=== PATIENT | female | born 1965 | race Caucasian/White ===

== ENCOUNTER → 2016-08-11 | Outpatient (CLI) | payer MEDICARE, MEDICAID ==
[~2016-08-11] MED LIST: /ESOM40CA OR; /ONDA4TA PO; /WARF5TA; ALAV10TA PO; ALLE25CA OR; AMITIZA OR; ATEN50TA2; BABY81CH; BISAC5TA PO; CALCTAB28 PO; CALCTAB75 PO; CARA1TAB2 PO; CLAR10CA3 PO; CLON1TAB OR; CLON1TAB PO; COLA100C2 OR; CREON 10 PO; CYCL10TA PO; DIFL150T PO; DOCQ100C PO; DRIS50002 PO; DULC5TAB PO; EMBEDA; ESTR1TAB PO; ESTRADIOL; FLONASE; FOLI1TAB; KETO-28; LEVSIN SL; LIDOPOW TOP; LIPI10TA PO; LIPI80TA; LISI5TAB PO; MELOPOW PO; METO10TA2 OR; MILKSUS; MIRALAX; MIRALAX POWDER PO; MOBI15TA PO; MOTR200T4 OR; MULTCAP PO; NEUR100C; NEXI20CA PO; NEXI20GR PO; OMEP40CA2 PO; PRIL20CA; RITA20TA OR; RITA20TA PO; ROBISYP5 PO; SAVELLA OR; SENEKOT OR; SENN8.6T76 PO; SENOKOT PO; SIME80CH PO; SKEL800T5 OR; SOMA350T; SYNT137T; THERGRAN OR; TIZA4TAB OR; TOPI50TA; TRAM50TA2 PO; TRAZO50TA PO; TYL PO; VAGI10TA VA; VALT500T OR; VALT500T PO; VICO5TAB; VICOBULK PO; VITA-130 PO; VITA200016 PO; VITAMIN D50000 UNT; VITAMIN D50000 UNT OR; ZANA4CAP OR; ZANT150T PO; ZOFR20TA PO; [UNRECOGNIZED DRUG - OTHER]; [UNRECOGNIZED DRUG - OTHER] PO; norco PO
[2016-08-11 17:05] LABS: BASO % 0.2 % (0.0-1.0); EOS # 0.1 K/mm3 (0.0-0.50); EOS % 1.1 % (0.0-3.0); LARGE UNSTAINED CELL # 0.1 K/mm3 (0.0-0.4); LARGE UNSTAINED CELL % 2.3 % (0.0-4.0); LYMPH # 1.3 K/mm3 (1.5-4.5); LYMPH % 24.8 % (24.0-44.0); MEAN CORPUSCULAR HEMOGLOBIN 29.2 pg (27.0-33.0); MEAN CORPUSCULAR HGB CONC 32.1 g/dl (32.0-36.5); MONO # 0.4 K/mm3 (0.0-0.8); MONO % 6.5 % (0.0-5.0); NEUTROPHILS # 3.5 K/mm3 (1.8-7.7); NEUTROPHILS % 65.1 % (36.0-66.0); PLATELET COUNT, AUTOMATED 189 k/mm3 (150-450); RED CELL DISTRIBUTION WIDTH 12.5 % (11.5-14.5); WHITE BLOOD COUNT 5.4 K/mm3 (4.0-10.0)
--- NOTE | 2016-08-11 17:21 | REP ---
Clinical: Acute upper respiratory tract infection. Technique: PA and lateral. Comparison: 04/11/2016. Findings: Aneurysmal dilatation to the ascending thoracic aorta is suspected based on lateral radiograph and should be correlated clinically. Lung mcelroy demonstrate chronic COPD type changes without consolidation, effusion, or pneumothorax. Skeletal structures intact. Impression: COPD without acute consolidation or effusion. Aneurysmal dilatation to the ascending thoracic aorta suspected and chest CT may be warranted. Signed by Trever Ma MD 08/11/2016 05:13 P
[2016-08-11 17:49] LABS: ANION GAP 10 MEQ/L (8-16); BLOOD UREA NITROGEN 21 MG/DL (7-18); CALCIUM LEVEL 8.6 MG/DL (8.5-10.1); CARBON DIOXIDE LEVEL 26 MEQ/L (21-32); CHLORIDE LEVEL 108 MEQ/L (98-107); CREATININE FOR GFR 0.95 MG/DL (0.55-1.02); GLOMERULAR FILTRATION RATE > 60.0 (>51); GLUCOSE, FASTING 119 MG/DL (70-105); POTASSIUM SERUM 3.9 MEQ/L (3.5-5.1); SODIUM LEVEL 144 MEQ/L (136-145)
== END ==
LOC: M LAB 16:38
PROVIDERS: ATTEND Student in an Organized Health Care Education/Training Program
DX: J06.9 Acute upper respiratory infection, unspecified (principal)

== ENCOUNTER 2016-08-16 16:07 | Emergency (ER) | payer MEDICARE, MEDICAID ==
[~2016-08-16] VITALS: Ht 172.7 cm; Wt 51.3 kg
[2016-08-16] MEDS ORDERED: TIOT18INH INH (16:45)
[2016-08-16] MEDS ORDERED: LINZ290C PO (16:45)
[2016-08-16] MEDS ORDERED: TRAZ10TA GT (16:45)
[2016-08-16] MEDS ORDERED: FIBE625T PO (16:45)
[2016-08-16] MEDS ORDERED: MIRA3350 PO (16:45)
[2016-08-16] MEDS ORDERED: NEXI1CAP4 PO (16:45)
[2016-08-16] MEDS ORDERED: MELO7.5T6 PO (16:45)
[2016-08-16] MEDS ORDERED: CLON1TAB PO (16:45)
[2016-08-16] MEDS ORDERED: ALBU17IN2 INH (16:45)
[2016-08-16] MEDS ORDERED: SENN1TAB2 PO (16:45)
[2016-08-16] MEDS ORDERED: ALBU83IN INH (16:45)
[2016-08-16] MEDS ORDERED: ADVA115A INH (16:45)
[2016-08-16] MEDS ORDERED: CALC600T57 PO (16:45)
[2016-08-16] MEDS ORDERED: NICO7DIS23 TD (16:45)
[2016-08-16] MEDS ORDERED: ASPI1TAB PO (16:53)
[2016-08-16 17:45] LABS: BASO % 0.4 % (0.0-1.0); EOS # 0.1 K/mm3 (0.0-0.50); LARGE UNSTAINED CELL # 0.2 K/mm3 (0.0-0.4); LARGE UNSTAINED CELL % 2.7 % (0.0-4.0); LYMPH # 2.4 K/mm3 (1.5-4.5); LYMPH % 34.6 % (24.0-44.0); MEAN CORPUSCULAR HEMOGLOBIN 30.9 pg (27.0-33.0); MEAN CORPUSCULAR HGB CONC 33.9 g/dl (32.0-36.5); MEAN CORPUSCULAR VOLUME 91.2 fl (80.0-96.0); MONO # 0.4 K/mm3 (0.0-0.8); MONO % 6.4 % (0.0-5.0); NEUTROPHILS # 3.5 K/mm3 (1.8-7.7); NEUTROPHILS % 54.9 % (36.0-66.0); PLATELET COUNT, AUTOMATED 169 k/mm3 (150-450); RED CELL DISTRIBUTION WIDTH 12.7 % (11.5-14.5); WHITE BLOOD COUNT 6.4 K/mm3 (4.0-10.0)
[2016-08-16 18:02] LABS: ANION GAP 8 MEQ/L (8-16); BLOOD UREA NITROGEN 21 MG/DL (7-18); CARBON DIOXIDE LEVEL 27 MEQ/L (21-32); CHLORIDE LEVEL 107 MEQ/L (98-107); CREATININE FOR GFR 0.96 MG/DL (0.55-1.02); GLOMERULAR FILTRATION RATE > 60.0 (>51); GLUCOSE, FASTING 89 MG/DL (70-105); POTASSIUM SERUM 3.4 MEQ/L (3.5-5.1); SODIUM LEVEL 142 MEQ/L (136-145)
--- NOTE | 2016-08-16 18:33 | REP ---
PORTABLE CHEST, ONE VIEW: HISTORY: Chest pain. COMPARISON: 08/11/2016 The lungs are hyperinflated. A minimal increase in interstitial markings is present in the lungs. The heart is normal in size. The pulmonary vasculature is normal in appearance. IMPRESSION: COPD. Signed by Saqib Barksdale MD 08/16/2016 06:35 P
[2016-08-16] MEDS ORDERED: PERCOCET 5MG/325MG TAB PO ONE (19:45)
[2016-08-16] MEDS ORDERED: ONDANSETRON 4MG/2ML VIAL (J2405) IV ONE (21:00)
--- NOTE | 2016-08-16 21:20 | REPUSA ---
CT of the chest without contrast Clinical statement: Shortness of breath. Technique: Multiple axial CT images were obtained with 5 mm cuts through the chest without administra tion of contrast. Comparison: . Findings: There is no thoracic lymphadenopathy. The visualized portions of the thyroid gland is unrem arkable. There are no pericardial or pleural effusions. There is severe diffuse emphysema which is gr ossly stable. No acute infiltrates or pulmonary nodules are appreciated. Limited imaging of the upper abdomen does not demonstrate any acute abnormalities. There are no suspicious osseous lesions. Impression: No acute intrapulmonary process. Severe diffuse emphysema.
[2016-08-16] MEDS ORDERED: MORPHINE 4 MG/ML 1ML SYRINGE IV ONE (22:15)
[2016-08-16 22:34] VITALS: BP 141/95
[2016-08-17] MEDS ORDERED: ONDANSETRON 4 MG ORAL DISINTEGRATING TAB (S0181) PO ONE (00:15)
--- NOTE | 2016-08-17 10:40 | ECGEPIP ---
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
== END 2016-08-17 00:26 | disposition home or self-care (01) ==
LOC: M ED 17:38
DX: R07.9 Chest pain, unspecified (principal); Z87.891 Personal history of nicotine dependence; Z79.899 Other long term (current) drug therapy; Z88.2 Allergy status to sulfonamides; Z88.8 Allergy status to other drugs, medicaments and biological substances; Z79.82 Long term (current) use of aspirin
CPT/HCPCS: 36415; 71010; 71250; 80048; 82550; 82553; 83880; 84484; 85025; 93005; 93041; 94760; 96374; 96375; 99285; J2405

== ENCOUNTER 2016-09-05 17:18 | Emergency (ER) | payer MEDICARE, MEDICAID ==
[~2016-09-05] VITALS: Ht 172.7 cm; Wt 52.2 kg
[~2016-09-05 17:18] MED LIST changes: +ADVA115A INH; +ALBU17IN2 INH; +ALBU83IN INH; +ASPI1TAB PO; +CALC600T57 PO; +FIBE625T PO; +LINZ290C PO; +MELO7.5T6 PO; +MIRA3350 PO; +NEXI1CAP4 PO; +NICO7DIS23 TD; +SENN1TAB2 PO; +TIOT18INH INH; +TRAZ10TA GT
[2016-09-05] MEDS ORDERED: HYDR-4274 PO (17:32)
[2016-09-05 18:47] LABS: MEAN CORPUSCULAR HEMOGLOBIN 31.4 pg (27.0-33.0); MEAN CORPUSCULAR HGB CONC 34.4 g/dl (32.0-36.5); MEAN CORPUSCULAR VOLUME 91.3 fl (80.0-96.0); RED CELL DISTRIBUTION WIDTH 12.2 % (11.5-14.5); WHITE BLOOD COUNT 3.6 K/mm3 (4.0-10.0)
[2016-09-05 19:06] LABS: ANION GAP 6 MEQ/L (8-16); BLOOD UREA NITROGEN 20 MG/DL (7-18); CALCIUM LEVEL 8.4 MG/DL (8.5-10.1); CARBON DIOXIDE LEVEL 28 MEQ/L (21-32); CHLORIDE LEVEL 110 MEQ/L (98-107); CREATININE FOR GFR 0.83 MG/DL (0.55-1.02); GLOMERULAR FILTRATION RATE > 60.0 (>51); GLUCOSE, FASTING 89 MG/DL (70-105); POTASSIUM SERUM 3.9 MEQ/L (3.5-5.1); SODIUM LEVEL 144 MEQ/L (136-145)
[2016-09-05] MEDS ORDERED: LORazepam 2 MG/ML VIAL (J2060) As Ordered ONE (19:31)
[2016-09-05] MEDS: LORazepam 2 MG/ML VIAL (J2060) IV STA (19:36)
--- NOTE | 2016-09-05 21:00 | REPUSA ---
CLINICAL HISTORY: -LEG NUMBNESS, NEUROPATHY TECHNIQUE: MRI of the brain was performed without administration of intravenous contrast material. T1 spine echo, T2 fast spin echo and FLAIR sequences were obtained in sagittal, axial and coronal plane s. FINDINGS: The sella and parasellar regions are unremarkable in appearance. The corpus callosum and cerebellar t onsils are of normal configuration and position. There are no intra or extra-axial collections. There is no mass effect or midline shift. There is no evidence of hematoma formation. There is no hydrocep halus. The brain stem shows no mass effects, infarcts or hemorrhage. There are no cerebellopontine tumors. T he acoustic nerves are symmetrical. No cerebellar intra-axial pathology delineated. The fourth ventri cruz and aqueduct are normal. No abnormalities of the optic nerves are identified. There is no evidenc e of atrophic or degenerative changes. No dural or subdural masses or collections are detected. The visualized arterial structures demonstrate normal appearing flow voids. The VII and VIII nerve bu ndles are visualized and are unremarkable in appearance. There are no suspicious signal abnormalities within the infra or supratentorial space. Mucosal thickening is seen involving bilateral ethmoid and maxillary sinuses compatible with chronic sinusitis. IMPRESSION: Chronic ethmoid and maxillary sinusitis, otherwise normal MRI of the brain. Thank you for your kind referral of this patient.
[2016-09-05] MEDS: KETOROLAC 30 MG/ML VIAL (J1885) IV ONE (21:57)
--- NOTE | 2016-09-05 23:20 | REPUSA ---
CLINICAL HISTORY: Leg numbness and neuropathy. TECHNIQUE: MRI of the lumbar spine was performed utilizing multiple sequences in axial and sagittal planes without IV contrast material. COMPARISON: Comparison is made with a prior study dated 08/22/2014. Overall, no significant interva l change. COMMENTS: The visualized osseous elements are intact with no evidence of fracture. Grade 1 anterolisthesis of L5 over S1 measures 5 mm. The marrow signals are within normal limits. The normal lordotic curvatur e of the lumbar spine is well maintained. The conus medullaris and cauda equina are within normal li mits. There is apparent fusion of L5-S1 and L4-L5. Moderate loss of disc space height is seen associated w ith Schmorl's nodes and chronic Modic changes. Evaluation of individual levels presents the following: At L5-S1, minimal residual bulging is seen. Canal and foramina are patent. Hypertrophic facet disea se is seen. At L4-L5, diffuse bulge is seen with spurring. Both foramina are mildly narrowed. Canal is patent. Hypertrophic facet disease contributes. At L3-L4, there is no disc herniation or bulge present. Canal and foramina are patent. Bilateral hy pertrophic facet disease is seen. L1-L2 and L2-L3 levels are unremarkable. IMPRESSION: 1. No significant interval change. 2. Grade 1 anterolisthesis of L5 over S1. 3. Postsurgical changes at L5-S1. 4. At L5-S1, minimal residual bulging is seen. Canal and foramina are patent. Hypertrophic facet di sease is seen. 5. At L4-L5, diffuse bulge is seen with spurring. Both foramina are mildly narrowed. Canal is paten t. Hypertrophic facet disease contributes. 6. At L3-L4, there is no disc herniation or bulge present. Canal and foramina are patent. Bilateral hypertrophic facet disease is seen. Thank you for your kind referral of this patient. We appreciate the opportunity to participate in thi s patient's care.
[2016-09-05 23:46] VITALS: BP 137/95
== END 2016-09-05 23:59 | disposition home or self-care (01) ==
LOC: M ED 17:57
DX: G60.9 Hereditary and idiopathic neuropathy, unspecified (principal); Z88.2 Allergy status to sulfonamides; Z88.1 Allergy status to other antibiotic agents; Z88.8 Allergy status to other drugs, medicaments and biological substances; Z79.899 Other long term (current) drug therapy; Z79.82 Long term (current) use of aspirin; I10 Essential (primary) hypertension; J44.9 Chronic obstructive pulmonary disease, unspecified; E78.00 Pure hypercholesterolemia, unspecified; Z87.442 Personal history of urinary calculi; F41.9 Anxiety disorder, unspecified; F32.9 Major depressive disorder, single episode, unspecified
CPT/HCPCS: 36415; 70551; 72148; 80048; 85027; 96374; 96375; 99284; J1885; J2060

== ENCOUNTER 2016-12-30 19:00 | Emergency (ER) | payer MEDICARE, MEDICAID ==
[~2016-12-30] VITALS: Ht 172.7 cm; Wt 58.9 kg
[~2016-12-30 19:00] MED LIST changes: +HYDR50TA70 PO; -MELO7.5T6 PO; +MELO7.5T7 PO; +NICO7DIS2 TD; -NICO7DIS23 TD; +VAGI10TA PV; -VAGI10TA VA; +VITA500T PO
[2016-12-30 19:16] VITALS: BP 196/95
[2016-12-30] MEDS ORDERED: LINZ290C PO (19:33)
[2016-12-30] MEDS ORDERED: CYMB1CAP4 PO (19:47)
[2016-12-30] MEDS: KETOROLAC 30 MG/ML VIAL (J1885) IV ONE (20:08)
[2016-12-30] MEDS: dexameTHASONE 20 MG/5 ML VIAL (J1100) IV ONE (20:16)
[2016-12-30 20:30] LABS: ABG BASE EXCESS 2.4 (-2.0-2.0); ABG HCO3 25.7 MEQ/L (22.0-26.0); ABG PARTIAL PRESSURE CO2 35.8 mmHg (35.0-45.0); ABG PARTIAL PRESSURE O2 110.6 mmHg (75.0-100.0); ABG STANDARD HCO3 26.6 MEQ/L (22.0-26.0); ABG TOTAL CO2 26.8 MEQ/L (22.0-29.0); ABG pH (ARTERIAL) 7.474 UNITS (7.350-7.450)
[2016-12-30 20:34] LABS: BASO % 0.2 % (0.0-1.0); EOS # 0.2 K/mm3 (0.0-0.50); EOS % 2.9 % (0.0-3.0); INR 1.02; LARGE UNSTAINED CELL # 0.2 K/mm3 (0.0-0.4); LARGE UNSTAINED CELL % 3.2 % (0.0-4.0); LYMPH # 1.8 K/mm3 (1.5-4.5); LYMPH % 32.7 % (24.0-44.0); MEAN CORPUSCULAR HEMOGLOBIN 30.6 pg (27.0-33.0); MEAN CORPUSCULAR HGB CONC 33.1 g/dl (32.0-36.5); MEAN CORPUSCULAR VOLUME 92.4 fl (80.0-96.0); MONO # 0.4 K/mm3 (0.0-0.8); MONO % 6.6 % (0.0-5.0); NEUTROPHILS % 54.4 % (36.0-66.0); PLATELET COUNT, AUTOMATED 157 k/mm3 (150-450); RED CELL DISTRIBUTION WIDTH 12.4 % (11.5-14.5); WHITE BLOOD COUNT 5.5 K/mm3 (4.0-10.0)
[2016-12-30 20:44] LABS: ANION GAP 5 MEQ/L (8-16); CALCIUM LEVEL 9.1 MG/DL (8.5-10.1); CARBON DIOXIDE LEVEL 27 MEQ/L (21-32); CHLORIDE LEVEL 109 MEQ/L (98-107); CREATININE FOR GFR 0.81 MG/DL (0.55-1.02); GLOMERULAR FILTRATION RATE > 60.0 (>51); GLUCOSE, FASTING 103 MG/DL (70-105); POTASSIUM SERUM 3.2 MEQ/L (3.5-5.1); SODIUM LEVEL 141 MEQ/L (136-145)
[2016-12-30 20:47] LABS: BLOOD UREA NITROGEN 16 MG/DL (7-18)
--- NOTE | 2016-12-30 21:50 | REPUSA ---
CLINICAL HISTORY: Headaches. TECHNIQUE: Multiple axial brain CT scan sections were obtained from base to vertex without contrast a dministration. COMMENTS: The study shows normal configuration of sella turcica. There are no intra or extra-axial collections. There is no mass effect or midline shift. There is no evidence of hematoma formation. No hydrocephal us is present. No abnormal calcifications are noted. No significant abnormalities are seen either in the posterior fossa or supratentorial compartment. The sinuses and mastoid air cells are patent. IMPRESSION: No evidence of acute intracranial pathology. Thank you for your kind referral of this patient.
[2016-12-30] MEDS: ACETAMINOPH W/CODEINE #3 TAB UD PO ONE (23:15)
[2016-12-31] MEDS ORDERED: PRED20TA PO (00:15)
--- NOTE | 2016-12-31 06:30 | REP ---
CHEST, TWO VIEWS: HISTORY: Chest pain. COMPARISON: 08/16/2016 The lungs are hyperinflated. A minimal increase in interstitial markings is present in the lungs. The heart is normal in size. The pulmonary vasculature is normal in appearance. The bony structure is intact. IMPRESSION: COPD. Signed by Saqib Barksdale MD 12/31/2016 07:58 A
--- NOTE | 2017-01-02 19:14 | ECGEPIP ---
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
== END 2016-12-31 00:43 | disposition home or self-care (01) ==
LOC: EDBD 19:00 → M ED 19:00
DX: J44.9 Chronic obstructive pulmonary disease, unspecified (principal); K21.9 Gastro-esophageal reflux disease without esophagitis; G89.29 Other chronic pain; Z79.51 Long term (current) use of inhaled steroids; Z79.82 Long term (current) use of aspirin; Z79.899 Other long term (current) drug therapy; Z88.2 Allergy status to sulfonamides; Z88.1 Allergy status to other antibiotic agents; Z88.5 Allergy status to narcotic agent; Z88.8 Allergy status to other drugs, medicaments and biological substances; Z91.09 Other allergy status, other than to drugs and biological substances
CPT/HCPCS: 36415; 36600; 70450; 71020; 80048; 82550; 82553; 82803; 84484; 85025; 85610; 85730; 93005; 96374; 96375; 99283; J1100; J1885

== ENCOUNTER 2017-01-04 14:08 | Emergency (ER) | payer MEDICARE, MEDICAID ==
[~2017-01-04] VITALS: Ht 172.7 cm; Wt 56.0 kg
[~2017-01-04 14:08] MED LIST changes: +CYMB1CAP4 PO; +PRED20TA PO
[2017-01-04] MEDS ORDERED: LABETALOL 100 MG TAB PO ONE (15:45)
--- NOTE | 2017-01-04 16:29 | REP ---
CT Head without contrast HISTORY: Headache COMPARISON: 12/30/2016 There is no intraparenchymal hemorrhage, acute infarct, mass or midline shift. The ventricular system is normal in appearance. The cortical sulci are dilated consistent with minimal volume loss. There is no extra cerebral collection. There is no fracture. The visualized sinuses are clear. IMPRESSION: Minimal volume loss. Signed by Saqib Barksdlae MD 01/04/2017 04:21 P
[2017-01-04 16:50] LABS: BASO % 0.2 % (0.0-1.0); EOS # 0.1 K/mm3 (0.0-0.50); EOS % 0.9 % (0.0-3.0); LARGE UNSTAINED CELL # 0.1 K/mm3 (0.0-0.4); LARGE UNSTAINED CELL % 1.6 % (0.0-4.0); LYMPH # 2.2 K/mm3 (1.5-4.5); LYMPH % 31.1 % (24.0-44.0); MEAN CORPUSCULAR HEMOGLOBIN 31.2 pg (27.0-33.0); MEAN CORPUSCULAR HGB CONC 34.2 g/dl (32.0-36.5); MEAN CORPUSCULAR VOLUME 91.2 fl (80.0-96.0); MONO # 0.5 K/mm3 (0.0-0.8); NEUTROPHILS # 4.1 K/mm3 (1.8-7.7); NEUTROPHILS % 59.2 % (36.0-66.0); PLATELET COUNT, AUTOMATED 176 k/mm3 (150-450); RED CELL DISTRIBUTION WIDTH 12.7 % (11.5-14.5); WHITE BLOOD COUNT 6.8 K/mm3 (4.0-10.0)
--- NOTE | 2017-01-04 17:03 | REP ---
Chest two views HISTORY: Hypertension Comparison: 12/30/2016 The lungs are clear. The heart is normal in size. The pulmonary vasculature is normal in appearance. The bony structure is intact. IMPRESSION: No acute disease. Signed by Saqib Barksdale MD 01/04/2017 04:54 P
[2017-01-04 17:21] LABS: ANION GAP 6 MEQ/L (8-16); BLOOD UREA NITROGEN 22 MG/DL (7-18); CALCIUM LEVEL 8.8 MG/DL (8.5-10.1); CARBON DIOXIDE LEVEL 30 MEQ/L (21-32); CHLORIDE LEVEL 106 MEQ/L (98-107); CREATININE FOR GFR 0.83 MG/DL (0.55-1.02); GLOMERULAR FILTRATION RATE > 60.0 (>51); GLUCOSE, FASTING 103 MG/DL (70-105); POTASSIUM SERUM 3.4 MEQ/L (3.5-5.1); SODIUM LEVEL 142 MEQ/L (136-145)
[2017-01-04] MEDS ORDERED: METOCLOPRAMIDE INJ 10MG/2ML VIAL (J2765) IV ONE (17:30)
[2017-01-04] MEDS ORDERED: LISINOPRIL 10 MG TAB PO ONE (18:15)
[2017-01-04 18:26] VITALS: BP 151/95
[2017-01-04] MEDS ORDERED: LISI10TA4 PO (18:31)
[2017-01-04 18:40] VITALS: BP 135/89
--- NOTE | 2017-01-04 19:52 | ECGEPIP ---
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
== END 2017-01-04 18:50 | disposition home or self-care (01) ==
LOC: M ED 14:08
DX: R51 Headache (principal); I10 Essential (primary) hypertension; J44.9 Chronic obstructive pulmonary disease, unspecified; K58.9 Irritable bowel syndrome, unspecified; M79.7 Fibromyalgia; Z88.1 Allergy status to other antibiotic agents; Z88.2 Allergy status to sulfonamides; Z88.8 Allergy status to other drugs, medicaments and biological substances; Z91.041 Radiographic dye allergy status; Z79.51 Long term (current) use of inhaled steroids; Z79.899 Other long term (current) drug therapy
CPT/HCPCS: 70450; 71020; 80048; 82550; 82553; 84484; 85025; 93005; 93041; 94760; 96374; 99284; J2765

== ENCOUNTER 2017-01-23 13:02 | Emergency (ER) | payer MEDICARE, MEDICAID ==
[~2017-01-23] VITALS: Ht 172.7 cm; Wt 59.1 kg
[~2017-01-23 13:02] MED LIST changes: +LISI10TA4 PO
[2017-01-23] MEDS ORDERED: MECLIZINE 25 MG TABLET PO ONE (15:00)
[2017-01-23 15:50] LABS: BASO % 0.2 % (0.0-1.0); EOS # 0.1 K/mm3 (0.0-0.50); EOS % 2.5 % (0.0-3.0); LARGE UNSTAINED CELL # 0.1 K/mm3 (0.0-0.4); LARGE UNSTAINED CELL % 2.4 % (0.0-4.0); LYMPH # 1.5 K/mm3 (1.5-4.5); MEAN CORPUSCULAR HEMOGLOBIN 30.3 pg (27.0-33.0); MEAN CORPUSCULAR HGB CONC 33.3 g/dl (32.0-36.5); MONO # 0.3 K/mm3 (0.0-0.8); MONO % 5.8 % (0.0-5.0); NEUTROPHILS # 2.7 K/mm3 (1.8-7.7); PLATELET COUNT, AUTOMATED 167 k/mm3 (150-450); RED CELL DISTRIBUTION WIDTH 12.7 % (11.5-14.5); WHITE BLOOD COUNT 4.6 K/mm3 (4.0-10.0)
[2017-01-23 16:09] LABS: ALBUMIN 3.4 GM/DL (3.2-5.2); ALBUMIN/GLOBULIN RATIO 1.36 (1.00-1.93); ALKALINE PHOSPHATASE 65 U/L (45-117); ALT/SGPT 30 U/L (12-78); ANION GAP 8 MEQ/L (8-16); AST/SGOT 25 U/L (15-37); BILIRUBIN,DIRECT < 0.1 MG/DL (0.0-0.2); BILIRUBIN,TOTAL 0.2 MG/DL (0.2-1.0); BLOOD UREA NITROGEN 20 MG/DL (7-18); CALCIUM LEVEL 7.8 MG/DL (8.5-10.1); CARBON DIOXIDE LEVEL 28 MEQ/L (21-32); CHLORIDE LEVEL 111 MEQ/L (98-107); GLOMERULAR FILTRATION RATE > 60.0 (>51); GLUCOSE, FASTING 92 MG/DL (70-105); SODIUM LEVEL 147 MEQ/L (136-145); TOTAL PROTEIN 5.9 GM/DL (6.4-8.2)
[2017-01-23 16:30] VITALS: BP 147/95
== END 2017-01-23 16:46 | disposition left against medical advice (07) ==
LOC: M ED 13:02 → EDBD 13:02 → M ED 16:46
DX: I10 Essential (primary) hypertension (principal); R42 Dizziness and giddiness; F32.9 Major depressive disorder, single episode, unspecified; R51 Headache; K59.9 Functional intestinal disorder, unspecified; M79.7 Fibromyalgia; M51.36 Other intervertebral disc degeneration, lumbar region; J44.9 Chronic obstructive pulmonary disease, unspecified; K58.9 Irritable bowel syndrome, unspecified; F17.200 Nicotine dependence, unspecified, uncomplicated; F12.90 Cannabis use, unspecified, uncomplicated; F41.9 Anxiety disorder, unspecified; Z87.442 Personal history of urinary calculi; Z90.49 Acquired absence of other specified parts of digestive tract; Z90.79 Acquired absence of other genital organ(s)

== ENCOUNTER → 2017-01-24 | Outpatient (REF) | payer MEDICARE, MEDICAID ==
[~2017-01-24] MED LIST changes: +CALCTAB68 PO; +ESOM0.1C PO; +FIBE625T4 PO; +LORA10TA2 PO; +MECL-68 PO; +RISP0.5T21 PO; +SERT50TA PO
== END ==
LOC: M SFHCWAGY 15:37
PROVIDERS: ATTEND Nurse Practitioner Women's Health
DX: N89.8 Other specified noninflammatory disorders of vagina (principal); L29.8 Other pruritus

== ENCOUNTER 2017-01-30 16:39 | Emergency (ER) | payer MEDICARE, MEDICAID ==
[~2017-01-30] VITALS: Ht 172.7 cm; Wt 58.2 kg
[~2017-01-30 16:39] MED LIST changes: -CALCTAB68 PO; -ESOM0.1C PO; -FIBE625T4 PO; -LORA10TA2 PO; -MECL-68 PO; -RISP0.5T21 PO; -SERT50TA PO
[2017-01-30 17:37] LABS: MEAN CORPUSCULAR HEMOGLOBIN 30.7 pg (27.0-33.0); MEAN CORPUSCULAR HGB CONC 32.7 g/dl (32.0-36.5); MEAN CORPUSCULAR VOLUME 93.9 fl (80.0-96.0); RED CELL DISTRIBUTION WIDTH 12.7 % (11.5-14.5); WHITE BLOOD COUNT 4.9 K/mm3 (4.0-10.0)
[2017-01-30 17:53] LABS: METHADONE URINE NEGATIVE (NEGATIVE)
[2017-01-30 18:02] LABS: ALBUMIN 3.8 GM/DL (3.2-5.2); ALBUMIN/GLOBULIN RATIO 1.23 (1.00-1.93); ALKALINE PHOSPHATASE 68 U/L (45-117); ALT/SGPT 28 U/L (12-78); ANION GAP 6 MEQ/L (8-16); AST/SGOT 17 U/L (15-37); BILIRUBIN,DIRECT < 0.1 MG/DL (0.0-0.2); BILIRUBIN,TOTAL 0.3 MG/DL (0.2-1.0); BLOOD UREA NITROGEN 19 MG/DL (7-18); CALCIUM LEVEL 8.7 MG/DL (8.5-10.1); CARBON DIOXIDE LEVEL 30 MEQ/L (21-32); CHLORIDE LEVEL 110 MEQ/L (98-107); CREATININE FOR GFR 0.91 MG/DL (0.55-1.02); GLOMERULAR FILTRATION RATE > 60.0 (>51); GLUCOSE, FASTING 82 MG/DL (70-105); POTASSIUM SERUM 4.1 MEQ/L (3.5-5.1); SODIUM LEVEL 146 MEQ/L (136-145); TOTAL PROTEIN 6.9 GM/DL (6.4-8.2)
[2017-01-30 19:17] VITALS: BP 142/98
[2017-01-31] MEDS ORDERED: CLON1TAB PO (12:30)
[2017-01-31] MEDS ORDERED: LISI10TA4 PO (12:33)
[2017-01-31] MEDS ORDERED: ESOM0.1C PO (17:33)
[2017-01-31] MEDS ORDERED: FIBE625T4 PO (18:26)
[2017-01-31] MEDS ORDERED: NICO7DIS2 TD (18:26)
[2017-01-31] MEDS ORDERED: MECL-68 PO (18:26)
[2017-01-31] MEDS ORDERED: LORA10TA2 PO (18:26)
[2017-01-31] MEDS ORDERED: CALCTAB68 PO (18:26)
== END 2017-01-30 19:19 | disposition home or self-care (01) ==
LOC: M ED 16:39
DX: F32.9 Major depressive disorder, single episode, unspecified (principal); F41.9 Anxiety disorder, unspecified; R51 Headache; M79.7 Fibromyalgia; F17.210 Nicotine dependence, cigarettes, uncomplicated; Z88.1 Allergy status to other antibiotic agents; Z88.2 Allergy status to sulfonamides; Z88.8 Allergy status to other drugs, medicaments and biological substances; Z91.041 Radiographic dye allergy status; Z91.048 Other nonmedicinal substance allergy status; Z79.899 Other long term (current) drug therapy

== ENCOUNTER 2017-01-31 12:18 | Inpatient (IN) | payer MEDICARE, MEDICAID ==
[~2017-01-31] VITALS: Ht 172.7 cm; Wt 58.4 kg
[2017-01-31] MEDS: NICOTINE 7 MG/24 HR TRANSDERMAL TD SCH (09:00)
[2017-01-31] MEDS ORDERED: CLON1TAB PO (12:30)
[2017-01-31] MEDS ORDERED: LISI10TA4 PO (12:33)
[2017-01-31] MEDS ORDERED: clonazePAM 1 MG TAB PO ONE (13:15)
[2017-01-31] MEDS ORDERED: LISINOPRIL 10 MG TAB PO ONE ×2 (13:15→23:00)
[2017-01-31 13:20] LABS: MEAN CORPUSCULAR HEMOGLOBIN 30.8 pg (27.0-33.0); MEAN CORPUSCULAR HGB CONC 33.4 g/dl (32.0-36.5); MEAN CORPUSCULAR VOLUME 91.2 fl (80.0-96.0); RED CELL DISTRIBUTION WIDTH 12.5 % (11.5-14.5); WHITE BLOOD COUNT 5.4 K/mm3 (4.0-10.0)
[2017-01-31] MEDS ORDERED: clonazePAM 0.5 MG TAB PO ONE (13:30)
[2017-01-31 13:41] LABS: METHADONE URINE NEGATIVE (NEGATIVE)
[2017-01-31 13:51] LABS: BLOOD UREA NITROGEN 18 MG/DL (7-18); CHLORIDE LEVEL 110 MEQ/L (98-107); CREATININE FOR GFR 0.97 MG/DL (0.55-1.02); GLOMERULAR FILTRATION RATE > 60.0 (>51); GLUCOSE, FASTING 128 MG/DL (70-105); POTASSIUM SERUM 3.9 MEQ/L (3.5-5.1); SODIUM LEVEL 145 MEQ/L (136-145)
[2017-01-31 13:52] LABS: ALBUMIN 3.9 GM/DL (3.2-5.2); ALBUMIN/GLOBULIN RATIO 1.22 (1.00-1.93); ALKALINE PHOSPHATASE 68 U/L (45-117); ALT/SGPT 31 U/L (12-78); ANION GAP 6 MEQ/L (8-16); AST/SGOT 23 U/L (15-37); BILIRUBIN,DIRECT 0.1 MG/DL (0.0-0.2); BILIRUBIN,TOTAL 0.4 MG/DL (0.2-1.0); CALCIUM LEVEL 9.3 MG/DL (8.5-10.1); CARBON DIOXIDE LEVEL 29 MEQ/L (21-32); TOTAL PROTEIN 7.1 GM/DL (6.4-8.2)
[2017-01-31] MEDS ORDERED: ESOM0.1C PO (17:33)
[2017-01-31] MEDS ORDERED: OMEPRAZOLE 20 MG CAP PO ONE (17:45)
[2017-01-31] MEDS ORDERED: NICO7DIS2 TD (18:26)
[2017-01-31] MEDS ORDERED: FIBE625T4 PO (18:26)
[2017-01-31] MEDS ORDERED: CALCTAB68 PO (18:26)
[2017-01-31] MEDS ORDERED: MECL-68 PO (18:26)
[2017-01-31] MEDS ORDERED: LORA10TA2 PO (18:26)
[2017-01-31] MEDS ORDERED: MAALOX 30 ML SUSP *UDC PO PRN (21:45)
[2017-01-31] MEDS ORDERED: MOM 30ML SUSPENSION UDC PO PRN (21:45)
[2017-01-31] MEDS ORDERED: LORazepam 1 MG TAB PO PRN (22:00)
[2017-01-31] MEDS ORDERED: LORazepam 2 MG TAB PO ONE (22:00)
[2017-01-31] MEDS ORDERED: ALBUTEROL 90 MCG/ACT 8GM HFA INHALER INH PRN (22:00)
[2017-01-31 22:29] VITALS: BP 162/98
[2017-01-31] MEDS: ADVAIR HFA 115/21MCG INHALER INH SCH (23:20)
[2017-02-01 06:53] VITALS: BP 81/56
[2017-02-01] MEDS ORDERED: LISINOPRIL 10 MG TAB PO SCH ×2 (09:00→21:00)
[2017-02-01] MEDS: NICOTINE 7 MG/24 HR TRANSDERMAL TD SCH (09:00)
[2017-02-01] MEDS ORDERED: SERTRALINE HCL 50 MG TAB PO SCH (09:00)
[2017-02-01] MEDS: ADVAIR HFA 115/21MCG INHALER INH SCH ×2 (09:09→22:19)
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
[2017-02-01] MEDS ORDERED: MIRALAX *UNIT DOSE* 17GM PACKET PO PRN (10:30)
[2017-02-01] MEDS ORDERED: FIBER-CON 625 MG TAB PO PRN (10:30)
[2017-02-01] MEDS: VITAMIN D 1,000 INTERNATIONAL UNITS TABLET PO SCH (11:14)
[2017-02-01] MEDS: LORATADINE 10 MG TAB PO SCH (11:14)
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
--- NOTE | 2017-02-01 12:04 | REP ---
CT ABDOMEN AND PELVIS WITHOUT CONTRAST: 02/01/2017. Clinical history: Abdominal pain. Comparison: 04/18/2016. Findings:CT abdomen: Noncontrast protocol with coronal and sagittal reconstructions provided. Lung bases show minor interstitial changes without pleural effusion, acute infiltrate, nodule or mass. No calcified pleural plaque. The heart is not enlarged. There is no pericardial thickening or effusion. I see no hepatosplenomegaly, focal hepatic or splenic lesion nor intrahepatic biliary dilatation. Clips from prior cholecystectomy noted, the visualized pancreas remains unremarkable. No peripancreatic edema, fluid collection or adenopathy. There are atherosclerotic calcifications of the abdominal aorta without aneurysm. Small periaortic nodes are noted without pathologic sized periaortic or other retroperitoneal/intra-abdominal lymphadenopathy. Stomach is unremarkable. There is no definite hiatal hernia. Colon and small bowel loops in the abdomen proper were intact. There is no ventral hernia. Lung window review of all CT slices in the abdomen and pelvis shows no free air, perforation or abscess. The kidneys show no evidence of hydronephrosis, stone, cyst or solid mass. No perinephric fluid. The ureters show normal course to the bladder and are without dilatation or stone anywhere along that course. Bladder without wall thickening, stone or mass. Bone windows show degenerative disc changes with fusion at L5-S1, marked disc space narrowing at L4-5 while the other disc space heights and all vertebral body heights are maintained. Bony fusion at the L5-S1 level is solid. The visualized ribs were intact. CT pelvis. The bony hips, pelvis, sacrum and SI joints grossly intact. Fusion at L5-S1 is evident and appears solid. No pelvic free fluid or adenopathy. The uterus is absent. Vaginal cuff intact. Small bowel loops unremarkable. Distal left colon, sigmoid and rectum were preserved. No ventral or inguinal hernia nor inguinal adenopathy. Small bowel loops deep pelvis intact. Impression: 1. No renal, ureteral or bladder stone. No hydronephrosis, solid or cystic mass in the kidneys. 2. Colon and small bowel loops without acute finding. 3. No gross hiatal hernia and the liver and spleen are without acute finding. 4. Prior cholecystectomy. Pancreas, adrenal glands, kidneys, bowel loops and abdominal wall were without any acute finding. Negative exam. Signed by Juan Dominguez MD 02/02/2017 08:43 A
[2017-02-01] MEDS ORDERED: LORazepam 1 MG TAB PO SCH (13:00)
[2017-02-01] MEDS: LORazepam 1 MG TAB PO SCH ×3 (14:04→22:16)
[2017-02-01] MEDS: risperiDONE 0.5 MG TAB PO SCH ×2 (14:04→22:16)
[2017-02-01] MEDS: SERTRALINE HCL 25 MG TABLET PO SCH (14:04)
[2017-02-01] MEDS: TIOTROPIUM INHALER/CAPSULE (SPIRIVA) INH SCH (14:04)
[2017-02-01] MEDS: ACETAMINOPHEN TAB 650MG DOSE (2X325MG) PO PRN (15:58)
[2017-02-01] MEDS: MECLIZINE 25 MG TABLET PO PRN (16:57)
[2017-02-01] MEDS: LINZESS 290 MG PO SCH (17:59)
[2017-02-01 18:00] VITALS: BP 131/78
[2017-02-01] MEDS: traZODone 50 MG TAB PO PRN (22:18)
[2017-02-02 06:50] VITALS: BP 89/59
[2017-02-02 08:02] LABS: BASO % 0.5 % (0.0-1.0); EOS # 0.1 K/mm3 (0.0-0.50); EOS % 2.5 % (0.0-3.0); LARGE UNSTAINED CELL # 0.2 K/mm3 (0.0-0.4); LARGE UNSTAINED CELL % 3.2 % (0.0-4.0); LYMPH # 1.8 K/mm3 (1.5-4.5); LYMPH % 37.7 % (24.0-44.0); MEAN CORPUSCULAR HEMOGLOBIN 30.6 pg (27.0-33.0); MEAN CORPUSCULAR HGB CONC 32.8 g/dl (32.0-36.5); MEAN CORPUSCULAR VOLUME 93.1 fl (80.0-96.0); MONO # 0.3 K/mm3 (0.0-0.8); MONO % 5.7 % (0.0-5.0); NEUTROPHILS # 2.4 K/mm3 (1.8-7.7); NEUTROPHILS % 50.4 % (36.0-66.0); PLATELET COUNT, AUTOMATED 180 k/mm3 (150-450); RED CELL DISTRIBUTION WIDTH 12.3 % (11.5-14.5); WHITE BLOOD COUNT 4.7 K/mm3 (4.0-10.0)
[2017-02-02] MEDS: LINZESS 290 MG PO SCH (08:08)
[2017-02-02 08:27] LABS: ALBUMIN 3.4 GM/DL (3.2-5.2); ALBUMIN/GLOBULIN RATIO 1.21 (1.00-1.93); ALKALINE PHOSPHATASE 59 U/L (45-117); ALT/SGPT 21 U/L (12-78); ANION GAP 5 MEQ/L (8-16); AST/SGOT 15 U/L (15-37); BILIRUBIN,TOTAL 0.4 MG/DL (0.2-1.0); BLOOD UREA NITROGEN 29 MG/DL (7-18); CALCIUM LEVEL 8.8 MG/DL (8.5-10.1); CARBON DIOXIDE LEVEL 33 MEQ/L (21-32); CHLORIDE LEVEL 107 MEQ/L (98-107); CREATININE FOR GFR 0.92 MG/DL (0.55-1.02); GLOMERULAR FILTRATION RATE > 60.0 (>51); GLUCOSE, FASTING 94 MG/DL (70-105); POTASSIUM SERUM 4.4 MEQ/L (3.5-5.1); SODIUM LEVEL 145 MEQ/L (136-145); TOTAL PROTEIN 6.2 GM/DL (6.4-8.2)
[2017-02-02] MEDS: LORazepam 1 MG TAB PO SCH ×2 (09:00→13:43)
[2017-02-02] MEDS: NICOTINE 7 MG/24 HR TRANSDERMAL TD SCH (09:00)
[2017-02-02] MEDS: LISINOPRIL 10 MG TAB PO SCH (09:00)
[2017-02-02] MEDS: ESOMEPRAZOLE 20 MG PO SCH (10:27)
[2017-02-02] MEDS: TIOTROPIUM INHALER/CAPSULE (SPIRIVA) INH SCH (10:31)
[2017-02-02] MEDS: ADVAIR HFA 115/21MCG INHALER INH SCH ×2 (10:32→20:33)
[2017-02-02] MEDS: VITAMIN D 1,000 INTERNATIONAL UNITS TABLET PO SCH (11:18)
[2017-02-02] MEDS: risperiDONE 0.5 MG TAB PO SCH ×2 (11:19→20:33)
[2017-02-02] MEDS: LORATADINE 10 MG TAB PO SCH (11:19)
[2017-02-02] MEDS: SERTRALINE HCL 25 MG TABLET PO SCH (11:19)
[2017-02-02] MEDS ORDERED: IBUPROFEN 400 MG TAB PO PRN (11:30)
[2017-02-02] MEDS: MECLIZINE 25 MG TABLET PO PRN ×2 (12:38→20:33)
[2017-02-02 15:20] VITALS: BP 114/78
[2017-02-02] MEDS: ACETAMINOPHEN TAB 650MG DOSE (2X325MG) PO PRN ×2 (15:48→23:47)
[2017-02-02 18:00] VITALS: BP 152/96
[2017-02-02] MEDS: LORazepam 0.5 MG TAB PO SCH (20:32)
[2017-02-02] MEDS: traZODone 50 MG TAB PO PRN (20:33)
[2017-02-03 06:27] VITALS: BP 91/54
[2017-02-03] MEDS: risperiDONE 0.5 MG TAB PO SCH (08:04)
[2017-02-03] MEDS: ESOMEPRAZOLE 20 MG PO SCH (08:04)
[2017-02-03] MEDS: LORATADINE 10 MG TAB PO SCH (08:04)
[2017-02-03] MEDS: LORazepam 0.5 MG TAB PO SCH (08:04)
[2017-02-03] MEDS: VITAMIN D 1,000 INTERNATIONAL UNITS TABLET PO SCH (08:04)
[2017-02-03] MEDS: LINZESS 290 MG PO SCH (08:05)
[2017-02-03] MEDS: ADVAIR HFA 115/21MCG INHALER INH SCH (08:05)
[2017-02-03] MEDS: TIOTROPIUM INHALER/CAPSULE (SPIRIVA) INH SCH (08:05)
[2017-02-03 08:07] VITALS: BP 91/54
[2017-02-03] MEDS: NICOTINE 7 MG/24 HR TRANSDERMAL TD SCH (08:07)
[2017-02-03] MEDS: LISINOPRIL 10 MG TAB PO SCH (08:07)
[2017-02-03] MEDS ORDERED: SERTRALINE HCL 50 MG TAB PO SCH (09:00)
[2017-02-03] MEDS ORDERED: TRAZO50TA PO (09:51)
[2017-02-03] MEDS ORDERED: SERT50TA PO (09:51)
[2017-02-03] MEDS ORDERED: RISP0.5T21 PO (09:51)
[2017-02-03] MEDS: ACETAMINOPHEN TAB 650MG DOSE (2X325MG) PO PRN (10:28)
[2017-02-03] MEDS: MECLIZINE 25 MG TABLET PO PRN (10:28)
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
--- NOTE | 2017-02-04 19:11 | MHIPN ---
DATE: 02/02/2017 A 51-year-old female with history of posttraumatic stress disorder (PTSD), major depressive disorder, severe, recurrent, without psychotic symptoms, and marijuana use disorder. SUBJECTIVE: The patient reports feeling well today. Says she slept very well. She has not slept in years and she is happy because of that. She states she continues to have problems related to her irritable bowel syndrome problem, knows that her mother is okay but cannot continue worrying about mom. The patient has made a decision to live her life and detach a little bit from mom because this enmeshed relationship is hurting her. OBJECTIVE: The patient is alert and oriented times three, cooperative with interview, with spontaneous speech, intact thought process and coherent thought content. The patient's mood fluctuates. Occasionally she becomes tearful but she is less sad and less depressed than yesterday. She jokes, smiles, and those are positive changes since yesterday. She denies any suicidal or homicidal ideations, denies thought delusions, denies auditory or visual hallucinations. Her memory is intact, attention and concentration are good, judgment and insight are slowly improving. ASSESSMENT: The patient is less depressed than yesterday, has a more reactive and appropriate affect, complains less of physical problems although she continues to talk about abdominal problems related to IBS. I spoke with the patient about the possibility of being discharge tomorrow and she has accepted since the patient has had a good response to medication and she is not suicidal and not homicidal. We will monitor closely and will followup.
== END 2017-02-03 11:50 | disposition home or self-care (01) | DRG 882 ==
LOC: M ED 12:18 → M ED INP 18:40 → M PSY 20:34
PROVIDERS: ADMIT Psychiatry & Neurology Psychiatry; ATTEND Psychiatry & Neurology Psychiatry
DX: F43.10 Post-traumatic stress disorder, unspecified (principal); F31.81 Bipolar II disorder; F60.3 Borderline personality disorder; F12.10 Cannabis abuse, uncomplicated; M51.36 Other intervertebral disc degeneration, lumbar region; G62.9 Polyneuropathy, unspecified; F41.9 Anxiety disorder, unspecified; J44.9 Chronic obstructive pulmonary disease, unspecified; K58.2 Mixed irritable bowel syndrome; M79.7 Fibromyalgia; J30.9 Allergic rhinitis, unspecified; K21.9 Gastro-esophageal reflux disease without esophagitis; R42 Dizziness and giddiness; Z87.440 Personal history of urinary (tract) infections; Z62.810 Personal history of physical and sexual abuse in childhood; Z91.410 Personal history of adult physical and sexual abuse; Z81.8 Family history of other mental and behavioral disorders; Z79.899 Other long term (current) drug therapy; Z88.2 Allergy status to sulfonamides; Z87.442 Personal history of urinary calculi; Z88.5 Allergy status to narcotic agent; Z88.8 Allergy status to other drugs, medicaments and biological substances; Z91.048 Other nonmedicinal substance allergy status; Z87.891 Personal history of nicotine dependence; Z91.5 Personal history of self-harm

== ENCOUNTER → 2017-03-20 | Outpatient (REF) | payer MEDICARE, MEDICAID ==
[~2017-03-20] MED LIST changes: +CALCTAB68 PO; +ESOM0.1C PO; +FIBE625T4 PO; +LORA10TA2 PO; +MECL-68 PO; +RISP0.5T21 PO; +SERT50TA PO
== END ==
LOC: M SFHCPLAZ 13:54
PROVIDERS: ATTEND Family Medicine
DX: E55.9 Vitamin D deficiency, unspecified (principal)

== ENCOUNTER → 2017-07-19 | Outpatient (CLI) | payer MEDICARE, MEDICAID | LOC: M SLEEP HO 14:34 | DX: R40.0 Somnolence (principal); R06.83 Snoring | CPT/HCPCS: G0399 ==

== ENCOUNTER → 2017-08-01 | Outpatient (CLI) | payer MEDICARE, MEDICAID | LOC: M WHC 15:01 | DX: Z12.31 Encounter for screening mammogram for malignant neoplasm of breast (principal); Z78.0 Asymptomatic menopausal state; Z92.29 Personal history of other drug therapy | CPT/HCPCS: 77067 ==

== ENCOUNTER → 2017-09-04 | Outpatient (REF) | payer MEDICARE, MEDICAID ==
[2017-09-04 18:32] LABS: AMORPHOUS SEDIMENT LARGE (NEGATIVE); APPEARANCE, URINE TURBID (CLEAR); BACTERIA, URINE AUTO NEGATIVE (NEGATIVE); BILIRUBIN, URINE AUTO NEGATIVE (NEGATIVE); BLOOD, URINE BLOOD NEGATIVE (NEGATIVE); CALCIUM OXALATE CRYSTALS SMALL; COLOR, URINE YELLOW (YELLOW); GLUCOSE, URINE (UA) AUTO NEGATIVE (NEGATIVE); KETONE, URINE AUTO NEGATIVE (NEGATIVE); LEUKOCYTE ESTERASE, URINE AUTO TRACE (NEGATIVE); NITRITE, URINE AUTO NEGATIVE (NEGATIVE); PROTEIN, URINE AUTO NEGATIVE (NEGATIVE); RBC, URINE AUTO 2 /HPF (0-3); SPECIFIC GRAVITY URINE AUTO 1.021 (1.002-1.035); SQUAMOUS EPITHELIAL CELL UR AU 0 /HPF (0-6); UROBILINOGEN, URINE AUTO 0.2 mg/dL (0.0-2.0); WBC, URINE AUTO 5 /HPF (0-3)
== END ==
LOC: M SMT 17:13
DX: N39.3 Stress incontinence (female) (male) (principal)
CPT/HCPCS: 81001

== ENCOUNTER → 2017-09-05 | Outpatient (CLI) | payer MEDICARE, MEDICAID | LOC: M RAD 16:14 | DX: R49.0 Dysphonia (principal) | CPT/HCPCS: 70490 ==

== ENCOUNTER 2017-11-01 13:55 | Emergency (ER) | payer MEDICARE, MEDICAID ==
[2017-11-01 15:06] LABS: BILIRUBIN, URINE MANUAL NEGATIVE (NEGATIVE); BLOOD URINE MANUAL RFX POSITIVE (NEGATIVE); GLUCOSE, URINE (UA) MANUAL NEGATIVE (NEGATIVE); KETONE, URINE MANUAL NEGATIVE (NEGATIVE); NITRITE, URINE MANUAL RFX NEGATIVE (NEGATIVE); PROTEIN, URINE MANUAL REFLEX 2+ mg/dL (NEGATIVE); UROBILINOGEN, URINE MANUAL NORMAL (NORMAL)
[2017-11-01 15:09] LABS: SP GRAVITY,URINE MANUAL REFLEX 1.022 (1.002-1.035)
[2017-11-01 15:16] LABS: AMORPHOUS SEDIMENT, URINE MOD AMOUNT (NEGATIVE); BACTERIA, URINE MOD AMOUNT; MUCUS, URINE SMALL AMOUNT (NEGATIVE); RBC, URINE TNTC /hpf (0-3); SQUAMOUS EPITHELIAL CELL URINE LARGE AMOUNT /hpf (SMALL AMT); WBC, URINE MAN RFX TNTC /hpf (0-3)
[2017-11-01 15:17] LABS: HYALINE CAST, URINE 0-1 /lpf (0-1); MICROSCOPIC EXAM PERFORMED
[2017-11-01] MEDS: ONDANSETRON 4MG/2ML VIAL (J2405) IV (15:30)
[2017-11-01] MEDS: MORPHINE 4 MG/ML 1ML VIAL/SYRINGE (J2270) IV (15:31)
[2017-11-01] MEDS: NS 1,000 ML IV (15:32)
[2017-11-01 15:35] LABS: BASO % 0.3 % (0.0-1.0); EOS # 0.1 10^3/uL (0.0-0.50); EOS % 1.2 % (0.0-3.0); HEMATOCRIT 44.1 % (36.0-47.0); HEMOGLOBIN 14.2 g/dl (12.0-15.5); IMMATURE GRANULOCYTE % 0.3 % (0-3.0); LYMPH # 0.9 10^3/uL (1.5-4.5); LYMPH % 15.4 % (24.0-44.0); MEAN CORPUSCULAR HEMOGLOBIN 28.9 pg (27.0-33.0); MEAN CORPUSCULAR HGB CONC 32.2 g/dl (32.0-36.5); MEAN CORPUSCULAR VOLUME 89.6 fl (80.0-96.0); MONO # 0.7 10^3/uL (0.0-0.8); MONO % 11.4 % (0.0-5.0); NEUTROPHILS # 4.3 10^3/uL (1.8-7.7); NEUTROPHILS % 71.4 % (36.0-66.0); PLATELET COUNT, AUTOMATED 149 10^3/uL (150-450); RED BLOOD COUNT 4.92 10^6/uL (4.00-5.40); RED CELL DISTRIBUTION WIDTH 13.3 % (11.5-14.5)
[2017-11-01 16:09] LABS: ANION GAP 5 MEQ/L (8-16); BLOOD UREA NITROGEN 19 MG/DL (7-18); CALCIUM LEVEL 8.8 MG/DL (8.5-10.1); CARBON DIOXIDE LEVEL 27 MEQ/L (21-32); CHLORIDE LEVEL 110 MEQ/L (98-107); CREATININE FOR GFR 1.12 MG/DL (0.55-1.30); GLUCOSE, FASTING 105 MG/DL (70-100); POTASSIUM SERUM 3.9 MEQ/L (3.5-5.1); SODIUM LEVEL 142 MEQ/L (136-145)
[2017-11-01] MEDS: KETOROLAC 30 MG/ML VIAL (J1885) IV (16:21)
== END 2017-11-01 17:25 | disposition home or self-care (01) ==
LOC: M ED 13:55
DX: N30.01 Acute cystitis with hematuria (principal); N10 Acute pyelonephritis; Z87.442 Personal history of urinary calculi; Z87.440 Personal history of urinary (tract) infections; Z88.8 Allergy status to other drugs, medicaments and biological substances; Z88.1 Allergy status to other antibiotic agents; Z88.5 Allergy status to narcotic agent; Z88.2 Allergy status to sulfonamides; Z91.048 Other nonmedicinal substance allergy status; Z79.899 Other long term (current) drug therapy; Z79.51 Long term (current) use of inhaled steroids
CPT/HCPCS: J2270

== ENCOUNTER 2017-11-22 14:08 | Emergency (ER) | payer MEDICARE, MEDICAID ==
[2017-11-22] MEDS: diphenhydrAMINE INJ 50MG/ML VIAL (J1200) IV (14:33)
[2017-11-22] MEDS: METOCLOPRAMIDE INJ 10MG/2ML VIAL (J2765) IV (14:45)
[2017-11-22] MEDS: KETOROLAC 30 MG/ML VIAL (J1885) IV (14:45)
[2017-11-22] MEDS: NS 1,000 ML IV (14:45)
[2017-11-22 15:02] LABS: BASO % 0.4 % (0.0-1.0); EOS % 0.6 % (0.0-3.0); HEMATOCRIT 43.6 % (36.0-47.0); HEMOGLOBIN 14.1 g/dl (12.0-15.5); IMMATURE GRANULOCYTE % 0.6 % (0-3.0); LYMPH # 1.2 10^3/uL (1.5-4.5); LYMPH % 18.1 % (24.0-44.0); MEAN CORPUSCULAR HGB CONC 32.3 g/dl (32.0-36.5); MEAN CORPUSCULAR VOLUME 89.5 fl (80.0-96.0); MONO # 0.4 10^3/uL (0.0-0.8); MONO % 6.4 % (0.0-5.0); NEUTROPHILS % 73.9 % (36.0-66.0); PLATELET COUNT, AUTOMATED 163 10^3/uL (150-450); RED BLOOD COUNT 4.87 10^6/uL (4.00-5.40); RED CELL DISTRIBUTION WIDTH 13.2 % (11.5-14.5); WHITE BLOOD COUNT 6.7 10^3/uL (4.0-10.0)
[2017-11-22 15:33] LABS: ANION GAP 8 MEQ/L (8-16); BLOOD UREA NITROGEN 13 MG/DL (7-18); CARBON DIOXIDE LEVEL 24 MEQ/L (21-32); CHLORIDE LEVEL 111 MEQ/L (98-107); CREATININE FOR GFR 1.04 MG/DL (0.55-1.30); GLOMERULAR FILTRATION RATE 58.8 (>51); GLUCOSE, FASTING 118 MG/DL (70-100); MAGNESIUM LEVEL 1.8 MG/DL (1.8-2.4); POTASSIUM SERUM 3.6 MEQ/L (3.5-5.1); SODIUM LEVEL 143 MEQ/L (136-145)
[2017-11-22] MEDS: ACETAMINOPHEN 325 MG TAB PO (15:36)
== END 2017-11-22 16:30 | disposition home or self-care (01) ==
LOC: M ED 14:08
DX: G44.209 Tension-type headache, unspecified, not intractable (principal); F41.9 Anxiety disorder, unspecified; F33.9 Major depressive disorder, recurrent, unspecified; Z86.69 Personal history of other diseases of the nervous system and sense organs; Z98.890 Other specified postprocedural states; Z86.718 Personal history of other venous thrombosis and embolism
CPT/HCPCS: J1200

== ENCOUNTER → 2017-11-28 | Outpatient (CLI) | payer MEDICARE, MEDICAID | LOC: M CARPUL 14:22 | DX: J43.1 Panlobular emphysema (principal) | CPT/HCPCS: 94060 ==

== ENCOUNTER → 2018-01-10 | Outpatient (CLI) | payer MEDICARE, MEDICAID | LOC: M SLEEP 19:44 | DX: R40.0 Somnolence (principal); R09.02 Hypoxemia | CPT/HCPCS: 95810 ==

== ENCOUNTER → 2018-05-07 | Outpatient (REF) | payer MEDICARE, MEDICAID ==
[2018-05-07 19:06] LABS: ESTIMATED AVERAGE GLUCOSE 114 MG/DL (60-110); HEMOGLOBIN A1c 5.6 %
== END ==
LOC: M SFHCPLAZ 16:01
DX: Z13.1 Encounter for screening for diabetes mellitus (principal); Z11.59 Encounter for screening for other viral diseases
CPT/HCPCS: 83036

== ENCOUNTER 2018-06-27 14:26 | Emergency (ER) | payer MEDICARE, MEDICAID ==
[~2018-06-27] VITALS: Ht 175.3 cm; Wt 59.1 kg
[~2018-06-27 14:26] MED LIST changes: +CIPR-249 PO; -CLON1TAB PO; +CLON1TAB8 PO; +CYCL5TAB PO; -DRIS50002 PO; +DRIS50003 PO; +IBUP80TA PO; -LORA10TA2 PO; +LORA10TA3 PO; +METH20TA29 PO; +PERC5TAB12 PO; +PYRI1TAB5 PO; +SERT-138 PO; -ZOFR20TA PO; +ZOFR4TAB16 PO
[2018-06-27] MEDS ORDERED: SERT-138 (14:42)
[2018-06-27] MEDS ORDERED: HYDR-643 (14:42)
[2018-06-27] MEDS ORDERED: NS 500 ML IV ONE (15:00)
[2018-06-27] MEDS ORDERED: ONDANSETRON 4MG/2ML VIAL (J2405) IV ONE (15:00)
[2018-06-27 15:19] LABS: BASO % 0.4 % (0.0-1.0); EOS # 0.1 10^3/uL (0.0-0.50); HEMOGLOBIN 14.1 g/dl (12.0-15.5); LYMPH # 0.9 10^3/uL (1.5-4.5); LYMPH % 18.8 % (24.0-44.0); MEAN CORPUSCULAR HEMOGLOBIN 28.8 pg (27.0-33.0); MEAN CORPUSCULAR HGB CONC 32.8 g/dl (32.0-36.5); MEAN CORPUSCULAR VOLUME 87.9 fl (80.0-96.0); MONO # 0.3 10^3/uL (0.0-0.8); MONO % 6.2 % (0.0-5.0); NEUTROPHILS # 3.7 10^3/uL (1.8-7.7); NEUTROPHILS % 73.4 % (36.0-66.0); PLATELET COUNT, AUTOMATED 154 10^3/uL (150-450); RED BLOOD COUNT 4.89 10^6/uL (4.00-5.40)
[2018-06-27 15:26] LABS: ALBUMIN 3.8 GM/DL (3.2-5.2); ALT/SGPT 12 U/L (12-78); BILIRUBIN,DIRECT < 0.1 MG/DL (0.0-0.2); BILIRUBIN,TOTAL 0.3 MG/DL (0.2-1.0); BLOOD UREA NITROGEN 9 MG/DL (7-18); CALCIUM LEVEL 8.6 MG/DL (8.5-10.1); CARBON DIOXIDE LEVEL 24 MEQ/L (21-32); CHLORIDE LEVEL 110 MEQ/L (98-107); CREATININE FOR GFR 0.96 MG/DL (0.55-1.30); GLOMERULAR FILTRATION RATE > 60.0 (>51); GLUCOSE, FASTING 120 MG/DL (70-100); LIPASE 122 U/L (73-393); POTASSIUM SERUM 3.2 MEQ/L (3.5-5.1); SODIUM LEVEL 141 MEQ/L (136-145); TOTAL PROTEIN 7.1 GM/DL (6.4-8.2)
[2018-06-27 15:28] LABS: INFLUENZA A AMPLIFICATION NEGATIVE (NEGATIVE); INFLUENZA B AMPLIFICATION NEGATIVE (NEGATIVE)
[2018-06-27] MEDS ORDERED: ACETAMINOPHEN TAB 650MG DOSE (2X325MG) As Ordered ONE (15:41)
[2018-06-27] MEDS ORDERED: ACETAMINOPHEN TAB 650MG DOSE (2X325MG) PO ONE (15:45)
--- NOTE | 2018-06-27 15:59 | REP ---
ABDOMEN, FLAT AND UPRIGHT PA CHEST, THREE VIEWS: HISTORY: Cough. COMPARISON: 04/11/2016 Air is present in small and large intestine. Several air fluid levels are present. There are no dilated loops of intestine. There is no pneumoperitoneum. The lungs are clear. IMPRESSION: Nonspecific bowel gas pattern. Electronically Signed by Saqib Barksdale MD 06/27/2018 04:10 P
[2018-06-27] MEDS ORDERED: POTASSIUM CHLORIDE 10 MEQ SR TABLET PO ONE (16:00)
[2018-06-27 17:05] VITALS: BP 147/87
== END 2018-06-27 17:07 | disposition home or self-care (01) ==
LOC: M ED 14:26
DX: A08.4 Viral intestinal infection, unspecified (principal); E87.6 Hypokalemia; I10 Essential (primary) hypertension; J44.9 Chronic obstructive pulmonary disease, unspecified; Z88.2 Allergy status to sulfonamides; Z79.899 Other long term (current) drug therapy; Z88.5 Allergy status to narcotic agent; Z88.8 Allergy status to other drugs, medicaments and biological substances; Z91.048 Other nonmedicinal substance allergy status; Z87.891 Personal history of nicotine dependence
CPT/HCPCS: 74021; 80048; 80076; 81001; 83690; 85025; 87502; 96374; 99284; J2405

== ENCOUNTER 2018-07-02 10:49 | Emergency (ER) | payer MEDICARE, MEDICAID ==
[~2018-07-02] VITALS: Ht 175.3 cm; Wt 57.9 kg
[~2018-07-02 10:49] MED LIST changes: +HYDR-643; +SERT-138
[2018-07-02] MEDS ORDERED: LORazepam 0.5 MG TAB PO STA (11:24)
[2018-07-02] MEDS ORDERED: NS 1,000 ML IV ONE (11:30)
[2018-07-02] MEDS ORDERED: ASPIRIN 81 MG CHEW TABLET PO ONE (11:30)
--- NOTE | 2018-07-02 12:13 | REP ---
CT Head without contrast HISTORY: Hallucinations COMPARISON: 11/22/2017 There is no intraparenchymal hemorrhage, acute infarct, mass or midline shift. The ventricular system is normal in appearance. There is no extra cerebral collection. There is no fracture. The visualized sinuses are clear. IMPRESSION: There is no intracranial lesion. Electronically Signed by Saqib Barksdale MD 07/02/2018 12:05 P
[2018-07-02 12:18] LABS: AMPHETAMINES LEVEL URINE NEGATIVE (NEGATIVE); BARBITURATES URINE NEGATIVE (NEGATIVE); BENZODIAZEPINES URINE NEGATIVE (NEGATIVE); CANNABINOIDS URINE POSITIVE (NEGATIVE); COCAINE METABOLITE URINE NEGATIVE (NEGATIVE); METHADONE URINE NEGATIVE (NEGATIVE); OPIATES URINE NEGATIVE (NEGATIVE); PHENCYCLIDINE URINE NEGATIVE (NEGATIVE)
--- NOTE | 2018-07-02 12:36 | REP ---
Chest one-view HISTORY: Cough Comparison: 01/04/2017 A minimal increase in interstitial markings is present in the lungs consistent with chronic interstitial change. The heart is normal in size. The pulmonary vasculature is normal in appearance. Impression: Chronic interstitial change. Electronically Signed by Saqib Barksdale MD 07/02/2018 12:28 P
[2018-07-02 13:00] LABS: BASO % 0.4 % (0.0-1.0); EOS # 0.1 10^3/uL (0.0-0.50); HEMATOCRIT 41.2 % (36.0-47.0); HEMOGLOBIN 13.5 g/dl (12.0-15.5); LYMPH % 19.2 % (24.0-44.0); MEAN CORPUSCULAR HEMOGLOBIN 28.7 pg (27.0-33.0); MEAN CORPUSCULAR HGB CONC 32.8 g/dl (32.0-36.5); MEAN CORPUSCULAR VOLUME 87.7 fl (80.0-96.0); MONO # 0.4 10^3/uL (0.0-0.8); MONO % 7.8 % (0.0-5.0); NEUTROPHILS # 3.7 10^3/uL (1.8-7.7); PLATELET COUNT, AUTOMATED 163 10^3/uL (150-450); WHITE BLOOD COUNT 5.2 10^3/uL (4.0-10.0)
[2018-07-02 13:03] LABS: VENOUS BASE EXCESS -0.9 (-2.0-2.0); VENOUS O2 SATURATION 78.4 % (60.0-80.0); VENOUS PARTIAL PRESSURE CO2 35.7 mmHg (38.0-50.0); VENOUS PARTIAL PRESSURE O2 42.5 mmHg (30.0-50.0); VENOUS PH 7.426 UNITS (7.330-7.430); VENOUS STANDARD HCO3 23.3 MEQ/L
[2018-07-02] MEDS ORDERED: amLODIPine 5 MG TAB PO ONE (13:15)
[2018-07-02 13:32] LABS: ALBUMIN 4.1 GM/DL (3.2-5.2); ALT/SGPT 14 U/L (12-78); BILIRUBIN,DIRECT 0.1 MG/DL (0.0-0.2); BILIRUBIN,TOTAL 0.5 MG/DL (0.2-1.0); CPK CREATINE PHOSPHOKINASE 118 U/L (26-192); MB/CK RELATIVE INDEX 1.95 (< OR =4); TROPONIN I < 0.02 NG/ML (< 0.10)
[2018-07-02 13:34] LABS: ALBUMIN 3.8 GM/DL (3.2-5.2); ALT/SGPT 14 U/L (12-78); BILIRUBIN,DIRECT 0.1 MG/DL (0.0-0.2); BILIRUBIN,TOTAL 0.4 MG/DL (0.2-1.0); BLOOD UREA NITROGEN 17 MG/DL (7-18); CALCIUM LEVEL 8.7 MG/DL (8.5-10.1); CARBON DIOXIDE LEVEL 24 MEQ/L (21-32); CHLORIDE LEVEL 109 MEQ/L (98-107); CPK CREATINE PHOSPHOKINASE 115 U/L (26-192); CREATININE FOR GFR 0.91 MG/DL (0.55-1.30); GLOMERULAR FILTRATION RATE > 60.0 (>51); GLUCOSE, FASTING 93 MG/DL (70-100); MB/CK RELATIVE INDEX 2.09 (< OR =4); NT-PRO BNP 413 PG/ML (<125); POTASSIUM SERUM 3.6 MEQ/L (3.5-5.1); SODIUM LEVEL 144 MEQ/L (136-145); TOTAL PROTEIN 7.3 GM/DL (6.4-8.2); TROPONIN I < 0.02 NG/ML (< 0.10)
[2018-07-02 13:35] LABS: INR 1.02; PROTHROMBIN TIME 13.5 SECONDS (12.1-14.4)
[2018-07-02 13:41] VITALS: BP 168/93
[2018-07-02] MEDS ORDERED: LUNE2TAB23 PO (14:20)
[2018-07-02] MEDS ORDERED: AMLO25TA PO (14:23)
--- NOTE | 2018-07-02 14:50 | ECGEPIP ---
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
[2018-07-02 14:51] VITALS: BP 155/98
== END 2018-07-02 15:00 | disposition home or self-care (01) ==
LOC: M ED 10:49
DX: R44.3 Hallucinations, unspecified (principal); R07.89 Other chest pain; F41.9 Anxiety disorder, unspecified; I10 Essential (primary) hypertension; G47.00 Insomnia, unspecified; R94.6 Abnormal results of thyroid function studies; J44.9 Chronic obstructive pulmonary disease, unspecified; E78.5 Hyperlipidemia, unspecified

== ENCOUNTER 2018-07-03 16:32 | Emergency (ER) | payer MEDICARE, MEDICAID ==
[~2018-07-03] VITALS: Ht 172.7 cm; Wt 59.1 kg
[~2018-07-03 16:32] MED LIST changes: +AMLO25TA PO; +LUNE2TAB23 PO
[2018-07-03 18:14] LABS: APPEARANCE, URINE CLEAR (CLEAR); BACTERIA, URINE AUTO NEGATIVE (NEGATIVE); BILIRUBIN, URINE AUTO NEGATIVE (NEGATIVE); BLOOD, URINE BLOOD 2+ (NEGATIVE); COLOR, URINE STRAW (YELLOW); GLUCOSE, URINE (UA) AUTO NEGATIVE (NEGATIVE); KETONE, URINE AUTO NEGATIVE (NEGATIVE); LEUKOCYTE ESTERASE, URINE AUTO NEGATIVE (NEGATIVE); MUCUS, URINE SMALL (NEGATIVE); NITRITE, URINE AUTO NEGATIVE (NEGATIVE); PROTEIN, URINE AUTO NEGATIVE (NEGATIVE); RBC, URINE AUTO 1 /HPF (0-3); SPECIFIC GRAVITY URINE AUTO 1.006 (1.002-1.035); SQUAMOUS EPITHELIAL CELL UR AU 0 /HPF (0-6); UROBILINOGEN, URINE AUTO 0.2 mg/dL (0.0-2.0); WBC, URINE AUTO 1 /HPF (0-3)
--- NOTE | 2018-07-03 18:15 | REPVR ---
EXAM: CT Head Without Contrast EXAM DATE/TIME: 07/03/2018 6:02 PM CLINICAL HISTORY: 53 years old, female; Pain; Headache; Headache not specified TECHNIQUE: Axial computed tomography images of the head/brain without contrast. All CT scans at this facility use at least one of these dose optimization techniques: automated exposure control; mA and/or kV adjustment per patient size (includes targeted exams where dose is matched to clinical indication); or iterative reconstruction. COMPARISON: CT Head without contrast 07/02/2018 11:46 AM FINDINGS: Brain: There is no evidence of infarct, blackburn-white matter differentiation is preserved. There is no hemorrhage or extra-axial collection. There is no mass. Ventricles: There is no hydrocephalus. Bones/joints: Normal. No acute fracture. Sinuses: Normal as visualized. No acute sinusitis. Mastoid air cells: Normal as visualized. No mastoid effusion. Soft tissues: Normal. IMPRESSION: No intracranial lesion or injury and no change from prior scan. Electronically signed by: Dirk Guan On 07/03/2018 18:15:17 PM
[2018-07-03 18:28] LABS: BASO % 0.3 % (0.0-1.0); EOS # 0.1 10^3/uL (0.0-0.50); EOS % 1.2 % (0.0-3.0); HEMATOCRIT 42.6 % (36.0-47.0); HEMOGLOBIN 13.8 g/dl (12.0-15.5); LYMPH # 1.3 10^3/uL (1.5-4.5); LYMPH % 22.2 % (24.0-44.0); MEAN CORPUSCULAR HEMOGLOBIN 28.7 pg (27.0-33.0); MEAN CORPUSCULAR HGB CONC 32.4 g/dl (32.0-36.5); MEAN CORPUSCULAR VOLUME 88.6 fl (80.0-96.0); MONO # 0.5 10^3/uL (0.0-0.8); NEUTROPHILS # 3.9 10^3/uL (1.8-7.7); PLATELET COUNT, AUTOMATED 172 10^3/uL (150-450); RED BLOOD COUNT 4.81 10^6/uL (4.00-5.40); WHITE BLOOD COUNT 5.7 10^3/uL (4.0-10.0)
[2018-07-03] MEDS ORDERED: LISINOPRIL 10 MG TAB PO ONE (18:30)
[2018-07-03] MEDS ORDERED: amLODIPine 10 MG TAB PO ONE (18:30)
[2018-07-03] MEDS ORDERED: LORazepam 2 MG/ML VIAL (J2060) IV STA (18:30)
[2018-07-03] MEDS ORDERED: KETOROLAC 30 MG/ML VIAL (J1885) IV ONE (18:30)
[2018-07-03] MEDS ORDERED: METOCLOPRAMIDE INJ 10MG/2ML VIAL (J2765) IV ONE (18:30)
[2018-07-03 18:55] LABS: BLOOD UREA NITROGEN 11 MG/DL (7-18); CARBON DIOXIDE LEVEL 22 MEQ/L (21-32); CHLORIDE LEVEL 114 MEQ/L (98-107); CREATININE FOR GFR 0.65 MG/DL (0.55-1.30); GLOMERULAR FILTRATION RATE > 60.0 (>51); GLUCOSE, FASTING 88 MG/DL (70-100); POTASSIUM SERUM 3.2 MEQ/L (3.5-5.1); SODIUM LEVEL 146 MEQ/L (136-145)
[2018-07-03 19:05] VITALS: BP 147/96
[2018-07-03 20:15] VITALS: BP 131/91
--- NOTE | 2018-07-03 20:25 | ECGEPIP ---
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
== END 2018-07-03 20:45 | disposition home or self-care (01) ==
LOC: M ED 16:32 → EDBD 16:32 → M ED 20:45
DX: I10 Essential (primary) hypertension (principal); F41.9 Anxiety disorder, unspecified; E83.51 Hypocalcemia; E87.6 Hypokalemia; M79.7 Fibromyalgia; J45.909 Unspecified asthma, uncomplicated; F17.200 Nicotine dependence, unspecified, uncomplicated; Z88.8 Allergy status to other drugs, medicaments and biological substances; Z88.1 Allergy status to other antibiotic agents; Z88.5 Allergy status to narcotic agent; Z88.2 Allergy status to sulfonamides; Z91.048 Other nonmedicinal substance allergy status; Z79.899 Other long term (current) drug therapy; Z79.51 Long term (current) use of inhaled steroids
CPT/HCPCS: 70450; 80048; 81001; 85025; 93005; 96374; 96375; 99285; J1885; J2060; J2765

== ENCOUNTER 2018-09-27 10:55 | Emergency (ER) | payer MEDICARE, MEDICAID ==
[~2018-09-27] VITALS: Ht 172.7 cm; Wt 57.3 kg
[~2018-09-27 10:55] MED LIST changes: -/ESOM40CA OR; -/ONDA4TA PO; -/WARF5TA; -ASPI1TAB PO; +ASPI81TA26 PO; +CALC625T13 PO; +COUM1TAB17; -FIBE625T4 PO; +NEXI1CAP3 OR; +ONDA-1 PO; -SENN1TAB2 PO; +SENN1TAB40 PO; -SERT-138; +SERT-141 PO; -SERT50TA PO; +TRAZ1TAB6 PO
[2018-09-27] MEDS ORDERED: ASPI81CH33 PO (11:17)
[2018-09-27] MEDS ORDERED: CALC-205 PO (11:17)
[2018-09-27] MEDS ORDERED: VALS1TAB67 PO (11:17)
[2018-09-27 11:39] LABS: BASO % 0.4 % (0.0-1.0); EOS # 0.1 10^3/uL (0.0-0.50); EOS % 2.2 % (0.0-3.0); HEMATOCRIT 39.6 % (36.0-47.0); HEMOGLOBIN 12.8 g/dl (12.0-15.5); LYMPH # 0.8 10^3/uL (1.5-4.5); LYMPH % 17.2 % (24.0-44.0); MEAN CORPUSCULAR HEMOGLOBIN 28.5 pg (27.0-33.0); MEAN CORPUSCULAR HGB CONC 32.3 g/dl (32.0-36.5); MEAN CORPUSCULAR VOLUME 88.2 fl (80.0-96.0); MONO # 0.3 10^3/uL (0.0-0.8); MONO % 6.9 % (0.0-5.0); NEUTROPHILS # 3.3 10^3/uL (1.8-7.7); NEUTROPHILS % 72.9 % (36.0-66.0); PLATELET COUNT, AUTOMATED 143 10^3/uL (150-450); RED BLOOD COUNT 4.49 10^6/uL (4.00-5.40); WHITE BLOOD COUNT 4.5 10^3/uL (4.0-10.0)
[2018-09-27 12:08] LABS: BLOOD UREA NITROGEN 12 MG/DL (7-18); CALCIUM LEVEL 8.3 MG/DL (8.5-10.1); CARBON DIOXIDE LEVEL 28 MEQ/L (21-32); CHLORIDE LEVEL 109 MEQ/L (98-107); CPK CREATINE PHOSPHOKINASE 94 U/L (26-192); GLOMERULAR FILTRATION RATE > 60.0 (>51); GLUCOSE, FASTING 77 MG/DL (70-100); MB/CK RELATIVE INDEX 1.28 (< OR =4); POTASSIUM SERUM 3.6 MEQ/L (3.5-5.1); SODIUM LEVEL 144 MEQ/L (136-145); TROPONIN I < 0.02 NG/ML (< 0.10)
[2018-09-27] MEDS ORDERED: amLODIPine 5 MG TAB PO ONE (12:15)
[2018-09-27] MEDS ORDERED: ACETAMINOPHEN 500 MG TAB PO ONE (12:15)
[2018-09-27 12:38] VITALS: BP 160/90
--- NOTE | 2018-09-27 13:02 | REP ---
PA and lateral chest: Comparison is 01/04/2017. There is chronic hyperinflation, unchanged. The lung mcelroy are clear. The cardiac size is normal. The heaven, mediastinum, and skeletal structures are unremarkable. Impression: Chronic hyperinflation, otherwise negative PA and lateral chest. No interval change. Electronically Signed by Shan Carranza MD 09/27/2018 12:53 P
[2018-09-27 13:22] LABS: INFLUENZA A AMPLIFICATION NEGATIVE (NEGATIVE); INFLUENZA B AMPLIFICATION NEGATIVE (NEGATIVE)
[2018-09-27] MEDS ORDERED: KETOROLAC 30 MG/ML VIAL (J1885) IV ONE (13:45)
[2018-09-27] MEDS ORDERED: NS 1,000 ML IV ONE (13:45)
[2018-09-27 15:00] VITALS: BP 144/90
--- NOTE | 2018-09-27 15:54 | ECGEPIP ---
Stationary ECG Study [facility] - ED Test Date: 2018-09-27 Pat Name: ANA PAULA MARRERO Department: Room: - Gender: F County Administrator: : 1965 Requested By: Kai Eduardo Order Number: [id number] Reading MD: Liu Alcantara Measurements Intervals [place] Rate: 54 P: 68 ID: [id number] QRS: -59 QRSD: 92 T: 25 QT: 429 QTc: 410 Interpretive Statements SINUS BRADYCARDIA Left axis deviation Nonspecific ST-T wave abnormalities Rate decreased from tracing done 07-03-18 Electronically Signed On 09-27-2018 15:54:34 EDT by iLu Alcantara
== END 2018-09-27 15:18 | disposition home or self-care (01) ==
LOC: EDBD 10:55 → M ED 10:55
DX: I10 Essential (primary) hypertension (principal); R51 Headache; J44.9 Chronic obstructive pulmonary disease, unspecified; M79.7 Fibromyalgia; N80.9 Endometriosis, unspecified; Z87.891 Personal history of nicotine dependence; Z88.2 Allergy status to sulfonamides; Z88.8 Allergy status to other drugs, medicaments and biological substances; Z88.1 Allergy status to other antibiotic agents; Z91.048 Other nonmedicinal substance allergy status; Z79.899 Other long term (current) drug therapy; Z79.890 Hormone replacement therapy; Z79.51 Long term (current) use of inhaled steroids; Z79.82 Long term (current) use of aspirin
CPT/HCPCS: 36415; 71046; 80048; 82550; 82553; 84484; 85025; 87502; 93005; 96374; 99284; J1885

== ENCOUNTER 2018-10-08 14:18 | Emergency (ER) | payer MEDICARE, MEDICAID ==
[~2018-10-08] VITALS: Ht 172.7 cm; Wt 58.2 kg
[~2018-10-08 14:18] MED LIST changes: +ASPI81CH33 PO; +CALC-205 PO; +VALS1TAB67 PO
[2018-10-08 15:01] LABS: BASO % 0.5 % (0.0-1.0); EOS # 0.1 10^3/uL (0.0-0.50); EOS % 0.9 % (0.0-3.0); HEMATOCRIT 43.9 % (36.0-47.0); HEMOGLOBIN 14.3 g/dl (12.0-15.5); LYMPH # 1.3 10^3/uL (1.5-4.5); LYMPH % 19.8 % (24.0-44.0); MEAN CORPUSCULAR HEMOGLOBIN 28.6 pg (27.0-33.0); MEAN CORPUSCULAR HGB CONC 32.6 g/dl (32.0-36.5); MEAN CORPUSCULAR VOLUME 87.8 fl (80.0-96.0); MONO # 0.5 10^3/uL (0.0-0.8); MONO % 7.6 % (0.0-5.0); NEUTROPHILS # 4.6 10^3/uL (1.8-7.7); NEUTROPHILS % 70.9 % (36.0-66.0); PLATELET COUNT, AUTOMATED 211 10^3/uL (150-450); WHITE BLOOD COUNT 6.5 10^3/uL (4.0-10.0)
--- NOTE | 2018-10-08 15:16 | REP ---
PORTABLE CHEST: Two AP portable views of the chest are performed. Comparison is made with a prior study of 09/27/2018. There is no acute infiltrate. There is hyperinflation with bibasilar fibrotic change, stable. The heart is normal in size. The mediastinal silhouette is unchanged. IMPRESSION: Findings of COPD without evidence of acute infiltrate. Electronically Signed by Shan Alcala MD 10/08/2018 06:31 P
[2018-10-08 15:32] LABS: BLOOD UREA NITROGEN 24 MG/DL (7-18); CALCIUM LEVEL 9.1 MG/DL (8.5-10.1); CARBON DIOXIDE LEVEL 26 MEQ/L (21-32); CHLORIDE LEVEL 107 MEQ/L (98-107); CPK CREATINE PHOSPHOKINASE 100 U/L (26-192); CREATININE FOR GFR 0.96 MG/DL (0.55-1.30); GLOMERULAR FILTRATION RATE > 60.0 (>51); GLUCOSE, FASTING 106 MG/DL (70-100); POTASSIUM SERUM 3.6 MEQ/L (3.5-5.1); SODIUM LEVEL 141 MEQ/L (136-145); TROPONIN I < 0.02 NG/ML (< 0.10)
[2018-10-08 18:46] LABS: CPK CREATINE PHOSPHOKINASE 88 U/L (26-192); MB/CK RELATIVE INDEX 1.48 (< OR =4); TROPONIN I < 0.02 NG/ML (< 0.10)
[2018-10-08 19:30] VITALS: BP 120/77
--- NOTE | 2018-10-09 01:38 | ECGEPIP ---
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
--- NOTE | 2018-10-09 01:42 | ECGEPIP ---
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
== END 2018-10-08 19:48 | disposition home or self-care (01) ==
LOC: EDBD 14:18 → M ED 14:18
DX: R07.89 Other chest pain (principal); R42 Dizziness and giddiness; R06.02 Shortness of breath; I10 Essential (primary) hypertension; F17.200 Nicotine dependence, unspecified, uncomplicated; Z91.041 Radiographic dye allergy status; Z88.2 Allergy status to sulfonamides; Z88.8 Allergy status to other drugs, medicaments and biological substances; Z88.1 Allergy status to other antibiotic agents; Z91.048 Other nonmedicinal substance allergy status; Z79.899 Other long term (current) drug therapy; Z79.51 Long term (current) use of inhaled steroids; Z79.82 Long term (current) use of aspirin

== ENCOUNTER 2018-10-10 10:22 | Inpatient (IN) | payer MEDICARE, MEDICAID ==
[~2018-10-10] VITALS: Ht 174 cm; Wt 58.2 kg
[2018-10-10] MEDS ORDERED: MECLIZINE 25 MG TABLET PO ONE (11:00)
[2018-10-10 11:02] LABS: BASO % 0.4 % (0.0-1.0); EOS # 0.1 10^3/uL (0.0-0.50); HEMATOCRIT 43.9 % (36.0-47.0); HEMOGLOBIN 14.3 g/dl (12.0-15.5); LYMPH # 1.6 10^3/uL (1.5-4.5); MEAN CORPUSCULAR HEMOGLOBIN 28.7 pg (27.0-33.0); MEAN CORPUSCULAR HGB CONC 32.6 g/dl (32.0-36.5); MEAN CORPUSCULAR VOLUME 88.2 fl (80.0-96.0); MONO # 0.8 10^3/uL (0.0-0.8); MONO % 8.4 % (0.0-5.0); NEUTROPHILS # 6.4 10^3/uL (1.8-7.7); NEUTROPHILS % 71.9 % (36.0-66.0); PLATELET COUNT, AUTOMATED 194 10^3/uL (150-450); RED BLOOD COUNT 4.98 10^6/uL (4.00-5.40); WHITE BLOOD COUNT 8.9 10^3/uL (4.0-10.0)
[2018-10-10 11:12] LABS: INR 1.03; PROTHROMBIN TIME 13.6 SECONDS (12.1-14.4)
[2018-10-10 11:13] LABS: PARTIAL THROMBOPLASTIN TIME 26.9 SECONDS (25.4-37.6)
[2018-10-10 11:30] LABS: ALBUMIN 4.2 GM/DL (3.2-5.2); ALT/SGPT 19 U/L (12-78); BILIRUBIN,DIRECT 0.1 MG/DL (0.0-0.2); BILIRUBIN,TOTAL 0.5 MG/DL (0.2-1.0); BLOOD UREA NITROGEN 40 MG/DL (7-18); CALCIUM LEVEL 9.1 MG/DL (8.5-10.1); CARBON DIOXIDE LEVEL 29 MEQ/L (21-32); CHLORIDE LEVEL 103 MEQ/L (98-107); CPK CREATINE PHOSPHOKINASE 140 U/L (26-192); CREATININE FOR GFR 1.37 MG/DL (0.55-1.30); FREE T4 1.09 NG/DL (0.76-1.46); GLOMERULAR FILTRATION RATE 42.6 (>51); GLUCOSE, FASTING 106 MG/DL (70-100); LIPASE 161 U/L (73-393); MB/CK RELATIVE INDEX 1.29 (< OR =4); POTASSIUM SERUM 3.4 MEQ/L (3.5-5.1); SODIUM LEVEL 140 MEQ/L (136-145); TOTAL PROTEIN 7.4 GM/DL (6.4-8.2); TROPONIN I < 0.02 NG/ML (< 0.10)
--- NOTE | 2018-10-10 11:31 | REP ---
CT Head without contrast HISTORY: Dizziness COMPARISON: 07/03/2018 There is no intraparenchymal hemorrhage, acute infarct, mass or midline shift. The ventricular system is normal in appearance. There is no extra cerebral collection. There is no fracture. The visualized sinuses are clear. IMPRESSION: There is no intracranial lesion. Electronically Signed by Saqib Barksdale MD 10/10/2018 11:22 A
[2018-10-10 11:42] LABS: D-DIMER QUANT < 270 ng/ml (<500)
--- NOTE | 2018-10-10 11:44 | REP ---
Chest two views HISTORY: Chest pain Comparison: 09/27/2018 The lungs are hyperinflated. The lungs are clear. The heart is normal in size. The pulmonary vasculature is normal in appearance. The bony structure is intact. IMPRESSION: No acute disease. Electronically Signed by Saqib Barksdale MD 10/10/2018 11:36 A
[2018-10-10] MEDS ORDERED: NS 1,000 ML IV SCH (12:44)
[2018-10-10] MEDS ORDERED: methylPREDNISolone INJ 125 MG/2 ML VIAL (J2930) IV ONE (14:15)
[2018-10-10] MEDS ORDERED: ONDANSETRON 4 MG ORAL DISINTEGRATING TAB (Q0162 PER 1MG) PO PRN (15:30)
[2018-10-10] MEDS ORDERED: IPRATROPIUM 0.5MG/ALBUTEROL 2.5MG INH SOL UD 3ML (DUONEB)(J7620) NEB PRN (15:30)
[2018-10-10] MEDS ORDERED: POTASSIUM CHLORIDE 10 MEQ SR TABLET PO ONE (15:45)
[2018-10-10] MEDS: NS 1,000 ML IV SCH (15:48)
[2018-10-10 15:50] LABS: H PYLORI QUALITATIVE IgG NEGATIVE (NEGATIVE)
[2018-10-10 15:51] LABS: CPK CREATINE PHOSPHOKINASE 119 U/L (26-192); MB/CK RELATIVE INDEX 1.18 (< OR =4); TROPONIN I < 0.02 NG/ML (< 0.10)
--- NOTE | 2018-10-10 16:19 | ECHO ---
DATE OF PROCEDURE: 10/10/2018 DATE OF : 1965 AGE: 53 HEIGHT: 65 inches WEIGHT: 127 pounds BODY SURFACE AREA: 1.63 m2 INPATIENT: Emergency room REFERRING PHYSICIAN: Ward Martinez INDICATION: Chest pain (unspecified). MEASUREMENTS: 2-D Measurements: RV: 3.3 cm LV: 3.7 cm Septum: 1.1 cm Posterior wall: 1.0 cm Aortic root: 2.8 cm LA: 2.7 cm LVEF: 70% Doppler Measurements: AV: 1.2 m/s LVOT: 0.8 m/s LVOT diameter: 1.8 cm MV: E: 48, A: 42, EA ratio: 1.1 Early mitral deceleration time: 327 ms E prime: 7.2, A prime: 8, E/E prime ratio: 6.7 PV: 0.8 m/s Pulmonary artery acceleration time: 123 ms RVSP: 29 mmHg IVC: 1.7 cm COMMENTS: Normal sinus rhythm/sinus bradycardia without intraventricular conduction disturbance. M-mode and two-dimensional echocardiography was performed with pulsed, continuous wave, color flow and tissue Doppler studies. Normal left ventricular size, wall thickness and wall motion. No localized wall motion abnormality. Normal left atrial size and Doppler assessment of LV diastolic function and estimated current mean left atrial pressure. Normal right heart chamber sizes and motion with currently normal estimated pulmonary arterial pressure. Normal IVC size and collapse against an elevated central venous pressure. Normal appearing and functioning valvular structures. Normal aortic root size. No apparent intracardiac mass or pericardial effusion. A preliminary report of this study was relayed directly to Dr. Martinez at 3:50 p.m. 10/10/2018. No apparent functional or structural cardiac abnormality to explain the patient's chest pain.
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
--- NOTE | 2018-10-10 17:37 | REP ---
MR Brain without contrast HISTORY: Infarction COMPARISON : MR 09/05/[address] 10/10/1989 There are no areas of abnormal signal intensity in the brain. There is no intraparenchymal hemorrhage, infarct, mass or midline shift. The ventricular system is normal in appearance. There is no extra cerebral collection. The sinuses are clear. IMPRESSION: There is no intracranial lesion. Electronically Signed by Saqib Barksdale MD 10/10/2018 05:29 P
[2018-10-10] MEDS ORDERED: NEXI20CA PO (17:59)
[2018-10-10] MEDS ORDERED: AMLO2.5T3 PO (17:59)
[2018-10-10] MEDS ORDERED: VALS1TAB68 PO (17:59)
[2018-10-10] MEDS ORDERED: ASPI81TA26 PO (17:59)
[2018-10-10] MEDS ORDERED: PROAAER10 INH (17:59)
[2018-10-10] MEDS ORDERED: CHLO125TA PO (17:59)
[2018-10-10] MEDS ORDERED: SPIR-10 PO (17:59)
[2018-10-10] MEDS ORDERED: CALC500T25 PO (17:59)
--- NOTE | 2018-10-10 18:56 | REP ---
MRA BRAIN WITHOUT CONTRAST: HISTORY: Infarction. 3D-time of slight MRI angiography was performed at the level of the [place] of Muse. There is no aneurysm or arteriovenous malformation or atherosclerotic lesion. The A1 segment of the right anterior cerebral artery is hypoplastic. The major intracranial vessels are patent. The left vertebral artery is dominant. IMPRESSION:Normal MRA brain. Electronically Signed by Saqib Barksdale MD 10/10/2018 07:00 P
[2018-10-10] MEDS ORDERED: IPRATROPIUM 0.5MG/ALBUTEROL 2.5MG INH SOL UD 3ML (DUONEB)(J7620) NEB SCH (20:00)
[2018-10-10] MEDS: MECLIZINE 25 MG TABLET PO PRN (20:28)
[2018-10-10] MEDS: ALBUTEROL SULFATE 2.5 MG/0.5 ML INH NEB SOLN INH SCH (20:57)
[2018-10-10] MEDS: HEPARIN SOD (PORCINE) 5000 UNITS/ML VIAL SQ SCH (21:52)
--- NOTE | 2018-10-10 22:15 | ECGEPIP ---
Stationary ECG Study 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
[2018-10-10 23:10] LABS: CPK CREATINE PHOSPHOKINASE 109 U/L (26-192); MB/CK RELATIVE INDEX 1.01 (< OR =4); TROPONIN I < 0.02 NG/ML (< 0.10)
[2018-10-10] MEDS: ACETAMINOPHEN TAB 650MG DOSE (2X325MG) PO PRN (23:31)
[2018-10-11] MEDS: ALBUTEROL SULFATE 2.5 MG/0.5 ML INH NEB SOLN INH PRN ×2 (01:05→05:31)
[2018-10-11] MEDS: NS 1,000 ML IV SCH ×2 (01:19→18:00)
[2018-10-11] MEDS: HEPARIN SOD (PORCINE) 5000 UNITS/ML VIAL SQ SCH ×3 (05:59→21:04)
[2018-10-11 07:52] LABS: EOS % 0.2 % (0.0-3.0); LYMPH # 0.9 10^3/uL (1.5-4.5); LYMPH % 16.4 % (24.0-44.0); MEAN CORPUSCULAR HEMOGLOBIN 29.4 pg (27.0-33.0); MEAN CORPUSCULAR HGB CONC 32.8 g/dl (32.0-36.5); MEAN CORPUSCULAR VOLUME 89.6 fl (80.0-96.0); MONO # 0.4 10^3/uL (0.0-0.8); MONO % 6.7 % (0.0-5.0); NEUTROPHILS # 4.3 10^3/uL (1.8-7.7); NEUTROPHILS % 76.3 % (36.0-66.0); PLATELET COUNT, AUTOMATED 144 10^3/uL (150-450); RED BLOOD COUNT 4.02 10^6/uL (4.00-5.40); WHITE BLOOD COUNT 5.7 10^3/uL (4.0-10.0)
[2018-10-11] MEDS: OMEPRAZOLE 20 MG CAP PO SCH (07:54)
[2018-10-11] MEDS: MECLIZINE 25 MG TABLET PO PRN ×2 (07:55→16:00)
[2018-10-11] MEDS: predniSONE 20 MG TAB PO SCH (07:55)
[2018-10-11 08:10] LABS: BLOOD UREA NITROGEN 23 MG/DL (7-18); CALCIUM LEVEL 8.1 MG/DL (8.5-10.1); CARBON DIOXIDE LEVEL 27 MEQ/L (21-32); CHLORIDE LEVEL 109 MEQ/L (98-107); CREATININE FOR GFR 0.98 MG/DL (0.55-1.30); GLOMERULAR FILTRATION RATE > 60.0 (>51); GLUCOSE, FASTING 117 MG/DL (70-100); MAGNESIUM LEVEL 1.7 MG/DL (1.8-2.4); POTASSIUM SERUM 3.5 MEQ/L (3.5-5.1); SODIUM LEVEL 144 MEQ/L (136-145)
[2018-10-11 08:31] LABS: HEMOGLOBIN 11.8 g/dl (12.0-15.5)
[2018-10-11] MEDS: ALBUTEROL SULFATE 2.5 MG/0.5 ML INH NEB SOLN INH SCH ×4 (08:40→20:00)
[2018-10-11] MEDS: ADVAIR HFA 115/21MCG INHALER INH SCH ×2 (09:00→21:54)
[2018-10-11] MEDS: MAGNESIUM OXIDE 400 MG TAB (MAG-OX) PO SCH ×2 (10:31→21:03)
--- NOTE | 2018-10-11 11:29 | IPNPDOC ---
Text Note Date of Service The patient was seen on 10/11/18. NOTE Subjective: Patient is a 53-year-old female with a PMHx of COPD, Fibromyalgia / PTSD / Depression / Anxiety and GERD who presented to the ER with complaints of burning chest pain. Patient has reported that since May 2018. She is been tapered off Ritalin and clonazepam has been experiencing increasing blood pressure since that point. She has followed up with her primary care provider and they have been slowly up titrating her lisinopril dose. Ultimately she required a referral to cardiology and she had an additional agent added to her regimen. Since that point patient has noted burning chest pain that has been on and off nature. Patient reports that her chest pain last for about 2 seconds to about 5 minutes and radiates to her left shoulder. Describes the pain as a 310 burning in intensity. She notes that there is no alleviating factors, but it is aggravated by anxiety. Patient reports associated chills, nausea and is expensive episode of vomiting yesterday without any evidence of blood. . She also reports associated palpitations and shortness of breath when this occurs. Patient does follow with cardiology as an outpatient, Dr. Muse. He is scheduled her for a stress test on 10/27/2018. Patient is not experiencing any cardiac events or strokes in the past. Patient was seen and examined at the bedside. Patient has reported significant improvement in her dizziness. Reports that her chest pain is subsiding and denies any shortness of breath currently. Patient denies any constipation, diarrhea, abdominal pain or any discomfort with urination. Objective: Vitals (See below) General: Lying in bed, no acute distress, comfortable, AAOx3 HEENT: NC, AT CVS: RRR, +S1S2 Lungs: Fair air entry b/l, auscultation is without any wheezing, rales or rhonchi Abdomen: Soft, nondistended, without tenderness Extremities: - Edema, - Calf tenderness Assessment and plan: Dizziness - Patient reports improvement in her dizziness - Lab work is unremarkable - CT head 10/10: There is no intracranial lesion. - MRI brain 10/10: There is no intracranial lesion. - MRA brain 10/10: Normal MRA brain. - c/w symptom control with meclizine and Zofran - Will get PT and OT evaluation s/p Atypical chest pain - possibly 2/2 musculoskeletal etiology, less likely 2/2 cardiac etiology - Patient notes that her chest pain has subsided significantly - Physical does reveal tenderness upon palpation of central chest wall - Troponin 3 sets have been negative; - EKG has been reviewed and is consistent with priors on file - ECHO noted; does not appear to show any significant abnormalities - will DC telemetry monitoring - Will start Tramadol for pain control s/p Short of breath - possibly 2/2 COPD - Reports a history of COPD, but does not use any oxygen at home - Upon arrival to emergency room, emergency room provider has indicated that she has been wheezing - Physical does not reveal any adventitious lung sounds - c/w inhaled therapy as ordered - c/w prednisone 40; will reduce dose by 50% s/p TRACIE - likely 2/2 pre-renal etiology - 2/2 nausea and vomiting - s/p IV fluid hydration s/p Hypokalemia Fibromyalgia / PTSD / Depression / Anxiety - c/w home medications Vitamin D deficiency - c/w supplementation GERD - c/w Omeprazole DVT prophylaxis - c/w Heparin A-FIB/CHADSVASC A-FIB History Current/History of A-Fib/PAF?: No VS,Fishbone, I+O VS, Fishbone, I+O Laboratory Tests 10/11/18 06:41 Red Blood Count 4.02, Mean Corpuscular Volume 89.6, Mean Corpuscular Hemoglobin 29.4, Mean Corpuscular Hemoglobin Concent 32.8, Red Cell Distribution Width 13.5, Neutrophils (%) (Auto) 76.3 H, Lymphocytes (%) (Auto) 16.4 L, Monocytes (%) (Auto) 6.7 H, Eosinophils (%) (Auto) 0.2, Basophils (%) (Auto) 0.0, Neutrophils # (Auto) 4.3, Lymphocytes # (Auto) 0.9 L, Monocytes # (Auto) 0.4, Eosinophils # (Auto) 0.0, Basophils # (Auto) 0.0, Calcium Level 8.1 L Vital Signs Date Time Temp Pulse Resp B/P (MAP) Pulse Ox O2 Delivery O2 Flow Rate FiO2 10/11/18 06:22 79 22 103/60 (74) 95 Room Air 10/10/18 21:27 98.4 I&O- Last 24 Hours up to 6 AM 10/11/18 06:00 Intake Total 2300 ml Balance 2300 ml RENATA RUEDA MD Oct 11, 2018 11:29
[2018-10-11] MEDS: SERTRALINE 100 MG TAB PO SCH (12:33)
[2018-10-11] MEDS: CALCIUM/VITAMIN D 500 MG TAB PO SCH (12:33)
[2018-10-11] MEDS: ASPIRIN 81 MG ENTERIC TAB PO SCH (12:34)
[2018-10-11] MEDS: traMADol 50 MG TAB PO PRN ×2 (12:37→21:05)
--- NOTE | 2018-10-11 13:08 | ECGEPIP ---
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
[2018-10-11 14:35] VITALS: BP 113/65
[2018-10-11] MEDS: ACETAMINOPHEN TAB 650MG DOSE (2X325MG) PO PRN (16:01)
[2018-10-11 22:00] VITALS: BP 114/64
[2018-10-12] MEDS: NS 1,000 ML IV SCH ×2 (04:03→13:55)
[2018-10-12] MEDS: traMADol 50 MG TAB PO PRN ×3 (05:47→22:20)
[2018-10-12] MEDS: HEPARIN SOD (PORCINE) 5000 UNITS/ML VIAL SQ SCH ×3 (05:47→21:21)
[2018-10-12] MEDS: MECLIZINE 25 MG TABLET PO PRN ×2 (05:48→22:20)
[2018-10-12 06:00] VITALS: BP 120/75
[2018-10-12 06:03] LABS: EOS % 0.3 % (0.0-3.0); HEMATOCRIT 36.6 % (36.0-47.0); HEMOGLOBIN 11.5 g/dl (12.0-15.5); LYMPH # 1.2 10^3/uL (1.5-4.5); LYMPH % 19.7 % (24.0-44.0); MEAN CORPUSCULAR HEMOGLOBIN 28.4 pg (27.0-33.0); MEAN CORPUSCULAR HGB CONC 31.4 g/dl (32.0-36.5); MEAN CORPUSCULAR VOLUME 90.4 fl (80.0-96.0); MONO # 0.4 10^3/uL (0.0-0.8); MONO % 6.4 % (0.0-5.0); NEUTROPHILS # 4.6 10^3/uL (1.8-7.7); NEUTROPHILS % 73.1 % (36.0-66.0); PLATELET COUNT, AUTOMATED 141 10^3/uL (150-450); RED BLOOD COUNT 4.05 10^6/uL (4.00-5.40); WHITE BLOOD COUNT 6.3 10^3/uL (4.0-10.0)
[2018-10-12 06:28] LABS: BLOOD UREA NITROGEN 21 MG/DL (7-18); CALCIUM LEVEL 8.5 MG/DL (8.5-10.1); CARBON DIOXIDE LEVEL 31 MEQ/L (21-32); CHLORIDE LEVEL 109 MEQ/L (98-107); GLOMERULAR FILTRATION RATE > 60.0 (>51); GLUCOSE, FASTING 86 MG/DL (70-100); MAGNESIUM LEVEL 1.8 MG/DL (1.8-2.4); POTASSIUM SERUM 3.9 MEQ/L (3.5-5.1); SODIUM LEVEL 145 MEQ/L (136-145)
[2018-10-12] MEDS: ALBUTEROL SULFATE 2.5 MG/0.5 ML INH NEB SOLN INH SCH ×4 (07:54→20:00)
[2018-10-12] MEDS: ADVAIR HFA 115/21MCG INHALER INH SCH ×2 (07:55→21:41)
[2018-10-12] MEDS: OMEPRAZOLE 20 MG CAP PO SCH (09:57)
[2018-10-12] MEDS: predniSONE 20 MG TAB PO SCH (09:57)
[2018-10-12] MEDS: CALCIUM/VITAMIN D 500 MG TAB PO SCH (09:57)
[2018-10-12] MEDS: SERTRALINE 100 MG TAB PO SCH (09:58)
[2018-10-12] MEDS: ASPIRIN 81 MG ENTERIC TAB PO SCH (09:58)
[2018-10-12] MEDS: MAGNESIUM OXIDE 400 MG TAB (MAG-OX) PO SCH ×2 (09:58→21:21)
--- NOTE | 2018-10-12 10:55 | IPNPDOC ---
Text Note Date of Service The patient was seen on 10/12/18. NOTE Subjective: Patient is a 53-year-old female with a PMHx of COPD, Fibromyalgia / PTSD / Depression / Anxiety and GERD who presented to the ER with complaints of burning chest pain. Patient has reported that since May 2018. She is been tapered off Ritalin and clonazepam has been experiencing increasing blood pressure since that point. She has followed up with her primary care provider and they have been slowly up titrating her lisinopril dose. Ultimately she required a referral to cardiology and she had an additional agent added to her regimen. Since that point patient has noted burning chest pain that has been on and off nature. Patient reports that her chest pain last for about 2 seconds to about 5 minutes and radiates to her left shoulder. Describes the pain as a 310 burning in intensity. She notes that there is no alleviating factors, but it is aggravated by anxiety. Patient reports associated chills, nausea and is expensive episode of vomiting yesterday without any evidence of blood. . She also reports associated palpitations and shortness of breath when this occurs. Patient does follow with cardiology as an outpatient, Dr. Muse. He is scheduled her for a stress test on 10/27/2018. Patient is not experiencing any cardiac events or strokes in the past. Patient was seen and examined at the bedside. Patient reports that she experienced dizziness, shortness of breath and chest pain when physical therapy work with her. Patient blood pressure was noted to be systolics of 160. Patient denied nausea, vomiting, abdominal pain, constipation, diarrhea or discomfort with urination. . She does not report any cough. Objective: Vitals (See below) General: Lying in bed, no acute distress, comfortable, AAOx3 HEENT: NC, AT CVS: RRR, +S1S2 Lungs: Fair air entry b/l, no auscultated evidence of rhonchi, rales or wheezing Abdomen: Remains soft without distention or tenderness Extremities: No lower extremity edema is appreciated, - Calf tenderness Assessment and plan: Dizziness - Patient reports improvement in her dizziness - Lab work is unremarkable - CT head 10/10: There is no intracranial lesion. - MRI brain 10/10: There is no intracranial lesion. - MRA brain 10/10: Normal MRA brain. - c/w symptom control with meclizine and Zofran - c/w PT and OT evaluation - c/w Gentle IV fluid hydration Anxiety - Patient has reported that since May 2018 she has been taken off her benzodiazepines - Will start the patient on hydroxyzine when necessary for anxiety Atypical chest pain - possibly 2/2 musculoskeletal etiology, less likely 2/2 cardiac etiology - Patient notes that her chest pain has subsided significantly - Physical does reveal tenderness upon palpation of central chest wall - Troponin 3 sets have been negative; - EKG has been reviewed and is consistent with priors on file - ECHO noted; does not appear to show any significant abnormalities - s/p telemetry monitoring - c/w Tramadol for pain control Short of breath - possibly 2/2 COPD - Reports a history of COPD, but does not use any oxygen at home - Upon arrival to emergency room, emergency room provider has indicated that she has been wheezing - Physical does not reveal any adventitious lung sounds - c/w inhaled therapy as ordered - c/w prednisone 40; will again reduce dose by 50% s/p TRACIE - likely 2/2 pre-renal etiology - 2/2 nausea and vomiting - c/w Gentle IV fluid hydration s/p Hypokalemia s/p Hypomagnesemia Fibromyalgia / PTSD / Depression / Anxiety - c/w home medications Vitamin D deficiency - c/w supplementation GERD - c/w Omeprazole DVT prophylaxis - c/w Heparin VS,Fishbone, I+O VS, Fishbone, I+O Laboratory Tests 10/12/18 05:31 Red Blood Count 4.05, Mean Corpuscular Volume 90.4, Mean Corpuscular Hemoglobin 28.4, Mean Corpuscular Hemoglobin Concent 31.4 L, Red Cell Distribution Width 13.7, Neutrophils (%) (Auto) 73.1 H, Lymphocytes (%) (Auto) 19.7 L, Monocytes (%) (Auto) 6.4 H, Eosinophils (%) (Auto) 0.3, Basophils (%) (Auto) 0.0, Neutrophils # (Auto) 4.6, Lymphocytes # (Auto) 1.2 L, Monocytes # (Auto) 0.4, Eo sinophils # (Auto) 0.0, Basophils # (Auto) 0.0, Calcium Level 8.5 Vital Signs Date Time Temp Pulse Resp B/P (MAP) Pulse Ox O2 Delivery O2 Flow Rate FiO2 10/12/18 06:17 16 10/12/18 06:00 97.9 67 120/75 (90) 96 10/11/18 06:22 Room Air I&O- Last 24 Hours up to 6 AM 10/12/18 05:59 Intake Total 1320 ml Output Total 650 ml Balance 670 ml RENATA RUEDA MD Oct 12, 2018 10:55
[2018-10-12] MEDS: hydrOXYzine 50 MG TAB PO PRN ×2 (11:58→22:33)
[2018-10-12 14:00] VITALS: BP 132/86
[2018-10-12 22:00] VITALS: BP 132/82
[2018-10-13] MEDS: traMADol 50 MG TAB PO PRN ×3 (05:29→23:31)
[2018-10-13] MEDS: HEPARIN SOD (PORCINE) 5000 UNITS/ML VIAL SQ SCH ×3 (05:30→20:24)
[2018-10-13 06:00] VITALS: BP 121/68
[2018-10-13 07:08] LABS: BASO % 0.2 % (0.0-1.0); EOS % 0.3 % (0.0-3.0); HEMATOCRIT 37.6 % (36.0-47.0); HEMOGLOBIN 11.8 g/dl (12.0-15.5); LYMPH # 1.4 10^3/uL (1.5-4.5); LYMPH % 24.1 % (24.0-44.0); MEAN CORPUSCULAR HEMOGLOBIN 28.4 pg (27.0-33.0); MEAN CORPUSCULAR HGB CONC 31.4 g/dl (32.0-36.5); MEAN CORPUSCULAR VOLUME 90.6 fl (80.0-96.0); MONO # 0.4 10^3/uL (0.0-0.8); MONO % 6.5 % (0.0-5.0); PLATELET COUNT, AUTOMATED 142 10^3/uL (150-450); RED BLOOD COUNT 4.15 10^6/uL (4.00-5.40); WHITE BLOOD COUNT 5.8 10^3/uL (4.0-10.0)
[2018-10-13 07:27] LABS: BLOOD UREA NITROGEN 19 MG/DL (7-18); CALCIUM LEVEL 8.7 MG/DL (8.5-10.1); CARBON DIOXIDE LEVEL 33 MEQ/L (21-32); CHLORIDE LEVEL 109 MEQ/L (98-107); CREATININE FOR GFR 0.94 MG/DL (0.55-1.30); GLOMERULAR FILTRATION RATE > 60.0 (>51); GLUCOSE, FASTING 85 MG/DL (70-100); POTASSIUM SERUM 4.1 MEQ/L (3.5-5.1); SODIUM LEVEL 145 MEQ/L (136-145)
[2018-10-13] MEDS: ALBUTEROL SULFATE 2.5 MG/0.5 ML INH NEB SOLN INH SCH ×4 (08:00→20:00)
[2018-10-13] MEDS: ASPIRIN 81 MG ENTERIC TAB PO SCH (08:21)
[2018-10-13] MEDS: hydrOXYzine 50 MG TAB PO PRN ×2 (08:21→23:30)
[2018-10-13] MEDS: ACETAMINOPHEN TAB 650MG DOSE (2X325MG) PO PRN ×2 (08:21→20:25)
[2018-10-13] MEDS: MECLIZINE 25 MG TABLET PO PRN ×2 (08:21→23:30)
[2018-10-13] MEDS: SERTRALINE 100 MG TAB PO SCH (08:22)
[2018-10-13] MEDS: CALCIUM/VITAMIN D 500 MG TAB PO SCH (08:22)
[2018-10-13] MEDS: MAGNESIUM OXIDE 400 MG TAB (MAG-OX) PO SCH ×2 (08:22→20:24)
[2018-10-13] MEDS: OMEPRAZOLE 20 MG CAP PO SCH (08:22)
[2018-10-13] MEDS: ADVAIR HFA 115/21MCG INHALER INH SCH ×2 (08:33→20:39)
[2018-10-13] MEDS ORDERED: predniSONE 20 MG TAB PO SCH (09:00)
[2018-10-13] MEDS ORDERED: MOM 30ML SUSPENSION UDC PO PRN (09:30)
[2018-10-13 10:00] VITALS: BP 112/78
[2018-10-13] MEDS: SENOKOT S TAB PO SCH ×2 (10:43→20:24)
--- NOTE | 2018-10-13 12:25 | IPNPDOC ---
Text Note Date of Service The patient was seen on 10/13/18. NOTE Subjective: Patient is a 53-year-old female with a PMHx of COPD, Fibromyalgia / PTSD / Depression / Anxiety and GERD who presented to the ER with complaints of burning chest pain. Patient has reported that since May 2018. She is been tapered off Ritalin and clonazepam has been experiencing increasing blood pressure since that point. She has followed up with her primary care provider and they have been slowly up titrating her lisinopril dose. Ultimately she required a referral to cardiology and she had an additional agent added to her regimen. Since that point patient has noted burning chest pain that has been on and off nature. Patient reports that her chest pain last for about 2 seconds to about 5 minutes and radiates to her left shoulder. Describes the pain as a 310 burning in intensity. She notes that there is no alleviating factors, but it is aggravated by anxiety. Patient reports associated chills, nausea and is expensive episode of vomiting yesterday without any evidence of blood. . She also reports associated palpitations and shortness of breath when this occurs. Patient does follow with cardiology as an outpatient, Dr. Muse. He is scheduled her for a stress test on 10/27/2018. Patient is not experiencing any cardiac events or strokes in the past. Patient was seen and examined at the bedside. . Currently, patient reports that she still experiences some lightheadedness/dizziness. Reports that her chest pain has been improving. Denies significant shortness of breath. Has been able to increase to the bathroom without any issues. Patient will continue to work with physical therapy blood pressure appears to be well-controlled. . She denies any abdominal pain, nausea, vomiting, diarrhea or discomfort with urination. Patient has asked for some stool softeners. Objective: Vitals (See below) General: Lying in bed, no acute distress, comfortable, AAOx3 HEENT: NC, AT CVS: RRR, +S1S2, tenderness on palpation of sternum Lungs: Air entry appears fair bilaterally without evidence of wheezing, rales or rhonchi Abdomen: Remains soft, without any distention or tenderness Extremities: Lower extremity swelling is not appreciated, - Calf tenderness Assessment and plan: Dizziness - Patient reports improvement in her dizziness - Lab work is unremarkable - CT head 10/10: There is no intracranial lesion. - MRI brain 10/10: There is no intracranial lesion. - MRA brain 10/10: Normal MRA brain. - c/w symptom control with meclizine and Zofran - c/w PT and OT evaluation - awaiting clearance - c/w Gentle IV fluid hydration; will get new IV access if possible Anxiety - Patient has reported that since May 2018 she has been taken off her benzodiazepines - Patient has noted that her hydroxyzine has been helpful with her symptoms - c/w hydroxyzine PRN Atypical chest pain - possibly 2/2 musculoskeletal etiology, less likely 2/2 cardiac etiology - Patient notes that her chest pain has subsided significantly - Physical does reveal tenderness upon palpation of central chest wall - Troponin 3 sets have been negative; - EKG has been reviewed and is consistent with priors on file - ECHO noted; does not appear to show any significant abnormalities - s/p telemetry monitoring - c/w Tramadol for pain control Short of breath - possibly 2/2 COPD; less likely 2/2 acute exacerbation - Reports a history of COPD, but does not use any oxygen at home - Upon arrival to emergency room, emergency room provider has indicated that she has been wheezing - Physical does not reveal any adventitious lung sounds - c/w inhaled therapy as ordered - c/w prednisone 20; will reduce to 10 mg daily s/p TRACIE - likely 2/2 pre-renal etiology - 2/2 nausea and vomiting - c/w Gentle IV fluid hydration s/p Hypokalemia s/p Hypomagnesemia Fibromyalgia / PTSD / Depression / Anxiety - c/w home medications Vitamin D deficiency - c/w supplementation GERD - c/w Omeprazole DVT prophylaxis - c/w Heparin Disposition: - Awaiting PT / OT clearance VSTimothy I+O VSTimothy I+O Laboratory Tests 10/13/18 06:34 Red Blood Count 4.15, Mean Corpuscular Volume 90.6, Mean Corpuscular Hemoglobin 28.4, Mean Corpuscular Hemoglobin Concent 31.4 L, Red Cell Distribution Width 13.5, Neutrophils (%) (Auto) 68.0 H, Lymphocytes (%) (Auto) 24.1, Monocytes (%) (Auto) 6.5 H, Eosinophils (%) (Auto) 0.3, Basophils (%) (Auto) 0.2, Neutrophils # (Auto) 4.0, Lymphocytes # (Auto) 1.4 L, Monocytes # (Auto) 0.4, Eosinophils # (Auto) 0.0, Basophils # (Auto) 0.0, Calcium Level 8.7 Vital Signs Date Time Temp Pulse Resp B/P (MAP) Pulse Ox O2 Delivery O2 Flow Rate FiO2 10/13/18 10:00 97.5 62 15 112/78 97 10/11/18 06:22 Room Air I&O- Last 24 Hours up to 6 AM0 10/13/18 06:00 Intake Total 1503 ml Output Total 3350 ml Balance -1847 ml RENATA RUEDA MD Oct 13, 2018 12:25
[2018-10-13] MEDS: NS 1,000 ML IV SCH (13:09)
[2018-10-13 13:11] LABS: APPEARANCE, URINE CLEAR (CLEAR); BACTERIA, URINE AUTO NEGATIVE (NEGATIVE); BILIRUBIN, URINE AUTO NEGATIVE (NEGATIVE); BLOOD, URINE BLOOD NEGATIVE (NEGATIVE); COLOR, URINE STRAW (YELLOW); GLUCOSE, URINE (UA) AUTO NEGATIVE (NEGATIVE); KETONE, URINE AUTO NEGATIVE (NEGATIVE); LEUKOCYTE ESTERASE, URINE AUTO NEGATIVE (NEGATIVE); MUCUS, URINE SMALL (NEGATIVE); NITRITE, URINE AUTO NEGATIVE (NEGATIVE); PROTEIN, URINE AUTO NEGATIVE (NEGATIVE); RBC, URINE AUTO 0 /HPF (0-3); SPECIFIC GRAVITY URINE AUTO 1.006 (1.002-1.035); SQUAMOUS EPITHELIAL CELL UR AU 1 /HPF (0-6); UROBILINOGEN, URINE AUTO 0.2 mg/dL (0.0-2.0); WBC, URINE AUTO 1 /HPF (0-3)
[2018-10-13 14:00] VITALS: BP 140/82
[2018-10-13 22:00] VITALS: BP 141/85
[2018-10-14] MEDS: NS 1,000 ML IV SCH ×2 (01:21→13:40)
[2018-10-14 06:00] VITALS: BP 118/72
[2018-10-14] MEDS: HEPARIN SOD (PORCINE) 5000 UNITS/ML VIAL SQ SCH ×3 (06:05→22:03)
[2018-10-14 07:00] LABS: BASO % 0.4 % (0.0-1.0); EOS % 0.8 % (0.0-3.0); HEMOGLOBIN 11.4 g/dl (12.0-15.5); LYMPH # 1.4 10^3/uL (1.5-4.5); LYMPH % 26.8 % (24.0-44.0); MEAN CORPUSCULAR HEMOGLOBIN 28.9 pg (27.0-33.0); MEAN CORPUSCULAR HGB CONC 31.7 g/dl (32.0-36.5); MEAN CORPUSCULAR VOLUME 91.1 fl (80.0-96.0); MONO # 0.3 10^3/uL (0.0-0.8); MONO % 6.6 % (0.0-5.0); NEUTROPHILS # 3.3 10^3/uL (1.8-7.7); NEUTROPHILS % 64.2 % (36.0-66.0); PLATELET COUNT, AUTOMATED 128 10^3/uL (150-450); RED BLOOD COUNT 3.95 10^6/uL (4.00-5.40); WHITE BLOOD COUNT 5.1 10^3/uL (4.0-10.0)
[2018-10-14 07:17] LABS: CALCIUM LEVEL 8.4 MG/DL (8.5-10.1); CREATININE FOR GFR 1.02 MG/DL (0.55-1.30); GLOMERULAR FILTRATION RATE 59.9 (>51); MAGNESIUM LEVEL 1.8 MG/DL (1.8-2.4); POTASSIUM SERUM 3.7 MEQ/L (3.5-5.1)
[2018-10-14] MEDS: ALBUTEROL SULFATE 2.5 MG/0.5 ML INH NEB SOLN INH SCH ×4 (08:00→20:00)
[2018-10-14] MEDS: ADVAIR HFA 115/21MCG INHALER INH SCH ×2 (08:18→18:51)
[2018-10-14] MEDS: OMEPRAZOLE 20 MG CAP PO SCH (08:37)
[2018-10-14] MEDS: SENOKOT S TAB PO SCH ×2 (08:37→22:03)
[2018-10-14] MEDS: MAGNESIUM OXIDE 400 MG TAB (MAG-OX) PO SCH ×2 (08:37→22:03)
[2018-10-14] MEDS: SERTRALINE 100 MG TAB PO SCH (08:37)
[2018-10-14] MEDS: ASPIRIN 81 MG ENTERIC TAB PO SCH (08:37)
[2018-10-14] MEDS: CALCIUM/VITAMIN D 500 MG TAB PO SCH (08:37)
[2018-10-14] MEDS: MECLIZINE 25 MG TABLET PO PRN ×2 (08:41→22:03)
[2018-10-14] MEDS: ACETAMINOPHEN TAB 650MG DOSE (2X325MG) PO PRN (08:41)
[2018-10-14] MEDS: hydrOXYzine 50 MG TAB PO PRN ×2 (08:41→22:04)
[2018-10-14] MEDS ORDERED: predniSONE 10 MG TAB PO SCH (09:00)
--- NOTE | 2018-10-14 11:46 | IPNPDOC ---
Text Note Date of Service The patient was seen on 10/14/18. NOTE Subjective: Patient is a 53-year-old female with a PMHx of COPD, Fibromyalgia / PTSD / Depression / Anxiety and GERD who presented to the ER with complaints of burning chest pain. Patient has reported that since May 2018. She is been tapered off Ritalin and clonazepam has been experiencing increasing blood pressure since that point. She has followed up with her primary care provider and they have been slowly up titrating her lisinopril dose. Ultimately she required a referral to cardiology and she had an additional agent added to her regimen. Since that point patient has noted burning chest pain that has been on and off nature. Patient reports that her chest pain last for about 2 seconds to about 5 minutes and radiates to her left shoulder. Describes the pain as a 310 burning in intensity. She notes that there is no alleviating factors, but it is aggravated by anxiety. Patient reports associated chills, nausea and is expensive episode of vomiting yesterday without any evidence of blood. . She also reports associated palpitations and shortness of breath when this occurs. Patient does follow with cardiology as an outpatient, Dr. Muse. He is scheduled her for a stress test on 10/27/2018. Patient is not experiencing any cardiac events or strokes in the past. Patient was seen and examined at the bedside. Patient still reports some dizziness. She will be working with physical therapy. Patient reports that she has improvement in her chest pain and shortness of breath. Denies any nausea, vomiting, abdominal pain,diarrhea or any urinary discomfort. She does report constipation and has not yet had a bowel movement. Objective: Vitals (See below) General: Lying in bed, no acute distress, comfortable, AAOx3 HEENT: NC, AT CVS: RRR, +S1S2, tenderness on palpation of sternum still present Lungs: Fair b/l, no evidence of wheezing / rhonchi / rales Abdomen: Soft, no distention / tenderness Extremities: No evidence of edema , - Calf tenderness Assessment and plan: Dizziness - Patient reports improvement in her dizziness - Lab work is unremarkable - CT head 10/10: There is no intracranial lesion. - MRI brain 10/10: There is no intracranial lesion. - MRA brain 10/10: Normal MRA brain. - c/w symptom control with meclizine and Zofran - c/w PT / OT; awaiting clearance - c/w Gentle IV fluid hydration Anxiety - Patient has reported that since May 2018 she has been taken off her benzodiazepines - Patient has noted that her hydroxyzine has been helpful with her symptoms - c/w hydroxyzine PRN Atypical chest pain - possibly 2/2 musculoskeletal etiology, less likely 2/2 cardiac etiology - Patient notes that her chest pain has subsided significantly - Physical does reveal tenderness upon palpation of central chest wall - Troponin 3 sets have been negative; - EKG has been reviewed and is consistent with priors on file - ECHO noted; does not appear to show any significant abnormalities - s/p telemetry monitoring - c/w Tramadol for pain control Short of breath - possibly 2/2 COPD; less likely 2/2 acute exacerbation - Reports a history of COPD, but does not use any oxygen at home - Upon arrival to emergency room, emergency room provider has indicated that she has been wheezing - Physical does not reveal any adventitious lung sounds - c/w inhaled therapy as ordered - Will discontinue prednisone Constipation - Patient reports using [employer] as an outpatient; however not available on formulary here - advised that she can continue taking her home meds here if possible - c/w Bowel regimen as ordered - Will start patient on Lactulose s/p TRACIE - likely 2/2 pre-renal etiology - 2/2 nausea and vomiting - c/w Gentle IV fluid hydration s/p Hypokalemia s/p Hypomagnesemia Fibromyalgia / PTSD / Depression / Anxiety - c/w home medications Vitamin D deficiency - c/w supplementation GERD - c/w Omeprazole DVT prophylaxis - c/w Heparin Disposition: - Awaiting PT / OT clearance Timothy MENDOSA I+O VSTimothy I+O Laboratory Tests 10/14/18 06:19 Red Blood Count 3.95 L, Mean Corpuscular Volume 91.1, Mean Corpuscular Hemoglobin 28.9, Mean Corpuscular Hemoglobin Concent 31.7 L, Red Cell Distribution Width 13.6, Neutrophils (%) (Auto) 64.2, Lymphocytes (%) (Auto) 26.8, Monocytes (%) (Auto) 6.6 H, Eosinophils (%) (Auto) 0.8, Basophils (%) (Auto) 0.4, Neutrophils # (Auto) 3.3, Lymphocytes # (Auto) 1.4 L, Monocytes # (Auto) 0.3, Eosinophils # (Auto) 0.0, Basophils # (Auto) 0.0, Calcium Level 8.4 L Vital Signs Date Time Temp Pulse Resp B/P (MAP) Pulse Ox O2 Delivery O2 Flow Rate FiO2 10/14/18 06:00 97.5 67 16 118/72 (87) 98 10/11/18 06:22 Room Air I&O- Last 24 Hours up to 6 AM 10/14/18 06:00 Intake Total 3410 ml Output Total 2350 ml Balance 1060 ml RENATA RUEDA MD Oct 14, 2018 11:46
[2018-10-14 14:00] VITALS: BP 122/82
[2018-10-14] MEDS: LACTULOSE 20 GM/30 ML SYRUP UD PO PRN (15:27)
[2018-10-14] MEDS: traMADol 50 MG TAB PO PRN (15:27)
[2018-10-14 16:06] VITALS: BP_SYST 122; BP_SYST 162; BP_SYST 166; BP_DIAS 82; BP_DIAS 86; BP_DIAS 99
[2018-10-14 22:00] VITALS: BP 152/93
[2018-10-15 00:59] VITALS: BP_SYST 126; BP_SYST 134; BP_SYST 150; BP_DIAS 66; BP_DIAS 70; BP_DIAS 78
[2018-10-15] MEDS: NS 1,000 ML IV SCH (01:10)
[2018-10-15] MEDS: traMADol 50 MG TAB PO PRN ×3 (02:02→22:28)
[2018-10-15 06:00] VITALS: BP_SYST 130; BP_SYST 140; BP_SYST 150; BP_DIAS 80; BP_DIAS 81; BP_DIAS 84; BP_DIAS 90
[2018-10-15] MEDS: MECLIZINE 25 MG TABLET PO PRN ×2 (06:04→17:57)
[2018-10-15] MEDS: HEPARIN SOD (PORCINE) 5000 UNITS/ML VIAL SQ SCH ×3 (06:04→21:41)
[2018-10-15 06:06] LABS: BASO % 0.4 % (0.0-1.0); EOS # 0.1 10^3/uL (0.0-0.50); EOS % 1.9 % (0.0-3.0); HEMATOCRIT 36.6 % (36.0-47.0); HEMOGLOBIN 11.6 g/dl (12.0-15.5); LYMPH # 1.4 10^3/uL (1.5-4.5); LYMPH % 25.9 % (24.0-44.0); MEAN CORPUSCULAR HEMOGLOBIN 28.9 pg (27.0-33.0); MEAN CORPUSCULAR HGB CONC 31.7 g/dl (32.0-36.5); MEAN CORPUSCULAR VOLUME 91.3 fl (80.0-96.0); MONO # 0.3 10^3/uL (0.0-0.8); MONO % 6.4 % (0.0-5.0); NEUTROPHILS # 3.4 10^3/uL (1.8-7.7); NEUTROPHILS % 63.5 % (36.0-66.0); PLATELET COUNT, AUTOMATED 134 10^3/uL (150-450); RED BLOOD COUNT 4.01 10^6/uL (4.00-5.40); WHITE BLOOD COUNT 5.3 10^3/uL (4.0-10.0)
[2018-10-15 06:28] LABS: BLOOD UREA NITROGEN 20 MG/DL (7-18); CALCIUM LEVEL 8.4 MG/DL (8.5-10.1); CARBON DIOXIDE LEVEL 30 MEQ/L (21-32); CHLORIDE LEVEL 110 MEQ/L (98-107); CREATININE FOR GFR 0.97 MG/DL (0.55-1.30); GLOMERULAR FILTRATION RATE > 60.0 (>51); GLUCOSE, FASTING 83 MG/DL (70-100); POTASSIUM SERUM 3.9 MEQ/L (3.5-5.1); SODIUM LEVEL 143 MEQ/L (136-145)
[2018-10-15] MEDS: OMEPRAZOLE 20 MG CAP PO SCH (07:53)
[2018-10-15] MEDS: SERTRALINE 100 MG TAB PO SCH (07:53)
[2018-10-15] MEDS: CALCIUM/VITAMIN D 500 MG TAB PO SCH (07:53)
[2018-10-15] MEDS: hydrOXYzine 50 MG TAB PO PRN ×2 (07:53→23:36)
[2018-10-15] MEDS: ASPIRIN 81 MG ENTERIC TAB PO SCH (07:54)
[2018-10-15] MEDS: MAGNESIUM OXIDE 400 MG TAB (MAG-OX) PO SCH ×2 (07:54→21:40)
[2018-10-15] MEDS: ALBUTEROL SULFATE 2.5 MG/0.5 ML INH NEB SOLN INH SCH ×4 (08:00→20:00)
[2018-10-15] MEDS: ADVAIR HFA 115/21MCG INHALER INH SCH ×2 (08:08→21:52)
[2018-10-15] MEDS: SENOKOT S TAB PO SCH (08:33)
[2018-10-15] MEDS ORDERED: MECLIZINE 25 MG TABLET PO ONE (10:00)
--- NOTE | 2018-10-15 11:09 | IPNPDOC ---
Text Note Date of Service The patient was seen on 10/15/18. NOTE Subjective: Patient is a 53-year-old female with a PMHx of COPD, Fibromyalgia / PTSD / Depression / Anxiety and GERD who presented to the ER with complaints of burning chest pain. Patient has reported that since May 2018. She is been tapered off Ritalin and clonazepam has been experiencing increasing blood pressure since that point. She has followed up with her primary care provider and they have been slowly up titrating her lisinopril dose. Ultimately she required a referral to cardiology and she had an additional agent added to her regimen. Since that point patient has noted burning chest pain that has been on and off nature. Patient reports that her chest pain last for about 2 seconds to about 5 minutes and radiates to her left shoulder. Describes the pain as a 310 burning in intensity. She notes that there is no alleviating factors, but it is aggravated by anxiety. Patient reports associated chills, nausea and is expensive episode of vomiting yesterday without any evidence of blood. . She also reports associated palpitations and shortness of breath when this occurs. Patient does follow with cardiology as an outpatient, Dr. Muse. He is scheduled her for a stress test on 10/27/2018. Patient is not experiencing any cardiac events or strokes in the past. Patient was seen and examined at the bedside. Patient has been working with physical therapy and noted that she gets dizzy with ambulation. Denies any LOC, denies any CP or palpitations. Reports her breathing is doing fine. Denies any N/V, abdominal pain. Has had a bowel movement yesterday. Denies any urinary discomfort. Objective: Vitals (See below) General: Lying in bed, no acute distress, comfortable, AAOx3 HEENT: NC, AT CVS: RRR, +S1S2, tenderness on palpation of sternum still present Lungs: Fair b/l, no rhonchi / rales or wheezing on auscultation Abdomen: Abdomen is soft without distention or tenderness Extremities: No evidence of LE pitting edema , - Calf tenderness Assessment and plan: Dizziness - Still will intermittent dizziness - Lab work is unremarkable - CT head 10/10: There is no intracranial lesion. - MRI brain 10/10: There is no intracranial lesion. - MRA brain 10/10: Normal MRA brain. - c/w symptom control with Zofran and Meclizine; will increase dose today - c/w PT / OT; have reported dizziness with ambulation and BP was noted to be elevated each time - Will DC Gentle IV fluid hydration - Start Amlodipine low dose Anxiety - Patient has reported that since May 2018 she has been taken off her benzodiazepines - Patient has noted that her hydroxyzine has been helpful with her symptoms - c/w hydroxyzine PRN Atypical chest pain - possibly 2/2 musculoskeletal etiology, less likely 2/2 cardiac etiology - Patient notes that her chest pain has subsided significantly - Physical does reveal tenderness upon palpation of central chest wall - Troponin 3 sets have been negative; - EKG has been reviewed and is consistent with priors on file - ECHO noted; does not appear to show any significant abnormalities - s/p telemetry monitoring - c/w Tramadol for pain control s/p Short of breath - possibly 2/2 COPD; less likely 2/2 acute exacerbation - Reports a history of COPD, but does not use any oxygen at home - Upon arrival to emergency room, emergency room provider has indicated that she has been wheezing - Physical does not reveal any adventitious lung sounds - s/p Prednisone - c/w inhaled therapy as ordered s/p Constipation - Patient reports using Linzess as an outpatient; however not available on formulary here - advised that she can continue taking her home meds here if possible - c/w Bowel regimen as ordered - c/w Lactulose as needed - titrate to bowel movements s/p TRACIE - likely 2/2 pre-renal etiology - 2/2 nausea and vomiting - c/w Gentle IV fluid hydration s/p Hypokalemia s/p Hypomagnesemia Fibromyalgia / PTSD / Depression / Anxiety - c/w home medications Vitamin D deficiency - c/w supplementation GERD - c/w Omeprazole DVT prophylaxis - c/w Heparin Disposition: - Awaiting PT / OT clearance VS,Timothy, I+O VSTimothy, I+O Laboratory Tests 10/15/18 05:50 Red Blood Count 4.01, Mean Corpuscular Volume 91.3, Mean Corpuscular Hemoglobin 28.9, Mean Corpuscular Hemoglobin Concent 31.7 L, Red Cell Distribution Width 13.5, Neutrophils (%) (Auto) 63.5, Lymphocytes (%) (Auto) 25.9, Monocytes (%) (Auto) 6.4 H, Eosinophils (%) (Auto) 1.9, Basophils (%) (Auto) 0.4, Neutrophils # (Auto) 3.4, Lymphocytes # (Auto) 1.4 L, Monocytes # (Auto) 0.3, Eosinophils # (Auto) 0.1, Basophils # (Auto) 0.0, Calcium Level 8.4 L Vital Signs Date Time Temp Pulse Resp B/P (MAP) Pulse Ox O2 Delivery O2 Flow Rate FiO2 10/15/18 06:00 60 130/80 (97) 72 140/84 (102) 150/90 (110) 10/15/18 06:00 97.2 16 95 10/11/18 06:22 Room Air I&O- Last 24 Hours up to 6 AM 10/15/18 06:00 Intake Total 2275 ml Output Total 1520 ml Balance 755 ml RENATA RUEDA MD Oct 15, 2018 11:09
[2018-10-15 14:00] VITALS: BP 125/72
[2018-10-15 22:00] VITALS: BP 119/74
[2018-10-16] MEDS: MECLIZINE 25 MG TABLET PO PRN ×2 (05:33→21:24)
[2018-10-16] MEDS: HEPARIN SOD (PORCINE) 5000 UNITS/ML VIAL SQ SCH ×3 (05:33→21:24)
[2018-10-16 06:00] VITALS: BP_SYST 113; BP_SYST 135; BP_SYST 140; BP_DIAS 79; BP_DIAS 92; BP_DIAS 95
[2018-10-16 06:04] LABS: BASO % 0.6 % (0.0-1.0); EOS # 0.2 10^3/uL (0.0-0.50); EOS % 3.1 % (0.0-3.0); HEMATOCRIT 40.1 % (36.0-47.0); HEMOGLOBIN 12.7 g/dl (12.0-15.5); LYMPH # 1.2 10^3/uL (1.5-4.5); LYMPH % 21.8 % (24.0-44.0); MEAN CORPUSCULAR HEMOGLOBIN 28.5 pg (27.0-33.0); MEAN CORPUSCULAR HGB CONC 31.7 g/dl (32.0-36.5); MEAN CORPUSCULAR VOLUME 90.1 fl (80.0-96.0); MONO # 0.4 10^3/uL (0.0-0.8); MONO % 7.9 % (0.0-5.0); NEUTROPHILS # 3.5 10^3/uL (1.8-7.7); NEUTROPHILS % 64.2 % (36.0-66.0); PLATELET COUNT, AUTOMATED 154 10^3/uL (150-450); RED BLOOD COUNT 4.45 10^6/uL (4.00-5.40); WHITE BLOOD COUNT 5.5 10^3/uL (4.0-10.0)
[2018-10-16 06:26] LABS: CALCIUM LEVEL 8.7 MG/DL (8.5-10.1); CREATININE FOR GFR 1.02 MG/DL (0.55-1.30); GLOMERULAR FILTRATION RATE 59.9 (>51); MAGNESIUM LEVEL 2.3 MG/DL (1.8-2.4); POTASSIUM SERUM 4.3 MEQ/L (3.5-5.1)
[2018-10-16] MEDS: ALBUTEROL SULFATE 2.5 MG/0.5 ML INH NEB SOLN INH SCH ×4 (08:00→19:56)
[2018-10-16] MEDS: ADVAIR HFA 115/21MCG INHALER INH SCH (08:17)
[2018-10-16] MEDS: traMADol 50 MG TAB PO PRN ×2 (09:54→21:24)
[2018-10-16] MEDS: CALCIUM/VITAMIN D 500 MG TAB PO SCH (09:54)
[2018-10-16] MEDS: hydrOXYzine 50 MG TAB PO PRN ×2 (09:54→16:07)
[2018-10-16] MEDS: MAGNESIUM OXIDE 400 MG TAB (MAG-OX) PO SCH ×2 (09:54→21:25)
[2018-10-16] MEDS: SENOKOT S TAB PO SCH ×2 (09:55→21:23)
[2018-10-16] MEDS: OMEPRAZOLE 20 MG CAP PO SCH (09:55)
[2018-10-16] MEDS: ASPIRIN 81 MG ENTERIC TAB PO SCH (09:55)
[2018-10-16] MEDS: SERTRALINE 100 MG TAB PO SCH (09:55)
[2018-10-16 10:09] LABS: DOPAMINE PLASMA 30 pg/mL (0-48); EPINEPHRINE PLASMA <15 pg/mL (0-62); H PYLORI SERUM QUANT IGM <9.0 units (0.0-8.9); METANEPHRINE PLASMA 32 pg/mL (0-62); NOREPINEPHRINE PLASMA 320 pg/mL (0-874); NORMETANEPHRINE PLASMA 76 pg/mL (0-145)
--- NOTE | 2018-10-16 12:53 | IPNPDOC ---
Text Note Date of Service The patient was seen on 10/16/18. NOTE Subjective: Patient is a 53-year-old female with a PMHx of COPD, Fibromyalgia / PTSD / Depression / Anxiety and GERD who presented to the ER with complaints of burning chest pain. Patient has reported that since May 2018. She is been tapered off Ritalin and clonazepam has been experiencing increasing blood pressure since that point. She has followed up with her primary care provider and they have been slowly up titrating her lisinopril dose. Ultimately she required a referral to cardiology and she had an additional agent added to her regimen. Since that point patient has noted burning chest pain that has been on and off nature. Patient reports that her chest pain last for about 2 seconds to about 5 minutes and radiates to her left shoulder. Describes the pain as a 310 burning in intensity. She notes that there is no alleviating factors, but it is aggravated by anxiety. Patient reports associated chills, nausea and is expensive episode of vomiting yesterday without any evidence of blood. . She also reports associated palpitations and shortness of breath when this occurs. Patient does follow with cardiology as an outpatient, Dr. Muse. He is scheduled her for a stress test on 10/27/2018. Patient is not experiencing any cardiac events or strokes in the past. Patient was seen and examined at the bedside. Patient reports that she still expresses persistent dizziness with ambulation. She denies chest pain or palpitations. Reports her breathing is doing significantly better. Denies abdominal pain. Denies nausea and vomiting. Reports that her constipation has recurred. Denies any discomfort with urination. Objective: Vitals (See below) General: Lying in bed, no acute distress, comfortable, AAOx3 HEENT: NC, AT CVS: RRR, +S1S2, tenderness on palpation of sternum still present Lungs: Auscultation does not reveal any rhonchi, rales or wheezing and air entry is fair bilaterally Abdomen: Soft, - Distention / Tenderness Extremities: LE are without any pitting edema , - Calf tenderness Assessment and plan: Dizziness - Still will intermittent dizziness - Lab work is unremarkable - CT head 10/10: There is no intracranial lesion. - MRI brain 10/10: There is no intracranial lesion. - MRA brain 10/10: Normal MRA brain. - c/w symptom control with Zofran and Meclizine; will increase dose today - s/p IV fluid hydration - c/w Amlodipine low dose - blood pressure appears to be well-controlled - c/w PT / OT; have reported dizziness with ambulation and BP was noted to be elevated each time Anxiety - Patient has reported that since May 2018 she has been taken off her b enzodiazepines - Patient has noted that her hydroxyzine has been helpful with her symptoms - c/w hydroxyzine PRN Atypical chest pain - possibly 2/2 musculoskeletal etiology, less likely 2/2 cardiac etiology - Patient notes that her chest pain has subsided significantly - Physical does reveal tenderness upon palpation of central chest wall - Troponin 3 sets have been negative; - EKG has been reviewed and is consistent with priors on file - ECHO noted; does not appear to show any significant abnormalities - s/p telemetry monitoring - c/w Tramadol for pain control s/p Short of breath - possibly 2/2 COPD; less likely 2/2 acute exacerbation - Reports a history of COPD, but does not use any oxygen at home - Upon arrival to emergency room, emergency room provider has indicated that she has been wheezing - Physical does not reveal any adventitious lung sounds - s/p Prednisone - c/w inhaled therapy as ordered s/p Constipation - Patient reports using Linzess as an outpatient; however not available on formulary here - advised that she can continue taking her home meds here if possible - c/w Bowel regimen as ordered - c/w Lactulose as needed - titrate to bowel movements s/p TRACIE - likely 2/2 pre-renal etiology - 2/2 nausea and vomiting - c/w Gentle IV fluid hydration s/p Hypokalemia s/p Hypomagnesemia Fibromyalgia / PTSD / Depression / Anxiety - c/w home medications Vitamin D deficiency - c/w supplementation GERD - c/w Omeprazole DVT prophylaxis - c/w Heparin Disposition: - Awaiting PT / OT clearance; awaiting vestibular therapy evaluation VSTimothy, I+O VSTimothy I+O Laboratory Tests 10/16/18 05:39 Red Blood Count 4.45, Mean Corpuscular Volume 90.1, Mean Corpuscular Hemoglobin 28.5, Mean Corpuscular Hemoglobin Concent 31.7 L, Red Cell Distribution Width 13.5, Neutrophils (%) (Auto) 64.2, Lymphocytes (%) (Auto) 21.8 L, Monocytes (%) (Auto) 7.9 H, Eosinophils (%) (Auto) 3.1 H, Basophils (%) (Auto) 0.6, Neutrophils # (Auto) 3.5, Lymphocytes # (Auto) 1.2 L, Monocytes # (Auto) 0.4, Eosinophils # (Auto) 0.2, Basophils # (Auto) 0.0, Calcium Level 8.7 Vital Signs Date Time Temp Pulse Resp B/P (MAP) Pulse Ox O2 Delivery O2 Flow Rate FiO2 10/16/18 09:55 73 123/79 10/16/18 09:54 16 10/16/18 06:00 96.4 100 10/11/18 06:22 Room Air I&O- Last 24 Hours up to 6 AM 10/16/18 05:59 Intake Total 1910 ml Output Total 3100 ml Balance -1190 ml RENATA RUEDA MD Oct 16, 2018 12:53
[2018-10-16 22:00] VITALS: BP 122/73
[2018-10-17] MEDS: hydrOXYzine 50 MG TAB PO PRN (01:39)
[2018-10-17] MEDS: HEPARIN SOD (PORCINE) 5000 UNITS/ML VIAL SQ SCH (05:51)
[2018-10-17 06:00] VITALS: BP 116/69
[2018-10-17 07:46] LABS: BASO % 0.5 % (0.0-1.0); EOS # 0.3 10^3/uL (0.0-0.50); EOS % 3.4 % (0.0-3.0); HEMATOCRIT 43.3 % (36.0-47.0); LYMPH # 1.8 10^3/uL (1.5-4.5); LYMPH % 24.8 % (24.0-44.0); MEAN CORPUSCULAR HEMOGLOBIN 28.9 pg (27.0-33.0); MEAN CORPUSCULAR HGB CONC 32.3 g/dl (32.0-36.5); MEAN CORPUSCULAR VOLUME 89.5 fl (80.0-96.0); MONO # 0.5 10^3/uL (0.0-0.8); MONO % 7.4 % (0.0-5.0); NEUTROPHILS # 4.5 10^3/uL (1.8-7.7); NEUTROPHILS % 60.9 % (36.0-66.0); PLATELET COUNT, AUTOMATED 179 10^3/uL (150-450); RED BLOOD COUNT 4.84 10^6/uL (4.00-5.40); WHITE BLOOD COUNT 7.3 10^3/uL (4.0-10.0)
[2018-10-17 07:57] LABS: CALCIUM LEVEL 9.1 MG/DL (8.5-10.1); CREATININE FOR GFR 1.15 MG/DL (0.55-1.30); GLOMERULAR FILTRATION RATE 52.2 (>51); MAGNESIUM LEVEL 2.4 MG/DL (1.8-2.4); POTASSIUM SERUM 4.2 MEQ/L (3.5-5.1)
[2018-10-17] MEDS: ALBUTEROL SULFATE 2.5 MG/0.5 ML INH NEB SOLN INH SCH ×2 (08:00→12:00)
[2018-10-17] MEDS: SERTRALINE 100 MG TAB PO SCH (08:29)
[2018-10-17] MEDS: MAGNESIUM OXIDE 400 MG TAB (MAG-OX) PO SCH (08:29)
[2018-10-17] MEDS: OMEPRAZOLE 20 MG CAP PO SCH (08:29)
[2018-10-17 08:30] VITALS: BP 140/98
[2018-10-17] MEDS: ASPIRIN 81 MG ENTERIC TAB PO SCH (08:30)
[2018-10-17] MEDS: CALCIUM/VITAMIN D 500 MG TAB PO SCH (08:30)
[2018-10-17] MEDS: SENOKOT S TAB PO SCH (08:30)
[2018-10-17] MEDS: ADVAIR HFA 115/21MCG INHALER INH SCH (08:37)
[2018-10-17] MEDS: LACTULOSE 20 GM/30 ML SYRUP UD PO PRN (08:42)
[2018-10-17] MEDS ORDERED: HYDRO50TAB PO (10:08)
[2018-10-17] MEDS ORDERED: TRAM50TA2 PO (10:08)
[2018-10-17] MEDS ORDERED: MECL-86 PO (10:08)
[2018-10-17] MEDS ORDERED: LACT10SO29 PO (10:14)
[2018-10-17] MEDS: ACETAMINOPHEN TAB 650MG DOSE (2X325MG) PO PRN (11:58)
--- NOTE | 2018-10-17 16:28 | DS.PDOC ---
Discharge Summary General Date of Admission Oct 10, 2018 at 16:00 Date of Discharge 10/17/2018 Discharge Summary PROCEDURES PERFORMED DURING STAY: [None]. ADMITTING DIAGNOSES / DISCHARGE DIAGNOSES: Dizziness Anxiety Atypical chest pain - possibly 2/2 musculoskeletal etiology, less likely 2/2 cardiac etiology s/p Short of breath - possibly 2/2 COPD; less likely 2/2 acute exacerbation s/p Constipation s/p TRACIE - likely 2/2 pre-renal etiology - 2/2 nausea and vomiting s/p Hypokalemia s/p Hypomagnesemia Fibromyalgia / PTSD / Depression / Anxiety Vitamin D deficiency GERD DVT prophylaxis COMPLICATIONS/CHIEF COMPLAINT: Chest Pain,Dizziness,Shortness Of Breath. HISTORY OF PRESENT ILLNESS: Patient is a 53-year-old female with a PMHx of COPD, Fibromyalgia / PTSD / Depression / Anxiety and GERD who presented to the ER with complaints of burning chest pain. Patient has reported that since May 2018. She is been tapered off Ritalin and clonazepam has been experiencing increasing blood pressure since that point. She has followed up with her primary care provider and they have been slowly up titrating her lisinopril dose. Ultimately she required a referral to cardiology and she had an additional agent added to her regimen. Since that point patient has noted burning chest pain that has been on and off nature. Patient reports that her chest pain last for about 2 seconds to about 5 minutes and radiates to her left shoulder. Describes the pain as a 310 burning in intensity. She notes that there is no alleviating factors, but it is aggravated by anxiety. Patient reports associated chills, nausea and is expensive episode of vomiting yesterday without any evidence of blood. . She also reports associated palpitations and shortness of breath when this occurs. Patient does follow with cardiology as an outpatient, Dr. Muse. He is scheduled her for a stress test on 10/27/2018. Patient is not experiencing any cardiac events or strokes in the past. HOSPITAL COURSE: s/p Dizziness - Lab work is unremarkable - CT head 10/10: There is no intracranial lesion. - MRI brain 10/10: There is no intracranial lesion. - MRA brain 10/10: Normal MRA brain. - c/w symptom control with Zofran and Meclizine - s/p IV fluid hydration - c/w Amlodipine low dose - blood pressure appears to be well-controlled - c/w PT / OT - has cleared physical therapy, will continue with home PT services Anxiety - Patient has reported that since May 2018 she has been taken off her benzodiazepines - Patient has noted that her hydroxyzine has been helpful with her symptoms - c/w hydroxyzine PRN; will continue as an outpatient Atypical chest pain - possibly 2/2 musculoskeletal etiology, less likely 2/2 cardiac etiology - Patient notes that her chest pain has subsided significantly - Physical does reveal tenderness upon palpation of central chest wall - Troponin 3 sets have been negative; - EKG has been reviewed and is consistent with priors on file - ECHO noted; does not appear to show any significant abnormalities - s/p telemetry monitoring - c/w Tramadol for pain control - Patient will be following Dr. Muse as an outpatient. She is scheduled for stress test s/p Short of breath - possibly 2/2 COPD; less likely 2/2 acute exacerbation - Reports a history of COPD, but does not use any oxygen at home - Upon arrival to emergency room, emergency room provider has indicated that she has been wheezing - Physical does not reveal any adventitious lung sounds - s/p Prednisone - c/w inhaled therapy as ordered s/p Constipation - Patient reports using Linzess as an outpatient; however not available on formulary here - advised that she can continue taking her home meds here if possible - c/w Bowel regimen as ordered - c/w Lactulose as needed - titrate to bowel movements s/p TRACIE - likely 2/2 pre-renal etiology - 2/2 nausea and vomiting - s/p Gentle IV fluid hydration s/p Hypokalemia s/p Hypomagnesemia Fibromyalgia / PTSD / Depression / Anxiety - c/w home medications Vitamin D deficiency - c/w supplementation GERD - c/w Omeprazole DVT prophylaxis - c/w Heparin DISCHARGE MEDICATIONS: Please see below. ALLERGIES: Please see below. PHYSICAL EXAMINATION ON DISCHARGE: Vitals (See below) General: Lying in bed, no acute distress, comfortable, AAOx3 HEENT: NC, AT CVS: RRR, +S1S2, mild tenderness on palpation of sternum still present Lungs: Fair air entry bilaterally without evidence of rhonchi, rales or wheezing Abdomen: Soft without distention or tenderness Extremities: No edema, - Calf tenderness LABORATORY DATA: Please see below. ACTIVITY: [As tolerated]. DISCHARGE PLAN: Follow up with Dr. Morales and Dr. Muse within 7 days Remain compliant with treatment plan and medications Return to the ER if you experience any problems DISPOSITION: Home, Self-Care. DISCHARGE CONDITION: [Stable]. TIME SPENT ON DISCHARGE: Greater than [35] minutes. Vital Signs/I&Os Vital Signs Date Time Temp Pulse Resp B/P (MAP) Pulse Ox O2 Delivery O2 Flow Rate FiO2 10/17/18 08:30 92 140/98 10/17/18 06:00 97.4 18 96 10/11/18 06:22 Room Air I&O- Last 24 Hours up to 6 AM 10/17/18 06:00 Intake Total 960 ml Output Total 2000 ml Balance -1040 ml Laboratory Data Labs 24H Laboratory Tests 2 10/17/18 07:10: Immature Granulocyte % (Auto) 3.0, White Blood Count 7.3, Red Blood Count 4.84, Hemoglobin 14.0, Hematocrit 43.3, Mean Corpuscular Volume 89.5, Mean Corpuscular Hemoglobin 28.9, Mean Corpuscular Hemoglobin Concent 32.3, Red Cell Distribution Width 13.8, Platelet Count 179, Neutrophils (%) (Auto) 60.9, Lymphocytes (%) (Auto) 24.8, Monocytes (%) (Auto) 7.4H, Eosinophils (%) (Auto) 3.4H, Basophils (%) (Auto) 0.5, Neutrophils # (Auto) 4.5, Lymphocytes # (Auto) 1.8, Monocytes # (Auto) 0.5, Eosinophils # (Auto) 0.3, Basophils # (Auto) 0.0, Nucleated Red Blood Cells % (auto) 0.0, Anion Gap 4L, Glomerular Filtration Rate 52.2, Blood Urea Nitrogen 31H, Creatinine 1.15, Sodium Level 139, Potassium Level 4.2, Chloride Level 105, Carbon Dioxide Level 30, Calcium Level 9.1, Magnesium Level 2.4 CBC/BMP Laboratory Tests 10/17/18 07:10 Red Blood Count 4.84, Mean Corpuscular Volume 89.5, Mean Corpuscular Hemoglobin 28.9, Mean Corpuscular Hemoglobin Concent 32.3, Red Cell Distribution Width 13.8, Neutrophils (%) (Auto) 60.9, Lymphocytes (%) (Auto) 24.8, Monocytes (%) (Auto) 7.4 H, Eosinophils (%) (Auto) 3.4 H, Basophils (%) (Auto) 0.5, Neutrophils # (Auto) 4.5, Lymphocytes # (Auto) 1.8, Monocytes # (Auto) 0.5, Eosinophils # (Auto) 0.3, Basophils # (Auto) 0.0, Calcium Level 9.1 Discharge Medications Scheduled Amlodipine Besylate (Amlodipine Besylate) 2.5 Mg Tablet, 2.5 MG PO DAILY, (Reported) Aspirin (Aspirin EC) 81 Mg Tablet.dr, 81 MG PO DAILY, (Reported) Calcium Carbonate/Vitamin D3 (Calcium 500-Vit D3 400 Tablet) 1 Each Tablet, 1 TAB PO DAILY, (Reported) Esomeprazole Magnesium (Nexium) 20 Mg Capsule.dr, 20 MG PO BID, (Reported) Estradiol (Vagifem) 10 Mcg Tab, 10 MCG PV 2XWK, (Reported) QHS ON MON & MON Fluticasone Propion/Salmeterol (Advair Hfa 115-21 Mcg Inhaler) 1 Aer Aer, 2 PUFF INH BID, (Reported) Linaclotide (Linzess) 290 Mcg Cap, 290 MCG PO DAILY, (Reported) Sertraline HCl (Sertraline HCl) 100 Mg Tab, 100 MG PO DAILY, (Reported) Scheduled PRN Albuterol Sulf (Albuterol Sulfate) 2.5 Mg/3 Ml Nebu, 2.5 MG INH TID PRN for RESPIRATORY DISTRESS, (Reported) Albuterol Sulfate (Proair Hfa) 8.5 Gm Hfa.aer.ad, 2 PUFF INH QID PRN for SHORTNESS OF BREATH, (Reported) Hydroxyzine HCl (Hydroxyzine HCl) 50 Mg Tablet, 50 MG PO Q8HP PRN for anxiety Lactulose (Lactulose) 10 Gm/15 Ml Solution, 30 ML PO QAM PRN for CONSTIPATION Meclizine HCl (Meclizine HCl) 25 Mg Tablet, 50 MG PO Q8HP PRN for DIZZINESS Ondansetron HCl (Zofran) 4 Mg Tab, 4 MG PO TID PRN for NAUSEA, (Reported) Tramadol HCl (Tramadol HCl) 50 Mg Tablet, 50 MG PO Q8HP PRN for MODERATE PAIN (PS 5-7) Allergies Coded Allergies: Sulfa (Sulfonamide Antibiotics) (Verified Allergy, Intermediate, HIVES, 09/27/18) Contrast Media (Verified Allergy, Unknown, HIVES/SHORTNESS OF BREATH, 10/08/18) TAPE (Unverified Allergy, Unknown, 06/27/18) bupropion (Verified Allergy, Unknown, 09/27/18) duloxetine (Verified Allergy, Unknown, 09/27/18) iodine (Verified Allergy, Unknown, 09/27/18) povidone-iodine (Verified Allergy, Unknown, 09/27/18) tetracycline (Verified Allergy, Unknown, 09/27/18) magnesium sulfate (Verified Adverse Reaction, Mild, INFECTED HER TOENAIL, 09/27/18) tiotropium (Verified Adverse Reaction, Mild, ANGER, 09/27/18) tramadol (Verified Adverse Reaction, Mild, nausea, 10/11/18) valproic acid (Verified Adverse Reaction, Mild, ANGER, 09/27/18) RENATA RUEDA MD October 17, 2018 16:28
== END 2018-10-17 14:10 | disposition home health service (06) | DRG 313 ==
LOC: EDBD 10:22 → M ED 10:22 → M ED INP 16:00 → M MSPAV 10-11 14:35
PROVIDERS: ADMIT Internal Medicine; ATTEND Internal Medicine
DX: R07.89 Other chest pain (principal); N17.9 Acute kidney failure, unspecified; R42 Dizziness and giddiness; J44.9 Chronic obstructive pulmonary disease, unspecified; I10 Essential (primary) hypertension; M79.7 Fibromyalgia; E87.6 Hypokalemia; F41.9 Anxiety disorder, unspecified; F32.9 Major depressive disorder, single episode, unspecified; K59.00 Constipation, unspecified; E55.9 Vitamin D deficiency, unspecified; F43.10 Post-traumatic stress disorder, unspecified; K21.9 Gastro-esophageal reflux disease without esophagitis; Z91.041 Radiographic dye allergy status; Z88.2 Allergy status to sulfonamides; Z88.8 Allergy status to other drugs, medicaments and biological substances; Z88.1 Allergy status to other antibiotic agents; Z91.048 Other nonmedicinal substance allergy status; Z79.899 Other long term (current) drug therapy; Z79.51 Long term (current) use of inhaled steroids; Z79.82 Long term (current) use of aspirin; Z87.891 Personal history of nicotine dependence

== ENCOUNTER 2018-11-09 13:08 | Emergency (ER) | payer MEDICARE, MEDICAID ==
[~2018-11-09] VITALS: Ht 172.7 cm; Wt 60.6 kg
[~2018-11-09 13:08] MED LIST changes: +AMLO2.5T3 PO; +CALC500T25 PO; +CHLO125TA PO; +HYDRO50TAB PO; +LACT10SO29 PO; +MECL-86 PO; +PROAAER10 INH; +SPIR-10 PO; +TRAZ1TAB10 PO; -TRAZO50TA PO; +VALS1TAB68 PO
[2018-11-09] MEDS ORDERED: PROPARACAINE 0.5% OPHTH SOL 15ML OU ONE (14:15)
[2018-11-09 14:22] LABS: BASO % 0.4 % (0.0-1.0); EOS # 0.1 10^3/uL (0.0-0.50); EOS % 2.7 % (0.0-3.0); HEMATOCRIT 42.2 % (36.0-47.0); HEMOGLOBIN 13.5 g/dl (12.0-15.5); LYMPH # 1.4 10^3/uL (1.5-4.5); LYMPH % 28.7 % (24.0-44.0); MEAN CORPUSCULAR HEMOGLOBIN 28.3 pg (27.0-33.0); MEAN CORPUSCULAR VOLUME 88.5 fl (80.0-96.0); MONO # 0.3 10^3/uL (0.0-0.8); MONO % 6.4 % (0.0-5.0); PLATELET COUNT, AUTOMATED 175 10^3/uL (150-450); RED BLOOD COUNT 4.77 10^6/uL (4.00-5.40); WHITE BLOOD COUNT 4.8 10^3/uL (4.0-10.0)
--- NOTE | 2018-11-09 14:26 | REP ---
Chest one-view HISTORY: Chest pain A minimal increase in interstitial markings is present in the lower lobes consistent with chronic interstitial change. The heart is normal in size. The pulmonary vasculature is normal in appearance. Impression: Bibasilar chronic interstitial change. Electronically Signed by Saqib Barksdale MD 11/09/2018 02:18 P
[2018-11-09 14:40] LABS: ERYTHROCYTE SEDIMENTATION RATE 30 mm/hr (0-30)
[2018-11-09 14:55] LABS: ALBUMIN 3.8 GM/DL (3.2-5.2); ALT/SGPT 27 U/L (12-78); BILIRUBIN,DIRECT < 0.1 MG/DL (0.0-0.2); BILIRUBIN,TOTAL 0.3 MG/DL (0.2-1.0); BLOOD UREA NITROGEN 18 MG/DL (7-18); C REACTIVE PROTEIN QUANTITATIV < 0.30 MG/DL (0.00-0.30); CALCIUM LEVEL 9.1 MG/DL (8.5-10.1); CARBON DIOXIDE LEVEL 26 MEQ/L (21-32); CHLORIDE LEVEL 110 MEQ/L (98-107); CPK CREATINE PHOSPHOKINASE 100 U/L (26-192); CREATININE FOR GFR 0.81 MG/DL (0.55-1.30); GLOMERULAR FILTRATION RATE > 60.0 (>51); GLUCOSE, FASTING 88 MG/DL (70-100); NT-PRO BNP 68 PG/ML (<125); POTASSIUM SERUM 4.2 MEQ/L (3.5-5.1); SODIUM LEVEL 141 MEQ/L (136-145); TROPONIN I < 0.02 NG/ML (< 0.10)
[2018-11-09 17:24] VITALS: BP 131/81
--- NOTE | 2018-11-09 20:58 | ECGEPIP ---
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
== END 2018-11-09 17:20 | disposition home or self-care (01) ==
LOC: M ED 13:08
DX: I10 Essential (primary) hypertension (principal); J44.9 Chronic obstructive pulmonary disease, unspecified; F32.9 Major depressive disorder, single episode, unspecified; F43.12 Post-traumatic stress disorder, chronic; Z88.2 Allergy status to sulfonamides; Z79.51 Long term (current) use of inhaled steroids; Z79.82 Long term (current) use of aspirin; Z79.899 Other long term (current) drug therapy; Z91.041 Radiographic dye allergy status

== ENCOUNTER → 2018-12-15 | Outpatient (CLI) | payer MEDICARE, MEDICAID ==
[2018-12-15 18:38] LABS: ALBUMIN 3.7 GM/DL (3.2-5.2); ALT/SGPT 26 U/L (12-78); BILIRUBIN,TOTAL 0.2 MG/DL (0.2-1.0); BLOOD UREA NITROGEN 32 MG/DL (7-18); CALCIUM LEVEL 8.6 MG/DL (8.5-10.1); CARBON DIOXIDE LEVEL 31 MEQ/L (21-32); CHLORIDE LEVEL 105 MEQ/L (98-107); CREATININE FOR GFR 0.91 MG/DL (0.55-1.30); GLOMERULAR FILTRATION RATE > 60.0 (>51); GLUCOSE, FASTING 103 MG/DL (70-100); MAGNESIUM LEVEL 2.1 MG/DL (1.8-2.4); POTASSIUM SERUM 3.7 MEQ/L (3.5-5.1); SODIUM LEVEL 143 MEQ/L (136-145); TOTAL PROTEIN 7.2 GM/DL (6.4-8.2)
== END ==
LOC: M WUC 08:05
PROVIDERS: ATTEND Obstetrics & Gynecology
DX: R25.2 Cramp and spasm (principal); I10 Essential (primary) hypertension

== ENCOUNTER → 2019-02-14 | Outpatient (CLI) | payer MEDICARE, MEDICAID ==
[~2019-02-14] MED LIST changes: +HYDR1TAB33 PO; -HYDRO50TAB PO
--- NOTE | 2019-02-14 14:03 | REP ---
Low-dose lung cancer screening CT Indication: Nicotine dependence. Comparison: CT chest of 08/16/2016. Technique: Axial low-dose CT of the chest was performed and reviewed in lung reformatted images only. No intravenous contrast was administered. Findings: The upper airway is patent. There is 2 mm nodularity within the right mainstem bronchus, likely representing secretions. There is severe centrilobular emphysema. There is no pneumothorax. There is an unchanged one - 2 mm nodule within the left upper lobe in the 3 o'clock position (image 47). There is linear atelectasis with focal nodularity at the right middle lobe adjacent to the diaphragm, image 81. There is mild bibasilar atelectasis. There is no suspicious lung nodule. There is no pleural effusion. Heart size is normal. There is no pericardial effusion. Impression: Lung-RADS 2S for severe emphysema. 2 mm nodularity within the right mainstem bronchus, presumably representing secretions. Continue annual screening with low-dose CT in 12 months. Electronically Signed by Leena Ortiz MD 02/14/2019 01:54 P
== END ==
LOC: M RAD 12:49
PROVIDERS: ATTEND Physician Assistant
DX: Z87.891 Personal history of nicotine dependence (principal); Z12.2 Encounter for screening for malignant neoplasm of respiratory organs

== ENCOUNTER → 2019-03-04 | Outpatient (CLI) | payer MEDICARE, MEDICAID ==
[~2019-03-04] MED LIST changes: -MECL-68 PO; +MECL1TAB31 PO; +OMEP40CA97 PO; +SENN-53 PO; -SENN1TAB40 PO; -TRAZ10TA GT; +TRAZ1TAB12 GT; +XANA0.25 PO
--- NOTE | 2019-03-05 05:32 | REP ---
Clinical: Epigastric and abdominal pain. Technique: Real time tellez scale ultrasound examination using curved array transducer. Findings: Liver and visualized pancreas are normal in contour, size, echogenicity without focal hepatic or pancreatic lesion identified. The patient is noted to be status post cholecystectomy. No biliary ductal dilatation is appreciated and the common bile duct measures 4.9 mm diameter. Spleen is upper limits of normal in size measuring 11.2 x 4.4 x 11.1 cm (splenic [id number]) without focal splenic abnormality. Bilateral kidneys are normal in reniform shape without hydronephrosis. Right kidney measures 9.9 x 4.9 x 3.5 cm. Left kidney measures 9.6 x 3.8 x 5.3 cm. Abdominal aorta demonstrates atherosclerotic changes without aneurysm and measures 2.4 cm maximal diameter. No ascites. Impression: 1. Spleen is upper limits of normal in size without focal splenic lesion. 2. Atherosclerotic changes to the abdominal aorta without aneurysm. Electronically Signed by Trever Ma MD 03/05/2019 05:23 A
== END ==
LOC: M RAD 07:45
PROVIDERS: ATTEND Physician Assistant
DX: K59.00 Constipation, unspecified (principal)

== ENCOUNTER → 2019-03-18 | Outpatient (REF) | payer MEDICARE, MEDICAID ==
[~2019-03-18] MED LIST changes: +MECL-68 PO; -MECL1TAB31 PO; +TRAZ10TA GT; -TRAZ1TAB12 GT; -XANA0.25 PO
[2019-03-18 17:17] LABS: BASO % 0.5 % (0.0-1.0); EOS # 0.1 10^3/uL (0.0-0.5); EOS % 0.9 % (0.0-3.0); HEMATOCRIT 45.1 % (36.0-47.0); HEMOGLOBIN 14.7 g/dl (12.0-15.5); LYMPH # 2.6 10^3/uL (1.5-5.0); LYMPH % 29.3 % (24.0-44.0); MEAN CORPUSCULAR HEMOGLOBIN 30.1 pg (27.0-33.0); MEAN CORPUSCULAR HGB CONC 32.6 g/dl (32.0-36.5); MEAN CORPUSCULAR VOLUME 92.4 fl (80.0-96.0); MONO # 0.6 10^3/uL (0.0-0.8); MONO % 6.5 % (0.0-5.0); NEUTROPHILS # 5.5 10^3/uL (1.5-8.5); NEUTROPHILS % 62.3 % (36.0-66.0); PLATELET COUNT, AUTOMATED 253 10^3/uL (150-450); RED BLOOD COUNT 4.88 10^6/uL (4.00-5.40); WHITE BLOOD COUNT 8.8 10^3/uL (4.0-10.0)
[2019-03-18 17:34] LABS: PERCENT SATURATION 21.8 % (13.2-45.0)
[2019-03-18 18:22] LABS: APPEARANCE, URINE HAZY (CLEAR); BACTERIA, URINE AUTO NEGATIVE (NEGATIVE); BILIRUBIN, URINE AUTO NEGATIVE (NEGATIVE); BLOOD, URINE BLOOD NEGATIVE (NEGATIVE); COLOR, URINE YELLOW (YELLOW); GLUCOSE, URINE (UA) AUTO NEGATIVE (NEGATIVE); KETONE, URINE AUTO NEGATIVE (NEGATIVE); LEUKOCYTE ESTERASE, URINE AUTO NEGATIVE (NEGATIVE); MUCUS, URINE SMALL (NEGATIVE); NITRITE, URINE AUTO NEGATIVE (NEGATIVE); PROTEIN, URINE AUTO NEGATIVE (NEGATIVE); RBC, URINE AUTO 1 /HPF (0-3); SPECIFIC GRAVITY URINE AUTO 1.021 (1.002-1.035); SQUAMOUS EPITHELIAL CELL UR AU 1 /HPF (0-6); UROBILINOGEN, URINE AUTO 0.2 mg/dL (0.0-2.0); WBC, URINE AUTO 1 /HPF (0-3)
== END ==
LOC: M SFHCPLAZ 15:57
PROVIDERS: ATTEND Family Medicine
DX: R35.0 Frequency of micturition (principal); R25.2 Cramp and spasm
CPT/HCPCS: 36415; 51798; 81001; 81002; 82728; 83550; 85025; 87086; 90682; G0463

== ENCOUNTER → 2019-03-29 | Outpatient (CLI) | payer MEDICARE, MEDICAID ==
[2019-03-29 12:25] LABS: CALCIUM LEVEL 9.5 MG/DL (8.5-10.1); CHOLESTEROL RISK RATIO 3.191 (<5); CREATININE FOR GFR 1.12 MG/DL (0.55-1.30); GLOMERULAR FILTRATION RATE 53.8 (>51)
== END ==
LOC: M WUC 10:22
PROVIDERS: ATTEND Internal Medicine Cardiovascular Disease
DX: M94.0 Chondrocostal junction syndrome [Tietze] (principal)

== ENCOUNTER 2019-04-27 23:27 | Emergency (ER) | payer MEDICARE, MEDICAID ==
[~2019-04-27] VITALS: Ht 167.6 cm; Wt 61.4 kg
[2019-04-28] MEDS ORDERED: OLANZapine 10 MG TAB PO ONE
[2019-04-28 00:47] VITALS: BP 123/66
== END 2019-04-28 00:47 | disposition home or self-care (01) ==
LOC: M ED 23:27
DX: F41.9 Anxiety disorder, unspecified (principal); F31.9 Bipolar disorder, unspecified; J44.9 Chronic obstructive pulmonary disease, unspecified; M79.7 Fibromyalgia; Z79.82 Long term (current) use of aspirin; Z79.899 Other long term (current) drug therapy; Z91.040 Latex allergy status; Z88.2 Allergy status to sulfonamides; Z88.8 Allergy status to other drugs, medicaments and biological substances

== ENCOUNTER 2019-05-08 13:04 | Emergency (ER) | payer MEDICARE, MEDICAID ==
[~2019-05-08] VITALS: Ht 172.7 cm; Wt 59.1 kg
[2019-05-08] MEDS ORDERED: LORazepam 2 MG/ML VIAL (J2060) IV STA (13:29)
[2019-05-08] MEDS ORDERED: CHLO125TA PO (13:39)
[2019-05-08] MEDS ORDERED: VALS1TAB67 PO (13:39)
[2019-05-08 13:40] LABS: BASO # 0.1 10^3/uL (0.0-0.2); BASO % 0.6 % (0.0-1.0); EOS # 0.1 10^3/uL (0.0-0.5); EOS % 0.6 % (0.0-3.0); HEMATOCRIT 49.4 % (36.0-47.0); HEMOGLOBIN 15.9 g/dl (12.0-15.5); LYMPH # 2.4 10^3/uL (1.5-5.0); LYMPH % 30.1 % (24.0-44.0); MEAN CORPUSCULAR HEMOGLOBIN 29.8 pg (27.0-33.0); MEAN CORPUSCULAR HGB CONC 32.2 g/dl (32.0-36.5); MEAN CORPUSCULAR VOLUME 92.5 fl (80.0-96.0); MONO # 0.7 10^3/uL (0.0-0.8); MONO % 9.1 % (0.0-5.0); NEUTROPHILS # 4.8 10^3/uL (1.5-8.5); NEUTROPHILS % 58.7 % (36.0-66.0); PLATELET COUNT, AUTOMATED 292 10^3/uL (150-450); RED BLOOD COUNT 5.34 10^6/uL (4.00-5.40); WHITE BLOOD COUNT 8.1 10^3/uL (4.0-10.0)
--- NOTE | 2019-05-08 13:49 | REP ---
Single view chest: 05/08/2019. Indication: Chest pain. Comparison: 11/09/2018. Findings: No air space consolidation, pleural effusion or pneumothorax are present. The cardiomediastinal silhouette is unremarkable. Chronically increased lower lobe interstitial markings are stable. Impression: No acute cardiopulmonary process. Electronically Signed by Dorian Hendricks DO 05/08/2019 01:41 P
[2019-05-08 14:06] LABS: BLOOD UREA NITROGEN 18 MG/DL (7-18); CALCIUM LEVEL 9.7 MG/DL (8.5-10.1); CARBON DIOXIDE LEVEL 27 MEQ/L (21-32); CHLORIDE LEVEL 102 MEQ/L (98-107); CK-MB VALUE MASS 5.8 NG/ML (<3.6); CPK CREATINE PHOSPHOKINASE 406 U/L (26-192); CREATININE FOR GFR 1.52 MG/DL (0.55-1.30); GLOMERULAR FILTRATION RATE 37.7 (>51); GLUCOSE, FASTING 145 MG/DL (70-100); MB/CK RELATIVE INDEX 1.43 (< OR =4); POTASSIUM SERUM 3.4 MEQ/L (3.5-5.1); SODIUM LEVEL 138 MEQ/L (136-145); TROPONIN I < 0.02 NG/ML (< 0.10)
[2019-05-08] MEDS ORDERED: POTASSIUM CHLORIDE 10 MEQ SR TABLET PO ONE (15:00)
[2019-05-08] MEDS ORDERED: SUCRALFATE SUSP 1GM/10ML UD PO ONE (15:00)
[2019-05-08] MEDS ORDERED: NS 1,000 ML IV ONE (15:00)
[2019-05-08] MEDS ORDERED: LORazepam 2 MG TAB PO STA (16:10)
[2019-05-08] MEDS ORDERED: ONDANSETRON 4 MG TAB (S0181) PO ONE (17:45)
--- NOTE | 2019-05-08 18:52 | ECGEPIP ---
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
[2019-05-08] MEDS ORDERED: hydrOXYzine 50 MG TAB PO STA (20:18)
[2019-05-08 20:27] LABS: CPK CREATINE PHOSPHOKINASE 313 U/L (26-192); MB/CK RELATIVE INDEX 1.28 (< OR =4); TROPONIN I < 0.02 NG/ML (< 0.10)
[2019-05-08 20:30] VITALS: BP 90/57
--- NOTE | 2019-05-09 15:02 | ECGEPIP ---
[facility] - ED Test Date: 2019-05-08 Pat Name: ANA PAULA MARRERO Department: Room: - Gender: Female [employer] Worker: [place] [id number] : 1965 Requested By: Kristi Ramirez Order Number: [id number] Reading MD: Kai Jorgensen Measurements Intervals [place] Rate: 67 P: 74 MT: 131 QRS: -72 QRSD: 106 T: -8 QT: 448 QTc: 474 Interpretive Statements SINUS RHYTHM LEFT ANTERIOR FASCICULAR BLOCK SIMILAR TO PRIOR ON SAME DATE Electronically Signed on 05-09-2019 15:01:46 EST by Kai Jorgensen
== END 2019-05-08 20:50 | disposition home or self-care (01) ==
LOC: M ED 13:04
DX: F41.9 Anxiety disorder, unspecified (principal); R07.89 Other chest pain; I44.4 Left anterior fascicular block; Z86.718 Personal history of other venous thrombosis and embolism; Z87.891 Personal history of nicotine dependence; Z82.49 Family history of ischemic heart disease and other diseases of the circulatory system; Z91.041 Radiographic dye allergy status; Z91.048 Other nonmedicinal substance allergy status; Z88.2 Allergy status to sulfonamides; Z88.8 Allergy status to other drugs, medicaments and biological substances; Z88.1 Allergy status to other antibiotic agents; Z88.5 Allergy status to narcotic agent; Z79.899 Other long term (current) drug therapy; Z79.51 Long term (current) use of inhaled steroids
CPT/HCPCS: 71045; 80048; 82550; 82553; 84484; 85025; 85379; 93005; 93041; 94760; 96374; 99285; J2060

== ENCOUNTER → 2019-05-29 | Outpatient (CLI) | payer MEDICARE, MEDICAID ==
[2019-05-29 22:47] LABS: CALCIUM LEVEL 9.6 MG/DL (8.5-10.1); CREATININE FOR GFR 1.15 MG/DL (0.55-1.30); MAGNESIUM LEVEL 2.1 MG/DL (1.8-2.4); POTASSIUM SERUM 4.6 MEQ/L (3.5-5.1)
== END ==
LOC: M WUC 11:31
PROVIDERS: ATTEND Obstetrics & Gynecology
DX: I10 Essential (primary) hypertension (principal)

== ENCOUNTER → 2019-06-06 | Outpatient (CLI) | payer MEDICARE, MEDICAID ==
[~2019-06-06] MED LIST changes: +XANA0.25 PO
[2019-06-06 12:02] LABS: CALCIUM LEVEL 9.6 MG/DL (8.5-10.1); CREATININE FOR GFR 1.34 MG/DL (0.55-1.30); GLOMERULAR FILTRATION RATE 43.6 (>51); MAGNESIUM LEVEL 1.9 MG/DL (1.8-2.4); PHOSPHORUS LEVEL 3.1 MG/DL (2.5-4.9); POTASSIUM SERUM 4.1 MEQ/L (3.5-5.1)
== END ==
LOC: M WUC 08:50
PROVIDERS: ATTEND Obstetrics & Gynecology
DX: I10 Essential (primary) hypertension (principal)

== ENCOUNTER 2019-06-11 12:05 | Emergency (ER) | payer MEDICARE, MEDICAID ==
[~2019-06-11] VITALS: Ht 172.7 cm; Wt 59.5 kg
[~2019-06-11 12:05] MED LIST changes: -XANA0.25 PO
[2019-06-11] MEDS ORDERED: hydrOXYzine 50 MG TAB PO STA (12:43)
--- NOTE | 2019-06-11 13:12 | REP ---
Clinical: Chest pain . Comparison: 05/08/2019 . Findings: The mediastinum and cardiac silhouette are stable and within normal limits for portable technique. The lung mcelroy demonstrate stable chronic changes without acute consolidation, effusion, or pneumothorax. Skeletal structures are intact. Impression: No acute cardiopulmonary process appreciated. Electronically Signed by Trever aM MD 06/11/2019 01:05 P
[2019-06-11 13:34] LABS: VENOUS BASE EXCESS 3.8 (-2.0-2.0); VENOUS HCO3 26.7 MEQ/L (23.0-27.0); VENOUS O2 SATURATION 97.3 % (60.0-80.0); VENOUS PARTIAL PRESSURE O2 90.5 mmHg (30.0-50.0); VENOUS PH 7.501 UNITS (7.330-7.430); VENOUS STANDARD HCO3 27.9 MEQ/L; VENOUS TOTAL CO2 27.8 MEQ/L (24.0-28.0)
[2019-06-11 13:38] LABS: BASO % 0.5 % (0.0-1.0); EOS # 0.1 10^3/uL (0.0-0.5); LYMPH # 1.5 10^3/uL (1.5-5.0); LYMPH % 25.2 % (24.0-44.0); MEAN CORPUSCULAR HEMOGLOBIN 29.9 pg (27.0-33.0); MEAN CORPUSCULAR HGB CONC 32.6 g/dl (32.0-36.5); MEAN CORPUSCULAR VOLUME 91.9 fl (80.0-96.0); MONO # 0.5 10^3/uL (0.0-0.8); MONO % 7.9 % (0.0-5.0); NEUTROPHILS # 3.8 10^3/uL (1.5-8.5); NEUTROPHILS % 64.9 % (36.0-66.0); PLATELET COUNT, AUTOMATED 202 10^3/uL (150-450); RED BLOOD COUNT 4.68 10^6/uL (4.00-5.40); WHITE BLOOD COUNT 5.9 10^3/uL (4.0-10.0)
[2019-06-11 14:07] LABS: BLOOD UREA NITROGEN 22 MG/DL (7-18); CALCIUM LEVEL 9.4 MG/DL (8.5-10.1); CARBON DIOXIDE LEVEL 26 MEQ/L (21-32); CHLORIDE LEVEL 107 MEQ/L (98-107); CK-MB VALUE MASS 2.1 NG/ML (<3.6); CPK CREATINE PHOSPHOKINASE 175 U/L (26-192); CREATININE FOR GFR 1.17 MG/DL (0.55-1.30); GLOMERULAR FILTRATION RATE 50.9 (>51); GLUCOSE, FASTING 116 MG/DL (70-100); POTASSIUM SERUM 3.3 MEQ/L (3.5-5.1); SODIUM LEVEL 141 MEQ/L (136-145); TROPONIN I < 0.02 NG/ML (< 0.10)
[2019-06-11] MEDS ORDERED: POTASSIUM CHLORIDE 10 MEQ SR TABLET PO ONE (14:30)
[2019-06-11 14:57] VITALS: BP 135/81
--- NOTE | 2019-06-11 20:30 | ECGEPIP ---
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
== END 2019-06-11 15:27 | disposition home or self-care (01) ==
LOC: M ED 12:05
DX: F41.9 Anxiety disorder, unspecified (principal); E87.6 Hypokalemia; J44.9 Chronic obstructive pulmonary disease, unspecified; M79.7 Fibromyalgia; F32.9 Major depressive disorder, single episode, unspecified; I44.4 Left anterior fascicular block; Z79.51 Long term (current) use of inhaled steroids; Z79.899 Other long term (current) drug therapy; Z88.2 Allergy status to sulfonamides; Z88.8 Allergy status to other drugs, medicaments and biological substances; Z91.041 Radiographic dye allergy status; Z91.048 Other nonmedicinal substance allergy status; Z91.09 Other allergy status, other than to drugs and biological substances

== ENCOUNTER 2019-06-19 13:29 | Emergency (ER) | payer MEDICARE, MEDICAID ==
[~2019-06-19] VITALS: Ht 172.7 cm; Wt 63.0 kg
[2019-06-19] MEDS ORDERED: ALPRAZolam 0.5 MG TAB PO ONE (14:00)
[2019-06-19] MEDS ORDERED: ASPIRIN 81 MG CHEW TABLET PO ONE (14:00)
[2019-06-19 14:28] LABS: BASO % 0.3 % (0.0-1.0); EOS # 0.1 10^3/uL (0.0-0.5); EOS % 0.8 % (0.0-3.0); HEMATOCRIT 43.3 % (36.0-47.0); HEMOGLOBIN 13.6 g/dl (12.0-15.5); LYMPH # 1.3 10^3/uL (1.5-5.0); LYMPH % 20.4 % (24.0-44.0); MEAN CORPUSCULAR HEMOGLOBIN 29.1 pg (27.0-33.0); MEAN CORPUSCULAR HGB CONC 31.4 g/dl (32.0-36.5); MEAN CORPUSCULAR VOLUME 92.5 fl (80.0-96.0); MONO # 0.3 10^3/uL (0.0-0.8); MONO % 5.2 % (0.0-5.0); NEUTROPHILS # 4.6 10^3/uL (1.5-8.5); NEUTROPHILS % 72.7 % (36.0-66.0); PLATELET COUNT, AUTOMATED 176 10^3/uL (150-450); RED BLOOD COUNT 4.68 10^6/uL (4.00-5.40); WHITE BLOOD COUNT 6.4 10^3/uL (4.0-10.0)
[2019-06-19 14:38] LABS: INR 1.03; PROTHROMBIN TIME 13.2 SECONDS (11.8-14.0)
[2019-06-19 15:04] LABS: HCG, SERUM QUALITATIVE NEGATIVE (NEGATIVE)
[2019-06-19 15:09] LABS: BLOOD UREA NITROGEN 14 MG/DL (7-18); CALCIUM LEVEL 8.9 MG/DL (8.5-10.1); CARBON DIOXIDE LEVEL 26 MEQ/L (21-32); CHLORIDE LEVEL 108 MEQ/L (98-107); CK-MB VALUE MASS 1.5 NG/ML (<3.6); CPK CREATINE PHOSPHOKINASE 122 U/L (26-192); CREATININE FOR GFR 1.12 MG/DL (0.55-1.30); FREE T4 0.93 NG/DL (0.76-1.46); GLOMERULAR FILTRATION RATE 53.6 (>51); GLUCOSE, FASTING 118 MG/DL (70-100); MB/CK RELATIVE INDEX 1.23 (< OR =4); POTASSIUM SERUM 3.8 MEQ/L (3.5-5.1); SODIUM LEVEL 143 MEQ/L (136-145); TROPONIN I < 0.02 NG/ML (< 0.10)
[2019-06-19] MEDS ORDERED: XANA0.25 PO (15:20)
[2019-06-19 15:39] VITALS: BP 130/79
--- NOTE | 2019-06-19 20:20 | ECGEPIP ---
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
== END 2019-06-19 16:11 | disposition home or self-care (01) ==
LOC: M ED 13:29
DX: R07.89 Other chest pain (principal); F41.9 Anxiety disorder, unspecified; J44.9 Chronic obstructive pulmonary disease, unspecified; Z91.041 Radiographic dye allergy status; Z88.2 Allergy status to sulfonamides; Z88.8 Allergy status to other drugs, medicaments and biological substances; Z91.048 Other nonmedicinal substance allergy status; Z79.899 Other long term (current) drug therapy

== ENCOUNTER → 2019-08-03 | Outpatient (REF) | payer MEDICARE, MEDICAID ==
[~2019-08-03] MED LIST changes: -MECL-68 PO; +MECL1TAB31 PO; -TRAZ10TA GT; +TRAZ1TAB12 GT; +XANA0.25 PO
[2019-08-03 11:58] LABS: INFLUENZA A AMPLIFICATION NEGATIVE (NEGATIVE); INFLUENZA B AMPLIFICATION NEGATIVE (NEGATIVE)
== END ==
LOC: M LAB REF 10:42
PROVIDERS: ATTEND Physician Assistant Medical
DX: R50.9 Fever, unspecified (principal); R05 Cough

== ENCOUNTER → 2019-09-03 | Outpatient (REF) | payer MEDICARE, MEDICAID ==
[2019-09-03 18:07] LABS: BASO % 0.3 % (0.0-1.0); EOS % 0.7 % (0.0-3.0); HEMATOCRIT 43.5 % (36.0-47.0); HEMOGLOBIN 13.9 g/dl (12.0-15.5); LYMPH # 1.7 10^3/uL (1.5-5.0); LYMPH % 29.4 % (24.0-44.0); MEAN CORPUSCULAR HEMOGLOBIN 30.3 pg (27.0-33.0); MEAN CORPUSCULAR VOLUME 94.8 fl (80.0-96.0); MONO # 0.4 10^3/uL (0.0-0.8); MONO % 7.1 % (0.0-5.0); NEUTROPHILS # 3.6 10^3/uL (1.5-8.5); PLATELET COUNT, AUTOMATED 213 10^3/uL (150-450); RED BLOOD COUNT 4.59 10^6/uL (4.00-5.40); WHITE BLOOD COUNT 5.8 10^3/uL (4.0-10.0)
== END ==
LOC: M SFHCPLAZ 13:46
PROVIDERS: ATTEND Family Medicine
DX: R05 Cough (principal); J18.9 Pneumonia, unspecified organism

== ENCOUNTER → 2019-09-06 | Outpatient (REF) | payer MEDICARE, MEDICAID ==
[~2019-09-06] MED LIST changes: +CYCL-707 PO; -CYCL10TA PO; +VITA-243 PO; -VITA500T PO
== END ==
LOC: M SFHCPLAZ 17:05
PROVIDERS: ATTEND Hospitalist
DX: J06.9 Acute upper respiratory infection, unspecified (principal); Z11.59 Encounter for screening for other viral diseases; R11.2 Nausea with vomiting, unspecified; R19.7 Diarrhea, unspecified; J44.1 Chronic obstructive pulmonary disease with (acute) exacerbation
CPT/HCPCS: 87486; 87581; 87633; 87798; G0463; U0002

== ENCOUNTER 2019-09-26 22:17 | Emergency (ER) | payer MEDICARE, MEDICAID ==
[~2019-09-26] VITALS: Ht 172.7 cm; Wt 60.0 kg
[~2019-09-26 22:17] MED LIST changes: -CYCL-707 PO; +CYCL10TA PO; -VITA-243 PO; +VITA500T PO
[2019-09-26] MEDS ORDERED: NS 1,000 ML IV SCH (22:39)
[2019-09-26] MEDS ORDERED: ALPRAZolam 0.25 MG TAB PO ONE (22:45)
[2019-09-26 23:22] LABS: BASO % 0.4 % (0.0-1.0); EOS # 0.2 10^3/uL (0.0-0.5); EOS % 2.9 % (0.0-3.0); HEMATOCRIT 41.7 % (36.0-47.0); HEMOGLOBIN 13.5 g/dl (12.0-15.5); LYMPH # 1.9 10^3/uL (1.5-5.0); LYMPH % 36.8 % (24.0-44.0); MEAN CORPUSCULAR HEMOGLOBIN 30.1 pg (27.0-33.0); MEAN CORPUSCULAR HGB CONC 32.4 g/dl (32.0-36.5); MEAN CORPUSCULAR VOLUME 93.1 fl (80.0-96.0); MONO # 0.5 10^3/uL (0.0-0.8); MONO % 9.5 % (0.0-5.0); NEUTROPHILS # 2.6 10^3/uL (1.5-8.5); NEUTROPHILS % 50.2 % (36.0-66.0); PLATELET COUNT, AUTOMATED 201 10^3/uL (150-450); RED BLOOD COUNT 4.48 10^6/uL (4.00-5.40); WHITE BLOOD COUNT 5.1 10^3/uL (4.0-10.0)
--- NOTE | 2019-09-26 23:33 | REPVR ---
PROCEDURE INFORMATION: Exam: CT Abdomen And Pelvis Without Contrast Exam date and time: 09/26/2019 10:41 PM Age: 54 years old Clinical indication: Abdominal pain; Localized; Lower; Additional info: Low back/flank pain TECHNIQUE: Imaging protocol: Computed tomography of the abdomen and pelvis without contrast. Radiation optimization: All CT scans at this facility use at least one of these dose optimization techniques: automated exposure control; mA and/or kV adjustment per patient size (includes targeted exams where dose is matched to clinical indication); or iterative reconstruction. COMPARISON: CT ABD PELVIS W/O CONTRAST 11/01/2017 4:03 PM FINDINGS: Lungs: Advanced emphysematous changes in the lungs. Liver: Normal. No mass. Gallbladder and bile ducts: There has been prior cholecystectomy. No biliary duct dilation. Pancreas: Normal. No ductal dilation. Spleen: Normal. No splenomegaly. Adrenals: Normal. No mass. Kidneys and ureters: Normal. No hydronephrosis. Stomach and bowel: Unremarkable. No obstruction. No mucosal thickening. Appendix: No evidence of appendicitis. Intraperitoneal space: Unremarkable. No free air. No significant fluid collection. Vasculature: Unremarkable. No abdominal aortic aneurysm. Lymph nodes: Unremarkable. No enlarged lymph nodes. Bladder: Unremarkable as visualized. Reproductive: There has been prior hysterectomy. Bones/joints: There are advanced degenerative changes in the spine and pelvis. Soft tissues: Unremarkable. IMPRESSION: 1. No acute findings. 2. Emphysema. Electronically signed by: Vel Leblanc On 09/26/2019 23:32:37 PM
[2019-09-26 23:43] LABS: ALBUMIN 3.6 GM/DL (3.2-5.2); ALT/SGPT 25 U/L (12-78); BILIRUBIN,DIRECT < 0.1 MG/DL (0.0-0.2); BILIRUBIN,TOTAL 0.2 MG/DL (0.2-1.0); BLOOD UREA NITROGEN 20 MG/DL (7-18); CALCIUM LEVEL 8.7 MG/DL (8.5-10.1); CARBON DIOXIDE LEVEL 29 MEQ/L (21-32); CHLORIDE LEVEL 107 MEQ/L (98-107); CREATININE FOR GFR 0.95 MG/DL (0.55-1.30); GLOMERULAR FILTRATION RATE > 60.0 (>51); GLUCOSE, FASTING 95 MG/DL (70-100); LIPASE 168 U/L (73-393); SODIUM LEVEL 141 MEQ/L (136-145); TOTAL PROTEIN 6.7 GM/DL (6.4-8.2)
[2019-09-27 00:18] VITALS: BP 183/82
== END 2019-09-27 00:26 | disposition home or self-care (01) ==
LOC: M ED 22:17
DX: M54.9 Dorsalgia, unspecified (principal); F43.10 Post-traumatic stress disorder, unspecified; J43.9 Emphysema, unspecified; F31.9 Bipolar disorder, unspecified; F60.3 Borderline personality disorder; G90.09 Other idiopathic peripheral autonomic neuropathy; N80.9 Endometriosis, unspecified; Z87.891 Personal history of nicotine dependence; Z79.899 Other long term (current) drug therapy; Z91.040 Latex allergy status; Z88.2 Allergy status to sulfonamides; Z91.89 Other specified personal risk factors, not elsewhere classified; Z88.8 Allergy status to other drugs, medicaments and biological substances; Z88.1 Allergy status to other antibiotic agents; Z88.5 Allergy status to narcotic agent

== ENCOUNTER 2019-10-24 15:39 | Emergency (ER) | payer MEDICARE, MEDICAID ==
[~2019-10-24] VITALS: Ht 172.7 cm; Wt 60.9 kg
[~2019-10-24 15:39] MED LIST changes: +CYCL-707 PO; -CYCL10TA PO; +VITA-243 PO; -VITA500T PO
[2019-10-24] MEDS ORDERED: HYDR10TAB (15:48)
[2019-10-24] MEDS ORDERED: BUSP5TA (15:48)
[2019-10-24] MEDS ORDERED: ALBUTEROL SULFATE 2.5 MG/0.5 ML INH NEB SOLN NEB ONE (16:15)
[2019-10-24] MEDS ORDERED: IPRATROPIUM 0.5MG/ALBUTEROL 2.5MG INH SOL UD 3ML (DUONEB)(J7620) NEB ONE (16:15)
[2019-10-24 16:22] LABS: BASO % 0.5 % (0.0-1.0); EOS # 0.1 10^3/uL (0.0-0.5); EOS % 1.5 % (0.0-3.0); HEMATOCRIT 46.9 % (36.0-47.0); HEMOGLOBIN 15.1 g/dl (12.0-15.5); LYMPH # 1.6 10^3/uL (1.5-5.0); LYMPH % 27.2 % (24.0-44.0); MEAN CORPUSCULAR HGB CONC 32.2 g/dl (32.0-36.5); MEAN CORPUSCULAR VOLUME 93.1 fl (80.0-96.0); MONO # 0.4 10^3/uL (0.0-0.8); MONO % 7.1 % (0.0-5.0); NEUTROPHILS # 3.7 10^3/uL (1.5-8.5); NEUTROPHILS % 63.2 % (36.0-66.0); PLATELET COUNT, AUTOMATED 220 10^3/uL (150-450); RED BLOOD COUNT 5.04 10^6/uL (4.00-5.40); WHITE BLOOD COUNT 5.9 10^3/uL (4.0-10.0)
[2019-10-24] MEDS ORDERED: methylPREDNISolone INJ 125 MG/2 ML VIAL (J2930) IV ONE (16:30)
[2019-10-24 16:41] LABS: ALBUMIN 3.9 GM/DL (3.2-5.2); ALT/SGPT 29 U/L (12-78); BILIRUBIN,DIRECT 0.1 MG/DL (0.0-0.2); BILIRUBIN,TOTAL 0.4 MG/DL (0.2-1.0); BLOOD UREA NITROGEN 16 MG/DL (7-18); CALCIUM LEVEL 9.5 MG/DL (8.5-10.1); CARBON DIOXIDE LEVEL 27 MEQ/L (21-32); CHLORIDE LEVEL 107 MEQ/L (98-107); CK-MB VALUE MASS 2.7 NG/ML (<3.6); CPK CREATINE PHOSPHOKINASE 239 U/L (26-192); CREATININE FOR GFR 0.96 MG/DL (0.55-1.30); GLOMERULAR FILTRATION RATE > 60.0 (>51); GLUCOSE, FASTING 84 MG/DL (70-100); MB/CK RELATIVE INDEX 1.13 (< OR =4); POTASSIUM SERUM 3.7 MEQ/L (3.5-5.1); SODIUM LEVEL 141 MEQ/L (136-145); TOTAL PROTEIN 7.3 GM/DL (6.4-8.2); TROPONIN I < 0.02 NG/ML (< 0.10)
[2019-10-24 16:45] LABS: ABG BASE EXCESS 2.2 (-2.0-2.0); ABG HCO3 22.6 MEQ/L (22.0-26.0); ABG O2 SATURATION 98.1 % (95.0-99.0); ABG PARTIAL PRESSURE CO2 24.8 mmHg (35.0-45.0); ABG PARTIAL PRESSURE O2 89.1 mmHg (75.0-100.0); ABG STANDARD HCO3 26.5 MEQ/L (22.0-26.0); ABG TOTAL CO2 23.4 MEQ/L (22.0-29.0); ABG pH (ARTERIAL) 7.578 UNITS (7.350-7.450)
[2019-10-24] MEDS ORDERED: ALPRAZolam 0.25 MG TAB PO ONE (17:00)
--- NOTE | 2019-10-24 18:08 | REP ---
Clinical: Shortness of breath . Comparison: 09/02/2019 . Findings: The mediastinum and cardiac silhouette are stable and within normal limits for portable technique. The lung mcelroy demonstrate chronic emphysematous changes primarily involving the right upper lung zone without acute consolidation, effusion, or pneumothorax. Skeletal structures are intact. Impression: No acute cardiopulmonary process appreciated. Chronic emphysematous changes suggested. Electronically Signed by Trever Ma MD 10/24/2019 05:59 P
[2019-10-24 18:30] VITALS: BP 145/90
[2019-10-24] MEDS ORDERED: PRED10TA2 PO (18:34)
--- NOTE | 2019-10-24 22:11 | ECGEPIP ---
[facility] - ED Test Date: 2019-10-24 Pat Name: ANA PAULA MARRERO Department: Room: - Gender: Female Internist: [email or web address] : 1965 Requested By: Kai Eduardo Order Number: [id number] Reading MD: Kai Jorgensen Measurements Intervals [place] Rate: 67 P: 73 [place]: 133 QRS: -61 QRSD: 110 T: 41 QT: 396 QTc: 419 Interpretive Statements SINUS RHYTHM LEFT AXIS DEVIATION MODERATE INTRAVENTRICULAR CONDUCTION DELAY SIMILAR TO 06/19/19 Electronically Signed on 10-24-2019 22:11:20 EDT by Kai Jorgensen
== END 2019-10-24 19:04 | disposition home or self-care (01) ==
LOC: M ED 15:39
DX: J44.1 Chronic obstructive pulmonary disease with (acute) exacerbation (principal); M79.7 Fibromyalgia; F33.9 Major depressive disorder, recurrent, unspecified; F41.9 Anxiety disorder, unspecified; Z87.891 Personal history of nicotine dependence; Z88.2 Allergy status to sulfonamides; Z88.8 Allergy status to other drugs, medicaments and biological substances; Z79.899 Other long term (current) drug therapy; Z79.51 Long term (current) use of inhaled steroids
CPT/HCPCS: 36600; 71045; 80048; 80076; 82550; 82553; 82803; 83605; 84484; 85025; 87040; 93005; 93041; 94640; 94760; 96374; 99285; G0463; J2930

== ENCOUNTER → 2019-12-10 | Outpatient (CLI) | payer MEDICARE, MEDICAID ==
[~2019-12-10] MED LIST changes: +BUSP5TA; +HYDR10TAB; -LACT10SO29 PO; +LACT20EL PO; +PRED10TA2 PO
[2019-12-10 16:29] LABS: FERRITIN 17 NG/ML (8-252); URIC ACID 3.6 MG/DL (2.6-6.0)
[2019-12-11 09:11] LABS: VITAMIN B12 LEVEL 746 PG/ML
[2019-12-11 09:45] LABS: FOLATE > 24.0 NG/ML
== END ==
LOC: M WUC 13:41
PROVIDERS: ATTEND Obstetrics & Gynecology
DX: M79.672 Pain in left foot (principal); G57.93 Unspecified mononeuropathy of bilateral lower limbs

== ENCOUNTER 2020-01-01 15:34 | Emergency (ER) | payer MEDICARE, MEDICAID ==
[~2020-01-01] VITALS: Ht 172.7 cm; Wt 60.0 kg
[2020-01-01 16:54] LABS: BASO % 0.4 % (0.0-1.0); EOS # 0.1 10^3/uL (0.0-0.5); EOS % 2.6 % (0.0-3.0); HEMATOCRIT 41.8 % (36.0-47.0); HEMOGLOBIN 13.5 g/dl (12.0-15.5); MEAN CORPUSCULAR HEMOGLOBIN 29.9 pg (27.0-33.0); MEAN CORPUSCULAR HGB CONC 32.3 g/dl (32.0-36.5); MEAN CORPUSCULAR VOLUME 92.5 fl (80.0-96.0); MONO # 0.5 10^3/uL (0.0-0.8); MONO % 9.4 % (0.0-5.0); NEUTROPHILS # 2.4 10^3/uL (1.5-8.5); NEUTROPHILS % 47.2 % (36.0-66.0); PLATELET COUNT, AUTOMATED 182 10^3/uL (150-450); RED BLOOD COUNT 4.52 10^6/uL (4.00-5.40)
[2020-01-01] MEDS ORDERED: dexameTHASONE 20MG/5ML VIAL (J1100 PER 1MG) IV ONE (17:15)
[2020-01-01 17:23] LABS: ALBUMIN 3.9 GM/DL (3.2-5.2); ALT/SGPT 24 U/L (12-78); BILIRUBIN,DIRECT < 0.1 MG/DL (0.0-0.2); BILIRUBIN,TOTAL 0.4 MG/DL (0.2-1.0); BLOOD UREA NITROGEN 15 MG/DL (7-18); CARBON DIOXIDE LEVEL 25 MEQ/L (21-32); CHLORIDE LEVEL 107 MEQ/L (98-107); CREATININE FOR GFR 0.94 MG/DL (0.55-1.30); GLOMERULAR FILTRATION RATE > 60.0 (>51); GLUCOSE, FASTING 110 MG/DL (70-100); POTASSIUM SERUM 3.8 MEQ/L (3.5-5.1); SODIUM LEVEL 139 MEQ/L (136-145); TOTAL PROTEIN 6.9 GM/DL (6.4-8.2)
[2020-01-01] MEDS ORDERED: ALPRAZolam 0.25 MG TAB PO ONE (17:30)
--- NOTE | 2020-01-01 17:55 | ECGEPIP ---
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
[2020-01-01] MEDS: ALBUTEROL 90 MCG/ACT 8GM HFA INHALER INH SCH (18:02)
[2020-01-01 18:26] VITALS: BP 133/78
[2020-01-01] MEDS ORDERED: PRED10TA2 PO (18:45)
--- NOTE | 2020-01-02 02:51 | REP ---
CHEST, PORTABLE: AP portable view of the chest is performed and compared to prior studies, most recently 10/24/2019. There is mild bibasilar interstitial fibrosis, which is stable. No acute infiltrate is seen. Heart is normal in size. Mediastinal silhouette is unchanged. IMPRESSION: Stable chronic findings without evidence of acute infiltrate. Electronically Signed by Shan Alcala MD 01/05/2020 11:32 P
== END 2020-01-01 19:00 | disposition home or self-care (01) ==
LOC: M ED 15:34
DX: J44.9 Chronic obstructive pulmonary disease, unspecified (principal); Z11.59 Encounter for screening for other viral diseases; Z20.828 Contact with and (suspected) exposure to other viral communicable diseases; F31.9 Bipolar disorder, unspecified; F43.10 Post-traumatic stress disorder, unspecified; Z79.899 Other long term (current) drug therapy; Z88.1 Allergy status to other antibiotic agents; Z88.2 Allergy status to sulfonamides; Z88.8 Allergy status to other drugs, medicaments and biological substances; Z91.041 Radiographic dye allergy status; Z91.048 Other nonmedicinal substance allergy status; F17.210 Nicotine dependence, cigarettes, uncomplicated
CPT/HCPCS: 71045; 80048; 80076; 84484; 85025; 87040; 87486; 87581; 87633; 87798; 93005; 93041; 94640; 94760; 96374; 99284; C9803; J1100; U0003

== ENCOUNTER → 2020-01-01 | Outpatient (CLI) | payer MEDICARE, MEDICAID | LOC: M LABSMTC 13:36 | PROVIDERS: ATTEND Family Medicine | DX: Z11.59 Encounter for screening for other viral diseases (principal); Z20.828 Contact with and (suspected) exposure to other viral communicable diseases ==

== ENCOUNTER 2020-01-07 17:36 | Emergency (ER) | payer MEDICARE, MEDICAID ==
[~2020-01-07] VITALS: Ht 175.3 cm; Wt 59.1 kg
[~2020-01-07 17:36] MED LIST changes: -LEVO500T3; -MUCI600T31 PO
[2020-01-07] MEDS ORDERED: LEVO500T3 (18:04)
[2020-01-07 19:10] LABS: BASO % 0.3 % (0.0-1.0); EOS # 0.1 10^3/uL (0.0-0.5); EOS % 1.3 % (0.0-3.0); HEMOGLOBIN 13.8 g/dl (12.0-15.5); LYMPH # 1.4 10^3/uL (1.5-5.0); LYMPH % 13.9 % (24.0-44.0); MEAN CORPUSCULAR HEMOGLOBIN 30.1 pg (27.0-33.0); MEAN CORPUSCULAR HGB CONC 32.9 g/dl (32.0-36.5); MEAN CORPUSCULAR VOLUME 91.5 fl (80.0-96.0); MONO % 9.9 % (0.0-5.0); NEUTROPHILS # 7.2 10^3/uL (1.5-8.5); NEUTROPHILS % 72.8 % (36.0-66.0); PLATELET COUNT, AUTOMATED 195 10^3/uL (150-450); RED BLOOD COUNT 4.59 10^6/uL (4.00-5.40); WHITE BLOOD COUNT 9.9 10^3/uL (4.0-10.0)
[2020-01-07 19:43] LABS: ALBUMIN 3.2 GM/DL (3.2-5.2); ALT/SGPT 24 U/L (12-78); BILIRUBIN,DIRECT < 0.1 MG/DL (0.0-0.2); BILIRUBIN,TOTAL 0.4 MG/DL (0.2-1.0); BLOOD UREA NITROGEN 16 MG/DL (7-18); CALCIUM LEVEL 8.4 MG/DL (8.5-10.1); CARBON DIOXIDE LEVEL 29 MEQ/L (21-32); CHLORIDE LEVEL 104 MEQ/L (98-107); CK-MB VALUE MASS < 1.0 NG/ML (<3.6); CPK CREATINE PHOSPHOKINASE 60 U/L (26-192); CREATININE FOR GFR 1.07 MG/DL (0.55-1.30); GLOMERULAR FILTRATION RATE 56.5 (>51); GLUCOSE, FASTING 98 MG/DL (70-100); MB/CK RELATIVE INDEX 1.67 (< OR =4); NT-PRO BNP 127 PG/ML (<125); SODIUM LEVEL 140 MEQ/L (136-145); TOTAL PROTEIN 6.6 GM/DL (6.4-8.2); TROPONIN I < 0.02 NG/ML (< 0.10)
[2020-01-07 20:05] VITALS: BP 149/97
[2020-01-07 21:00] VITALS: O2SAT 96
[2020-01-07] MEDS ORDERED: MUCI600T31 PO (21:00)
--- NOTE | 2020-01-08 10:42 | ECGEPIP ---
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
== END 2020-01-07 21:27 | disposition home or self-care (01) ==
LOC: M ED 17:36 → EDBD 17:36 → M ED 21:27
DX: J16.8 Pneumonia due to other specified infectious organisms (principal); J44.9 Chronic obstructive pulmonary disease, unspecified; M79.7 Fibromyalgia; I10 Essential (primary) hypertension; E78.00 Pure hypercholesterolemia, unspecified; K21.9 Gastro-esophageal reflux disease without esophagitis; F41.9 Anxiety disorder, unspecified; F32.9 Major depressive disorder, single episode, unspecified; Z88.2 Allergy status to sulfonamides; Z88.3 Allergy status to other anti-infective agents; Z88.5 Allergy status to narcotic agent; Z88.8 Allergy status to other drugs, medicaments and biological substances; Z91.041 Radiographic dye allergy status; Z91.09 Other allergy status, other than to drugs and biological substances; Z87.891 Personal history of nicotine dependence; Z79.899 Other long term (current) drug therapy

== ENCOUNTER → 2020-01-07 | Outpatient (REF) | payer MEDICARE, MEDICAID ==
[~2020-01-07] MED LIST changes: +LEVO500T3; +MUCI600T31 PO
== END ==
LOC: M LAB REF 12:35
PROVIDERS: ATTEND Internal Medicine Pulmonary Disease
DX: J16.8 Pneumonia due to other specified infectious organisms (principal)

== ENCOUNTER 2020-03-20 16:12 | Emergency (ER) | payer MEDICARE, MEDICAID ==
[~2020-03-20] VITALS: Ht 175.3 cm; Wt 60.9 kg
[~2020-03-20 16:12] MED LIST changes: +LEVO500T3; +MUCI600T31 PO
[2020-03-20] MEDS ORDERED: SPIR1CAP INH (16:50)
[2020-03-20] MEDS ORDERED: GUAISYP9 PO (16:50)
--- NOTE | 2020-03-20 17:23 | REPVR ---
PROCEDURE INFORMATION: Exam: XR Chest, 2 Views Exam date and time: 03/20/2020 5:06 PM Age: 54 years old Clinical indication: Other: Copd; Additional info: Copd exac TECHNIQUE: Imaging protocol: XR of the chest Views: 2 views. COMPARISON: PA PORTABLE CHEST X-RAY 01/01/2020 4:27 PM FINDINGS: Lungs: Unremarkable. No consolidation. Pleural space: Unremarkable. No pleural effusion. No pneumothorax. Heart/Mediastinum: Unremarkable. No cardiomegaly. Bones/joints: Unremarkable. IMPRESSION: No acute findings. Electronically signed by: Gato Giraldo On 03/20/2020 17:23:10 PM
[2020-03-20 17:27] LABS: BASO % 0.4 % (0.0-1.0); EOS # 0.1 10^3/uL (0.0-0.5); HEMATOCRIT 41.5 % (36.0-47.0); HEMOGLOBIN 13.3 g/dl (12.0-15.5); LYMPH # 1.8 10^3/uL (1.5-5.0); MEAN CORPUSCULAR HEMOGLOBIN 29.2 pg (27.0-33.0); MEAN CORPUSCULAR VOLUME 91.2 fl (80.0-96.0); MONO # 0.4 10^3/uL (0.0-0.8); MONO % 7.5 % (0.0-5.0); NEUTROPHILS # 3.3 10^3/uL (1.5-8.5); NEUTROPHILS % 57.6 % (36.0-66.0); PLATELET COUNT, AUTOMATED 196 10^3/uL (150-450); RED BLOOD COUNT 4.55 10^6/uL (4.00-5.40); WHITE BLOOD COUNT 5.6 10^3/uL (4.0-10.0)
[2020-03-20 17:30] VITALS: BP 139/83
== END 2020-03-20 18:15 | disposition home or self-care (01) ==
LOC: M ED 16:12
DX: J44.9 Chronic obstructive pulmonary disease, unspecified (principal); E78.5 Hyperlipidemia, unspecified; M79.7 Fibromyalgia; F12.10 Cannabis abuse, uncomplicated; F60.3 Borderline personality disorder; Z87.19 Personal history of other diseases of the digestive system; Z87.891 Personal history of nicotine dependence; Z91.041 Radiographic dye allergy status; Z88.2 Allergy status to sulfonamides; Z88.1 Allergy status to other antibiotic agents; Z88.5 Allergy status to narcotic agent; Z91.048 Other nonmedicinal substance allergy status; Z79.899 Other long term (current) drug therapy; Z79.51 Long term (current) use of inhaled steroids; Z79.1 Long term (current) use of non-steroidal anti-inflammatories (NSAID)

== ENCOUNTER → 2020-03-31 | Outpatient (REF) | payer MEDICARE, MEDICAID ==
[~2020-03-31] MED LIST changes: +GUAISYP9 PO; +SPIR1CAP INH
== END ==
LOC: M SFHCPLAZ 15:07
PROVIDERS: ATTEND Family Medicine
DX: J18.9 Pneumonia, unspecified organism (principal)

== ENCOUNTER → 2020-04-03 | Outpatient (REF) | payer MEDICARE, MEDICAID | LOC: M SFHCPLAZ 17:21 | PROVIDERS: ATTEND Student in an Organized Health Care Education/Training Program | DX: J18.9 Pneumonia, unspecified organism (principal) ==

== ENCOUNTER → 2020-04-16 | Outpatient (CLI) | payer MEDICARE, MEDICAID ==
--- NOTE | 2020-04-16 13:56 | REP ---
INDICATION: RECURRENT PNEUMONIA PT AT FILE ROOM. COMPARISON: Comparison is made with chest x-rays from 20 March 2020 and 01 January 2020.. TECHNIQUE: Helical scanning is acquired and 3 mm axial images are generated. Coronal and sagittal MPR images are generated. Coronal MIP images are generated. FINDINGS: Preliminary digital shuttle hand radiograph demonstrates hyperinflation consistent with COPD. No focal infiltrate is seen. Axial CT images show advanced emphysematous changes with generalized old immediately. Emphysema is most pronounced in the upper lobes but also moderate in the lower lobes bilaterally and symmetrically. There is an area of mild linear fibrosis in the left upper lobe posteriorly along the major fissure. there are clips in the right upper quadrant of the abdomen. Normal adrenal glands are observed bilaterally. The visualized upper abdominal structures are otherwise unremarkable. No pleural or pericardial effusion is seen. No hilar or mediastinal mass or adenopathy is observed. No bony destructive lesions seen. No significant pulmonary nodule, mass, or infiltrate is seen in the lung mcelroy. IMPRESSION: Advanced COPD emphysematous changes upper lobes and lower lobes bilaterally. Mild linear fibrosis left upper lobe. No infiltrate seen. Post cholecystectomy. Otherwise unremarkable chest CT. <Electronically signed by Juliocesar Escobar > 04/16/20 [id number]
== END ==
LOC: M RAD 13:20
PROVIDERS: ATTEND Student in an Organized Health Care Education/Training Program
DX: J18.9 Pneumonia, unspecified organism (principal); J43.9 Emphysema, unspecified

== ENCOUNTER → 2020-05-22 | Outpatient (REF) | payer MEDICARE, MEDICAID | LOC: M SFHCWAGY 13:53 | PROVIDERS: ATTEND Nurse Practitioner Women's Health | DX: R30.0 Dysuria (principal) | CPT/HCPCS: 81002; 87086; G0463 ==

== ENCOUNTER → 2020-06-24 | Outpatient (CLI) | payer MEDICARE, MEDICAID | LOC: M LABSMTC 10:04 | PROVIDERS: ATTEND Family Medicine | DX: Z20.822 Contact with and (suspected) exposure to COVID-19 (principal) ==

== ENCOUNTER → 2020-07-22 | Outpatient (CLI) | payer MEDICARE, MEDICAID ==
--- NOTE | 2020-07-22 13:08 | REP ---
INDICATION: PAIN COMPARISON: None. TECHNIQUE: AP and frog-lateral views of the left hip FINDINGS: Generalized age-related changes include subtle increased sclerosis to the acetabulum with minimal marginal spurring and joint space narrowing. No further overt osteoarthritic or significant degenerative changes are appreciated. No evidence for acute or healed injury. Surrounding soft tissues are normal. IMPRESSION: Mild generalized age-related degenerative changes. <Electronically signed by Trever Ma > 07/22/20 [id number]
[2020-07-22 16:34] LABS: BASO % 0.5 % (0.0-1.0); EOS # 0.2 10^3/uL (0.0-0.5); EOS % 2.8 % (0.0-3.0); HEMATOCRIT 48.1 % (36.0-47.0); HEMOGLOBIN 14.9 g/dl (12.0-15.5); LYMPH # 2.5 10^3/uL (1.5-5.0); LYMPH % 30.1 % (24.0-44.0); MEAN CORPUSCULAR VOLUME 93.6 fl (80.0-96.0); MONO # 0.7 10^3/uL (0.0-0.8); MONO % 7.8 % (0.0-5.0); NEUTROPHILS # 4.9 10^3/uL (1.5-8.5); NEUTROPHILS % 58.3 % (36.0-66.0); PLATELET COUNT, AUTOMATED 267 10^3/uL (150-450); RED BLOOD COUNT 5.14 10^6/uL (4.00-5.40); WHITE BLOOD COUNT 8.4 10^3/uL (4.0-10.0)
== END ==
LOC: M WUC 11:14
PROVIDERS: ATTEND Student in an Organized Health Care Education/Training Program
DX: M16.12 Unilateral primary osteoarthritis, left hip (principal)

== ENCOUNTER → 2020-08-19 | Outpatient (REF) | payer MEDICARE, MEDICAID ==
[~2020-08-19] MED LIST changes: +LISI10TA22 PO; -LISI10TA4 PO
== END ==
LOC: M LAB REF 17:04
PROVIDERS: ATTEND Physician Assistant
DX: J20.9 Acute bronchitis, unspecified (principal)

== ENCOUNTER → 2020-08-25 | Outpatient (CLI) | payer MEDICARE, MEDICAID ==
--- NOTE | 2020-08-25 12:40 | REP ---
INDICATION: ACUTE BRONCHITIS, COUGH COMPARISON: 03/20/2020. TECHNIQUE: PA/Lateral FINDINGS: Lungs: There are stable interstitial fibrotic changes primarily in the lung bases bilaterally with no definite superimposed acute infiltrate. Heart: Normal in size. Mediastinum: Mediastinal silhouette unremarkable. Pleural angles: Unremarkable.. Bones and soft tissues: Unremarkable. IMPRESSION: No acute pulmonary disease. Stable chronic changes. <Electronically signed by Shan Alcala > 08/25/20 [id number]
== END ==
LOC: M WUC 11:53
PROVIDERS: ATTEND Internal Medicine Pulmonary Disease
DX: J20.9 Acute bronchitis, unspecified (principal); R05 Cough

== ENCOUNTER → 2020-08-25 | Outpatient (REF) | payer MEDICARE, MEDICAID | LOC: M LAB REF 17:02 | PROVIDERS: ATTEND Internal Medicine Pulmonary Disease | DX: R05 Cough (principal) ==

== ENCOUNTER → 2020-08-27 | Outpatient (REF) | payer MEDICARE, MEDICAID ==
[2020-08-27 17:17] LABS: BASO % 0.5 % (0.0-1.0); EOS # 0.1 10^3/uL (0.0-0.5); EOS % 1.9 % (0.0-3.0); HEMATOCRIT 50.5 % (36.0-47.0); HEMOGLOBIN 15.8 g/dl (12.0-15.5); LYMPH # 2.1 10^3/uL (1.5-5.0); LYMPH % 28.6 % (24.0-44.0); MEAN CORPUSCULAR HEMOGLOBIN 29.6 pg (27.0-33.0); MEAN CORPUSCULAR HGB CONC 31.3 g/dl (32.0-36.5); MEAN CORPUSCULAR VOLUME 94.6 fl (80.0-96.0); MONO # 0.6 10^3/uL (0.0-0.8); MONO % 8.1 % (2.0-8.0); NEUTROPHILS # 4.5 10^3/uL (1.5-8.5); PLATELET COUNT, AUTOMATED 249 10^3/uL (150-450); RED BLOOD COUNT 5.34 10^6/uL (4.00-5.40); WHITE BLOOD COUNT 7.4 10^3/uL (4.0-10.0)
[2020-08-27 17:41] LABS: ALBUMIN 3.8 GM/DL (3.2-5.2); BILIRUBIN,TOTAL 0.4 MG/DL (0.2-1.0); CALCIUM LEVEL 9.1 MG/DL (8.5-10.1); CREATININE FOR GFR 1.09 MG/DL (0.55-1.30); GLOMERULAR FILTRATION RATE 55.1 (>51); POTASSIUM SERUM 4.2 MEQ/L (3.5-5.1); THYROID STIMULATING HORMONE 1.71 uIU/ML (0.358-3.740); TOTAL PROTEIN 6.9 GM/DL (6.4-8.2)
== END ==
LOC: M SFHCPLAZ 13:54
DX: R53.83 Other fatigue (principal); R10.12 Left upper quadrant pain
CPT/HCPCS: 36415; 80053; 83690; 84443; 85025; G0463

== ENCOUNTER → 2020-09-04 | Outpatient (REF) | payer MEDICARE, MEDICAID | LOC: M SFHCPLAZ 08:19 | PROVIDERS: ATTEND Family Medicine | DX: J44.1 Chronic obstructive pulmonary disease with (acute) exacerbation (principal); R10.12 Left upper quadrant pain; R71.8 Other abnormality of red blood cells ==

== ENCOUNTER → 2020-09-17 | Outpatient (REF) | payer MEDICARE, MEDICAID | LOC: M LAB REF 16:41 | PROVIDERS: ATTEND Internal Medicine Pulmonary Disease | DX: J43.1 Panlobular emphysema (principal); J20.9 Acute bronchitis, unspecified ==

== ENCOUNTER → 2020-09-23 | Outpatient (REF) | payer MEDICARE, MEDICAID | LOC: M SFHCPLAZ 10:04 | PROVIDERS: ATTEND Family Medicine | DX: R10.12 Left upper quadrant pain (principal) | CPT/HCPCS: 36415; 82668; 83690; G0463 ==

== ENCOUNTER → 2020-10-09 | Outpatient (REF) | payer MEDICARE, MEDICAID ==
[2020-10-09 17:11] LABS: BASO % 0.4 % (0.0-1.0); EOS # 0.1 10^3/uL (0.0-0.5); EOS % 1.2 % (0.0-3.0); HEMATOCRIT 50.2 % (36.0-47.0); HEMOGLOBIN 15.8 g/dl (12.0-15.5); LYMPH # 2.2 10^3/uL (1.5-5.0); LYMPH % 32.2 % (24.0-44.0); MEAN CORPUSCULAR HEMOGLOBIN 29.6 pg (27.0-33.0); MEAN CORPUSCULAR HGB CONC 31.5 g/dl (32.0-36.5); MEAN CORPUSCULAR VOLUME 94.2 fl (80.0-96.0); MONO # 0.6 10^3/uL (0.0-0.8); MONO % 8.4 % (2.0-8.0); NEUTROPHILS # 3.9 10^3/uL (1.5-8.5); NEUTROPHILS % 57.4 % (36.0-66.0); PLATELET COUNT, AUTOMATED 233 10^3/uL (150-450); RED BLOOD COUNT 5.33 10^6/uL (4.00-5.40); WHITE BLOOD COUNT 6.9 10^3/uL (4.0-10.0)
[2020-10-09 17:32] LABS: FERRITIN 28 NG/ML (8-252); IRON (FE) 91 UG/DL (50-170)
== END ==
LOC: M SFHCPLAZ 14:34
DX: R53.82 Chronic fatigue, unspecified (principal); G47.61 Periodic limb movement disorder
CPT/HCPCS: 36415; 82728; 83540; 85025; G0463

== ENCOUNTER 2020-11-03 16:07 | Emergency (ER) | payer MEDICARE, MEDICAID ==
[~2020-11-03] VITALS: Ht 172.7 cm; Wt 59.9 kg
[2020-11-03] MEDS ORDERED: FLUO20CA22 (16:18)
[2020-11-03] MEDS ORDERED: ALPR0.5T3 (16:18)
--- NOTE | 2020-11-03 17:26 | REP ---
INDICATION: leg pain, no injury, history of dvt. COMPARISON: None. TECHNIQUE: Right lower extremity duplex venous scanning. FINDINGS: The deep veins are anechoic and fully compressible from the groin to the popliteal fossa in the right lower extremity. Color flow imaging is homogeneous. Spectral Doppler interrogation demonstrates intact respiratory variation in flow and normal manual augmentation of flow. There is no evidence of deep vein thrombosis. IMPRESSION: Negative right lower extremity duplex venous ultrasound. No evidence of deep vein thrombosis. <Electronically signed by Juliocesar Escobar > 11/03/20 [id number]
[2020-11-03] MEDS ORDERED: MELO15TA28 PO (17:58)
[2020-11-03 18:03] VITALS: BP 115/71
== END 2020-11-03 18:04 | disposition home or self-care (01) ==
LOC: M ED 16:07
DX: M79.661 Pain in right lower leg (principal); Z86.718 Personal history of other venous thrombosis and embolism; Z87.442 Personal history of urinary calculi; J44.9 Chronic obstructive pulmonary disease, unspecified; K58.9 Irritable bowel syndrome, unspecified; M79.7 Fibromyalgia; F43.10 Post-traumatic stress disorder, unspecified; M19.90 Unspecified osteoarthritis, unspecified site; Z79.890 Hormone replacement therapy; Z79.899 Other long term (current) drug therapy; Z91.041 Radiographic dye allergy status; Z91.89 Other specified personal risk factors, not elsewhere classified; Z88.2 Allergy status to sulfonamides; Z88.8 Allergy status to other drugs, medicaments and biological substances; Z88.1 Allergy status to other antibiotic agents; Z88.5 Allergy status to narcotic agent

== ENCOUNTER → 2020-11-11 | Outpatient (CLI) | payer MEDICARE, MEDICAID ==
[~2020-11-11] MED LIST changes: +ALPR0.5T3; +ALPR0.5T3 PO; +BENZ-18 PO; +C 50TAB PO; +D31000TA2 PO; +FAMO20TA PO; +FLUC150T PO; +FLUO20CA22; +FLUO20CA22 PO; +LOSA100T50 PO; +MAGN400T2 PO; +MELO15TA28 PO; +OMEP40CA4 PO; -OMEP40CA97 PO; +ONDA4TAB6 PO; +OYST1TAB PO; +RISATAB3 PO; +TRET0.02 TOP; +ZINC1TAB2 PO
== END ==
LOC: M LABSMTC 12:31
PROVIDERS: ATTEND Pediatrics
DX: Z11.52 Encounter for screening for COVID-19 (principal)

== ENCOUNTER → 2020-11-12 | Outpatient (REF) | payer MEDICARE, MEDICAID ==
[~2020-11-12] MED LIST changes: -ALPR0.5T3 PO; -BENZ-18 PO; -C 50TAB PO; -D31000TA2 PO; -FAMO20TA PO; -FLUC150T PO; -FLUO20CA22 PO; -LOSA100T50 PO; -MAGN400T2 PO; -OMEP40CA4 PO; +OMEP40CA97 PO; -ONDA4TAB6 PO; -OYST1TAB PO; -RISATAB3 PO; -TRET0.02 TOP; -ZINC1TAB2 PO
== END ==
LOC: M LAB REF 14:28
PROVIDERS: ATTEND Internal Medicine Pulmonary Disease
DX: R05 Cough (principal); J43.1 Panlobular emphysema

== ENCOUNTER 2020-12-03 17:11 | Emergency (ER) | payer MEDICARE, MEDICAID ==
[~2020-12-03] VITALS: Ht 167.6 cm; Wt 56.8 kg
[~2020-12-03 17:11] MED LIST changes: +OMEP40CA4 PO; -OMEP40CA97 PO
--- NOTE | 2020-12-03 17:56 | REP ---
INDICATION: DYSPNEA/COUGH. COMPARISON: 08/25/2020. TECHNIQUE: Single portable AP view of the chest was performed. FINDINGS: There is bibasilar fibro atelectatic change with no definite superimposed acute infiltrate. The heart is normal in size. The mediastinal silhouette is unchanged. IMPRESSION: No acute pulmonary disease.Stable chronic fibrotic change in the lung bases bilaterally. <Electronically signed by Shan Alcala > 12/03/20 [id number]
[2020-12-03 18:41] LABS: BASO % 0.4 % (0.0-1.0); EOS # 0.2 10^3/uL (0.0-0.5); EOS % 3.1 % (0.0-3.0); HEMATOCRIT 38.1 % (36.0-47.0); HEMOGLOBIN 12.6 g/dl (12.0-15.5); LYMPH # 1.6 10^3/uL (1.5-5.0); LYMPH % 32.2 % (24.0-44.0); MEAN CORPUSCULAR HEMOGLOBIN 29.8 pg (27.0-33.0); MEAN CORPUSCULAR HGB CONC 33.1 g/dl (32.0-36.5); MEAN CORPUSCULAR VOLUME 90.1 fl (80.0-96.0); MONO # 0.4 10^3/uL (0.0-0.8); MONO % 7.8 % (2.0-8.0); NEUTROPHILS # 2.9 10^3/uL (1.5-8.5); NEUTROPHILS % 56.1 % (36.0-66.0); PLATELET COUNT, AUTOMATED 186 10^3/uL (150-450); RED BLOOD COUNT 4.23 10^6/uL (4.00-5.40); WHITE BLOOD COUNT 5.1 10^3/uL (4.0-10.0)
[2020-12-03 19:04] LABS: ALBUMIN 2.8 GM/DL (3.2-5.2); ALT/SGPT 18 U/L (12-78); BILIRUBIN,DIRECT < 0.1 MG/DL (0.0-0.2); BILIRUBIN,TOTAL 0.2 MG/DL (0.2-1.0); BLOOD UREA NITROGEN 11 MG/DL (7-18); CALCIUM LEVEL 7.2 MG/DL (8.5-10.1); CARBON DIOXIDE LEVEL 25 MEQ/L (21-32); CHLORIDE LEVEL 115 MEQ/L (98-107); CK-MB VALUE MASS 1.6 NG/ML (<3.6); CPK CREATINE PHOSPHOKINASE 115 U/L (26-192); CREATININE FOR GFR 0.63 MG/DL (0.55-1.30); GLOMERULAR FILTRATION RATE > 60.0 (>51); GLUCOSE, FASTING 75 MG/DL (70-100); MB/CK RELATIVE INDEX 1.39 (< OR =4); POTASSIUM SERUM 2.7 MEQ/L (3.5-5.1); SODIUM LEVEL 145 MEQ/L (136-145); TOTAL PROTEIN 5.1 GM/DL (6.4-8.2); TROPONIN I < 0.02 NG/ML (< 0.10)
[2020-12-03] MEDS ORDERED: KCL 10MEQ/100ML SWI (KRUN) 10 MEQ in IV 1 EA IV ONE (19:05)
[2020-12-03] MEDS ORDERED: POTASSIUM CHLORIDE 10 MEQ SR TABLET PO ONE (19:05)
[2020-12-03] MEDS ORDERED: ONDANSETRON 4MG/2ML VIAL IV ONE (20:35)
[2020-12-03] MEDS ORDERED: ALBUTEROL 90 MCG/ACT 8GM HFA INHALER INH ONE (21:10)
[2020-12-03] MEDS ORDERED: ALPRAZolam 0.5 MG TAB PO ONE (21:10)
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
[2020-12-03] MEDS ORDERED: MAALOX 30 ML SUSP *UDC PO PRN (21:45)
--- NOTE | 2020-12-03 21:49 | ECGEPIP ---
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
[2020-12-03 22:50] LABS: RSV AMPLIFICATION NEGATIVE (NEGATIVE)
[2020-12-03] MEDS ORDERED: LOSA100T50 PO (23:35)
[2020-12-03] MEDS ORDERED: OYST1TAB PO (23:35)
[2020-12-03] MEDS ORDERED: D31000TA2 PO (23:35)
[2020-12-03] MEDS ORDERED: ALPR0.5T3 PO (23:35)
[2020-12-03] MEDS ORDERED: TRET0.02 TOP (23:35)
[2020-12-03] MEDS ORDERED: FAMO20TA PO (23:35)
[2020-12-03] MEDS ORDERED: SPIR1CAP INH (23:35)
[2020-12-03] MEDS ORDERED: MAGN400T2 PO (23:35)
[2020-12-03] MEDS ORDERED: ZINC1TAB2 PO (23:35)
[2020-12-03] MEDS ORDERED: C 50TAB PO (23:35)
[2020-12-03] MEDS ORDERED: MELO15TA28 PO (23:35)
[2020-12-03] MEDS ORDERED: FLUO20CA22 PO (23:35)
[2020-12-03] MEDS ORDERED: ALPRAZolam 0.5 MG TAB PO PRN (23:40)
[2020-12-03] MEDS ORDERED: MELOXICAM (MOBIC) 7.5 MG TAB PO PRN (23:40)
[2020-12-03 23:46] LABS: POTASSIUM SERUM 3.6 MEQ/L (3.5-5.1)
[2020-12-04] MEDS: LOSARTAN 50MG TABLET PO SCH ×2 (00:14→21:00)
[2020-12-04] MEDS ORDERED: POTASSIUM CHLORIDE 10 MEQ SR TABLET PO ONE (00:35)
[2020-12-04] MEDS ORDERED: BENZONATATE 100 MG CAP PO PRN (00:55)
[2020-12-04] MEDS: ACETAMINOPHEN TAB 650MG DOSE (2X325MG) PO PRN ×2 (06:28→15:43)
[2020-12-04] MEDS ORDERED: TIOTROPIUM INHALER/CAPSULE (SPIRIVA) INH SCH (08:00)
[2020-12-04 08:41] LABS: BLOOD UREA NITROGEN 10 MG/DL (7-18); CALCIUM LEVEL 8.3 MG/DL (8.5-10.1); CARBON DIOXIDE LEVEL 27 MEQ/L (21-32); CHLORIDE LEVEL 114 MEQ/L (98-107); CREATININE FOR GFR 0.81 MG/DL (0.55-1.30); GLOMERULAR FILTRATION RATE > 60.0 (>51); GLUCOSE, FASTING 95 MG/DL (70-100); MAGNESIUM LEVEL 2.1 MG/DL (1.8-2.4); POTASSIUM SERUM 4.1 MEQ/L (3.5-5.1); SODIUM LEVEL 144 MEQ/L (136-145); TROPONIN I < 0.02 NG/ML (< 0.10)
[2020-12-04] MEDS ORDERED: FLUoxetine 20 MG CAP PO SCH (09:00)
--- NOTE | 2020-12-04 11:11 | ECGEPIP ---
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
[2020-12-04] MEDS ORDERED: NS 1,000 ML IV ONE (14:50)
--- NOTE | 2020-12-04 14:53 | IPNPDOC ---
Subjective Date Seen The patient was seen on 12/04/20. Subjective Chief Complaint/HPI Feels very weak and tired. Continues to have a hacking cough. Diarrhea has stopped. Feels dizzy when she sits up. She reports that she was having hallucinations with Levofloxacn last week thats why she went to the [facility]. Also complains of feeling very cold in the room. Objective Physical Examination General Exam: Positive: Alert, Cooperative, No Acute Distress Eye Exam: Positive: PERRLA, Conjunctiva & lids normal, EOMI; Negative: Sclera icteric ENT Exam: Positive: Atraumatic, Pharynx Normal Neck Exam: Positive: Supple; Negative: JVD, thyromegaly Chest Exam: Positive: Rales, Rhonchi, Wheezing Heart Exam: Positive: Bradycardic, Regular Rhythm, Normal S1, Normal S2; Negative: Murmurs, Rubs Telemetry: Positive: Sinus, Bradycardia Abdomen Exam: Positive: Normal bowel sounds, Soft; Negative: Tenderness, Hepatospenomegaly Extremity Exam: Negative: Clubbing, Cyanosis, Edema Assessment /Plan Assessment Ms. Craft is a 55 yr old w COPD, Fibromyalgia / PTSD / Depression / Anxiety, GERD, Peripheral neuropathy, Atrophic vaginitis, Hx of C. diff colitis, DJD with L4/L5 spondylosis and L5/S1 fusions in 1991 and 1992 & hx of Provoked DVT presented to ED for weakness, dizziness and diarrhea. patient finished a 10 course of levofloxacin followed by azithromycin for 5 days on 12/01/20 given for pneumonia. She was having diarrhea from the azithromycin given by [facility]. Diarrhea resolved yesterday. In the ED she was found to have hypokalemia and sinus bradycardia and was admitted for this. Weakness likely 2/2 Hypokalemia/ dehydration due to diarrhea. Diarrhea was likely due to antibiotics now resolved now resolved. will dc tele. continue K supplementation. will give 1 L ivf. Sinus Bradycardia not due to hypokalemia as it persists even after correction of K chronic present in older EKGs in the system. COPD will give spiriva, albuterol Wheezing ronchi and coarse breath sounds noted will add symbicort bid. Fibromyalgia / PTSD / Depression / Anxiety alprazolam & fluoxetine Essential HTN losartan Plan/VTE VTE Prophylaxis Ordered?: Yes Disposition Left AMA VS, I&O, 24H, Fishbone Vital Signs/I&O Vital Signs Date Time Temp Pulse Resp B/P (MAP) Pulse Ox O2 Delivery O2 Flow Rate FiO2 12/04/20 06:30 51 16 144/77 (99) 95 Room Air 12/04/20 06:00 2.0 12/04/20 00:00 98.0 I&O- Last 24 Hours up to 6 AM 12/04/20 06:00 Intake Total 100 ml Balance 100 ml Laboratory Data 24H LABS Laboratory Tests 2 12/03/20 18:16: Immature Granulocyte % (Auto) 0.4, Neutrophils (%) (Auto) 56.1, Lymphocytes (%) (Auto) 32.2, Monocytes (%) (Auto) 7.8, Eosinophils (%) (Auto) 3.1H, Basophils (%) (Auto) 0.4, Neutrophils # (Auto) 2.9, Lymphocytes # (Auto) 1.6, Monocytes # (Auto) 0.4, Eosinophils # (Auto) 0.2, Basophils # (Auto) 0.0, Nucleated Red Blood Cells % (auto) 0.0, Anion Gap 5L, Glomerular Filtration Rate > 60.0, Calcium Level 7.2L, Total Bilirubin 0.2, Direct Bilirubin < 0.1, Aspartate Amino Transf (AST/SGOT) 14, Alanine Aminotransferase (ALT/SGPT) 18, Alkaline Phosphatase 65, Total Creatine Kinase 115, Creatine Kinase MB 1.6, Creatine Kinase MB Relative Index 1.39, Troponin I < 0.02, Total Protein 5.1L, Albumin 2. 8L, Albumin/Globulin Ratio 1.2 12/03/20 21:57: Coronavirus (COVID-19)(PCR) NEGATIVE, Influenza Type A (RT-PCR) NEGATIVE, Influenza Type B (RT-PCR) NEGATIVE, Respiratory Syncytial Virus (PCR) NEGATIVE 12/03/20 22:54: Magnesium Level 2.0 12/04/20 01:08: Troponin I < 0.02, Whole Blood Ionized Calcium 4.5 12/04/20 07:56: Anion Gap 3L, Glomerular Filtration Rate > 60.0, Calcium Level 8.3#L, Magnesium Level 2.1, Troponin I < 0.02 CBC/BMP Laboratory Tests 12/03/20 18:16 12/03/20 22:54 12/04/20 07:56 GINA JOSEPH MD Dec 04, 2020 14:53
[2020-12-04] MEDS ORDERED: ALBUTEROL SULFATE 2.5 MG/0.5 ML INH NEB SOLN NEB SCH (16:00)
[2020-12-04 18:00] VITALS: BP 146/89
[2020-12-04] MEDS ORDERED: SYMBICORT 80/4.5MCG INHALER 6GM INH SCH (20:00)
== END 2020-12-04 18:30 | disposition left against medical advice (07) ==
LOC: EDBD 17:11 → M ED 17:11 → UNDOADMOB 17:12 → M ED INP 17:12
DX: R53.1 Weakness (principal); E87.6 Hypokalemia; R00.1 Bradycardia, unspecified; I44.4 Left anterior fascicular block; I10 Essential (primary) hypertension; J44.9 Chronic obstructive pulmonary disease, unspecified; M79.7 Fibromyalgia; F43.10 Post-traumatic stress disorder, unspecified; F41.9 Anxiety disorder, unspecified; F32.9 Major depressive disorder, single episode, unspecified; Z87.891 Personal history of nicotine dependence; Z79.899 Other long term (current) drug therapy; Z91.041 Radiographic dye allergy status; Z88.2 Allergy status to sulfonamides; Z91.89 Other specified personal risk factors, not elsewhere classified; Z88.8 Allergy status to other drugs, medicaments and biological substances; Z88.1 Allergy status to other antibiotic agents
CPT/HCPCS: 36415; 36600; 71045; 80048; 80076; 82330; 82550; 82553; 83735; 84132; 84484; 85025; 87631; 93005; 93041; 94640; 94760; 96365; 96366; 96375; 99285; J2405

== ENCOUNTER 2020-12-04 19:16 | Observation (INO) | payer MEDICARE, MEDICAID ==
[~2020-12-04] VITALS: Ht 167.6 cm; Wt 59.4 kg
[~2020-12-04 19:16] MED LIST changes: +ALPR0.5T3 PO; +C 50TAB PO; +D31000TA2 PO; +FAMO20TA PO; +FLUO20CA22 PO; +LOSA100T50 PO; +MAGN400T2 PO; +OYST1TAB PO; +TRET0.02 TOP; +ZINC1TAB2 PO
[2020-12-04] MEDS ORDERED: LORazepam 1 MG TAB PO STA (20:12)
[2020-12-04] MEDS ORDERED: NS 500 ML IV ONE (20:20)
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
[2020-12-04] MEDS ORDERED: FAMOTIDINE 20 MG TAB PO PRN (20:35)
[2020-12-04] MEDS ORDERED: BENZONATATE 100 MG CAP PO PRN (20:35)
[2020-12-04] MEDS: LOSARTAN 50MG TABLET PO SCH (22:10)
[2020-12-04] MEDS ORDERED: IPRATROPIUM 0.5MG/ALBUTEROL 2.5MG INH SOL UD 3ML (DUONEB) NEB PRN (22:55)
[2020-12-04 23:08] VITALS: BP 154/91
[2020-12-05] MEDS: ALPRAZolam 0.5 MG TAB PO PRN ×3 (00:44→22:49)
[2020-12-05] MEDS: ONDANSETRON 4MG/2ML VIAL IV PRN ×4 (05:20→21:38)
[2020-12-05 06:00] VITALS: BP 129/77
[2020-12-05 07:13] LABS: BLOOD UREA NITROGEN 10 MG/DL (7-18); CALCIUM LEVEL 8.6 MG/DL (8.5-10.1); CARBON DIOXIDE LEVEL 27 MEQ/L (21-32); CHLORIDE LEVEL 111 MEQ/L (98-107); CREATININE FOR GFR 0.65 MG/DL (0.55-1.30); GLOMERULAR FILTRATION RATE > 60.0 (>51); GLUCOSE, FASTING 81 MG/DL (70-100); POTASSIUM SERUM 3.7 MEQ/L (3.5-5.1); SODIUM LEVEL 143 MEQ/L (136-145)
[2020-12-05] MEDS: FLUoxetine 20 MG CAP PO SCH (09:16)
[2020-12-05] MEDS: ASCORBIC ACID 500 MG TAB PO SCH (09:16)
[2020-12-05] MEDS: OYSTER SHELL CALCIUM 500 MG TAB PO SCH (09:16)
[2020-12-05] MEDS: VITAMIN D 1,000 INTERNATIONAL UNITS TABLET PO SCH (09:16)
[2020-12-05 09:45] VITALS: BP_SYST 153; BP_SYST 154; BP_SYST 161; BP_DIAS 101; BP_DIAS 90; BP_DIAS 96
[2020-12-05] MEDS: TIOTROPIUM INHALER/CAPSULE (SPIRIVA) INH SCH (11:05)
[2020-12-05] MEDS ORDERED: NS 1,000 ML IV SCH (12:00)
--- NOTE | 2020-12-05 12:05 | IPNPDOC ---
Text Note Date of Service The patient was seen on 12/05/20. NOTE SUBJECTIVE: -Very dizzy when she ambulates. No vertigo however. Orthostatics were negative this morning -No nausea, emesis -Diarrhea resolves as she finished the azithro course OBJECTIVE: VITALS: see below GENERAL APPEARANCE: well nourished and developed / NAD HEENT: EOMI / MMM&P CARDIOVASCULAR: RRR/NMRG LUNGS: CTAB, no crackles, rare expiratory wheeze, no rhonchi ABDOMEN: contour flat, soft & NT w palpation INTEGUMENT: not flushed, no rashes, not cyanotic NEUROLOGICAL: CN 2-12 intact, speech not dysarthric, moving all extremities, grossly nonfocal, no nystagmus, no tremors PSYCHIATRIC: A&O x3 LABORATORY DATA: reviewed IMAGING: Chest xray No acute pulmonary disease. Stable chronic fibrotic change in the lung bases bilaterally. MICROBIOLOGY: respiratory panel neg ASSESSMENT: 55 yr old w COPD, Fibromyalgia / PTSD / Depression / Anxiety, GERD, Peripheral neuropathy, Atrophic vaginitis, Hx of C. 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 PLAN: Weakness with ongoing dizziness i/s/o poor PO while on azithromycin for recent diagnosis of CAP with diarrhea -PT/OT consult -will give more fluids 125cc/hr NS for 1L total 2 Chronic bradycardia -Likely idiopathic, was previously noted. -f/u w PCP 3 Diarrhea - resolved 4 COPD -chest xray and respiratory panel were unrevealing -continue home Spiriva, Albuterol w Ipatropium PRN dyspnea -Tessalon Perles 5 Fibromyalgia / PTSD / Depression / Anxiety -alprazolam & fluoxetine 6 Essential HTN -losartan DVT px w SCDs Dispo: home after less than 2 midnights stay VS,Timothy, I+O VS, Timothy, I+O Laboratory Tests 12/05/20 05:47 Vital Signs Date Time Temp Pulse Resp B/P (MAP) Pulse Ox O2 Delivery O2 Flow Rate FiO2 12/05/20 09:45 55 154/90 (111) 65 153/96 (115) 76 161/101 (121) 12/05/20 06:00 97.0 17 95 Room Air 12/04/20 22:46 2.0 I&O- Last 24 Hours up to 6 AM 12/05/20 06:00 Intake Total 750 ml Output Total 550 ml Balance 200 ml BRITNEY PIRES MD Dec 05, 2020 12:05
[2020-12-05 15:48] VITALS: BP 127/92
[2020-12-05] MEDS: ACETAMINOPHEN TAB 650MG DOSE (2X325MG) PO PRN (16:24)
[2020-12-05] MEDS ORDERED: FLUCONAZOLE 50MG TABLET PO ONE (19:00)
[2020-12-05] MEDS: LACTOBACILLUS ACIDOPHILUS CAP (BACID) PO SCH ×2 (19:00→20:43)
[2020-12-05] MEDS: LOSARTAN 50MG TABLET PO SCH (20:30)
[2020-12-05 22:00] VITALS: BP 148/90
[2020-12-06 06:00] VITALS: BP 121/78
[2020-12-06] MEDS: TIOTROPIUM INHALER/CAPSULE (SPIRIVA) INH SCH (07:31)
[2020-12-06] MEDS: VITAMIN D 1,000 INTERNATIONAL UNITS TABLET PO SCH (08:25)
[2020-12-06] MEDS: LACTOBACILLUS ACIDOPHILUS CAP (BACID) PO SCH ×2 (08:25→20:19)
[2020-12-06] MEDS: ASCORBIC ACID 500 MG TAB PO SCH (08:25)
[2020-12-06] MEDS: OYSTER SHELL CALCIUM 500 MG TAB PO SCH (08:25)
[2020-12-06] MEDS: ACETAMINOPHEN TAB 650MG DOSE (2X325MG) PO PRN ×2 (08:25→14:56)
[2020-12-06] MEDS: FLUoxetine 20 MG CAP PO SCH (08:25)
[2020-12-06] MEDS ORDERED: MECLIZINE 25 MG TABLET PO PRN ×2 (08:35→12:10)
[2020-12-06] MEDS ORDERED: ONDANSETRON 4MG/2ML VIAL IV PRN (08:35)
[2020-12-06] MEDS: IPRATROPIUM 0.5MG/ALBUTEROL 2.5MG INH SOL UD 3ML (DUONEB) NEB SCH ×3 (10:25→19:56)
--- NOTE | 2020-12-06 10:42 | REP ---
INDICATION: persistent dizziness with N, V. COMPARISON: 10/10/2018 TECHNIQUE: 4.5 mm contiguous transaxial sections were obtained from the skull base to the cerebral convexities with thin cuts through the posterior fossa without the administration of intravenous contrast. FINDINGS: There is no significant change from the prior exam. There is no shift of the midline structures. The ventricles and sulci are stable. There are no acute extra-axial fluid collections. There is no evidence of an acute hemorrhagic or non hemorrhagic intracranial event. There is no change the posterior fossa. There is no change in appearance of the skull or skull base. The imaged paranasal sinuses and mastoid air cells are again seen to be clear. IMPRESSION: Stable CT examination of brain. There is no evidence of acute disease. <Electronically signed by Jericho Vargas > 12/06/20 [id number]
--- NOTE | 2020-12-06 12:07 | IPNPDOC ---
Text Note Date of Service The patient was seen on 12/06/20. NOTE SUBJECTIVE: -Dizziness is persisting despite some hydration. Was actually nauseous and had an episode of emesis overnight OBJECTIVE: VITALS: see below GENERAL APPEARANCE: well nourished and developed, NAD HEENT: EOMI, MMM CARDIOVASCULAR: RRR, no MRG LUNGS: CTAB, no crackles, rare expiratory wheeze, no rhonchi ABDOMEN: contour flat, soft & NT w palpation INTEGUMENT: not flushed, no rashes, not cyanotic NEUROLOGICAL: CN 2-12 intact, speech not dysarthric, moving all extremities, grossly nonfocal, no nystagmus, no tremors PSYCHIATRIC: A&O x3 LABORATORY DATA: reviewed IMAGING: Chest xray No acute pulmonary disease. Stable chronic fibrotic change in the lung bases bilaterally. MICROBIOLOGY: respiratory panel neg ASSESSMENT: 55 yr old w COPD, Fibromyalgia / PTSD / Depression / Anxiety, GERD, Peripheral neuropathy, Atrophic vaginitis, Hx of C. 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 PLAN: Weakness with ongoing dizziness i/s/o poor PO while on azithromycin for recent diagnosis of CAP with diarrhea -PT/OT consult -s/p IVF -CT head, may need MRI -meclizine 25mg BIDP 2 Chronic bradycardia -Likely idiopathic, was previously noted. -f/u w PCP 3 Diarrhea - resolved 4 COPD -chest xray and respiratory panel were unrevealing -continue home Spiriva, Albuterol w Ipatropium PRN dyspnea -[place] 5 Fibromyalgia / PTSD / Depression / Anxiety -alprazolam & fluoxetine 6 Essential HTN -losartan DVT px w SCDs Dispo: home after less than 2 midnights stay VS,Fishbone, I+O VS, [place]bone, I+O Vital Signs Date Time Temp Pulse Resp B/P (MAP) Pulse Ox O2 Delivery O2 Flow Rate FiO2 12/06/20 06:00 97.5 65 18 121/78 (92) 93 12/05/20 22:00 Room Air 12/04/20 22:46 2.0 I&O- Last 24 Hours up to 6 AM 12/06/20 06:00 Intake Total 300 ml Output Total 1525 ml Balance -1225 ml BRITNEY PIRES MD Dec 06, 2020 07:45
[2020-12-06] MEDS ORDERED: LORazepam 2 MG/ML VIAL IV ONE (12:45)
[2020-12-06 14:00] VITALS: BP_SYST 140; BP_SYST 160; BP_DIAS 85; BP_DIAS 90
[2020-12-06] MEDS ORDERED: LORazepam 2 MG/ML VIAL As Ordered ONE (17:53)
[2020-12-06 20:18] VITALS: BP 138/87
[2020-12-06] MEDS: LOSARTAN 50MG TABLET PO SCH (20:18)
[2020-12-06] MEDS: ALPRAZolam 0.5 MG TAB PO PRN (20:18)
--- NOTE | 2020-12-06 21:13 | REPVR ---
PROCEDURE INFORMATION: Exam: MR Head Without Contrast Exam date and time: 12/06/2020 6:59 PM Age: 55 years old Clinical indication: Dizziness; Additional info: Persistent dizziness with n/v TECHNIQUE: Imaging protocol: MR of the head without contrast. COMPARISON: CT Head without contrast 12/06/2020 10:29 AM FINDINGS: Brain: There is no restricted diffusion to suggest acute infarction. No demyelinating plaques. No acute intracranial hemorrhage or prior microhemorrhages. The FLAIR sequence is degraded by patient motion. There is no increased signal in the mesial temporal lobes or insular cortex. There appears to be increased intensity in the cingulate gyri. Series 601, image 1 frames 15 -21. Cerebral ventricles: No ventricular enlargement. Bones/joints: Unremarkable. Paranasal sinuses: There is no significant mucoperiosteal thickening or air-fluid levels in the visualized portion of the paranasal sinuses. Mastoid air cells: No mastoid effusions. Orbital cavity: Unremarkable. Soft tissues: Unremarkable. IMPRESSION: No definite acute intracranial findings. No acute cerebral infarction or intracranial hemorrhage. On the FLAIR sequence there is subtle increased intensity in the cingulate gyri which can be seen with herpes encephalitis among other in cephalad it ease but this may be due to patient motion. If symptoms persists consider contrast enhanced study and repeat FLAIR sequence. Electronically signed by: Tona Almonte On 12/06/2020 21:12:47 PM
[2020-12-06 22:00] VITALS: BP 138/87
[2020-12-07] MEDS: IPRATROPIUM 0.5MG/ALBUTEROL 2.5MG INH SOL UD 3ML (DUONEB) NEB SCH ×2 (01:28→07:33)
[2020-12-07 06:00] VITALS: BP 120/82
[2020-12-07] MEDS: TIOTROPIUM INHALER/CAPSULE (SPIRIVA) INH SCH (07:33)
[2020-12-07] MEDS: LACTOBACILLUS ACIDOPHILUS CAP (BACID) PO SCH (08:40)
[2020-12-07] MEDS: VITAMIN D 1,000 INTERNATIONAL UNITS TABLET PO SCH (08:40)
[2020-12-07] MEDS: ASCORBIC ACID 500 MG TAB PO SCH (08:40)
[2020-12-07] MEDS: OYSTER SHELL CALCIUM 500 MG TAB PO SCH (08:40)
[2020-12-07] MEDS: FLUoxetine 20 MG CAP PO SCH (08:41)
--- NOTE | 2020-12-07 08:47 | DS.PDOC ---
Discharge Summary General Date of Admission Dec 04, 2020 at 19:17 Date of Discharge 12/07/2020 Attending Physician: BRITNEY PIRES MD Discharge Summary PROCEDURES PERFORMED DURING STAY: None ADMITTING DIAGNOSES: Weakness, dizziness DISCHARGE DIAGNOSES: Dizziness, NOS Fibromyalgia PTSD / Depression / Anxiety GERD Peripheral neuropathy DJD with L4/L5 spondylosis and L5/S1 fusions in 1991 and 1992 COMPLICATIONS/CHIEF COMPLAINT: Weakness, Left Against Medical Advice. HISTORY OF PRESENT ILLNESS: presented w c/o weakness, cough and diarrhea. She had been diagnosed with PNA about 11 days prior to presented and was admitted to [facility] and discharged home with azithromycin. She was admitted to the in-patient service on December 03 for management & evaluation of weakness, hypokalemia and bradycardia. She spent most of the day in the ER and decided to leave AMA because her room was cold and per ER intake reported that she came back because she continued to feel poorly. HOSPITAL COURSE: On ED assessment she reported still feeling weak, having a dry cough and feeling cold. She denied having fevers. Her blood work that morning had showed that her hypokalemia had resolved after repletion and she was persistently bradycardic which appears to be her baseline. She was admitted to medicine for generalized illness with dizziness, weakness and N/V. While on medicine GI evaluation was unremarkable and what became the primary concern was her persistent dizziness with associated nausea and emesis without vertigo or any other neurological deficits or complaints. I ultimately got a head CT and MRI brain that were both negative for acute pathological processes. I also hydrated her despite no orthostasis as PO was poor with the N/V and on 12/07 AM she reported feeling so much better and is now being discharged home. Of note, I did start her on PRN meclizine with much improvement. DISCHARGE MEDICATIONS: Please see below. ALLERGIES: Please see below. PHYSICAL EXAMINATION ON DISCHARGE: VITAL SIGNS: Please see below. GENERAL APPEARANCE: well nourished and developed, NAD HEENT: EOMI, MMM CARDIOVASCULAR: RRR, no MRG LUNGS: CTAB, no crackles, rare expiratory wheeze, no rhonchi ABDOMEN: contour flat, soft & NT w palpation INTEGUMENT: not flushed, no rashes, not cyanotic NEUROLOGICAL: CN 2-12 intact, speech not dysarthric, moving all extremities, grossly nonfocal, no nystagmus, no tremors PSYCHIATRIC: A&O x3 LABORATORY DATA: Please see below. IMAGING: Chest xray No acute pulmonary disease. Stable chronic fibrotic change in the lung bases bilaterally. CT head: There is no significant change from the prior exam. There is no shift of the midline structures. The ventricles and sulci are stable. There are no acute extra- axial fluid collections. There is no evidence of an acute hemorrhagic or non hemorrhagic intracranial event. There is no change the posterior fossa. There is no change in appearance of the skull or skull base. The imaged paranasal sinuses and mastoid air cells are again seen to be clear. IMPRESSION: Stable CT examination of brain. There is no evidence of acute disease. MRI brain: Brain: There is no restricted diffusion to suggest acute infarction. No demyelinating plaques. No acute intracranial hemorrhage or prior microhemorrhages. The FLAIR sequence is degraded by patient motion. There is no increased signal in the mesial temporal lobes or insular cortex. There appears to be increased intensity in the cingulate gyri. Series 601, image 1 frames 15 -21. Cerebral ventricles: No ventricular enlargement. Bones/joints: Unremarkable. Paranasal sinuses: There is no significant mucoperiosteal thickening or air-fluid levels in the visualized portion of the paranasal sinuses. Mastoid air cells: No mastoid effusions. Orbital cavity: Unremarkable. Soft tissues: Unremarkable. IMPRESSION: No definite acute intracranial findings. No acute cerebral infarction or intracranial hemorrhage. On the FLAIR sequence there is subtle increased intensity in the cingulate gyri which can be seen with herpes encephalitis among other in cephalad it ease but this may be due to patient motion. If symptoms persists consider contrast enhanced study and repeat FLAIR sequence. PROGNOSIS: Good ACTIVITY: As tolerated DIET: regular DISCHARGE PLAN: home with PRN meclizine DISPOSITION: Home DISCHARGE INSTRUCTIONS: Home with PRN meclizine and close PCP follow up ITEMS TO FOLLOWUP ON ON OUTPATIENT: Dizziness DISCHARGE CONDITION: Stable. TIME SPENT ON DISCHARGE: 36 minutes. Vital Signs/I&Os Vital Signs Date Time Temp Pulse Resp B/P (MAP) Pulse Ox O2 Delivery O2 Flow Rate FiO2 12/07/20 06:00 97.3 61 19 120/82 (95) 100 Room Air 12/04/20 22:46 2.0 I&O- Last 24 Hours up to 6 AM 12/07/20 05:59 Intake Total 510 ml Output Total 2775 ml Balance -2265 ml Microbiology Microbiology 12/05/20 Gastrointestinal Tract Panel (PCR) - Final, Complete Discharge Medications Scheduled Ascorbic Acid (Vitamin C) 500 Mg Tablet, 500 MG PO DAILY, (Reported) Calcium Carbonate (Calcium) 500 Mg Tablet, 500 MG PO DAILY, (Reported) Cholecalciferol (Vitamin D3) (Vitamin D3) 1,000 Unit Tablet, 1,000 UNITS PO DAILY, (Reported) Estradiol (Vagifem) 10 Mcg Tab, 10 MCG PV 2XWK, (Reported) QHS ON MON & MON Fluoxetine Hcl (Fluoxetine HCl) 20 Mg Capsule, 40 MG PO DAILY, (Reported) Linaclotide (Linzess) 290 Mcg Cap, 290 MCG PO DAILY, (Reported) Losartan Potassium (Losartan Potassium) 100 Mg Tablet, 100 MG PO QHS, (Reported) Tiotropium [place] (Spiriva) 18 Mcg Cap.w.dev, 1 INHALATION INH DAILY, (Reported) Tretinoin (Tretinoin) 20 Gm Cream..g., 1 DOSE TOP QHS, (Reported) Zinc (Zinc) 50 Mg Tablet, 50 MG PO DAILY, (Reported) Scheduled PRN Alprazolam (Alprazolam) 0.5 Mg Tablet, 0.5 MG PO BID PRN for ANXIETY, (Reported) Famotidine (Famotidine) 20 Mg Tablet, 20 MG PO DAILY PRN for HEARTBURN, (Reported) Meloxicam (Meloxicam) 15 Mg Tablet, 15 MG PO DAILY PRN for PAIN, (Reported) Allergies Coded Allergies: Contrast Media (Verified Allergy, Severe, HIVES/SHORTNESS OF BREATH, 11/03/20) Sulfa (Sulfonamide Antibiotics) (Verified Allergy, Intermediate, HIVES, 11/03/20) TAPE (Verified Allergy, Unknown, 11/03/20) bupropion (Verified Allergy, Unknown, 11/03/20) duloxetine (Verified Allergy, Unknown, 11/03/20) iodine (Verified Allergy, Unknown, 11/03/20) povidone-iodine (Verified Allergy, Unknown, 11/03/20) tetracycline (Verified Allergy, Unknown, 11/03/20) tiotropium (Verified Adverse Reaction, Mild, ANGER, 11/03/20) tramadol (Verified Adverse Reaction, Mild, nausea, 11/03/20) valproic acid (Verified Adverse Reaction, Mild, ANGER, 11/03/20) magnesium sulfate (Unverified Adverse Reaction, Unknown, INFECTED HER TOENAIL, 11/03/20) BRITNEY PIRES MD Dec 07, 2020 08:47
[2020-12-07] MEDS ORDERED: RISATAB3 PO (08:48)
[2020-12-07] MEDS ORDERED: MECL-86 PO (08:48)
[2020-12-07] MEDS ORDERED: BENZ-18 PO (08:48)
[2020-12-07] MEDS ORDERED: ONDA4TAB6 PO (08:48)
[2020-12-07] MEDS: ALPRAZolam 0.5 MG TAB PO PRN (09:48)
[2020-12-07] MEDS ORDERED: FLUC150T PO (11:41)
== END 2020-12-07 10:49 | disposition home or self-care (01) ==
LOC: M ED 19:16 → M ED INP 19:17 → M MSPAV 23:08
PROVIDERS: ADMIT Internal Medicine; ATTEND Internal Medicine
DX: R42 Dizziness and giddiness (principal); M79.7 Fibromyalgia; F43.10 Post-traumatic stress disorder, unspecified; F32.9 Major depressive disorder, single episode, unspecified; F41.9 Anxiety disorder, unspecified; K21.9 Gastro-esophageal reflux disease without esophagitis; M47.816 Spondylosis without myelopathy or radiculopathy, lumbar region; Z98.1 Arthrodesis status; G62.9 Polyneuropathy, unspecified; R00.1 Bradycardia, unspecified; N95.2 Postmenopausal atrophic vaginitis; R53.1 Weakness; R05 Cough; R11.2 Nausea with vomiting, unspecified; R19.7 Diarrhea, unspecified; J44.9 Chronic obstructive pulmonary disease, unspecified; I10 Essential (primary) hypertension; Z86.718 Personal history of other venous thrombosis and embolism; Z86.19 Personal history of other infectious and parasitic diseases; Z87.19 Personal history of other diseases of the digestive system; Z79.899 Other long term (current) drug therapy; Z79.890 Hormone replacement therapy; Z88.8 Allergy status to other drugs, medicaments and biological substances; Z91.041 Radiographic dye allergy status; Z91.048 Other nonmedicinal substance allergy status; Z88.2 Allergy status to sulfonamides; Z88.1 Allergy status to other antibiotic agents; Z88.5 Allergy status to narcotic agent
CPT/HCPCS: 36415; 70450; 70551; 80048; 87505; 94640; 96374; 96375; 96376; 97112; 97161; 97165; 99285; G0378; J2060; J2405

== ENCOUNTER → 2021-01-06 | Outpatient (CLI) | payer MEDICARE, MEDICAID ==
[~2021-01-06] MED LIST changes: +BENZ-18 PO; +FLUC150T PO; +ONDA4TAB6 PO; +RISATAB3 PO
[2021-01-06 16:37] LABS: HEMATOCRIT 44.9 % (36.0-47.0); HEMOGLOBIN 14.4 g/dl (12.0-15.5); MEAN CORPUSCULAR HEMOGLOBIN 29.1 pg (27.0-33.0); MEAN CORPUSCULAR HGB CONC 32.1 g/dl (32.0-36.5); MEAN CORPUSCULAR VOLUME 90.7 fl (80.0-96.0); PLATELET COUNT, AUTOMATED 200 10^3/uL (150-450); RED BLOOD COUNT 4.95 10^6/uL (4.00-5.40); WHITE BLOOD COUNT 6.2 10^3/uL (4.0-10.0)
[2021-01-06 17:07] LABS: BLOOD UREA NITROGEN 14 MG/DL (7-18); CALCIUM LEVEL 8.8 MG/DL (8.5-10.1); CARBON DIOXIDE LEVEL 25 MEQ/L (21-32); CHLORIDE LEVEL 110 MEQ/L (98-107); COMPLEMENT C3 81 MG/DL (90-180); COMPLEMENT C4 19 MG/DL (10-40); GLOMERULAR FILTRATION RATE > 60.0 (>51); GLUCOSE, FASTING 140 MG/DL (70-100); POTASSIUM SERUM 3.7 MEQ/L (3.5-5.1); RHEUMATOID FACTOR QUANT 40.8 IU/ML (<15.0); SODIUM LEVEL 143 MEQ/L (136-145)
[2021-01-06 17:27] LABS: MONO SCRN NEGATIVE (NEGATIVE)
[2021-01-06 17:32] LABS: HEPATITIS B SURFACE ANTIGEN NEGATIVE (NEGATIVE)
[2021-01-06 18:01] LABS: HIV 1&2 SCREEN CENTAUR NEGATIVE (NEGATIVE)
[2021-01-06 18:59] LABS: ERYTHROCYTE SEDIMENTATION RATE 14 mm/hr (0-30)
== END ==
LOC: M WUC 12:02
PROVIDERS: ATTEND Student in an Organized Health Care Education/Training Program
DX: Z82.61 Family history of arthritis (principal)

== ENCOUNTER 2021-01-20 11:47 | Emergency (ER) | payer MEDICARE, MEDICAID ==
[~2021-01-20] VITALS: Ht 172.7 cm; Wt 58.9 kg
[~2021-01-20 11:47] MED LIST changes: -FLUC150T PO; +FLUC150T9 PO; -LEVO500T3; +LEVO500T4; +LOSA100T45 PO; -LOSA100T50 PO
[2021-01-20] MEDS ORDERED: DICY10CA13 (11:56)
[2021-01-20] MEDS ORDERED: ALBUTEROL SULFATE 2.5 MG/0.5 ML INH NEB SOLN INH ONE (12:35)
[2021-01-20] MEDS ORDERED: IPRATROPIUM 0.5MG/ALBUTEROL 2.5MG INH SOL UD 3ML (DUONEB) NEB ONE (12:35)
[2021-01-20] MEDS ORDERED: methylPREDNISolone 40MG 1ML VIAL IV ONE (12:35)
[2021-01-20 13:35] LABS: BASO % 0.3 % (0.0-1.0); EOS # 0.1 10^3/uL (0.0-0.5); EOS % 1.2 % (0.0-3.0); HEMOGLOBIN 14.7 g/dl (12.0-15.5); LYMPH # 2.1 10^3/uL (1.5-5.0); LYMPH % 32.6 % (24.0-44.0); MEAN CORPUSCULAR HEMOGLOBIN 29.6 pg (27.0-33.0); MEAN CORPUSCULAR HGB CONC 32.7 g/dl (32.0-36.5); MEAN CORPUSCULAR VOLUME 90.5 fl (80.0-96.0); MONO # 0.4 10^3/uL (0.0-0.8); MONO % 5.7 % (2.0-8.0); NEUTROPHILS # 3.9 10^3/uL (1.5-8.5); NEUTROPHILS % 59.9 % (36.0-66.0); PLATELET COUNT, AUTOMATED 213 10^3/uL (150-450); RED BLOOD COUNT 4.97 10^6/uL (4.00-5.40); WHITE BLOOD COUNT 6.5 10^3/uL (4.0-10.0)
[2021-01-20] MEDS ORDERED: ACETAMINOPHEN TAB 650MG DOSE (2X325MG) PO ONE (13:35)
[2021-01-20 14:07] LABS: ALBUMIN 3.8 GM/DL (3.2-5.2); ALT/SGPT 23 U/L (12-78); BILIRUBIN,DIRECT < 0.1 MG/DL (0.0-0.2); BILIRUBIN,TOTAL 0.3 MG/DL (0.2-1.0); BLOOD UREA NITROGEN 15 MG/DL (7-18); CALCIUM LEVEL 9.1 MG/DL (8.5-10.1); CARBON DIOXIDE LEVEL 27 MEQ/L (21-32); CHLORIDE LEVEL 108 MEQ/L (98-107); CREATININE FOR GFR 0.88 MG/DL (0.55-1.30); FREE T4 0.85 NG/DL (0.76-1.46); GLOMERULAR FILTRATION RATE > 60.0 (>51); GLUCOSE, FASTING 76 MG/DL (70-100); LIPASE 150 U/L (73-393); NT-PRO BNP 277 PG/ML (<125); POTASSIUM SERUM 3.9 MEQ/L (3.5-5.1); SODIUM LEVEL 141 MEQ/L (136-145); TOTAL PROTEIN 7.2 GM/DL (6.4-8.2)
[2021-01-20 14:15] VITALS: BP 151/88
[2021-01-20] MEDS ORDERED: PRED20TA PO (14:44)
[2021-01-20] MEDS ORDERED: DOXY-443 PO (14:45)
[2021-01-20] MEDS ORDERED: DOXYCYCLINE HYCLATE 100MG TABLET PO ONE (14:50)
== END 2021-01-20 15:13 | disposition home or self-care (01) ==
LOC: M ED 11:47
DX: J44.1 Chronic obstructive pulmonary disease with (acute) exacerbation (principal); I10 Essential (primary) hypertension; J20.9 Acute bronchitis, unspecified; R00.1 Bradycardia, unspecified; I45.19 Other right bundle-branch block; I44.4 Left anterior fascicular block; Z79.890 Hormone replacement therapy; Z79.899 Other long term (current) drug therapy; Z91.041 Radiographic dye allergy status; Z88.2 Allergy status to sulfonamides; Z91.89 Other specified personal risk factors, not elsewhere classified; Z88.8 Allergy status to other drugs, medicaments and biological substances; Z88.1 Allergy status to other antibiotic agents
CPT/HCPCS: 36415; 71045; 80048; 80076; 83690; 83880; 84439; 84443; 85025; 87040; 87798; 93005; 93041; 94640; 94760; 96374; 99285; J2920

== ENCOUNTER 2021-02-01 20:53 | Observation (INO) | payer MEDICARE, MEDICAID ==
[~2021-02-01] VITALS: Ht 172.7 cm; Wt 61.0 kg
[~2021-02-01 20:53] MED LIST changes: +DICY10CA13; +DOXY1CAP62 PO; +FLUC150T PO; -FLUC150T9 PO; +LEVO500T3; -LEVO500T4; -LOSA100T45 PO; +LOSA100T50 PO
[2021-02-01] MEDS ORDERED: methylPREDNISolone 125MG 2ML VIAL IV ONE (23:15)
[2021-02-01] MEDS ORDERED: NS 1,000 ML IV ONE (23:15)
[2021-02-01] MEDS: COMBIVENT RESPIMAT 100-20MCG INHALER 4GM INH SCH (23:33)
[2021-02-02 00:08] LABS: BASO % 0.3 % (0.0-1.0); EOS # 0.1 10^3/uL (0.0-0.5); EOS % 1.5 % (0.0-3.0); HEMATOCRIT 39.8 % (36.0-47.0); LYMPH % 33.8 % (24.0-44.0); MEAN CORPUSCULAR HGB CONC 32.7 g/dl (32.0-36.5); MEAN CORPUSCULAR VOLUME 91.9 fl (80.0-96.0); MONO # 0.5 10^3/uL (0.0-0.8); NEUTROPHILS % 57.4 % (36.0-66.0); PLATELET COUNT, AUTOMATED 193 10^3/uL (150-450); RED BLOOD COUNT 4.33 10^6/uL (4.00-5.40); WHITE BLOOD COUNT 8.8 10^3/uL (4.0-10.0)
[2021-02-02] MEDS ORDERED: ALPRAZolam 0.25 MG TAB PO ONE (01:00)
[2021-02-02 01:24] LABS: ALBUMIN 2.5 GM/DL (3.2-5.2); ALT/SGPT 24 U/L (12-78); BILIRUBIN,DIRECT < 0.1 MG/DL (0.0-0.2); BILIRUBIN,TOTAL 0.2 MG/DL (0.2-1.0); BLOOD UREA NITROGEN 31 MG/DL (7-18); CARBON DIOXIDE LEVEL 29 MEQ/L (21-32); CHLORIDE LEVEL 108 MEQ/L (98-107); CK-MB VALUE MASS 1.6 NG/ML (<3.6); CPK CREATINE PHOSPHOKINASE 53 U/L (26-192); CREATININE FOR GFR 0.87 MG/DL (0.55-1.30); GLOMERULAR FILTRATION RATE > 60.0 (>51); GLUCOSE, FASTING 97 MG/DL (70-100); MB/CK RELATIVE INDEX 3.02 (< OR =4); NT-PRO BNP 61 PG/ML (<125); POTASSIUM SERUM 4.1 MEQ/L (3.5-5.1); SODIUM LEVEL 141 MEQ/L (136-145); TOTAL PROTEIN 4.9 GM/DL (6.4-8.2); TROPONIN I < 0.02 NG/ML (< 0.10)
[2021-02-02] MEDS ORDERED: NS 1,000 ML IV ONE (01:45)
--- NOTE | 2021-02-02 01:45 | REPVR ---
PROCEDURE INFORMATION: Exam: XR Chest Exam date and time: 02/02/2021 12:31 AM Age: 55 years old Clinical indication: Cough and dyspnea. TECHNIQUE: Imaging protocol: XR of the chest. Views: 1 view. COMPARISON: CR PORTABLE CHEST X-RAY 01/20/2021 12:50 PM FINDINGS: Lungs: There is decreased pulmonary vascularity predominantly in the upper lobes, which is similar in appearance compared to the prior chest x-ray on 01/20/2021 and can be seen with emphysematous changes. There is bibasilar atelectasis. No lung consolidation or pulmonary edema is noted. Pleural spaces: Unremarkable. No pleural effusion. No pneumothorax. Heart/Mediastinum: Unremarkable. No cardiomegaly. Bones/joints: Unremarkable. IMPRESSION: 1. No radiographic evidence for an acute cardiopulmonary process. 2. Emphysematous changes. Electronically signed by: Gaudencio Ferrari On 02/02/2021 01:44:37 AM
[2021-02-02] MEDS ORDERED: MOM 30ML SUSPENSION UDC PO PRN (03:00)
[2021-02-02] MEDS ORDERED: MAALOX 30 ML SUSP *UDC PO PRN (03:00)
[2021-02-02] MEDS ORDERED: BENZ-18 PO (03:32)
[2021-02-02] MEDS ORDERED: ALBU83IN INH (03:32)
[2021-02-02] MEDS ORDERED: MECL-86 PO (03:32)
[2021-02-02] MEDS ORDERED: BACITAB PO (03:32)
[2021-02-02] MEDS ORDERED: FLUO40CA PO (03:32)
[2021-02-02] MEDS ORDERED: DICY1CAP8 PO (03:32)
[2021-02-02] MEDS ORDERED: LIDO5OIN19 PR (03:36)
[2021-02-02] MEDS ORDERED: PROAAER10 INH (03:36)
[2021-02-02] MEDS ORDERED: CHLO125TA PO (03:36)
[2021-02-02] MEDS ORDERED: VALT1TAB PO (03:36)
[2021-02-02] MEDS ORDERED: HOME MED LIST COMPLETE! XX SCH (03:40)
[2021-02-02 04:15] VITALS: BP 129/82
[2021-02-02] MEDS: ACETAMINOPHEN TAB 650MG DOSE (2X325MG) PO PRN ×3 (04:50→19:48)
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
[2021-02-02] MEDS ORDERED: DICYCLOMINE 10 MG CAP PO PRN (05:30)
[2021-02-02] MEDS ORDERED: ALBUTEROL 90 MCG/ACT 8GM HFA INHALER INH PRN (05:30)
[2021-02-02] MEDS ORDERED: MELOXICAM (MOBIC) 7.5 MG TAB PO PRN (05:30)
[2021-02-02] MEDS ORDERED: ALBUTEROL SULFATE 2.5 MG/0.5 ML INH NEB SOLN NEB PRN (06:10)
[2021-02-02] MEDS: NS 1,000 ML IV SCH ×2 (06:38→16:12)
--- NOTE | 2021-02-02 07:48 | ECGEPIP ---
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
[2021-02-02] MEDS: TIOTROPIUM INHALER/CAPSULE (SPIRIVA) INH SCH (07:51)
[2021-02-02] MEDS: IPRATROPIUM 0.5MG/ALBUTEROL 2.5MG INH SOL UD 3ML (DUONEB) NEB SCH ×3 (07:51→20:47)
[2021-02-02] MEDS ORDERED: ALBUTEROL SULFATE 2.5 MG/0.5 ML INH NEB SOLN INH SCH (08:00)
[2021-02-02 08:13] VITALS: BP 149/83
[2021-02-02] MEDS: valACYclovir HCL 500 MG TAB PO SCH ×3 (08:25→20:43)
[2021-02-02] MEDS: MECLIZINE 25 MG TABLET PO PRN (08:25)
[2021-02-02] MEDS: FLUoxetine 20 MG CAP PO SCH (08:25)
[2021-02-02] MEDS: predniSONE 20 MG TAB PO SCH (08:25)
[2021-02-02] MEDS ORDERED: amLODIPine 5 MG TAB PO ONE (09:00)
[2021-02-02 09:47] LABS: BLOOD UREA NITROGEN 26 MG/DL (7-18); CALCIUM LEVEL 8.2 MG/DL (8.5-10.1); CARBON DIOXIDE LEVEL 29 MEQ/L (21-32); CHLORIDE LEVEL 110 MEQ/L (98-107); CREATININE FOR GFR 0.87 MG/DL (0.55-1.30); GLOMERULAR FILTRATION RATE > 60.0 (>51); GLUCOSE, FASTING 98 MG/DL (70-100); POTASSIUM SERUM 3.5 MEQ/L (3.5-5.1); SODIUM LEVEL 144 MEQ/L (136-145)
[2021-02-02 09:49] LABS: HEMATOCRIT 37.4 % (36.0-47.0); HEMOGLOBIN 11.9 g/dl (12.0-15.5); MEAN CORPUSCULAR HEMOGLOBIN 29.9 pg (27.0-33.0); MEAN CORPUSCULAR HGB CONC 31.8 g/dl (32.0-36.5); PLATELET COUNT, AUTOMATED 163 10^3/uL (150-450); RED BLOOD COUNT 3.98 10^6/uL (4.00-5.40); WHITE BLOOD COUNT 7.6 10^3/uL (4.0-10.0)
[2021-02-02] MEDS: GABAPENTIN 100 MG CAP PO SCH ×3 (10:16→20:43)
[2021-02-02 10:30] VITALS: BP_SYST 125; BP_SYST 131; BP_SYST 145; BP_DIAS 73; BP_DIAS 82; BP_DIAS 86
[2021-02-02] MEDS ORDERED: NORV5TAB PO (10:45)
[2021-02-02 12:29] VITALS: BP 123/78
[2021-02-02] MEDS: ALPRAZolam 0.5 MG TAB PO PRN ×2 (14:12→20:48)
[2021-02-02 15:19] VITALS: BP 119/70
[2021-02-02 20:00] VITALS: BP 134/80
[2021-02-03] MEDS: ACETAMINOPHEN TAB 650MG DOSE (2X325MG) PO PRN ×2 (01:19→09:02)
[2021-02-03] MEDS: NS 1,000 ML IV SCH (01:47)
[2021-02-03] MEDS: IPRATROPIUM 0.5MG/ALBUTEROL 2.5MG INH SOL UD 3ML (DUONEB) NEB SCH ×2 (02:00→07:22)
[2021-02-03 06:53] VITALS: BP 144/88
[2021-02-03] MEDS: TIOTROPIUM INHALER/CAPSULE (SPIRIVA) INH SCH (07:22)
[2021-02-03] MEDS ORDERED: amLODIPine 5 MG TAB PO SCH (09:00)
[2021-02-03] MEDS: predniSONE 20 MG TAB PO SCH (09:02)
[2021-02-03] MEDS: valACYclovir HCL 500 MG TAB PO SCH (09:02)
[2021-02-03] MEDS: FLUoxetine 20 MG CAP PO SCH (09:02)
[2021-02-03] MEDS: GABAPENTIN 100 MG CAP PO SCH (09:02)
[2021-02-03 09:15] LABS: BLOOD UREA NITROGEN 13 MG/DL (7-18); CALCIUM LEVEL 8.1 MG/DL (8.5-10.1); CARBON DIOXIDE LEVEL 29 MEQ/L (21-32); CHLORIDE LEVEL 111 MEQ/L (98-107); CREATININE FOR GFR 0.69 MG/DL (0.55-1.30); FREE THYROXINE INDEX 1.7 % (1.3-4.8); GLOMERULAR FILTRATION RATE > 60.0 (>51); GLUCOSE, FASTING 89 MG/DL (70-100); POTASSIUM SERUM 3.8 MEQ/L (3.5-5.1); SODIUM LEVEL 143 MEQ/L (136-145); T UPTAKE 37 % (30-39); THYROXINE (T4) 4.6 UG/DL (4.5-12.0)
[2021-02-03 09:43] VITALS: BP_SYST 152; BP_SYST 164; BP_SYST 170; BP_DIAS 90; BP_DIAS 98
[2021-02-03] MEDS ORDERED: cloNIDine 0.2 MG TAB PO ONE (10:15)
[2021-02-03] MEDS ORDERED: amLODIPine 5 MG TAB PO ONE (10:15)
[2021-02-03 10:40] VITALS: BP 168/100
[2021-02-03] MEDS: MECLIZINE 25 MG TABLET PO PRN (10:40)
[2021-02-03] MEDS: ALPRAZolam 0.5 MG TAB PO PRN (10:40)
[2021-02-03 10:57] VITALS: BP_SYST 164; BP_SYST 168; BP_DIAS 107; BP_DIAS 90
[2021-02-03] MEDS ORDERED: PRED10TA2 PO (11:40)
--- NOTE | 2021-02-03 11:44 | DS.PDOC ---
Discharge Summary General Date of Admission Feb 02, 2021 Date of Discharge 02/03/21 Discharge Summary DISCHARGE DIAGNOSES: Diuretic induced hypotension Diuretic induced hypokalemia Acute COPD exacerbation Chronic bradycardia Fibromyalgia PTSD Depression Anxiety DISCHARGE MEDICATIONS: SEE BELOW DISCHARGE INSTRUCTIONS: PRIMARY CARE PHYSICIAN AND CARDIOLOGY FOLLOW-UP WITHIN 5 DAYS OF DISCHARGE HOSPITAL COURSE: 55-year-old female presented to the emergency room with complaints of generalized weakness shortness of breath cough productive of white sputum without fever chills patient was started on hydrochlorothiazide 2 weeks ago which was titrated for better hypertension control was found to have a blood pressure 77 mmHg systolic and was given intravenous fluids in the emergency room she was found to have acute bronchitis and was started on IV Solu-Medrol with transition to prednisone chest x-ray showed no acute infiltrate or congestive heart failure. Patient was admitted to the telemetry unit until her blood pressure was stable with mean arterial pressure of 75-80 patient responded well to IV fluids but was initially orthostatic with complaints of dizziness and did not do well with physical therapy and was kept 1 more day. Patient's blood pressure improved and was slightly elevated at 140 at which point patient was given Norvasc 5 mg twice daily with improvement to 1 20-1 30 systolic patient felt better with decreasing cough and sputum production on prednisone no antibiotics were given. 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 ALLERGIES: Please see below. PHYSICAL EXAMINATION ON DISCHARGE: VITAL SIGNS: Please see below. Generally patient is awake alert oriented to person place and time no distress no use of respiratory accessory muscles HEENT: No JVD thyromegaly or cervical lymphadenopathy no stridor or carotid bruit Lungs: Clear to auscultation no wheezing or rales Heart S1-S2 sinus rhythm Abdomen soft nontender nondistended positive bowel sounds no rebound or guarding Extremities no cyanosis clubbing or pitting edema DISCHARGE LABORATORY MICROBIOLOGY IMAGING STUDIES PLEASE SEE THE CHART TIME SPENT ON DISCHARGE: 30 MIN Vital Signs/I&Os Vital Signs Date Time Temp Pulse Resp B/P (MAP) Pulse Ox O2 Delivery O2 Flow Rate FiO2 02/03/21 10:57 97 164/90 (114) 90 168/107 (127) 02/03/21 06:53 97.1 18 94 Room Air I&O- Last 24 Hours up to 6 AM 02/03/21 05:59 Intake Total 2610 ml Output Total 1450 ml Balance 1160 ml Laboratory Data Labs 24H Laboratory Tests 2 02/02/21 11:53: Troponin I < 0.02 02/03/21 08:13: Anion Gap 3L, Glomerular Filtration Rate > 60.0, Calcium Level 8.1L, Whole Blood Ionized Calcium 4.5, Magnesium Level 2.0, Thyroid Stimulating Hormone (TSH) 1.800, Free Thyroxine Index 1.7, Thyroxine (T4) 4.6, Triiodothyronine (T3) Uptake 37, Cortisol AM Sample 2.2L CBC/BMP Laboratory Tests 02/03/21 08:13 Microbiology Microbiology 02/01/21 Respiratory Virus Panel (PCR) (KELL) - Final, Complete 02/01/21 Blood Culture - Preliminary, Resulted No growth after 24 hours . All specim... 02/01/21 Blood Culture - Preliminary, Resulted No growth after 24 hours . All specim... Discharge Medications Scheduled Albuterol Sulf (Albuterol Sulfate) 2.5 Mg/3 Ml Vial.neb, 2.5 MG INH TID, (Reported) Amlodipine Besylate (Norvasc) 5 Mg Tablet, 5 MG PO BID Ascorbic Acid (Vitamin C) 500 Mg Tablet, 500 MG PO DAILY, (Reported) Calcium Carbonate (Calcium) 500 Mg Tablet, 500 MG PO DAILY, (Reported) Cholecalciferol (Vitamin D3) (Vitamin D3) 1,000 Unit Tablet, 1,000 UNITS PO DAILY, (Reported) Estradiol (Vagifem) 10 Mcg Tab, 10 MCG PV 2XWK, (Reported) QHS ON MON & WED Fluoxetine Hcl (Fluoxetine HCl) 40 Mg Capsule, 40 MG PO DAILY, (Reported) L.acidoph/L.bulg/B.bif/S.therm (Bacid Caplet) 1 Each Tablet, 1 TAB PO BID, (Reported) Linaclotide (Linzess) 290 Mcg Cap, 290 MCG PO DAILY, (Reported) Tiotropium [place] (Spiriva) 18 Mcg Cap.w.dev, 1 INHALATION INH DAILY, (Reported) Tretinoin (Tretinoin) 20 Gm Cream..g., 1 DOSE TOP QHS, (Reported) Valacyclovir HCl (Valtrex) 1,000 Mg Tablet, 1 GM PO TID, (Reported) STARTED ON 01/29/21 Scheduled PRN Albuterol Sulfate (Proair Hfa) 8.5 Gm Hfa.aer.ad, 2 PUFF INH QID PRN for SHORTNESS OF BREATH, (Reported) Alprazolam (Alprazolam) 0.5 Mg Tablet, 0.5 MG PO BID PRN for ANXIETY, (Reported) Benzonatate (Benzonatate) 100 Mg Capsule, 200 MG PO TID PRN for COUGH, (Reported) Dicyclomine HCl (Dicyclomine HCl) 10 Mg Capsule, 10 MG PO TID PRN for SPASMS, (Reported) Famotidine (Famotidine) 20 Mg Tablet, 20 MG PO BID PRN for HEARTBURN, (Reported) Lidocaine (Lidocaine) 120 Gm Oint...g., 1 DOSE [place] BID PRN for HEMORRHOIDS, (Reported) Meclizine HCl (Meclizine HCl) 25 Mg Tablet, 25 MG PO TID PRN for VERTIGO/DIZZINESS, (Reported) Meloxicam (Meloxicam) 15 Mg Tablet, 15 MG PO DAILY PRN for PAIN, (Reported) Allergies Coded Allergies: Contrast Media (Verified Allergy, Severe, HIVES/SHORTNESS OF BREATH, 01/20/21) Sulfa (Sulfonamide Antibiotics) (Verified Allergy, Intermediate, HIVES, 01/20/21) TAPE (Verified Allergy, Unknown, 01/20/21) bupropion (Verified Allergy, Unknown, 01/20/21) duloxetine (Verified Allergy, Unknown, 01/20/21) iodine (Verified Allergy, Unknown, 01/20/21) povidone-iodine (Verified Allergy, Unknown, 01/20/21) tetracycline (Verified Allergy, Unknown, 01/20/21) tiotropium (Verified Adverse Reaction, Mild, ANGER, 01/20/21) tramadol (Verified Adverse Reaction, Mild, nausea, 01/20/21) valproic acid (Verified Adverse Reaction, Mild, ANGER, 01/20/21) guaifenesin (Verified Adverse Reaction, Unknown, anger, SI, 02/02/21) levofloxacin (Verified Adverse Reaction, Unknown, raised blood pressure, 02/02/21) magnesium sulfate (Unverified Adverse Reaction, Unknown, INFECTED HER TOENAIL, 01/20/21) JACQUELINE JUAREZ MD Feb 03, 2021 11:44
[2021-02-03 12:04] VITALS: BP 145/90
== END 2021-02-03 14:07 | disposition home or self-care (01) ==
LOC: M ED 20:53 → M ED INP 20:54 → M PCU 02-02 04:17
PROVIDERS: ADMIT Internal Medicine; ATTEND Internal Medicine
DX: I95.2 Hypotension due to drugs (principal); T50.2X5A Adverse effect of carbonic-anhydrase inhibitors, benzothiadiazides and other diuretics, initial encounter; E87.6 Hypokalemia; J44.1 Chronic obstructive pulmonary disease with (acute) exacerbation; R00.1 Bradycardia, unspecified; M79.7 Fibromyalgia; F43.10 Post-traumatic stress disorder, unspecified; F32.9 Major depressive disorder, single episode, unspecified; F41.9 Anxiety disorder, unspecified; Z79.899 Other long term (current) drug therapy; Z79.890 Hormone replacement therapy; Z88.8 Allergy status to other drugs, medicaments and biological substances; Z88.2 Allergy status to sulfonamides; Z91.041 Radiographic dye allergy status; Z91.048 Other nonmedicinal substance allergy status; Z88.1 Allergy status to other antibiotic agents; Z88.5 Allergy status to narcotic agent
CPT/HCPCS: 36415; 71045; 80048; 80076; 82330; 82533; 82550; 82553; 83735; 83880; 84436; 84443; 84479; 84484; 85025; 85027; 87040; 87798; 93005; 93041; 94640; 94760; 96361; 96374; 97116; 97161; 99285; G0378; J2930; J7512

== ENCOUNTER 2021-02-17 10:32 | Observation (INO) | payer MEDICARE, MEDICAID ==
[~2021-02-17] VITALS: Ht 172.7 cm; Wt 59.9 kg
[~2021-02-17 10:32] MED LIST changes: +BACITAB PO; +DICY1CAP8 PO; +FLUO40CA PO; +LIDO5OIN19 PR; +NORV5TAB PO; +VALT1TAB PO
[2021-02-17] MEDS: ALBUTEROL 90 MCG/ACT 8GM HFA INHALER INH SCH ×3 (11:40→12:59)
[2021-02-17 12:19] LABS: BASO % 0.4 % (0.0-1.0); EOS # 0.1 10^3/uL (0.0-0.5); EOS % 1.3 % (0.0-3.0); HEMATOCRIT 47.4 % (36.0-47.0); HEMOGLOBIN 15.2 g/dl (12.0-15.5); LYMPH # 1.6 10^3/uL (1.5-5.0); LYMPH % 23.3 % (24.0-44.0); MEAN CORPUSCULAR HEMOGLOBIN 30.1 pg (27.0-33.0); MEAN CORPUSCULAR HGB CONC 32.1 g/dl (32.0-36.5); MEAN CORPUSCULAR VOLUME 93.9 fl (80.0-96.0); MONO # 0.5 10^3/uL (0.0-0.8); MONO % 6.5 % (2.0-8.0); NEUTROPHILS # 4.7 10^3/uL (1.5-8.5); NEUTROPHILS % 67.5 % (36.0-66.0); PLATELET COUNT, AUTOMATED 222 10^3/uL (150-450); RED BLOOD COUNT 5.05 10^6/uL (4.00-5.40); WHITE BLOOD COUNT 6.9 10^3/uL (4.0-10.0)
--- NOTE | 2021-02-17 12:21 | REP ---
INDICATION: DYSPNEA/COUGH. COMPARISON: 02/01/2021. TECHNIQUE: Single portable AP view of the chest was performed. FINDINGS: There is no acute infiltrate or pulmonary edema. Lungs are clear. The heart is not significantly enlarged. The mediastinal silhouette is unremarkable. The visualized osseous structures are intact. IMPRESSION: No acute pulmonary disease. <Electronically signed by Shan Alcala > 02/17/21 [id number]
[2021-02-17 12:57] LABS: ALBUMIN 3.6 GM/DL (3.2-5.2); ALT/SGPT 37 U/L (12-78); BILIRUBIN,DIRECT < 0.1 MG/DL (0.0-0.2); BILIRUBIN,TOTAL 0.2 MG/DL (0.2-1.0); BLOOD UREA NITROGEN 18 MG/DL (7-18); CALCIUM LEVEL 8.7 MG/DL (8.5-10.1); CARBON DIOXIDE LEVEL 29 MEQ/L (21-32); CHLORIDE LEVEL 108 MEQ/L (98-107); CK-MB VALUE MASS 1.5 NG/ML (<3.6); CPK CREATINE PHOSPHOKINASE 81 U/L (26-192); CREATININE FOR GFR 0.86 MG/DL (0.55-1.30); GLOMERULAR FILTRATION RATE > 60.0 (>51); GLUCOSE, FASTING 88 MG/DL (70-100); MB/CK RELATIVE INDEX 1.85 (< OR =4); NT-PRO BNP 69 PG/ML (<125); POTASSIUM SERUM 3.8 MEQ/L (3.5-5.1); SODIUM LEVEL 139 MEQ/L (136-145); THYROXINE (T4) 6.1 UG/DL (4.5-12.0); TOTAL PROTEIN 7.1 GM/DL (6.4-8.2); TROPONIN I < 0.02 NG/ML (< 0.10)
[2021-02-17 13:32] LABS: ABG BASE EXCESS 1.8 (-2.0-2.0); ABG HCO3 22.5 MEQ/L (22.0-26.0); ABG PARTIAL PRESSURE CO2 25.8 mmHg (35.0-45.0); ABG PARTIAL PRESSURE O2 147.4 mmHg (75.0-100.0); ABG STANDARD HCO3 26.1 MEQ/L (22.0-26.0); ABG TOTAL CO2 23.3 MEQ/L (22.0-29.0); ABG pH (ARTERIAL) 7.559 UNITS (7.350-7.450)
[2021-02-17] MEDS ORDERED: methylPREDNISolone 40MG 1ML VIAL IV ONE (13:35)
[2021-02-17] MEDS ORDERED: LORazepam 1 MG TAB PO STA (14:27)
[2021-02-17] MEDS ORDERED: METAL LOCK LOOP XX ONE (14:31)
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
[2021-02-17] MEDS ORDERED: CARB20TA PO (15:29)
[2021-02-17] MEDS ORDERED: LEVA1.2519 INH (15:29)
[2021-02-17] MEDS ORDERED: AMLO1TAB24 PO (15:29)
[2021-02-17] MEDS ORDERED: FLON1SPR NARES (15:29)
[2021-02-17] MEDS ORDERED: HOME MED LIST COMPLETE! XX SCH (15:30)
[2021-02-17] MEDS ORDERED: DICYCLOMINE 10 MG CAP PO PRN (15:40)
[2021-02-17] MEDS ORDERED: MECLIZINE 25 MG TABLET PO PRN (15:40)
[2021-02-17] MEDS ORDERED: BENZONATATE 100 MG CAP PO PRN (15:40)
[2021-02-17] MEDS ORDERED: ALBUTEROL 90 MCG/ACT 8GM HFA INHALER INH PRN (15:40)
[2021-02-17] MEDS ORDERED: MELOXICAM (MOBIC) 7.5 MG TAB PO PRN (15:40)
--- NOTE | 2021-02-17 16:27 | REP ---
INDICATION: EVAL DVT COMPARISON: 11/03/2020. TECHNIQUE: Real time compression and duplex Doppler interrogation of the bilateral lower extremity deep venous system is performed. Compression ultrasound is performed of the bilateral peroneal and posterior tibial veins. FINDINGS: Bilaterally, the common femoral, superficial femoral and popliteal veins are fully compressible with transducer pressure and demonstrate normal spontaneous and phasic flow, without evidence of deep venous thrombosis. No thrombus is seen in the bilateral visualized portions of the peroneal and posterior tibial veins. IMPRESSION: No evidence of deep venous thrombosis of the bilateral lower extremity femoral popliteal venous system. <Electronically signed by Shan Alcala > 02/17/21 [id number]
[2021-02-17 18:16] LABS: CK-MB VALUE MASS 1.3 NG/ML (<3.6); CPK CREATINE PHOSPHOKINASE 63 U/L (26-192); MB/CK RELATIVE INDEX 2.06 (< OR =4); NT-PRO BNP 92 PG/ML (<125); TROPONIN I < 0.02 NG/ML (< 0.10)
--- NOTE | 2021-02-17 19:37 | ECGEPIP ---
[facility] - ED Test Date: 2021-02-17 Pat Name: ANA PAULA MARRERO Department: Room: - Gender: Female Vortex Operator: SHAYLA : 1965 Requested By: Breanne Alford Order Number: [id number] Reading MD: Breanne Alfodr Measurements Intervals [place] Rate: 57 P: 67 UT: 142 QRS: -54 QRSD: 92 T: 24 QT: 438 QTc: 426 Interpretive Statements Sinus bradycardia LAD Left anterior fascicular block Minimal voltage criteria for LVH, may be normal variant ( Rudolph product ) Nonspecific ST T wave changes cw 02/01/[address] T wave changes Electronically Signed on 02-17-2021 19:36:56 EDT by Breanne Alford
[2021-02-17] MEDS: ALPRAZolam 0.5 MG TAB PO PRN (20:10)
[2021-02-17] MEDS: HEPARIN SOD (PORCINE) 5000UNITS/ML 1ML VIAL/SYRINGE SC SCH (21:52)
[2021-02-17] MEDS: amLODIPine 5 MG TAB PO SCH (21:52)
[2021-02-17 22:00] VITALS: BP 142/94
[2021-02-18] VITALS: BP 116/69
[2021-02-18 04:00] VITALS: BP 127/76
[2021-02-18 05:30] LABS: EOS % 0.3 % (0.0-3.0); HEMATOCRIT 41.6 % (36.0-47.0); HEMOGLOBIN 13.6 g/dl (12.0-15.5); LYMPH # 1.6 10^3/uL (1.5-5.0); LYMPH % 17.8 % (24.0-44.0); MEAN CORPUSCULAR HEMOGLOBIN 30.1 pg (27.0-33.0); MEAN CORPUSCULAR HGB CONC 32.7 g/dl (32.0-36.5); MONO # 0.6 10^3/uL (0.0-0.8); MONO % 6.8 % (2.0-8.0); NEUTROPHILS # 6.5 10^3/uL (1.5-8.5); NEUTROPHILS % 74.6 % (36.0-66.0); PLATELET COUNT, AUTOMATED 223 10^3/uL (150-450); RED BLOOD COUNT 4.52 10^6/uL (4.00-5.40); WHITE BLOOD COUNT 8.8 10^3/uL (4.0-10.0)
[2021-02-18 06:02] LABS: ALBUMIN 3.1 GM/DL (3.2-5.2); ALT/SGPT 29 U/L (12-78); BILIRUBIN,TOTAL 0.3 MG/DL (0.2-1.0); BLOOD UREA NITROGEN 19 MG/DL (7-18); CALCIUM LEVEL 8.5 MG/DL (8.5-10.1); CARBON DIOXIDE LEVEL 29 MEQ/L (21-32); CHLORIDE LEVEL 108 MEQ/L (98-107); CREATININE FOR GFR 0.92 MG/DL (0.55-1.30); GLOMERULAR FILTRATION RATE > 60.0 (>51); GLUCOSE, FASTING 102 MG/DL (70-100); MAGNESIUM LEVEL 2.3 MG/DL (1.8-2.4); POTASSIUM SERUM 4.3 MEQ/L (3.5-5.1); SODIUM LEVEL 139 MEQ/L (136-145); TOTAL PROTEIN 6.5 GM/DL (6.4-8.2)
[2021-02-18] MEDS: ALPRAZolam 0.5 MG TAB PO PRN (07:30)
[2021-02-18 08:00] VITALS: BP 176/100
[2021-02-18] MEDS ORDERED: TIOTROPIUM INHALER/CAPSULE (SPIRIVA) INH SCH (08:00)
[2021-02-18 08:30] VITALS: BP 153/95
[2021-02-18] MEDS: amLODIPine 5 MG TAB PO SCH (08:30)
[2021-02-18] MEDS: HEPARIN SOD (PORCINE) 5000UNITS/ML 1ML VIAL/SYRINGE SC SCH (08:31)
[2021-02-18] MEDS ORDERED: FLUoxetine 20 MG CAP PO SCH (09:00)
[2021-02-18] MEDS ORDERED: LACTOBACILLUS ACIDOPHILUS CAP (BACID) PO SCH (09:00)
[2021-02-18] MEDS ORDERED: FLUTICASONE PROP 0.05% NASAL SPRAY 16 GM (FLONASE) NARES SCH (09:00)
[2021-02-18] MEDS ORDERED: predniSONE 20 MG TAB PO SCH (09:00)
[2021-02-18] MEDS ORDERED: carBAMazepine 200MG TABLET PO SCH (09:00)
[2021-02-18] MEDS ORDERED: PRED10TA2 PO ×2 (09:07→11:49)
[2021-02-18 09:15] VITALS: BP 153/95
[2021-02-18 12:00] VITALS: BP 130/78
== END 2021-02-18 13:22 | disposition home or self-care (01) ==
LOC: M ED 10:32 → M ED INP 15:28 → ENRESERV 16:12 → M PCU 21:30
PROVIDERS: ADMIT Internal Medicine; ATTEND Internal Medicine
DX: J44.1 Chronic obstructive pulmonary disease with (acute) exacerbation (principal); I10 Essential (primary) hypertension; F41.9 Anxiety disorder, unspecified; F32.9 Major depressive disorder, single episode, unspecified; F43.10 Post-traumatic stress disorder, unspecified; M79.7 Fibromyalgia; K21.9 Gastro-esophageal reflux disease without esophagitis; G62.9 Polyneuropathy, unspecified; R06.02 Shortness of breath; Z79.899 Other long term (current) drug therapy; Z91.041 Radiographic dye allergy status; Z91.048 Other nonmedicinal substance allergy status; Z88.2 Allergy status to sulfonamides; Z88.8 Allergy status to other drugs, medicaments and biological substances; Z88.1 Allergy status to other antibiotic agents; Z88.5 Allergy status to narcotic agent; Z87.891 Personal history of nicotine dependence
CPT/HCPCS: 36415; 36600; 71045; 80048; 80053; 80076; 82550; 82553; 82803; 83605; 83735; 83880; 84436; 84443; 84484; 85025; 85379; 87040; 87798; 93005; 93041; 93970; 94640; 96372; 96374; 97116; 97161; 99285; G0378; J1644; J2920; J7512

== ENCOUNTER → 2021-05-07 | Outpatient (CLI) | payer MEDICARE, MEDICAID ==
[~2021-05-07] MED LIST changes: +AMLO1TAB24 PO; +CARB20TA PO; +DOXY-443 PO; -DOXY1CAP62 PO; +FLON1SPR NARES; +LEVA1.2519 INH
--- NOTE | 2021-05-07 13:41 | REP ---
INDICATION: LUNG CANCER SCREENING. COMPARISON: Multiple the latest 04/16/2020 standard non[address] enhanced helical CT TECHNIQUE: Axial noncontrast images from the thoracic inlet to the upper abdomen using low-dose lung screening technique (LDCT). As per the protocol only lung window images were sent to the read station for interpretation. FINDINGS: Emphysematous changes are noted status quo. There is a curvilinear density in the inferior lingula. There are no new abnormal nodules, masses, or opacities. There is cylindrical bronchiectasis status quo. Grossly, the mediastinum and pulmonary heaven are unchanged. Grossly, the imaged upper abdomen and imaged osseous structures are unchanged. IMPRESSION: Emphysematous changes and curvilinear fibrotic and/or subsegmental atelectatic changes in the inferior lingula. There are no new abnormal nodules. Lung rads category 2 S exam follow-up as per the revised Fleischner society criteria. <Electronically signed by Jericho Vargas > 05/07/21 [id number]
== END ==
LOC: M RAD 13:06
PROVIDERS: ATTEND Internal Medicine Pulmonary Disease
DX: Z12.2 Encounter for screening for malignant neoplasm of respiratory organs (principal); Z87.891 Personal history of nicotine dependence; J47.9 Bronchiectasis, uncomplicated

== ENCOUNTER → 2021-05-25 | Outpatient (REF) | payer MEDICARE, MEDICAID ==
[~2021-05-25] MED LIST changes: +ADVA230A INH; +AMLO10TA PO; -FLUC150T PO; +FLUC150T9 PO; +GABA-1171 PO; -LEVO500T3; +LEVO500T4; +LOSA100T45 PO; -LOSA100T50 PO; +VALA1TAB5 PO
== END ==
LOC: M SFHCPLAZ 16:58
PROVIDERS: ATTEND Student in an Organized Health Care Education/Training Program
DX: R05.9 Cough, unspecified (principal)
CPT/HCPCS: 87804; G0463; U0003

== ENCOUNTER → 2021-05-27 | Outpatient (CLI) | payer MEDICARE, MEDICAID | LOC: M LABSMTC 11:02 | PROVIDERS: ATTEND Pediatrics | DX: Z11.52 Encounter for screening for COVID-19 (principal) | CPT/HCPCS: C9803; U0003 ==

== ENCOUNTER 2021-07-02 11:16 | Inpatient (IN) | payer MEDICARE, MEDICAID ==
[~2021-07-02] VITALS: Ht 172.7 cm; Wt 63.6 kg
[~2021-07-02 11:16] MED LIST changes: -ADVA230A INH; -AMLO10TA PO; +FLUC150T PO; -FLUC150T9 PO; -GABA-1171 PO; -VALA1TAB5 PO
[2021-07-02 12:04] LABS: BASO % 0.5 % (0.0-1.0); EOS # 0.1 10^3/uL (0.0-0.5); EOS % 2.6 % (0.0-3.0); HEMATOCRIT 42.6 % (36.0-47.0); LYMPH # 1.4 10^3/uL (1.5-5.0); LYMPH % 36.7 % (24.0-44.0); MEAN CORPUSCULAR HEMOGLOBIN 30.1 pg (27.0-33.0); MEAN CORPUSCULAR HGB CONC 32.9 g/dl (32.0-36.5); MEAN CORPUSCULAR VOLUME 91.6 fl (80.0-96.0); MONO # 0.3 10^3/uL (0.0-0.8); NEUTROPHILS # 2.1 10^3/uL (1.5-8.5); NEUTROPHILS % 52.9 % (36.0-66.0); PLATELET COUNT, AUTOMATED 189 10^3/uL (150-450); RED BLOOD COUNT 4.65 10^6/uL (4.00-5.40); WHITE BLOOD COUNT 3.9 10^3/uL (4.0-10.0)
[2021-07-02 12:19] LABS: INR 0.98; PARTIAL THROMBOPLASTIN TIME 28.6 SECONDS (25.9-37.0); PROTHROMBIN TIME 13.3 SECONDS (12.7-14.5)
[2021-07-02 12:36] LABS: CK-MB VALUE MASS 1.4 NG/ML (<3.6); MB/CK RELATIVE INDEX 1.73 (< OR =4)
[2021-07-02] MEDS ORDERED: ADVA230A INH (13:07)
[2021-07-02] MEDS ORDERED: VALA1TAB5 PO (13:07)
[2021-07-02] MEDS ORDERED: ALPRAZolam 0.5 MG TAB PO ONE (13:10)
[2021-07-02 14:15] LABS: RSV AMPLIFICATION NEGATIVE (NEGATIVE)
[2021-07-02] MEDS ORDERED: HOME MED LIST COMPLETE! XX SCH (14:25)
[2021-07-02] MEDS ORDERED: BENZONATATE 100MG CAPSULE PO PRN (14:50)
[2021-07-02] MEDS ORDERED: ALBUTEROL 90 MCG/ACT 8GM HFA INHALER INH PRN (14:50)
[2021-07-02] MEDS ORDERED: LEVALBUTEROL 1.25 MG/0.5 ML CONCENTRATE NEB NEB PRN (14:50)
[2021-07-02] MEDS ORDERED: LORazepam 2 MG/ML VIAL IV ONE (15:00)
[2021-07-02] MEDS: HEPARIN SOD (PORCINE) 5000UNITS/ML 1ML VIAL/SYRINGE SC SCH ×2 (15:08→21:19)
[2021-07-02] MEDS: TIOTROPIUM INHALER/CAPSULE (SPIRIVA) INH SCH (15:10)
[2021-07-02 15:33] LABS: ERYTHROCYTE SEDIMENTATION RATE 12 mm/hr (0-30)
[2021-07-02] MEDS: valACYclovir HCL 500 MG TAB PO SCH ×2 (16:00→21:19)
[2021-07-02 18:00] VITALS: BP 167/105
[2021-07-02] MEDS ORDERED: GABAPENTIN 100 MG CAP PO ONE (18:45)
[2021-07-02] MEDS ORDERED: ASPIRIN 325 MG TAB PO ONE (18:45)
[2021-07-02] MEDS ORDERED: carBAMazepine 200MG TABLET PO ONE (18:55)
[2021-07-02] MEDS: ADVAIR HFA 230/21MCG INHALER INH SCH (19:26)
[2021-07-02 19:32] LABS: CHOLESTEROL RISK RATIO 5.041 (<5); THYROID STIMULATING HORMONE 2.34 uIU/ML (0.358-3.740)
[2021-07-02 19:34] LABS: FOLATE 5.2 NG/ML (>5.4)
[2021-07-02 19:58] LABS: HEMOGLOBIN A1c 5.4 %
[2021-07-02] MEDS: GABAPENTIN 100 MG CAP PO SCH (21:00)
[2021-07-02] MEDS: ALPRAZolam 0.5 MG TAB PO PRN (21:19)
[2021-07-02] MEDS: FLUTICASONE PROP 0.05% NASAL SPRAY 16 GM (FLONASE) NARES SCH (21:19)
[2021-07-02] MEDS: FLUoxetine 20 MG CAP PO SCH (21:20)
[2021-07-02 22:00] VITALS: BP 150/90
[2021-07-03] MEDS: ACETAMINOPHEN TAB 650MG DOSE (2X325MG) PO PRN ×3 (05:30→20:18)
[2021-07-03] MEDS: HEPARIN SOD (PORCINE) 5000UNITS/ML 1ML VIAL/SYRINGE SC SCH ×3 (05:31→22:55)
[2021-07-03 05:58] VITALS: BP 149/101
[2021-07-03] MEDS ORDERED: ACETAMINOPHEN *IV* 1,000 MG in IV 1 EA IV ONE (07:00)
[2021-07-03 07:09] LABS: BASO % 0.4 % (0.0-1.0); EOS # 0.2 10^3/uL (0.0-0.5); EOS % 3.8 % (0.0-3.0); HEMATOCRIT 43.6 % (36.0-47.0); HEMOGLOBIN 14.3 g/dl (12.0-15.5); LYMPH # 2.1 10^3/uL (1.5-5.0); LYMPH % 40.8 % (24.0-44.0); MEAN CORPUSCULAR HEMOGLOBIN 30.2 pg (27.0-33.0); MEAN CORPUSCULAR HGB CONC 32.8 g/dl (32.0-36.5); MONO # 0.4 10^3/uL (0.0-0.8); MONO % 7.5 % (2.0-8.0); NEUTROPHILS # 2.5 10^3/uL (1.5-8.5); NEUTROPHILS % 47.3 % (36.0-66.0); PLATELET COUNT, AUTOMATED 176 10^3/uL (150-450); RED BLOOD COUNT 4.74 10^6/uL (4.00-5.40); WHITE BLOOD COUNT 5.2 10^3/uL (4.0-10.0)
[2021-07-03 07:32] LABS: BLOOD UREA NITROGEN 13 MG/DL (7-18); CALCIUM LEVEL 8.5 MG/DL (8.5-10.1); CARBON DIOXIDE LEVEL 28 MEQ/L (21-32); CHLORIDE LEVEL 108 MEQ/L (98-107); CREATININE FOR GFR 0.84 MG/DL (0.55-1.30); GLOMERULAR FILTRATION RATE > 60.0 (>51); GLUCOSE, FASTING 114 MG/DL (70-100); PHOSPHORUS LEVEL 3.4 MG/DL (2.5-4.9); POTASSIUM SERUM 3.7 MEQ/L (3.5-5.1); SODIUM LEVEL 142 MEQ/L (136-145)
[2021-07-03] MEDS: TIOTROPIUM INHALER/CAPSULE (SPIRIVA) INH SCH (08:05)
[2021-07-03] MEDS: ADVAIR HFA 230/21MCG INHALER INH SCH ×2 (08:05→19:51)
[2021-07-03] MEDS: GABAPENTIN 100 MG CAP PO SCH ×3 (09:53→20:17)
[2021-07-03] MEDS: carBAMazepine 200MG TABLET PO SCH (09:54)
[2021-07-03] MEDS: ALPRAZolam 0.5 MG TAB PO PRN ×3 (09:54→20:17)
[2021-07-03] MEDS: valACYclovir HCL 500 MG TAB PO SCH ×3 (09:54→20:18)
[2021-07-03 14:00] VITALS: BP 149/98
[2021-07-03] MEDS: FOLIC ACID 1 MG TAB PO SCH (15:33)
[2021-07-03] MEDS: FLUTICASONE PROP 0.05% NASAL SPRAY 16 GM (FLONASE) NARES SCH (20:17)
[2021-07-03] MEDS: FLUoxetine 20 MG CAP PO SCH (20:17)
[2021-07-03 22:00] VITALS: BP 150/96
[2021-07-04] MEDS: HEPARIN SOD (PORCINE) 5000UNITS/ML 1ML VIAL/SYRINGE SC SCH ×3 (05:48→22:52)
[2021-07-04] MEDS: ALPRAZolam 0.5 MG TAB PO PRN ×3 (06:03→17:48)
[2021-07-04 06:27] LABS: BLOOD UREA NITROGEN 16 MG/DL (7-18); CALCIUM LEVEL 8.6 MG/DL (8.5-10.1); CARBON DIOXIDE LEVEL 26 MEQ/L (21-32); CHLORIDE LEVEL 110 MEQ/L (98-107); CREATININE FOR GFR 0.82 MG/DL (0.55-1.30); GLOMERULAR FILTRATION RATE > 60.0 (>51); GLUCOSE, FASTING 98 MG/DL (70-100); MAGNESIUM LEVEL 2.1 MG/DL (1.8-2.4); PHOSPHORUS LEVEL 4.1 MG/DL (2.5-4.9); POTASSIUM SERUM 4.3 MEQ/L (3.5-5.1); SODIUM LEVEL 142 MEQ/L (136-145)
[2021-07-04 06:56] VITALS: BP 162/102
[2021-07-04] MEDS: TIOTROPIUM INHALER/CAPSULE (SPIRIVA) INH SCH (07:32)
[2021-07-04] MEDS: ADVAIR HFA 230/21MCG INHALER INH SCH ×2 (07:32→19:39)
[2021-07-04] MEDS: carBAMazepine 200MG TABLET PO SCH (08:12)
[2021-07-04] MEDS: valACYclovir HCL 500 MG TAB PO SCH ×3 (08:12→20:00)
[2021-07-04] MEDS: GABAPENTIN 100 MG CAP PO SCH (08:12)
[2021-07-04] MEDS: FOLIC ACID 1 MG TAB PO SCH (08:12)
[2021-07-04] MEDS: amLODIPine 5 MG TAB PO SCH (09:22)
[2021-07-04] MEDS: ACETAMINOPHEN TAB 650MG DOSE (2X325MG) PO PRN (13:41)
[2021-07-04 13:46] VITALS: BP 148/95
[2021-07-04] MEDS: MIRALAX *UNIT DOSE* 17GM PACKET PO SCH (17:48)
[2021-07-04] MEDS: FLUTICASONE PROP 0.05% NASAL SPRAY 16 GM (FLONASE) NARES SCH (20:00)
[2021-07-04] MEDS: FLUoxetine 20 MG CAP PO SCH (20:00)
[2021-07-04 21:00] VITALS: BP 160/90
[2021-07-05] MEDS: ALPRAZolam 0.5 MG TAB PO PRN ×2 (00:09→09:03)
[2021-07-05 06:07] VITALS: BP 146/94
[2021-07-05] MEDS: ACETAMINOPHEN TAB 650MG DOSE (2X325MG) PO PRN (06:49)
[2021-07-05] MEDS: HEPARIN SOD (PORCINE) 5000UNITS/ML 1ML VIAL/SYRINGE SC SCH (06:49)
[2021-07-05] MEDS: ADVAIR HFA 230/21MCG INHALER INH SCH (07:34)
[2021-07-05] MEDS: TIOTROPIUM INHALER/CAPSULE (SPIRIVA) INH SCH (07:34)
[2021-07-05] MEDS ORDERED: GABAPENTIN 100 MG CAP PO SCH (09:00)
[2021-07-05] MEDS: valACYclovir HCL 500 MG TAB PO SCH (09:03)
[2021-07-05] MEDS: FOLIC ACID 1 MG TAB PO SCH (09:03)
[2021-07-05] MEDS: amLODIPine 5 MG TAB PO SCH (09:03)
[2021-07-05] MEDS: carBAMazepine 200MG TABLET PO SCH (09:03)
[2021-07-05] MEDS: MIRALAX *UNIT DOSE* 17GM PACKET PO SCH (09:03)
[2021-07-05] MEDS ORDERED: lisinopriL 5 MG TAB PO ONE (11:45)
[2021-07-05] MEDS ORDERED: amLODIPine 5 MG TAB PO ONE (12:10)
[2021-07-05 12:27] VITALS: BP 141/99
[2021-07-05] MEDS ORDERED: GABA-1171 PO (13:12)
[2021-07-05] MEDS ORDERED: AMLO10TA PO (13:12)
[2021-07-05] MEDS ORDERED: ASPI81CH33 PO (14:07)
== END 2021-07-05 14:12 | disposition home or self-care (01) | DRG 74 ==
LOC: M ED 11:16 → M ED INP 14:10 → ENRESERV 16:35 → M MSPAV 17:16
PROVIDERS: ADMIT Internal Medicine; ATTEND Internal Medicine
DX: B02.22 Postherpetic trigeminal neuralgia (principal); M62.81 Muscle weakness (generalized); F43.10 Post-traumatic stress disorder, unspecified; F60.3 Borderline personality disorder; M79.7 Fibromyalgia; M51.36 Other intervertebral disc degeneration, lumbar region; M47.816 Spondylosis without myelopathy or radiculopathy, lumbar region; Z98.1 Arthrodesis status; G62.9 Polyneuropathy, unspecified; J43.1 Panlobular emphysema; E78.5 Hyperlipidemia, unspecified; N95.2 Postmenopausal atrophic vaginitis; K58.9 Irritable bowel syndrome, unspecified; Z20.822 Contact with and (suspected) exposure to COVID-19; Z79.899 Other long term (current) drug therapy; Z91.041 Radiographic dye allergy status; Z88.1 Allergy status to other antibiotic agents; Z88.2 Allergy status to sulfonamides; Z88.5 Allergy status to narcotic agent; Z88.8 Allergy status to other drugs, medicaments and biological substances; Z91.048 Other nonmedicinal substance allergy status; M25.422 Effusion, left elbow; S52.125A Nondisplaced fracture of head of left radius, initial encounter for closed fracture; W19.XXXA Unspecified fall, initial encounter; Y92.9 Unspecified place or not applicable; Y93.9 Activity, unspecified; Y99.9 Unspecified external cause status

== ENCOUNTER → 2021-07-09 | Outpatient (CLI) | payer MEDICARE, MEDICAID ==
[~2021-07-09] MED LIST changes: +ADVA230A INH; +AMLO10TA PO; -FLUC150T PO; +FLUC150T9 PO; +GABA-1171 PO; +VALA1TAB5 PO
== END ==
LOC: M SLEEP HO 14:14
PROVIDERS: ATTEND Internal Medicine Pulmonary Disease
DX: G47.33 Obstructive sleep apnea (adult) (pediatric) (principal)

== ENCOUNTER → 2021-07-19 | Outpatient (REF) | payer MEDICARE, MEDICAID ==
[~2021-07-19] MED LIST changes: -D31000TA2 PO; +VITA100093 PO
== END ==
LOC: M SFHCPLAZ 17:02
PROVIDERS: ATTEND Student in an Organized Health Care Education/Training Program
DX: J02.9 Acute pharyngitis, unspecified (principal)

== ENCOUNTER → 2021-07-29 | Outpatient (CLI) | payer MEDICARE, MEDICAID ==
[~2021-07-29] MED LIST changes: +D31000TA2 PO; -VITA100093 PO
== END ==
LOC: M WHC 13:16
PROVIDERS: ATTEND Internal Medicine
DX: M06.4 Inflammatory polyarthropathy (principal)

== ENCOUNTER → 2021-07-29 | Outpatient (CLI) | payer MEDICARE, MEDICAID | LOC: M PLAIMG 13:48 | PROVIDERS: ATTEND Internal Medicine | DX: M06.4 Inflammatory polyarthropathy (principal) ==

== ENCOUNTER → 2021-09-04 | Outpatient (CLI) | payer MEDICARE, MEDICAID ==
[~2021-09-04] MED LIST changes: -D31000TA2 PO; +VITA100093 PO
== END ==
LOC: M SLEEP 20:00
PROVIDERS: ATTEND Physician Assistant
DX: G47.33 Obstructive sleep apnea (adult) (pediatric) (principal)

== ENCOUNTER → 2021-09-08 | Outpatient (REF) | payer MEDICARE, MEDICAID | LOC: M SFHCDERM 13:43 | PROVIDERS: ATTEND Physician Assistant | DX: L82.1 Other seborrheic keratosis (principal) ==

== ENCOUNTER → 2021-10-06 | Outpatient (CLI) | payer MEDICARE, MEDICAID | LOC: M RAD 10:19 | PROVIDERS: ATTEND Physician Assistant Medical | DX: R05.9 Cough, unspecified (principal) ==

== ENCOUNTER → 2021-10-25 | Outpatient (REF) | payer MEDICARE, MEDICAID | LOC: M LAB REF 17:15 | PROVIDERS: ATTEND Internal Medicine Pulmonary Disease | DX: G47.33 Obstructive sleep apnea (adult) (pediatric) (principal) ==

== ENCOUNTER 2021-11-23 13:55 | Inpatient (IN) | payer MEDICARE, MEDICAID ==
[~2021-11-23] VITALS: Ht 172.7 cm; Wt 64.8 kg
[~2021-11-23 13:55] MED LIST changes: -AMOX875T2 PO; -COLA100C5 PO; -DICY10CA13 PO; -VALA500T5 PO; -XANA0.5T PO
[2021-11-23 15:51] LABS: BASO % 0.4 % (0.0-1.0); EOS # 0.1 10^3/uL (0.0-0.5); EOS % 1.9 % (0.0-3.0); HEMOGLOBIN 14.3 g/dl (12.0-15.5); LYMPH # 1.6 10^3/uL (1.5-5.0); LYMPH % 33.3 % (24.0-44.0); MEAN CORPUSCULAR HEMOGLOBIN 31.4 pg (27.0-33.0); MEAN CORPUSCULAR HGB CONC 33.3 g/dl (32.0-36.5); MEAN CORPUSCULAR VOLUME 94.5 fl (80.0-96.0); MONO # 0.4 10^3/uL (0.0-0.8); MONO % 7.5 % (2.0-8.0); NEUTROPHILS # 2.7 10^3/uL (1.5-8.5); NEUTROPHILS % 56.3 % (36.0-66.0); PLATELET COUNT, AUTOMATED 151 10^3/uL (150-450); RED BLOOD COUNT 4.55 10^6/uL (4.00-5.40); WHITE BLOOD COUNT 4.8 10^3/uL (4.0-10.0)
[2021-11-23] MEDS ORDERED: LORazepam 0.5 MG TAB PO ONE (16:15)
[2021-11-23] MEDS ORDERED: dexameTHASONE 20MG/5ML VIAL (J1100 PER 1MG) IV ONE (16:15)
[2021-11-23 16:16] LABS: CK-MB VALUE MASS 1.5 NG/ML (<3.6); MB/CK RELATIVE INDEX 1.15 (< OR =4)
[2021-11-23] MEDS: COMBIVENT RESPIMAT 100-20MCG INHALER 4GM INH SCH ×3 (16:31→16:43)
[2021-11-23 16:45] LABS: ALBUMIN 3.5 GM/DL (3.2-5.2); ALT/SGPT 27 U/L (12-78); BILIRUBIN,DIRECT < 0.1 MG/DL (0.0-0.2); BILIRUBIN,TOTAL 0.1 MG/DL (0.2-1.0); BLOOD UREA NITROGEN 14 MG/DL (7-18); CALCIUM LEVEL 8.8 MG/DL (8.5-10.1); CARBON DIOXIDE LEVEL 30 MEQ/L (21-32); CHLORIDE LEVEL 111 MEQ/L (98-107); CREATININE FOR GFR 1.02 MG/DL (0.55-1.30); GLOMERULAR FILTRATION RATE 59.3 (>51); GLUCOSE, FASTING 75 MG/DL (70-100); LIPASE 124 U/L (73-393); NT-PRO BNP 332 PG/ML (<125); POTASSIUM SERUM 3.8 MEQ/L (3.5-5.1); SODIUM LEVEL 145 MEQ/L (136-145); TOTAL PROTEIN 6.7 GM/DL (6.4-8.2)
[2021-11-23 17:06] LABS: CK-MB VALUE MASS 1.4 NG/ML (<3.6); MB/CK RELATIVE INDEX 1.3 (< OR =4)
[2021-11-23] MEDS ORDERED: MAALOX 30 ML SUSP *UDC PO PRN (18:50)
[2021-11-23] MEDS ORDERED: ACETAMINOPHEN TAB 650MG DOSE (2X325MG) PO PRN (18:50)
[2021-11-23] MEDS ORDERED: MOM 30ML SUSPENSION UDC PO PRN (18:50)
[2021-11-23] MEDS ORDERED: ALBUTEROL SULFATE 2.5 MG/0.5 ML INH NEB SOLN NEB PRN (18:50)
[2021-11-23] MEDS ORDERED: XANA0.5T PO (19:44)
[2021-11-23] MEDS ORDERED: ALPR0.5T3 PO (19:44)
[2021-11-23] MEDS ORDERED: VALA500T5 PO (19:50)
[2021-11-23] MEDS ORDERED: NORV5TAB PO (19:52)
[2021-11-23 19:54] LABS: INR 0.94
[2021-11-23 19:55] LABS: PARTIAL THROMBOPLASTIN TIME 29.2 SECONDS (25.9-37.0)
[2021-11-23] MEDS ORDERED: DICY10CA13 PO (19:56)
[2021-11-23] MEDS ORDERED: MECLIZINE 25 MG TABLET PO PRN (20:00)
[2021-11-23] MEDS ORDERED: DICYCLOMINE 10 MG CAP PO PRN (20:00)
[2021-11-23] MEDS ORDERED: IPRATROPIUM 0.5MG/ALBUTEROL 2.5MG INH SOL UD 3ML (DUONEB) NEB SCH (20:00)
[2021-11-23] MEDS ORDERED: BENZONATATE 100MG CAPSULE PO PRN (20:00)
[2021-11-23] MEDS ORDERED: HOME MED LIST COMPLETE! XX SCH (20:00)
[2021-11-23 20:10] VITALS: BP 132/74
[2021-11-23] MEDS: DOCUSATE SODIUM 100MG CAPSULE PO SCH (21:00)
[2021-11-23] MEDS ORDERED: methylPREDNISolone 125MG 2ML VIAL IV SCH (21:00)
[2021-11-23] MEDS ORDERED: valACYclovir HCL 500 MG TAB PO SCH (21:00)
[2021-11-23] MEDS ORDERED: ALPRAZolam 0.5 MG TAB PO SCH (21:00)
[2021-11-23] MEDS: ADVAIR HFA 230/21MCG INHALER INH SCH (21:02)
[2021-11-23 22:00] VITALS: BP 143/91
[2021-11-23] MEDS: FLUTICASONE PROP 0.05% NASAL SPRAY 16 GM (FLONASE) NARES SCH (22:00)
[2021-11-23 22:30] VITALS: O2SAT 93
[2021-11-24] MEDS ORDERED: ONDANSETRON 4MG ORAL DISINTEGRATING TAB PO PRN (01:35)
[2021-11-24 06:00] VITALS: BP 138/89
[2021-11-24] MEDS: ADVAIR HFA 230/21MCG INHALER INH SCH (06:16)
[2021-11-24 06:31] LABS: HEMATOCRIT 41.1 % (36.0-47.0); HEMOGLOBIN 13.5 g/dl (12.0-15.5); MEAN CORPUSCULAR HEMOGLOBIN 30.7 pg (27.0-33.0); MEAN CORPUSCULAR HGB CONC 32.8 g/dl (32.0-36.5); MEAN CORPUSCULAR VOLUME 93.4 fl (80.0-96.0); PLATELET COUNT, AUTOMATED 152 10^3/uL (150-450); WHITE BLOOD COUNT 6.6 10^3/uL (4.0-10.0)
[2021-11-24 06:57] LABS: BLOOD UREA NITROGEN 15 MG/DL (7-18); CALCIUM LEVEL 8.9 MG/DL (8.5-10.1); CARBON DIOXIDE LEVEL 24 MEQ/L (21-32); CHLORIDE LEVEL 110 MEQ/L (98-107); CREATININE FOR GFR 0.88 MG/DL (0.55-1.30); GLOMERULAR FILTRATION RATE > 60.0 (>51); GLUCOSE, FASTING 145 MG/DL (70-100); POTASSIUM SERUM 3.9 MEQ/L (3.5-5.1); SODIUM LEVEL 142 MEQ/L (136-145)
[2021-11-24] MEDS ORDERED: TIOTROPIUM INHALER/CAPSULE (SPIRIVA) INH SCH (08:00)
[2021-11-24] MEDS ORDERED: valACYclovir HCL 500 MG TAB PO SCH (09:00)
[2021-11-24] MEDS ORDERED: carBAMazepine 200MG TABLET PO SCH (09:00)
[2021-11-24] MEDS ORDERED: FLUoxetine 20MG CAP PO SCH (09:00)
[2021-11-24] MEDS ORDERED: ALPRAZolam 0.5 MG TAB PO SCH (09:00)
[2021-11-24] MEDS ORDERED: amLODIPine 5 MG TAB PO SCH (09:00)
[2021-11-24] MEDS: DOCUSATE SODIUM 100MG CAPSULE PO SCH (09:25)
[2021-11-24 09:26] VITALS: BP 138/89
[2021-11-24] MEDS: FLUTICASONE PROP 0.05% NASAL SPRAY 16 GM (FLONASE) NARES SCH (09:26)
[2021-11-24] MEDS ORDERED: IBUPROFEN 600MG TAB PO ONE (11:00)
[2021-11-24] MEDS ORDERED: PRED20TA PO (11:16)
[2021-11-24] MEDS ORDERED: PRED10TA2 PO (11:16)
[2021-11-24] MEDS ORDERED: COLA100C5 PO (11:16)
[2021-11-24] MEDS ORDERED: AMOX875T2 PO (11:16)
[2021-11-24] MEDS ORDERED: ENOXAPARIN 40MG/0.4ML SYRINGE (J1650 PER 10MG) SC SCH (21:00)
== END 2021-11-24 13:49 | disposition home health service (06) | DRG 192 ==
LOC: M ED 13:55 → M ED INP 18:50 → M MSPAV 20:19
PROVIDERS: ADMIT Internal Medicine; ATTEND Internal Medicine
DX: J44.1 Chronic obstructive pulmonary disease with (acute) exacerbation (principal); E55.9 Vitamin D deficiency, unspecified; I25.10 Atherosclerotic heart disease of native coronary artery without angina pectoris; E78.5 Hyperlipidemia, unspecified; I10 Essential (primary) hypertension; M54.9 Dorsalgia, unspecified; F41.9 Anxiety disorder, unspecified; Z98.41 Cataract extraction status, right eye; Z98.42 Cataract extraction status, left eye; Z90.49 Acquired absence of other specified parts of digestive tract; Z90.79 Acquired absence of other genital organ(s); Z98.1 Arthrodesis status; Z87.891 Personal history of nicotine dependence; R35.0 Frequency of micturition; R42 Dizziness and giddiness; B02.9 Zoster without complications; Z79.899 Other long term (current) drug therapy; Z88.1 Allergy status to other antibiotic agents; Z88.2 Allergy status to sulfonamides; Z88.3 Allergy status to other anti-infective agents; Z88.8 Allergy status to other drugs, medicaments and biological substances; Z91.040 Latex allergy status; Z91.041 Radiographic dye allergy status; F32.A Depression, unspecified; R09.02 Hypoxemia

== ENCOUNTER → 2021-11-23 | Outpatient (REF) | payer MEDICARE, MEDICAID ==
[~2021-11-23] MED LIST changes: +ALBU2.5V10 INH; -ALBU83IN INH; +AMOX875T2 PO; +COLA100C5 PO; +DICY10CA13 PO; +VALA500T5 PO; +XANA0.5T PO
[2021-11-25 14:12] LABS: EBV AB TO NUCLEAR ANTIGEN >600.0 U/mL (0.0-17.9); EBV VIRAL CAPSID AG IgM 63.1 U/mL (0.0-35.9)
== END ==
LOC: M SFHCRHEU 11:26
PROVIDERS: ATTEND Internal Medicine
DX: R53.82 Chronic fatigue, unspecified (principal); E55.9 Vitamin D deficiency, unspecified

== ENCOUNTER → 2021-11-23 | Outpatient (CLI) | payer MEDICARE, MEDICAID | LOC: M RAD 12:08 | PROVIDERS: ATTEND Internal Medicine | DX: R06.02 Shortness of breath (principal) ==

== ENCOUNTER 2021-12-15 13:43 | Emergency (ER) | payer MEDICARE, MEDICAID ==
[~2021-12-15] VITALS: Ht 172.7 cm; Wt 63.6 kg
[~2021-12-15 13:43] MED LIST changes: +AMOX875T2 PO; +COLA100C5 PO; +DICY10CA13 PO; +VALA500T5 PO; +XANA0.5T PO
[2021-12-15] MEDS ORDERED: LEVO500T4 (14:03)
[2021-12-15] MEDS ORDERED: COMBIVENT RESPIMAT 100-20MCG INHALER 4GM INH STA (14:34)
[2021-12-15] MEDS ORDERED: ALPRAZolam 0.5 MG TAB PO ONE (14:35)
[2021-12-15] MEDS ORDERED: diphenhydrAMINE 50MG/ML VIAL (J1200) IV STA (14:46)
[2021-12-15] MEDS ORDERED: NS 1,000 ML IV ONE (14:50)
[2021-12-15] MEDS ORDERED: METOCLOPRAMIDE INJ 10MG/2ML VIAL (J2765 PER 1) IV ONE (14:50)
[2021-12-15] MEDS ORDERED: ACETAMINOPHEN 500 MG TAB PO ONE (14:50)
[2021-12-15] MEDS ORDERED: KETOROLAC 30 MG/ML 1ML VIAL IV ONE (14:50)
[2021-12-15 15:15] LABS: BASO % 0.4 % (0.0-1.0); EOS # 0.1 10^3/uL (0.0-0.5); EOS % 1.4 % (0.0-3.0); HEMOGLOBIN 14.5 g/dl (12.0-15.5); LYMPH # 1.8 10^3/uL (1.5-5.0); MEAN CORPUSCULAR HEMOGLOBIN 30.7 pg (27.0-33.0); MEAN CORPUSCULAR HGB CONC 32.2 g/dl (32.0-36.5); MEAN CORPUSCULAR VOLUME 95.3 fl (80.0-96.0); MONO # 0.5 10^3/uL (0.0-0.8); MONO % 7.5 % (2.0-8.0); NEUTROPHILS # 4.5 10^3/uL (1.5-8.5); NEUTROPHILS % 64.4 % (36.0-66.0); PLATELET COUNT, AUTOMATED 173 10^3/uL (150-450); RED BLOOD COUNT 4.72 10^6/uL (4.00-5.40)
[2021-12-15 15:34] LABS: CK-MB VALUE MASS 1.3 NG/ML (<3.6); MB/CK RELATIVE INDEX 1.51 (< OR =4)
[2021-12-15 16:39] VITALS: BP 128/77
[2021-12-15 17:08] LABS: ABG BASE EXCESS -2.2 (-2.0-2.0); ABG HCO3 22.3 MEQ/L (22.0-26.0); ABG O2 SATURATION 98.5 % (95.0-99.0); ABG PARTIAL PRESSURE CO2 37.7 mmHg (35.0-45.0); ABG PARTIAL PRESSURE O2 119.3 mmHg (75.0-100.0); ABG STANDARD HCO3 22.6 MEQ/L (22.0-26.0); ABG TOTAL CO2 23.5 MEQ/L (22.0-29.0)
== END 2021-12-15 18:03 | disposition home or self-care (01) ==
LOC: M ED 13:43
DX: J44.9 Chronic obstructive pulmonary disease, unspecified (principal); R51.9 Headache, unspecified; I10 Essential (primary) hypertension; Z88.1 Allergy status to other antibiotic agents; Z88.2 Allergy status to sulfonamides; Z88.8 Allergy status to other drugs, medicaments and biological substances
CPT/HCPCS: 36600; 71046; 82550; 82553; 82803; 84484; 85025; 87486; 87581; 87633; 87798; 93005; 94640; 96361; 96374; 96375; 99284; J1200; J1885; J2765

== ENCOUNTER → 2022-01-17 | Outpatient (REF) | payer MEDICARE, MEDICAID ==
[~2022-01-17] MED LIST changes: +LEVO1TAB39; -LEVO500T4
[2022-01-17 13:33] LABS: BASO % 0.2 % (0.0-1.0); EOS # 0.1 10^3/uL (0.0-0.5); EOS % 2.2 % (0.0-3.0); HEMATOCRIT 43.2 % (36.0-47.0); HEMOGLOBIN 13.7 g/dl (12.0-15.5); LYMPH # 1.5 10^3/uL (1.5-5.0); LYMPH % 28.2 % (24.0-44.0); MEAN CORPUSCULAR HEMOGLOBIN 30.9 pg (27.0-33.0); MEAN CORPUSCULAR HGB CONC 31.7 g/dl (32.0-36.5); MEAN CORPUSCULAR VOLUME 97.5 fl (80.0-96.0); MONO # 0.5 10^3/uL (0.0-0.8); MONO % 8.4 % (2.0-8.0); NEUTROPHILS # 3.3 10^3/uL (1.5-8.5); NEUTROPHILS % 60.5 % (36.0-66.0); PLATELET COUNT, AUTOMATED 148 10^3/uL (150-450); RED BLOOD COUNT 4.43 10^6/uL (4.00-5.40); WHITE BLOOD COUNT 5.5 10^3/uL (4.0-10.0)
== END ==
LOC: M LAB REF 12:58
PROVIDERS: ATTEND Internal Medicine Pulmonary Disease
DX: J43.1 Panlobular emphysema (principal)

== ENCOUNTER → 2022-01-23 | Outpatient (REF) | payer MEDICARE, MEDICAID | LOC: M LAB REF 09:26 | PROVIDERS: ATTEND Internal Medicine Pulmonary Disease | DX: J43.1 Panlobular emphysema (principal) ==

== ENCOUNTER 2022-02-02 10:58 | Emergency (ER) | payer MEDICARE, MEDICAID ==
[~2022-02-02] VITALS: Ht 172.7 cm; Wt 64.1 kg
[2022-02-02] MEDS ORDERED: AZIT500T5 PO (11:29)
[2022-02-02] MEDS ORDERED: PRED10TA2 (11:29)
[2022-02-02] MEDS ORDERED: LOSA25TA13 (11:29)
[2022-02-02] MEDS ORDERED: dexameTHASONE 20MG/5ML VIAL (J1100 PER 1MG) IV ONE (13:00)
[2022-02-02] MEDS ORDERED: NS 1,000 ML IV ONE (13:00)
[2022-02-02] MEDS ORDERED: KETOROLAC 30 MG/ML 1ML VIAL IV ONE (13:00)
[2022-02-02] MEDS ORDERED: METOCLOPRAMIDE INJ 10MG/2ML VIAL (J2765 PER 1) IV ONE (13:00)
[2022-02-02 13:07] LABS: BASO % 0.3 % (0.0-1.0); EOS # 0.1 10^3/uL (0.0-0.5); EOS % 1.3 % (0.0-3.0); HEMATOCRIT 46.5 % (36.0-47.0); HEMOGLOBIN 15.1 g/dl (12.0-15.5); LYMPH # 1.8 10^3/uL (1.5-5.0); LYMPH % 30.7 % (24.0-44.0); MEAN CORPUSCULAR HEMOGLOBIN 30.8 pg (27.0-33.0); MEAN CORPUSCULAR HGB CONC 32.5 g/dl (32.0-36.5); MEAN CORPUSCULAR VOLUME 94.7 fl (80.0-96.0); MONO # 0.5 10^3/uL (0.0-0.8); MONO % 8.8 % (2.0-8.0); NEUTROPHILS # 3.5 10^3/uL (1.5-8.5); NEUTROPHILS % 58.4 % (36.0-66.0); PLATELET COUNT, AUTOMATED 187 10^3/uL (150-450); RED BLOOD COUNT 4.91 10^6/uL (4.00-5.40)
[2022-02-02 13:32] LABS: INR 0.99; PROTHROMBIN TIME 13.5 SECONDS (12.7-14.5)
[2022-02-02 13:33] LABS: PARTIAL THROMBOPLASTIN TIME 25.8 SECONDS (25.9-37.0)
[2022-02-02 13:44] LABS: ALBUMIN 3.4 GM/DL (3.2-5.2); ALT/SGPT 20 U/L (12-78); BILIRUBIN,DIRECT < 0.1 MG/DL (0.0-0.2); BILIRUBIN,TOTAL 0.2 MG/DL (0.2-1.0); MAGNESIUM LEVEL 2.1 MG/DL (1.8-2.4); TOTAL PROTEIN 7.1 GM/DL (6.4-8.2)
[2022-02-02 13:49] LABS: CK-MB VALUE MASS < 1.0 NG/ML (<3.6); CPK CREATINE PHOSPHOKINASE 105 U/L (26-192)
[2022-02-02 13:50] LABS: MB/CK RELATIVE INDEX 0.95 (< OR =4)
[2022-02-02] MEDS ORDERED: MAG SULF 1GM/100ML (MAG RUN) 1 GM in IV 1 EA IV ONE (14:10)
[2022-02-02 15:59] VITALS: BP 158/90
== END 2022-02-02 16:31 | disposition home or self-care (01) ==
LOC: M ED 10:58
DX: R51.9 Headache, unspecified (principal); I10 Essential (primary) hypertension; R94.31 Abnormal electrocardiogram [ECG] [EKG]; K21.9 Gastro-esophageal reflux disease without esophagitis; J44.9 Chronic obstructive pulmonary disease, unspecified; Z87.442 Personal history of urinary calculi; M79.7 Fibromyalgia; Z86.73 Personal history of transient ischemic attack (TIA), and cerebral infarction without residual deficits; F17.200 Nicotine dependence, unspecified, uncomplicated; Z88.2 Allergy status to sulfonamides; Z88.1 Allergy status to other antibiotic agents; Z88.8 Allergy status to other drugs, medicaments and biological substances; Z91.041 Radiographic dye allergy status; Z91.048 Other nonmedicinal substance allergy status; Z79.899 Other long term (current) drug therapy
CPT/HCPCS: 70450; 80047; 80076; 82550; 82553; 83735; 84484; 85025; 85610; 85730; 93005; 96361; 96365; 96366; 96375; 99284; J1100; J1885; J2765; J3475

== ENCOUNTER → 2022-02-08 | Outpatient (REF) | payer MEDICARE, MEDICAID ==
[~2022-02-08] MED LIST changes: +AZIT500T5 PO; +LOSA25TA13; +PRED10TA2
== END ==
LOC: M SFHCPLAZ 16:07
PROVIDERS: ATTEND Family Medicine
DX: R20.0 Anesthesia of skin (principal); Z53.9 Procedure and treatment not carried out, unspecified reason

== ENCOUNTER 2022-02-12 21:17 | Emergency (ER) | payer MEDICARE, MEDICAID ==
[~2022-02-12] VITALS: Ht 172.7 cm; Wt 64.4 kg
[2022-02-12] MEDS ORDERED: ALPRAZolam 0.5 MG TAB PO ONE (22:20)
[2022-02-12] MEDS ORDERED: KETOROLAC 30 MG/ML 1ML VIAL IV ONE (22:20)
[2022-02-12 23:05] LABS: BASO % 0.4 % (0.0-1.0); EOS # 0.1 10^3/uL (0.0-0.5); EOS % 0.9 % (0.0-3.0); HEMOGLOBIN 13.5 g/dl (12.0-15.5); LYMPH # 1.8 10^3/uL (1.5-5.0); LYMPH % 26.5 % (24.0-44.0); MEAN CORPUSCULAR HEMOGLOBIN 31.2 pg (27.0-33.0); MEAN CORPUSCULAR HGB CONC 32.9 g/dl (32.0-36.5); MEAN CORPUSCULAR VOLUME 94.7 fl (80.0-96.0); MONO # 0.4 10^3/uL (0.0-0.8); MONO % 6.2 % (2.0-8.0); NEUTROPHILS # 4.4 10^3/uL (1.5-8.5); NEUTROPHILS % 65.4 % (36.0-66.0); PLATELET COUNT, AUTOMATED 162 10^3/uL (150-450); RED BLOOD COUNT 4.33 10^6/uL (4.00-5.40); WHITE BLOOD COUNT 6.8 10^3/uL (4.0-10.0)
[2022-02-12 23:46] LABS: BLOOD UREA NITROGEN 19 MG/DL (7-18); CARBON DIOXIDE LEVEL 27 MEQ/L (21-32); CHLORIDE LEVEL 107 MEQ/L (98-107); CREATININE FOR GFR 0.84 MG/DL (0.55-1.30); GLOMERULAR FILTRATION RATE > 60.0 (>51); GLUCOSE, FASTING 106 MG/DL (70-100); POTASSIUM SERUM 3.7 MEQ/L (3.5-5.1); SODIUM LEVEL 139 MEQ/L (136-145)
[2022-02-12 23:47] LABS: CALCIUM LEVEL 8.7 MG/DL (8.5-10.1); MAGNESIUM LEVEL 2.3 MG/DL (1.8-2.4)
[2022-02-12 23:51] LABS: CK-MB VALUE MASS 1.1 NG/ML (<3.6); MB/CK RELATIVE INDEX 1.49 (< OR =4)
[2022-02-13] MEDS ORDERED: KETO10TAB PO (00:46)
[2022-02-13 01:00] VITALS: BP 130/83
[2022-02-13] MEDS ORDERED: KETOROLAC TROMETHAMINE 10 MG TAB PO ONE (01:00)
== END 2022-02-13 01:15 | disposition home or self-care (01) ==
LOC: EDBD 21:17 → M ED 21:17
DX: R07.89 Other chest pain (principal); R10.9 Unspecified abdominal pain; R42 Dizziness and giddiness; I10 Essential (primary) hypertension; J44.9 Chronic obstructive pulmonary disease, unspecified; Z90.49 Acquired absence of other specified parts of digestive tract; Z90.710 Acquired absence of both cervix and uterus; Z87.891 Personal history of nicotine dependence; Z88.2 Allergy status to sulfonamides; Z88.1 Allergy status to other antibiotic agents; Z88.8 Allergy status to other drugs, medicaments and biological substances; Z91.041 Radiographic dye allergy status; Z79.51 Long term (current) use of inhaled steroids; Z79.899 Other long term (current) drug therapy
CPT/HCPCS: 71045; 76775; 80048; 82550; 82553; 83735; 84484; 85025; 93005; 96374; 99285; J1885

== ENCOUNTER → 2022-03-22 | Outpatient (CLI) | payer MEDICARE, MEDICAID ==
[~2022-03-22] MED LIST changes: +KETO10TAB PO
== END ==
LOC: M RAD 06:29
PROVIDERS: ATTEND Student in an Organized Health Care Education/Training Program
DX: I10 Essential (primary) hypertension (principal)

== ENCOUNTER → 2022-03-23 | Outpatient (CLI) | payer MEDICARE, MEDICAID ==
[2022-03-23 14:48] LABS: BASO % 0.4 % (0.0-1.0); EOS # 0.1 10^3/uL (0.0-0.5); EOS % 1.8 % (0.0-3.0); HEMOGLOBIN 14.1 g/dl (12.0-15.5); LYMPH # 1.7 10^3/uL (1.5-5.0); LYMPH % 23.2 % (24.0-44.0); MEAN CORPUSCULAR HEMOGLOBIN 31.1 pg (27.0-33.0); MEAN CORPUSCULAR VOLUME 97.1 fl (80.0-96.0); MONO # 0.6 10^3/uL (0.0-0.8); MONO % 7.6 % (2.0-8.0); NEUTROPHILS # 4.9 10^3/uL (1.5-8.5); NEUTROPHILS % 66.3 % (36.0-66.0); PLATELET COUNT, AUTOMATED 192 10^3/uL (150-450); RED BLOOD COUNT 4.53 10^6/uL (4.00-5.40); WHITE BLOOD COUNT 7.4 10^3/uL (4.0-10.0)
[2022-03-23 15:31] LABS: FREE T4 0.74 NG/DL (0.76-1.46); THYROID STIMULATING HORMONE 1.63 uIU/ML (0.358-3.740)
[2022-03-25 23:11] LABS: TESTOSTERONE FREE (DIRECT) < 0.2 pg/mL (0.0-4.2); TESTOSTERONE TOTAL FOR T&D < 3.0 ng/dL (4-50)
== END ==
LOC: M LAB 13:41
PROVIDERS: ATTEND Physician Assistant
DX: L65.9 Nonscarring hair loss, unspecified (principal)

== ENCOUNTER → 2022-06-06 | Outpatient (REF) | payer MEDICARE, MEDICAID | LOC: M SFHCPLAZ 16:52 | PROVIDERS: ATTEND Physician Assistant | DX: A60.04 Herpesviral vulvovaginitis (principal) ==

== ENCOUNTER → 2022-06-28 | Outpatient (REF) | payer MEDICARE, MEDICAID ==
[2022-06-28 18:31] LABS: APPEARANCE, URINE MANUAL HAZY (CLEAR); BILIRUBIN, URINE MANUAL NEGATIVE (NEGATIVE); COLOR, URINE MANUAL YELLOW (YELLOW); GLUCOSE, URINE (UA) MANUAL NEGATIVE (NEGATIVE); KETONE, URINE MANUAL NEGATIVE (NEGATIVE); LEUKOCYTE ESTERASE, URINE MAN NEGATIVE (NEGATIVE); NITRITE, URINE MANUAL NEGATIVE (NEGATIVE); PROTEIN, URINE MANUAL NEGATIVE (NEGATIVE); UROBILINOGEN, URINE MANUAL NORMAL (NORMAL)
[2022-06-28 18:32] LABS: BLOOD URINE MANUAL POSITIVE (NEGATIVE)
[2022-06-28 18:53] LABS: AMORPHOUS SEDIMENT, URINE LARGE AMOUNT (NEGATIVE); BACTERIA, URINE NONE SEEN; CALCIUM OXALATE CRYSTALS,URINE SMALL AMOUNT /hpf; HYALINE CAST, URINE NONE SEEN /lpf (0-1); RBC, URINE 0-1 /hpf (0-3); SQUAMOUS EPITHELIAL CELL URINE SMALL AMOUNT /hpf (SMALL AMT)
[2022-06-28 18:54] LABS: WBC, URINE NONE SEEN /hpf (0-3)
== END ==
LOC: M SFHCPLAZ 16:47
PROVIDERS: ATTEND Physician Assistant
DX: R39.9 Unspecified symptoms and signs involving the genitourinary system (principal)

== ENCOUNTER → 2022-07-29 | Outpatient (CLI) | payer MEDICARE, MEDICAID ==
[2022-07-29 13:58] LABS: BASO % 0.5 % (0.0-1.0); EOS # 0.2 10^3/uL (0.0-0.5); EOS % 2.4 % (0.0-3.0); HEMATOCRIT 45.8 % (36.0-47.0); HEMOGLOBIN 14.8 g/dl (12.0-15.5); LYMPH % 30.7 % (24.0-44.0); MEAN CORPUSCULAR HEMOGLOBIN 30.4 pg (27.0-33.0); MEAN CORPUSCULAR HGB CONC 32.3 g/dl (32.0-36.5); MONO # 0.5 10^3/uL (0.0-0.8); MONO % 8.2 % (2.0-8.0); NEUTROPHILS # 3.7 10^3/uL (1.5-8.5); NEUTROPHILS % 57.7 % (36.0-66.0); PLATELET COUNT, AUTOMATED 229 10^3/uL (150-450); RED BLOOD COUNT 4.87 10^6/uL (4.00-5.40); WHITE BLOOD COUNT 6.4 10^3/uL (4.0-10.0)
== END ==
LOC: M PLALAB 11:22
PROVIDERS: ATTEND Student in an Organized Health Care Education/Training Program
DX: F33.1 Major depressive disorder, recurrent, moderate (principal); Z79.899 Other long term (current) drug therapy

== ENCOUNTER 2022-09-29 16:45 | Emergency (ER) | payer MEDICARE, MEDICAID ==
[~2022-09-29] VITALS: Ht 172.7 cm; Wt 60.5 kg
[2022-09-29 17:18] LABS: BASO % 0.4 % (0.0-1.0); EOS % 0.6 % (0.0-3.0); HEMATOCRIT 46.1 % (36.0-47.0); HEMOGLOBIN 15.2 g/dl (12.0-15.5); MEAN CORPUSCULAR HEMOGLOBIN 30.3 pg (27.0-33.0); MONO # 0.6 10^3/uL (0.0-0.8); MONO % 7.6 % (2.0-8.0); NEUTROPHILS # 4.6 10^3/uL (1.5-8.5); NEUTROPHILS % 63.6 % (36.0-66.0); PLATELET COUNT, AUTOMATED 218 10^3/uL (150-450); RED BLOOD COUNT 5.01 10^6/uL (4.00-5.40); WHITE BLOOD COUNT 7.3 10^3/uL (4.0-10.0)
[2022-09-29] MEDS ORDERED: METOCLOPRAMIDE INJ 10MG/2ML VIAL IV ONE (17:30)
[2022-09-29] MEDS ORDERED: NS 1,000 ML IV ONE ×2 (17:30→18:05)
[2022-09-29] MEDS ORDERED: ALPRAZolam 0.25 MG TAB PO ONE (17:45)
[2022-09-29 17:49] LABS: LIPASE 40 U/L (12-53)
[2022-09-29 17:50] LABS: AMYLASE 55 U/L (30-118)
[2022-09-29 17:51] LABS: ALBUMIN 3.7 G/DL (3.2-5.2); ALKALINE PHOSPHATASE 74 U/L (46-116); ALT/SGPT 15 U/L (7.0-40); AST/SGOT 15 U/L (<34); BILIRUBIN,DIRECT < 0.1 MG/DL (<0.4); BILIRUBIN,TOTAL 0.3 MG/DL (0.3-1.2); BLOOD UREA NITROGEN 27 MG/DL (9-23); CALCIUM LEVEL 9.5 MG/DL (8.5-10.1); CARBON DIOXIDE LEVEL 25 MMOL/L (20-31); CHLORIDE LEVEL 105 MMOL/L (98-107); CREATININE FOR GFR 1.34 MG/DL (0.55-1.30); GLOMERULAR FILTRATION RATE 43.1 (>51); GLUCOSE, FASTING 87 MG/DL (60-100); MAGNESIUM LEVEL 1.7 MG/DL (1.8-2.4); SODIUM LEVEL 138 MMOL/L (136-145); TOTAL PROTEIN 6.8 G/DL (5.7-8.2)
[2022-09-29] MEDS ORDERED: ACETAMINOPHEN TAB 650MG DOSE (2X325MG) PO ONE (21:50)
[2022-09-29] MEDS ORDERED: ONDANSETRON 4MG ORAL DISINTEGRATING TAB PO ONE (21:50)
[2022-09-29] MEDS ORDERED: ONDA4TAB6 PO (21:51)
[2022-09-29 22:00] VITALS: BP 106/63
== END 2022-09-29 22:17 | disposition home or self-care (01) ==
LOC: EDBD 16:45 → M ED 16:45
DX: R11.2 Nausea with vomiting, unspecified (principal); R19.7 Diarrhea, unspecified; N17.9 Acute kidney failure, unspecified; I10 Essential (primary) hypertension; J44.9 Chronic obstructive pulmonary disease, unspecified; K58.9 Irritable bowel syndrome, unspecified; F43.10 Post-traumatic stress disorder, unspecified; M79.7 Fibromyalgia; Z86.19 Personal history of other infectious and parasitic diseases; Z87.891 Personal history of nicotine dependence; F12.10 Cannabis abuse, uncomplicated; Z82.49 Family history of ischemic heart disease and other diseases of the circulatory system; Z79.899 Other long term (current) drug therapy; Z91.041 Radiographic dye allergy status; Z88.2 Allergy status to sulfonamides; Z91.89 Other specified personal risk factors, not elsewhere classified; Z88.8 Allergy status to other drugs, medicaments and biological substances; Z88.3 Allergy status to other anti-infective agents
CPT/HCPCS: 80048; 80076; 82150; 83605; 83690; 83735; 85025; 87486; 87581; 87633; 87798; 93005; 93041; 96361; 96374; 99285; J2765

== ENCOUNTER → 2022-11-03 | Outpatient (CLI) | payer MEDICARE, MEDICAID ==
[~2022-11-03] MED LIST changes: -LOSA100T45 PO; +LOSA100T46 PO
[2022-11-03 17:16] LABS: BASO % 0.5 % (0.0-1.0); EOS # 0.1 10^3/uL (0.0-0.5); EOS % 0.9 % (0.0-3.0); HEMATOCRIT 48.3 % (36.0-47.0); HEMOGLOBIN 15.3 g/dl (12.0-15.5); LYMPH # 2.3 10^3/uL (1.5-5.0); LYMPH % 26.9 % (24.0-44.0); MEAN CORPUSCULAR HEMOGLOBIN 30.1 pg (27.0-33.0); MEAN CORPUSCULAR HGB CONC 31.7 g/dl (32.0-36.5); MEAN CORPUSCULAR VOLUME 94.9 fl (80.0-96.0); MONO # 0.5 10^3/uL (0.0-0.8); MONO % 6.3 % (2.0-8.0); NEUTROPHILS # 5.5 10^3/uL (1.5-8.5); NEUTROPHILS % 64.6 % (36.0-66.0); PLATELET COUNT, AUTOMATED 235 10^3/uL (150-450); RED BLOOD COUNT 5.09 10^6/uL (4.00-5.40); WHITE BLOOD COUNT 8.4 10^3/uL (4.0-10.0)
[2022-11-03 17:43] LABS: CHOLESTEROL RISK RATIO 4.8 (<5); HDL CHOLESTEROL 47.7 MG/DL (>40); LDL CHOLESTEROL 133.3 MG/DL (<100); NON-HDL-C 181.3 MG/DL
[2022-11-03 17:48] LABS: FREE T4 0.93 NG/DL (0.89-1.76)
[2022-11-03 17:49] LABS: THYROID STIMULATING HORMONE 4.738 uIU/ML (0.55-4.78)
[2022-11-03 19:13] LABS: APPEARANCE, URINE HAZY (CLEAR); BACTERIA, URINE AUTO 1+ (NEGATIVE); BILIRUBIN, URINE AUTO NEGATIVE (NEGATIVE); BLOOD, URINE BLOOD NEGATIVE (NEGATIVE); COLOR, URINE YELLOW (YELLOW); GLUCOSE, URINE (UA) AUTO NEGATIVE (NEGATIVE); KETONE, URINE AUTO TRACE mg/dL (NEGATIVE); LEUKOCYTE ESTERASE, URINE AUTO NEGATIVE (NEGATIVE); MUCUS, URINE SMALL (NEGATIVE); NITRITE, URINE AUTO NEGATIVE (NEGATIVE); PROTEIN, URINE AUTO NEGATIVE (NEGATIVE); RBC, URINE AUTO 1 /HPF (0-3); SPECIFIC GRAVITY URINE AUTO 1.025 (1.002-1.035); SQUAMOUS EPITHELIAL CELL UR AU 2 /HPF (0-6); UROBILINOGEN, URINE AUTO 0.2 mg/dL (0.0-2.0); WBC, URINE AUTO 2 /HPF (0-3)
== END ==
LOC: M PLALAB 15:15
PROVIDERS: ATTEND Student in an Organized Health Care Education/Training Program
DX: R09.89 Other specified symptoms and signs involving the circulatory and respiratory systems (principal); R82.90 Unspecified abnormal findings in urine; E78.2 Mixed hyperlipidemia; R53.82 Chronic fatigue, unspecified; I10 Essential (primary) hypertension; E55.9 Vitamin D deficiency, unspecified

== ENCOUNTER → 2022-12-02 | Outpatient (REF) | payer MEDICARE, MEDICAID | LOC: M SFHCPLAZ 17:14 | PROVIDERS: ATTEND Student in an Organized Health Care Education/Training Program | DX: R05.3 Chronic cough (principal) ==

== ENCOUNTER → 2023-01-27 | Outpatient (REF) | payer MEDICARE, MEDICAID ==
[~2023-01-27] MED LIST changes: +DICY-61; +DICY-61 PO; -DICY10CA13; -DICY10CA13 PO
== END ==
LOC: M LAB REF 16:43
PROVIDERS: ATTEND Physician Assistant
DX: J43.1 Panlobular emphysema (principal)

== ENCOUNTER → 2023-02-17 | Outpatient (CLI) | payer MEDICARE, MEDICAID | LOC: M RAD 14:16 | DX: M25.562 Pain in left knee (principal); M79.89 Other specified soft tissue disorders ==

== ENCOUNTER 2023-02-26 14:02 | Emergency (ER) | payer MEDICARE, MEDICAID ==
[~2023-02-26] VITALS: Ht 172.7 cm; Wt 59.1 kg
[~2023-02-26 14:02] MED LIST changes: +MECL-209 PO; -MECL1TAB31 PO
[2023-02-26 16:26] VITALS: BP 140/83; TEMP 97.6; O2SAT 97
== END 2023-02-26 16:30 | disposition home or self-care (01) ==
LOC: M ED 14:02
DX: S80.11XA Contusion of right lower leg, initial encounter (principal); I10 Essential (primary) hypertension; F41.9 Anxiety disorder, unspecified; J45.909 Unspecified asthma, uncomplicated; F12.10 Cannabis abuse, uncomplicated; Z88.2 Allergy status to sulfonamides; Z88.5 Allergy status to narcotic agent; Z88.8 Allergy status to other drugs, medicaments and biological substances; Z91.041 Radiographic dye allergy status; Z91.048 Other nonmedicinal substance allergy status; Z79.811 Long term (current) use of aromatase inhibitors; Z79.83 Long term (current) use of bisphosphonates; Z79.899 Other long term (current) drug therapy

== ENCOUNTER → 2023-04-25 | Outpatient (REF) | payer MEDICARE, MEDICAID ==
[~2023-04-25] MED LIST changes: -LUNE2TAB23 PO; +LUNE2TAB28 PO
== END ==
LOC: M SFHCPLAZ 17:01
PROVIDERS: ATTEND Student in an Organized Health Care Education/Training Program
DX: R05.1 Acute cough (principal)

== ENCOUNTER → 2023-04-25 | Outpatient (REF) | payer MEDICARE, MEDICAID | LOC: M SFHCPLAZ 17:56 | PROVIDERS: ATTEND Family Medicine | DX: Z53.9 Procedure and treatment not carried out, unspecified reason (principal) ==

== ENCOUNTER → 2023-05-09 | Outpatient (CLI) | payer MEDICARE, MEDICAID | LOC: M PLAIMG 14:26 | PROVIDERS: ATTEND Student in an Organized Health Care Education/Training Program | DX: J01.01 Acute recurrent maxillary sinusitis (principal); J34.2 Deviated nasal septum ==

== ENCOUNTER → 2023-05-19 | Outpatient (CLI) | payer MEDICARE, MEDICAID ==
[2023-05-19 16:48] LABS: BASO # 0.1 10^3/uL (0.0-0.2); BASO % 0.6 % (0.0-1.0); EOS # 0.1 10^3/uL (0.0-0.5); EOS % 1.6 % (0.0-3.0); HEMATOCRIT 46.4 % (36.0-47.0); HEMOGLOBIN 14.7 g/dl (12.0-15.5); LYMPH # 2.7 10^3/uL (1.5-5.0); LYMPH % 33.7 % (24.0-44.0); MEAN CORPUSCULAR HEMOGLOBIN 31.5 pg (27.0-33.0); MEAN CORPUSCULAR HGB CONC 31.7 g/dl (32.0-36.5); MEAN CORPUSCULAR VOLUME 99.4 fl (80.0-96.0); MONO # 0.5 10^3/uL (0.0-0.8); MONO % 6.6 % (2.0-8.0); NEUTROPHILS # 4.5 10^3/uL (1.5-8.5); NEUTROPHILS % 56.9 % (36.0-66.0); PLATELET COUNT, AUTOMATED 213 10^3/uL (150-450); RED BLOOD COUNT 4.67 10^6/uL (4.00-5.40); WHITE BLOOD COUNT 7.9 10^3/uL (4.0-10.0)
[2023-05-19 17:14] LABS: URIC ACID 3.6 MG/DL (3.1-7.8)
[2023-05-19 17:16] LABS: LDH LACTATE DEHYDROGENASE 178 U/L (120-246)
[2023-05-19 17:44] LABS: HIV 1&2 SCREEN NEGATIVE (NEGATIVE)
== END ==
LOC: M PLALAB 14:04
PROVIDERS: ATTEND Student in an Organized Health Care Education/Training Program
DX: R59.1 Generalized enlarged lymph nodes (principal)

== ENCOUNTER → 2023-05-23 | Outpatient (CLI) | payer MEDICARE, MEDICAID ==
[2023-05-23 14:35] LABS: IMMUNOGLOBULIN A 335.8 MG/DL (40-350); IMMUNOGLOBULIN G 814 MG/DL (650-1600)
[2023-05-23 14:36] LABS: MONO REFLEX EBV COMP NEGATIVE (NEGATIVE)
[2023-05-23 14:46] LABS: IMMUNOGLOBULIN M 296.6 MG/DL (50-300)
[2023-05-25 15:11] LABS: EBV AB TO NUCLEAR ANTIGEN >600.0 U/mL (0.0-17.9)
== END ==
LOC: M PLAIMG 11:00
PROVIDERS: ATTEND Student in an Organized Health Care Education/Training Program
DX: R06.2 Wheezing (principal); R09.89 Other specified symptoms and signs involving the circulatory and respiratory systems; R59.1 Generalized enlarged lymph nodes

== ENCOUNTER → 2023-06-07 | Outpatient (CLI) | payer MEDICARE, MEDICAID | LOC: M WHC 13:02 | PROVIDERS: ATTEND Student in an Organized Health Care Education/Training Program | DX: R59.1 Generalized enlarged lymph nodes (principal) | CPT/HCPCS: 77066; G0279 ==

== ENCOUNTER → 2023-06-14 | Outpatient (CLI) | payer MEDICARE, MEDICAID | LOC: M RAD 16:51 | PROVIDERS: ATTEND Student in an Organized Health Care Education/Training Program | DX: R59.1 Generalized enlarged lymph nodes (principal); I70.0 Atherosclerosis of aorta; J43.9 Emphysema, unspecified; M43.17 Spondylolisthesis, lumbosacral region ==

== ENCOUNTER → 2023-07-04 | Outpatient (CLI) | payer MEDICARE, MEDICAID | LOC: M PLALAB 14:15 | PROVIDERS: ATTEND Student in an Organized Health Care Education/Training Program | DX: R59.1 Generalized enlarged lymph nodes (principal) ==

== ENCOUNTER → 2023-07-04 | Outpatient (CLI) | payer MEDICARE, MEDICAID ==
[2023-07-04 16:56] LABS: C REACTIVE PROTEIN QUANTITATIV < 0.40 MG/DL (<1.0); LDH LACTATE DEHYDROGENASE 185 U/L (120-246)
== END ==
LOC: M PLALAB 14:11
PROVIDERS: ATTEND Student in an Organized Health Care Education/Training Program
DX: M79.10 Myalgia, unspecified site (principal)

== ENCOUNTER → 2023-07-04 | Outpatient (CLI) | payer MEDICARE, MEDICAID ==
[~2023-07-04] MED LIST changes: +HYDR-161; -HYDR10TAB
[2023-07-04 16:28] LABS: BASO % 0.4 % (0.0-1.0); EOS # 0.1 10^3/uL (0.0-0.5); EOS % 1.3 % (0.0-3.0); HEMATOCRIT 46.4 % (36.0-47.0); HEMOGLOBIN 15.1 g/dl (12.0-15.5); LYMPH % 24.3 % (24.0-44.0); MEAN CORPUSCULAR HEMOGLOBIN 31.5 pg (27.0-33.0); MEAN CORPUSCULAR HGB CONC 32.5 g/dl (32.0-36.5); MEAN CORPUSCULAR VOLUME 96.7 fl (80.0-96.0); MONO # 0.5 10^3/uL (0.0-0.8); MONO % 6.5 % (2.0-8.0); NEUTROPHILS # 5.5 10^3/uL (1.5-8.5); NEUTROPHILS % 66.7 % (36.0-66.0); PLATELET COUNT, AUTOMATED 211 10^3/uL (150-450); WHITE BLOOD COUNT 8.3 10^3/uL (4.0-10.0)
[2023-07-04 16:33] LABS: ERYTHROCYTE SEDIMENTATION RATE 47 mm/hr (0-30)
[2023-07-04 16:55] LABS: URIC ACID 3.3 MG/DL (3.1-7.8)
[2023-07-04 16:57] LABS: C REACTIVE PROTEIN QUANTITATIV < 0.40 MG/DL (<1.0)
[2023-07-04 16:59] LABS: RHEUMATOID FACTOR QUANT 16.2 IU/ML (<14)
[2023-07-06 13:07] LABS: ANTINUCLEAR ANTIBODIES DIRECT Negative (Negative)
== END ==
LOC: M PLALAB 14:17
PROVIDERS: ATTEND Physician Assistant
DX: M25.562 Pain in left knee (principal); R59.1 Generalized enlarged lymph nodes; M79.10 Myalgia, unspecified site

== ENCOUNTER 2023-07-16 14:48 | Emergency (ER) | payer MEDICARE, MEDICAID ==
[~2023-07-16] VITALS: Ht 172.7 cm; Wt 58.2 kg
[2023-07-16 15:35] LABS: BASO % 0.5 % (0.0-1.0); EOS # 0.2 10^3/uL (0.0-0.5); EOS % 2.5 % (0.0-3.0); HEMATOCRIT 47.3 % (36.0-47.0); HEMOGLOBIN 15.8 g/dl (12.0-15.5); LYMPH # 2.5 10^3/uL (1.5-5.0); LYMPH % 32.9 % (24.0-44.0); MEAN CORPUSCULAR HGB CONC 33.4 g/dl (32.0-36.5); MEAN CORPUSCULAR VOLUME 95.9 fl (80.0-96.0); MONO # 0.5 10^3/uL (0.0-0.8); MONO % 6.4 % (2.0-8.0); NEUTROPHILS # 4.3 10^3/uL (1.5-8.5); NEUTROPHILS % 57.2 % (36.0-66.0); PLATELET COUNT, AUTOMATED 224 10^3/uL (150-450); RED BLOOD COUNT 4.93 10^6/uL (4.00-5.40); WHITE BLOOD COUNT 7.5 10^3/uL (4.0-10.0)
[2023-07-16] MEDS ORDERED: diphenhydrAMINE 50MG/ML VIAL IV STA (15:42)
[2023-07-16] MEDS ORDERED: LORazepam 2 MG/ML 1ML VIAL IV STA (15:42)
[2023-07-16] MEDS ORDERED: NS 1,000 ML IV ONE (15:45)
[2023-07-16] MEDS ORDERED: ACETAMINOPHEN *IV* 1,000 MG in IV 1 EA IV ONE (15:45)
[2023-07-16] MEDS ORDERED: ONDANSETRON 4MG 2ML VIAL IV ONE (15:45)
[2023-07-16 16:01] LABS: ALBUMIN 3.7 G/DL (3.2-5.2); BILIRUBIN,DIRECT 0.1 MG/DL (<0.4); BILIRUBIN,TOTAL 0.5 MG/DL (0.3-1.2); TOTAL PROTEIN 7.1 G/DL (5.7-8.2)
[2023-07-16] MEDS ORDERED: ISOVUE-370 76% 100ML VIAL As Ordered ONE (16:15)
[2023-07-16 16:38] LABS: CK-MB VALUE MASS < 1.0 NG/ML (<3.6); CPK CREATINE PHOSPHOKINASE 71 U/L (34-145)
[2023-07-16] MEDS ORDERED: FLEEENE12 PR (18:25)
[2023-07-16] MEDS ORDERED: SIME180C25 PO (18:25)
[2023-07-16 18:48] VITALS: BP 139/84; TEMP 97.6; O2SAT 97
== END 2023-07-16 18:49 | disposition home or self-care (01) ==
LOC: M ED 14:48
DX: K59.00 Constipation, unspecified (principal); R00.1 Bradycardia, unspecified; I10 Essential (primary) hypertension; J44.9 Chronic obstructive pulmonary disease, unspecified; K21.9 Gastro-esophageal reflux disease without esophagitis; I44.4 Left anterior fascicular block; F17.200 Nicotine dependence, unspecified, uncomplicated; Z88.2 Allergy status to sulfonamides; Z88.5 Allergy status to narcotic agent; Z88.8 Allergy status to other drugs, medicaments and biological substances; Z91.041 Radiographic dye allergy status; Z87.442 Personal history of urinary calculi; Z86.718 Personal history of other venous thrombosis and embolism; Z79.52 Long term (current) use of systemic steroids; Z79.83 Long term (current) use of bisphosphonates; Z79.899 Other long term (current) drug therapy
CPT/HCPCS: 70450; 71046; 74177; 80047; 80076; 81001; 82550; 82553; 83605; 83690; 84484; 85025; 87040; 87486; 87581; 87633; 87798; 93005; 96365; 96375; 99284; J0131; J1200; J2060; J2405; Q9967

== ENCOUNTER → 2023-07-24 | Outpatient (CLI) | payer OTHER, MEDICAID ==
[~2023-07-24] MED LIST changes: +AIRB1CHW PO; +ALBU8.5H INH; +E-Z-PAQUE 96% w/w SUSP 176GM BTL As Ordered ONE; +FLEEENE12 PR; +HEAL1TAB6 PO; +MULTTAB24 PO; +SIME180C25 PO
== END ==
LOC: M RAD 09:47
PROVIDERS: ATTEND Internal Medicine Gastroenterology
DX: K90.0 Celiac disease (principal); Z80.0 Family history of malignant neoplasm of digestive organs; K58.1 Irritable bowel syndrome with constipation

== ENCOUNTER 2023-07-28 09:31 | Day surgery (SDC) | payer MEDICARE, MEDICAID ==
[~2023-07-28] VITALS: Ht 172.7 cm; Wt 56.7 kg
[~2023-07-28 09:31] MED LIST changes: -E-Z-PAQUE 96% w/w SUSP 176GM BTL As Ordered ONE
[2023-07-28] MEDS ORDERED: fentaNYL 100 MCG/2 ML INJECTION As Ordered ONE (10:01)
[2023-07-28] MEDS ORDERED: propofoL 500 MG/50 ML VIAL As Ordered ONE (10:03)
[2023-07-28] MEDS: NS 1,000 ML IV ONE (10:09)
[2023-07-28] MEDS ORDERED: ONDANSETRON 4MG 2ML VIAL As Ordered ONE (10:14)
[2023-07-28] MEDS ORDERED: LIDOCAINE 2% 100MG/5ML SDV (FOR ANES.) As Ordered ONE (10:45)
[2023-07-28 12:50] VITALS: TEMP 97.5
[2023-07-28 13:12] VITALS: BP 138/91; O2SAT 94
== END 2023-07-28 13:27 | disposition home or self-care (01) ==
LOC: M OPP 09:31
PROVIDERS: ATTEND Internal Medicine Gastroenterology
DX: Z80.0 Family history of malignant neoplasm of digestive organs (principal); K63.89 Other specified diseases of intestine; K64.8 Other hemorrhoids; Q43.8 Other specified congenital malformations of intestine; K90.0 Celiac disease; Z08 Encounter for follow-up examination after completed treatment for malignant neoplasm; K29.70 Gastritis, unspecified, without bleeding; Z87.891 Personal history of nicotine dependence; Z79.51 Long term (current) use of inhaled steroids; Z79.52 Long term (current) use of systemic steroids; Z79.818 Long term (current) use of other agents affecting estrogen receptors and estrogen levels; Z79.899 Other long term (current) drug therapy; Z88.1 Allergy status to other antibiotic agents; Z88.2 Allergy status to sulfonamides; Z88.6 Allergy status to analgesic agent; Z88.8 Allergy status to other drugs, medicaments and biological substances; Z91.041 Radiographic dye allergy status; Z91.048 Other nonmedicinal substance allergy status
CPT/HCPCS: 43239; 88305; G0105; J2405; J3010

== ENCOUNTER → 2023-08-14 | Outpatient (CLI) | payer MEDICARE, MEDICAID | LOC: M RAD 11:26 | PROVIDERS: ATTEND Nurse Practitioner Family | DX: R22.2 Localized swelling, mass and lump, trunk (principal) ==

== ENCOUNTER → 2023-08-29 | Outpatient (REF) | payer MEDICARE, MEDICAID | LOC: M LAB REF 17:22 | PROVIDERS: ATTEND Student in an Organized Health Care Education/Training Program | DX: R09.81 Nasal congestion (principal) ==

== ENCOUNTER 2023-09-20 15:19 | Emergency (ER) | payer MEDICARE, MEDICAID ==
[~2023-09-20] VITALS: Ht 172.7 cm; Wt 54.5 kg
[2023-09-20 15:31] VITALS: BP 127/90; TEMP 97.2; O2SAT 100
== END 2023-09-20 15:45 | disposition left against medical advice (07) ==
LOC: M ED 15:19
DX: Z53.21 Procedure and treatment not carried out due to patient leaving prior to being seen by health care provider (principal)

== ENCOUNTER 2023-09-21 10:56 | Emergency (ER) | payer MEDICARE, MEDICAID ==
[~2023-09-21] VITALS: Ht 172.7 cm; Wt 55.8 kg
[2023-09-21 10:57] VITALS: TEMP 98
[2023-09-21] MEDS: ONDANSETRON 4MG ORAL DISINTEGRATING TAB PO ONE (12:42)
[2023-09-21 14:42] VITALS: BP 161/83; O2SAT 99
== END 2023-09-21 14:43 | disposition home or self-care (01) ==
LOC: M ED 10:56
DX: R22.42 Localized swelling, mass and lump, left lower limb (principal); I10 Essential (primary) hypertension; M79.7 Fibromyalgia; Z86.718 Personal history of other venous thrombosis and embolism; J44.9 Chronic obstructive pulmonary disease, unspecified; F41.9 Anxiety disorder, unspecified; F32.A Depression, unspecified; F43.10 Post-traumatic stress disorder, unspecified; Z87.891 Personal history of nicotine dependence; Z79.899 Other long term (current) drug therapy; Z91.041 Radiographic dye allergy status; Z88.2 Allergy status to sulfonamides; Z91.89 Other specified personal risk factors, not elsewhere classified; Z88.8 Allergy status to other drugs, medicaments and biological substances; Z88.3 Allergy status to other anti-infective agents; Z88.1 Allergy status to other antibiotic agents; Z88.5 Allergy status to narcotic agent

== ENCOUNTER → 2023-09-28 | Outpatient (REF) | payer MEDICARE, MEDICAID | LOC: M LAB REF 17:42 | PROVIDERS: ATTEND Surgery | DX: D48.5 Neoplasm of uncertain behavior of skin (principal) ==

== ENCOUNTER → 2023-10-09 | Outpatient (REF) | payer MEDICARE, MEDICAID ==
[2023-10-09 17:45] LABS: APPEARANCE, URINE HAZY (CLEAR); BACTERIA, URINE AUTO NEGATIVE (NEGATIVE); BILIRUBIN, URINE AUTO NEGATIVE (NEGATIVE); BLOOD, URINE BLOOD 1+ (NEGATIVE); CALCIUM OXALATE CRYSTALS MODERATE; COLOR, URINE AMBER (YELLOW); GLUCOSE, URINE (UA) AUTO NEGATIVE (NEGATIVE); KETONE, URINE AUTO NEGATIVE (NEGATIVE); LEUKOCYTE ESTERASE, URINE AUTO NEGATIVE (NEGATIVE); MUCUS, URINE SMALL (NEGATIVE); NITRITE, URINE AUTO NEGATIVE (NEGATIVE); PROTEIN, URINE AUTO 1+ mg/dL (NEGATIVE); RBC, URINE AUTO 1 /HPF (0-3); SPECIFIC GRAVITY URINE AUTO 1.026 (1.002-1.035); SQUAMOUS EPITHELIAL CELL UR AU 3 /HPF (0-6); WBC, URINE AUTO 0 /HPF (0-3)
== END ==
LOC: M SMT 16:47
PROVIDERS: ATTEND Nurse Practitioner Family
DX: R31.29 Other microscopic hematuria (principal)

== ENCOUNTER → 2023-10-25 | Outpatient (REF) | payer MEDICARE, MEDICAID ==
[~2023-10-25] MED LIST changes: +DOXY-323 PO; -DOXY-443 PO
[2023-10-25 19:02] LABS: APPEARANCE, URINE CLOUDY (CLEAR); BACTERIA, URINE AUTO NEGATIVE (NEGATIVE); BILIRUBIN, URINE AUTO NEGATIVE (NEGATIVE); BLOOD, URINE BLOOD NEGATIVE (NEGATIVE); COLOR, URINE AMBER (YELLOW); GLUCOSE, URINE (UA) AUTO NEGATIVE (NEGATIVE); KETONE, URINE AUTO NEGATIVE (NEGATIVE); LEUKOCYTE ESTERASE, URINE AUTO NEGATIVE (NEGATIVE); MUCUS, URINE LARGE (NEGATIVE); NITRITE, URINE AUTO NEGATIVE (NEGATIVE); PROTEIN, URINE AUTO 1+ mg/dL (NEGATIVE); RBC, URINE AUTO 2 /HPF (0-3); SPECIFIC GRAVITY URINE AUTO 1.025 (1.002-1.035); SQUAMOUS EPITHELIAL CELL UR AU 2 /HPF (0-6); WBC, URINE AUTO 3 /HPF (0-3)
== END ==
LOC: M SMT 17:05
PROVIDERS: ATTEND Urology
DX: R31.29 Other microscopic hematuria (principal)

== ENCOUNTER → 2023-10-26 | Outpatient (REF) | payer MEDICARE, MEDICAID | LOC: M SFHCPLAZ 17:36 | PROVIDERS: ATTEND Student in an Organized Health Care Education/Training Program | DX: Z00.00 Encounter for general adult medical examination without abnormal findings (principal); J02.9 Acute pharyngitis, unspecified ==

== ENCOUNTER → 2023-11-03 | Outpatient (CLI) | payer MEDICARE, MEDICAID ==
[2023-11-03 13:07] LABS: BASO % 0.3 % (0.0-1.0); EOS # 0.1 10^3/uL (0.0-0.5); EOS % 1.9 % (0.0-3.0); HEMATOCRIT 49.3 % (36.0-47.0); HEMOGLOBIN 15.9 g/dl (12.0-15.5); LYMPH # 2.9 10^3/uL (1.5-5.0); LYMPH % 44.6 % (24.0-44.0); MEAN CORPUSCULAR HEMOGLOBIN 29.7 pg (27.0-33.0); MEAN CORPUSCULAR HGB CONC 32.3 g/dl (32.0-36.5); MEAN CORPUSCULAR VOLUME 92.1 fl (80.0-96.0); MONO # 0.4 10^3/uL (0.0-0.8); MONO % 6.8 % (2.0-8.0); NEUTROPHILS % 45.9 % (36.0-66.0); PLATELET COUNT, AUTOMATED 195 10^3/uL (150-450); RED BLOOD COUNT 5.35 10^6/uL (4.00-5.40); WHITE BLOOD COUNT 6.5 10^3/uL (4.0-10.0)
[2023-11-03 13:14] LABS: ALBUMIN 3.6 G/DL (3.2-5.2); ALKALINE PHOSPHATASE 72 U/L (46-116); ALT/SGPT 15 U/L (7.0-40); AST/SGOT 17 U/L (<34); BILIRUBIN,TOTAL 0.6 MG/DL (0.3-1.2); BLOOD UREA NITROGEN 12 MG/DL (9-23); CALCIUM LEVEL 9.2 MG/DL (8.3-10.6); CARBON DIOXIDE LEVEL 27 MMOL/L (20-31); CHLORIDE LEVEL 110 MMOL/L (98-107); CHOLESTEROL LEVEL 267 MG/DL (<200); CHOLESTEROL RISK RATIO 7.02 (<5); CREATININE FOR GFR 0.92 MG/DL (0.55-1.30); GLOMERULAR FILTRATION RATE > 60.0 (>45); GLUCOSE, FASTING 99 MG/DL (74-106); LDL CHOLESTEROL 185.8 MG/DL (<100); POTASSIUM SERUM 3.7 MMOL/L (3.5-5.1); SODIUM LEVEL 141 MMOL/L (136-145); TOTAL PROTEIN 6.6 G/DL (5.7-8.2); TRIGLYCERIDES LEVEL 216 MG/DL (<150)
[2023-11-03 13:37] LABS: CREATININE, URINE 233.1 MG/DL; MAU/CREAT RATIO 28.3 MCG/MG (0.0-30.0)
== END ==
LOC: M PLALAB 09:44
PROVIDERS: ATTEND Student in an Organized Health Care Education/Training Program
DX: Z00.00 Encounter for general adult medical examination without abnormal findings (principal); E78.00 Pure hypercholesterolemia, unspecified

== ENCOUNTER 2023-12-08 21:09 | Emergency (ER) | payer MEDICARE, MEDICAID ==
[~2023-12-08] VITALS: Ht 174 cm; Wt 55.1 kg
[~2023-12-08 21:09] MED LIST changes: -ESOM0.1C PO; +ESOM20CA2 PO; +FLUO-365; +FLUO-365 PO; -FLUO20CA22; -FLUO20CA22 PO; +ONDA-282 PO; -ONDA4TAB6 PO
[2023-12-08 21:10] VITALS: BP 112/78; TEMP 97.9; O2SAT 97
[2023-12-08 21:53] LABS: BASO % 0.4 % (0.0-1.0); EOS # 0.2 10^3/uL (0.0-0.5); EOS % 1.7 % (0.0-3.0); HEMATOCRIT 43.2 % (36.0-47.0); HEMOGLOBIN 14.6 g/dl (12.0-15.5); LYMPH # 2.7 10^3/uL (1.5-5.0); LYMPH % 28.8 % (24.0-44.0); MEAN CORPUSCULAR HEMOGLOBIN 30.8 pg (27.0-33.0); MEAN CORPUSCULAR HGB CONC 33.8 g/dl (32.0-36.5); MEAN CORPUSCULAR VOLUME 91.1 fl (80.0-96.0); MONO # 0.6 10^3/uL (0.0-0.8); MONO % 6.8 % (2.0-8.0); NEUTROPHILS # 5.8 10^3/uL (1.5-8.5); NEUTROPHILS % 61.7 % (36.0-66.0); PLATELET COUNT, AUTOMATED 206 10^3/uL (150-450); RED BLOOD COUNT 4.74 10^6/uL (4.00-5.40); WHITE BLOOD COUNT 9.4 10^3/uL (4.0-10.0)
[2023-12-08 22:11] LABS: LIPASE 47 U/L (12-53)
[2023-12-08 22:13] LABS: ALBUMIN 3.4 G/DL (3.2-5.2); ALKALINE PHOSPHATASE 80 U/L (46-116); ALT/SGPT 13 U/L (7.0-40); AST/SGOT 12 U/L (<34); BILIRUBIN,DIRECT < 0.1 MG/DL (<0.4); BILIRUBIN,TOTAL 0.2 MG/DL (0.3-1.2); BLOOD UREA NITROGEN 24 MG/DL (9-23); CALCIUM LEVEL 9.2 MG/DL (8.3-10.6); CARBON DIOXIDE LEVEL 29 MMOL/L (20-31); CHLORIDE LEVEL 107 MMOL/L (98-107); CREATININE FOR GFR 1.07 MG/DL (0.55-1.30); GLOMERULAR FILTRATION RATE 55.7 (>45); GLUCOSE, FASTING 87 MG/DL (74-106); POTASSIUM SERUM 4.2 MMOL/L (3.5-5.1); SODIUM LEVEL 140 MMOL/L (136-145); TOTAL PROTEIN 6.3 G/DL (5.7-8.2)
== END 2023-12-09 00:11 | disposition left against medical advice (07) ==
LOC: M ED 21:09
DX: Z53.21 Procedure and treatment not carried out due to patient leaving prior to being seen by health care provider (principal)

== ENCOUNTER 2023-12-09 15:27 | Emergency (ER) | payer MEDICARE, MEDICAID ==
[~2023-12-09] VITALS: Ht 172.7 cm; Wt 54.8 kg
[2023-12-09 17:31] LABS: BASO % 0.3 % (0.0-1.0); EOS # 0.1 10^3/uL (0.0-0.5); EOS % 1.7 % (0.0-3.0); HEMOGLOBIN 14.3 g/dl (12.0-15.5); LYMPH # 1.7 10^3/uL (1.5-5.0); LYMPH % 30.4 % (24.0-44.0); MEAN CORPUSCULAR HEMOGLOBIN 30.4 pg (27.0-33.0); MEAN CORPUSCULAR HGB CONC 33.3 g/dl (32.0-36.5); MEAN CORPUSCULAR VOLUME 91.5 fl (80.0-96.0); MONO # 0.4 10^3/uL (0.0-0.8); MONO % 7.2 % (2.0-8.0); NEUTROPHILS # 3.4 10^3/uL (1.5-8.5); NEUTROPHILS % 59.9 % (36.0-66.0); PLATELET COUNT, AUTOMATED 174 10^3/uL (150-450); WHITE BLOOD COUNT 5.7 10^3/uL (4.0-10.0)
[2023-12-09] MEDS: ALPRAZolam 0.5 MG TAB PO ONE (17:55)
[2023-12-09 17:56] LABS: LIPASE 63 U/L (12-53)
[2023-12-09 18:05] LABS: ALBUMIN 3.1 G/DL (3.2-5.2); ALKALINE PHOSPHATASE 69 U/L (46-116); ALT/SGPT 16 U/L (7.0-40); AST/SGOT 10 U/L (<34); BILIRUBIN,DIRECT < 0.1 MG/DL (<0.4); BILIRUBIN,TOTAL 0.3 MG/DL (0.3-1.2); TOTAL PROTEIN 5.8 G/DL (5.7-8.2)
[2023-12-09] MEDS: ONDANSETRON 4MG 2ML VIAL IV ONE (18:06)
[2023-12-09 18:33] VITALS: BP 147/80; TEMP 96.8; O2SAT 96
[2023-12-09] MEDS: hydrOXYzine 50 MG TAB PO STA (20:34)
== END 2023-12-09 21:24 | disposition home or self-care (01) ==
LOC: M ED 15:27
DX: R10.9 Unspecified abdominal pain (principal); Z53.9 Procedure and treatment not carried out, unspecified reason; Z79.890 Hormone replacement therapy; Z79.899 Other long term (current) drug therapy; Z91.041 Radiographic dye allergy status; Z88.2 Allergy status to sulfonamides; Z91.89 Other specified personal risk factors, not elsewhere classified; Z88.3 Allergy status to other anti-infective agents; Z88.8 Allergy status to other drugs, medicaments and biological substances; Z88.5 Allergy status to narcotic agent
CPT/HCPCS: 74176; 80047; 80076; 81001; 83690; 85025; 96374; 99284; J2405

== ENCOUNTER → 2024-02-13 | Outpatient (CLI) | payer MEDICARE, MEDICAID ==
[~2024-02-13] MED LIST changes: +SPIR50TA4 PO
[2024-02-13 13:35] LABS: BASO % 0.7 % (0.0-1.0); EOS # 0.2 10^3/uL (0.0-0.5); EOS % 2.5 % (0.0-3.0); HEMATOCRIT 49.3 % (36.0-47.0); HEMOGLOBIN 15.6 g/dl (12.0-15.5); LYMPH % 32.8 % (24.0-44.0); MEAN CORPUSCULAR HEMOGLOBIN 29.7 pg (27.0-33.0); MEAN CORPUSCULAR HGB CONC 31.6 g/dl (32.0-36.5); MEAN CORPUSCULAR VOLUME 93.7 fl (80.0-96.0); MONO # 0.4 10^3/uL (0.0-0.8); MONO % 7.1 % (2.0-8.0); NEUTROPHILS # 3.3 10^3/uL (1.5-8.5); NEUTROPHILS % 56.2 % (36.0-66.0); PLATELET COUNT, AUTOMATED 218 10^3/uL (150-450); RED BLOOD COUNT 5.26 10^6/uL (4.00-5.40); WHITE BLOOD COUNT 5.9 10^3/uL (4.0-10.0)
[2024-02-13 14:03] LABS: ALBUMIN 3.6 G/DL (3.2-5.2); ALKALINE PHOSPHATASE 72 U/L (46-116); ALT/SGPT 10 U/L (7.0-40); AST/SGOT 12 U/L (<34); BILIRUBIN,TOTAL 0.5 MG/DL (0.3-1.2); BLOOD UREA NITROGEN 10 MG/DL (9-23); CARBON DIOXIDE LEVEL 29 MMOL/L (20-31); CHLORIDE LEVEL 110 MMOL/L (98-107); CREATININE FOR GFR 0.96 MG/DL (0.55-1.30); GLOMERULAR FILTRATION RATE > 60.0 (>45); GLUCOSE, FASTING 112 MG/DL (74-106); POTASSIUM SERUM 3.8 MMOL/L (3.5-5.1); SODIUM LEVEL 143 MMOL/L (136-145); TOTAL PROTEIN 6.9 G/DL (5.7-8.2)
[2024-02-13 14:04] LABS: IMMUNOGLOBULIN A 331.9 MG/DL (40-350)
[2024-02-13 14:06] LABS: FREE T4 1.12 NG/DL (0.89-1.76); THYROID STIMULATING HORMONE 5.809 uIU/ML (0.55-4.78)
== END ==
LOC: M PLALAB 10:10
PROVIDERS: ATTEND Internal Medicine Gastroenterology
DX: K90.0 Celiac disease (principal); K59.00 Constipation, unspecified

== ENCOUNTER 2024-03-21 09:04 | Day surgery (SDC) | payer MEDICARE, MEDICAID ==
[~2024-03-21] VITALS: Ht 172.7 cm; Wt 54.3 kg
[~2024-03-21 09:04] MED LIST changes: -DOXY-323 PO; +DOXY-441 PO; -SIME180C25 PO; +SIME1CAP4 PO
[2024-03-21] MEDS: NS 1,000 ML IV ONE (10:53)
[2024-03-21] MEDS ORDERED: LIDOCAINE 2% 100MG/5ML SDV (FOR ANES.) As Ordered ONE (12:14)
[2024-03-21] MEDS ORDERED: propofoL 200 MG/20 ML VIAL As Ordered ONE (12:14)
[2024-03-21] MEDS ORDERED: GLYCOPYRROLATE INJ 0.2 MG/ML 2 ML VIAL As Ordered ONE (12:39)
[2024-03-21 12:44] VITALS: TEMP 98
[2024-03-21 13:03] VITALS: BP 162/88; O2SAT 93
== END 2024-03-21 13:10 | disposition home or self-care (01) ==
LOC: M OPP 09:04
PROVIDERS: ATTEND Internal Medicine Gastroenterology
DX: K58.2 Mixed irritable bowel syndrome (principal); D12.3 Benign neoplasm of transverse colon; D12.4 Benign neoplasm of descending colon; K62.82 Dysplasia of anus; Q43.8 Other specified congenital malformations of intestine; K64.8 Other hemorrhoids; R10.84 Generalized abdominal pain; Z90.49 Acquired absence of other specified parts of digestive tract; Z80.0 Family history of malignant neoplasm of digestive organs; I12.9 Hypertensive chronic kidney disease with stage 1 through stage 4 chronic kidney disease, or unspecified chronic kidney disease; N18.30 Chronic kidney disease, stage 3 unspecified; E78.00 Pure hypercholesterolemia, unspecified; J44.9 Chronic obstructive pulmonary disease, unspecified; Z86.718 Personal history of other venous thrombosis and embolism; Z88.8 Allergy status to other drugs, medicaments and biological substances; Z88.1 Allergy status to other antibiotic agents; Z88.2 Allergy status to sulfonamides; Z91.041 Radiographic dye allergy status; Z90.710 Acquired absence of both cervix and uterus; Z79.899 Other long term (current) drug therapy
CPT/HCPCS: 45385; 88305; J1596

== ENCOUNTER → 2024-05-07 | Outpatient (CLI) | payer MEDICARE, MEDICAID ==
[~2024-05-07] MED LIST changes: -CYCL5TAB PO; +CYCL5TAB4 PO
== END ==
LOC: M WHC 13:24
PROVIDERS: ATTEND Obstetrics & Gynecology
DX: Z13.820 Encounter for screening for osteoporosis (principal); M81.0 Age-related osteoporosis without current pathological fracture; M85.89 Other specified disorders of bone density and structure, multiple sites

== ENCOUNTER → 2024-08-13 | Outpatient (CLI) | payer MEDICARE ==
[~2024-08-13] MED LIST changes: -LEVA1.2519 INH; +LEVA1.2526 INH
[2024-08-13 17:51] LABS: BASO % 0.5 % (0.0-1.0); EOS # 0.1 10^3/uL (0.0-0.5); EOS % 1.1 % (0.0-3.0); HEMATOCRIT 46.8 % (36.0-47.0); HEMOGLOBIN 15.4 g/dl (12.0-15.5); LYMPH # 3.1 10^3/uL (1.5-5.0); LYMPH % 35.6 % (24.0-44.0); MEAN CORPUSCULAR HEMOGLOBIN 30.4 pg (27.0-33.0); MEAN CORPUSCULAR HGB CONC 32.9 g/dl (32.0-36.5); MEAN CORPUSCULAR VOLUME 92.3 fl (80.0-96.0); MONO # 0.5 10^3/uL (0.0-0.8); NEUTROPHILS # 4.9 10^3/uL (1.5-8.5); NEUTROPHILS % 56.1 % (36.0-66.0); PLATELET COUNT, AUTOMATED 226 10^3/uL (150-450); RED BLOOD COUNT 5.07 10^6/uL (4.00-5.40); WHITE BLOOD COUNT 8.8 10^3/uL (4.0-10.0)
[2024-08-13 18:20] LABS: LIPASE 48 U/L (12-53)
[2024-08-13 18:22] LABS: AMYLASE 62 U/L (30-118)
[2024-08-13 18:23] LABS: ALBUMIN 3.8 G/DL (3.2-5.2); ALKALINE PHOSPHATASE 63 U/L (35-104); ALT/SGPT 20 U/L (7.0-40); AST/SGOT 18 U/L (<34); BILIRUBIN,TOTAL 0.5 MG/DL (0.3-1.2); BLOOD UREA NITROGEN 25 MG/DL (9-23); CALCIUM LEVEL 9.2 MG/DL (8.3-10.6); CARBON DIOXIDE LEVEL 25 MMOL/L (20-31); CHLORIDE LEVEL 105 MMOL/L (98-107); CHOLESTEROL LEVEL 273 MG/DL (<200); CHOLESTEROL RISK RATIO 5.97 (<5); CREATININE FOR GFR 0.97 MG/DL (0.55-1.30); GLOMERULAR FILTRATION RATE > 60.0 (>45); GLUCOSE, FASTING 137 MG/DL (74-106); HDL CHOLESTEROL 45.7 MG/DL (>40); LDL CHOLESTEROL 192.3 MG/DL (<100); NON-HDL-C 227.3 MG/DL; POTASSIUM SERUM 4.4 MMOL/L (3.5-5.1); SODIUM LEVEL 138 MMOL/L (136-145); TOTAL PROTEIN 7.3 G/DL (5.7-8.2); TRIGLYCERIDES LEVEL 175 MG/DL (<150)
[2024-08-13 18:25] LABS: TOTAL 25(OH) VITAMIN D 27.6 NG/ML (20.0-100.0)
== END ==
LOC: M LAB 17:09
PROVIDERS: ATTEND Student in an Organized Health Care Education/Training Program
DX: R10.9 Unspecified abdominal pain (principal); J98.8 Other specified respiratory disorders; E55.9 Vitamin D deficiency, unspecified; K90.0 Celiac disease; E78.2 Mixed hyperlipidemia

== ENCOUNTER → 2024-08-13 | Outpatient (CLI) | payer MEDICARE | LOC: M PLAIMG 16:54 | PROVIDERS: ATTEND Student in an Organized Health Care Education/Training Program | DX: K59.00 Constipation, unspecified (principal) ==

== ENCOUNTER → 2024-08-13 | Outpatient (REF) | payer MEDICARE | LOC: M SFHCPLAZ 16:02 | PROVIDERS: ATTEND Student in an Organized Health Care Education/Training Program | DX: J98.8 Other specified respiratory disorders (principal) ==

== ENCOUNTER → 2024-10-01 | Outpatient (CLI) | payer MEDICARE ==
[~2024-10-01] MED LIST changes: +AMLO-751 PO; -AMLO10TA PO
== END ==
LOC: M RAD 16:19
PROVIDERS: ATTEND Internal Medicine Pulmonary Disease
DX: J06.9 Acute upper respiratory infection, unspecified (principal)

== ENCOUNTER → 2024-10-03 | Outpatient (REF) | payer MEDICARE ==
[~2024-10-03] MED LIST changes: -AMLO-751 PO; +AMLO10TA PO
== END ==
LOC: M LAB REF 15:18
PROVIDERS: ATTEND Internal Medicine Pulmonary Disease
DX: J06.9 Acute upper respiratory infection, unspecified (principal)

== ENCOUNTER → 2024-10-10 | Outpatient (CLI) | payer MEDICARE ==
[~2024-10-10] MED LIST changes: +AMLO-751 PO; -AMLO10TA PO
[2024-10-10 17:13] LABS: BASO % 0.4 % (0.0-1.0); EOS # 0.1 10^3/uL (0.0-0.5); EOS % 1.5 % (0.0-3.0); HEMATOCRIT 44.4 % (36.0-47.0); HEMOGLOBIN 14.6 g/dl (12.0-15.5); LYMPH # 2.7 10^3/uL (1.5-5.0); MEAN CORPUSCULAR HEMOGLOBIN 30.4 pg (27.0-33.0); MEAN CORPUSCULAR HGB CONC 32.9 g/dl (32.0-36.5); MEAN CORPUSCULAR VOLUME 92.3 fl (80.0-96.0); MONO # 0.7 10^3/uL (0.0-0.8); MONO % 8.7 % (2.0-8.0); NEUTROPHILS # 4.9 10^3/uL (1.5-8.5); NEUTROPHILS % 56.7 % (36.0-66.0); PLATELET COUNT, AUTOMATED 216 10^3/uL (150-450); RED BLOOD COUNT 4.81 10^6/uL (4.00-5.40); WHITE BLOOD COUNT 8.5 10^3/uL (4.0-10.0)
[2024-10-10 17:18] LABS: IMMUNOGLOBULIN A 324.8 MG/DL (40-350)
[2024-10-10 17:19] LABS: ALBUMIN 3.5 G/DL (3.2-5.2); BILIRUBIN,TOTAL 0.2 MG/DL (0.3-1.2); CALCIUM LEVEL 9.2 MG/DL (8.3-10.6); CHOLESTEROL RISK RATIO 4.84 (<5); CREATININE FOR GFR 0.93 MG/DL (0.55-1.30); GLOMERULAR FILTRATION RATE 69.9 (>45); HDL CHOLESTEROL 41.7 MG/DL (>40); LDL CHOLESTEROL 131.5 MG/DL (<100); NON-HDL-C 160.3 MG/DL; POTASSIUM SERUM 4.1 MMOL/L (3.5-5.1); TOTAL PROTEIN 6.9 G/DL (5.7-8.2)
[2024-10-10 17:29] LABS: IMMUNOGLOBULIN M 300.1 MG/DL (50-300)
[2024-10-10 18:33] LABS: APPEARANCE, URINE CLOUDY (CLEAR); BACTERIA, URINE AUTO NEGATIVE (NEGATIVE); BILIRUBIN, URINE AUTO NEGATIVE (NEGATIVE); BLOOD, URINE BLOOD NEGATIVE (NEGATIVE); COLOR, URINE AMBER (YELLOW); GLUCOSE, URINE (UA) AUTO NEGATIVE (NEGATIVE); KETONE, URINE AUTO NEGATIVE (NEGATIVE); LEUKOCYTE ESTERASE, URINE AUTO NEGATIVE (NEGATIVE); MUCUS, URINE SMALL (NEGATIVE); NITRITE, URINE AUTO NEGATIVE (NEGATIVE); PROTEIN, URINE AUTO 1+ mg/dL (NEGATIVE); RBC, URINE AUTO 1 /HPF (0-3); SPECIFIC GRAVITY URINE AUTO 1.026 (1.002-1.035); SQUAMOUS EPITHELIAL CELL UR AU 3 /HPF (0-6); URIC ACID CRYSTALS SMALL; WBC, URINE AUTO 1 /HPF (0-3)
== END ==
LOC: M PLALAB 15:06
PROVIDERS: ATTEND Student in an Organized Health Care Education/Training Program
DX: R76.8 Other specified abnormal immunological findings in serum (principal); I10 Essential (primary) hypertension; R30.0 Dysuria; E55.9 Vitamin D deficiency, unspecified

== ENCOUNTER → 2025-01-17 | Outpatient (REF) | payer MEDICARE ==
[~2025-01-17] MED LIST changes: +ACET-683 PO; +BISA10SU27 PR; +D 50CAP2 PO; +DULC10SU2 PR; +LACT10SO94 PO; +LINZ290C; +POLY510P14 PO; -TRET0.02 TOP; +TRET0.046 TOP
[2025-01-17 18:59] LABS: APPEARANCE, URINE HAZY (CLEAR); BACTERIA, URINE AUTO NEGATIVE (NEGATIVE); BILIRUBIN, URINE AUTO NEGATIVE (NEGATIVE); BLOOD, URINE BLOOD 1+ (NEGATIVE); GLUCOSE, URINE (UA) AUTO NEGATIVE (NEGATIVE); KETONE, URINE AUTO NEGATIVE (NEGATIVE); LEUKOCYTE ESTERASE, URINE AUTO NEGATIVE (NEGATIVE); MUCUS, URINE SMALL (NEGATIVE); NITRITE, URINE AUTO NEGATIVE (NEGATIVE); PROTEIN, URINE AUTO 1+ mg/dL (NEGATIVE); RBC, URINE AUTO 2 /HPF (0-3); SPECIFIC GRAVITY URINE AUTO 1.020 (1.002-1.035); SQUAMOUS EPITHELIAL CELL UR AU 8 /HPF (0-6); UROBILINOGEN, URINE AUTO 0.2 mg/dL (0.0-2.0); WBC, URINE AUTO 3 /HPF (0-3)
== END ==
LOC: M LAB REF 18:20
DX: R39.9 Unspecified symptoms and signs involving the genitourinary system (principal)

== ENCOUNTER → 2025-02-03 | Outpatient (CLI) | payer MEDICARE ==
[2025-02-03 16:01] LABS: APPEARANCE, URINE HAZY (CLEAR); BACTERIA, URINE AUTO NEGATIVE (NEGATIVE); BILIRUBIN, URINE AUTO NEGATIVE (NEGATIVE); BLOOD, URINE BLOOD NEGATIVE (NEGATIVE); GLUCOSE, URINE (UA) AUTO NEGATIVE (NEGATIVE); KETONE, URINE AUTO NEGATIVE (NEGATIVE); LEUKOCYTE ESTERASE, URINE AUTO NEGATIVE (NEGATIVE); MUCUS, URINE MODERATE (NEGATIVE); NITRITE, URINE AUTO NEGATIVE (NEGATIVE); PROTEIN, URINE AUTO 1+ mg/dL (NEGATIVE); RBC, URINE AUTO 6 /HPF (0-3); SPECIFIC GRAVITY URINE AUTO 1.023 (1.002-1.035); SQUAMOUS EPITHELIAL CELL UR AU 4 /HPF (0-6); UROBILINOGEN, URINE AUTO 0.2 mg/dL (0.0-2.0); WBC, URINE AUTO 3 /HPF (0-3)
[2025-02-03 17:41] LABS: BASO # 0.0 10^3/uL (0.0-0.2); BASO % 0.3 % (0.0-1.0); EOS # 0.1 10^3/uL (0.0-0.5); EOS % 1.1 % (0.0-3.0); LYMPH # 3.7 10^3/uL (1.5-5.0); LYMPH % 38.9 % (24.0-44.0); MONO # 0.6 10^3/uL (0.0-0.8); MONO % 6.0 % (2.0-8.0); NEUTROPHILS # 5.0 10^3/uL (1.5-8.5); NEUTROPHILS % 53.3 % (36.0-66.0); PLATELET COUNT, AUTOMATED 273 10^3/uL (150-450)
[2025-02-03 17:48] LABS: ERYTHROCYTE SEDIMENTATION RATE 86 mm/hr (0-30)
[2025-02-03 18:00] LABS: C REACTIVE PROTEIN QUANTITATIV 0.68 MG/DL (<1.0)
[2025-02-03 18:08] LABS: HEPATITIS B SURFACE ANTIBODY POSITIVE (POSITIVE)
[2025-02-03 18:33] LABS: HIV 1&2 SCREEN NEGATIVE (NEGATIVE)
[2025-02-03 18:41] LABS: ALT/SGPT 14 U/L (7.0-40); AST/SGOT 21 U/L (<34); CALCIUM LEVEL 9.2 MG/DL (8.3-10.6); CARBON DIOXIDE LEVEL 30 MMOL/L (20-31); CHLORIDE LEVEL 102 MMOL/L (98-107); CREATININE FOR GFR 1.19 MG/DL (0.55-1.30); GLOMERULAR FILTRATION RATE 52.0 (>45); HEPATITIS C VIRUS ABY INDEX < 0.02 INDEX (<0.8); POTASSIUM SERUM 3.9 MMOL/L (3.5-5.1); SODIUM LEVEL 142 MMOL/L (136-145)
== END ==
LOC: M PLAIMG 14:50
PROVIDERS: ATTEND Physician Assistant Medical
DX: J06.9 Acute upper respiratory infection, unspecified (principal); R30.0 Dysuria; J98.01 Acute bronchospasm; Z77.21 Contact with and (suspected) exposure to potentially hazardous body fluids; Z12.39 Encounter for other screening for malignant neoplasm of breast

== ENCOUNTER 2025-02-26 01:02 | Observation (INO) | payer MEDICARE ==
[~2025-02-26] VITALS: Ht 152.4 cm; Wt 55.2 kg
[2025-02-26] VITALS (8 sets, daily range): BP systolic 116–149; BP diastolic 70–81; TEMP 97–98; O2SAT 85–97
[2025-02-26] MEDS: ONDANSETRON 4MG 2ML VIAL IV ONE ×2 (01:57→15:50)
[2025-02-26] MEDS: MORPHINE 4 MG/ML 1 ML VIAL IV ONE (01:57)
[2025-02-26 02:08] LABS: BASO # 0.0 10^3/uL (0.0-0.2); BASO % 0.4 % (0.0-1.0); EOS # 0.2 10^3/uL (0.0-0.5); EOS % 2.5 % (0.0-3.0); LYMPH # 3.2 10^3/uL (1.5-5.0); LYMPH % 44.3 % (24.0-44.0); MONO # 0.5 10^3/uL (0.0-0.8); MONO % 6.7 % (2.0-8.0); NEUTROPHILS # 3.3 10^3/uL (1.5-8.5); NEUTROPHILS % 45.7 % (36.0-66.0); PLATELET COUNT, AUTOMATED 180 10^3/uL (150-450)
[2025-02-26 02:28] LABS: ALT/SGPT 12 U/L (7.0-40); ALT/SGPT 13.0 U/L (7.0-40); AST/SGOT 14 U/L (<34); AST/SGOT 15.0 U/L (<34); CALCIUM LEVEL 9.3 MG/DL (8.3-10.6); CARBON DIOXIDE LEVEL 28.0 MMOL/L (20-31); CHLORIDE LEVEL 106.0 MMOL/L (98-107); CREATININE FOR GFR 1.03 MG/DL (0.55-1.30); GLOMERULAR FILTRATION RATE 61.9 (>45); POTASSIUM SERUM 4.0 MMOL/L (3.5-5.1); SODIUM LEVEL 140.0 MMOL/L (136-145)
[2025-02-26] MEDS ORDERED: MORPHINE 2 MG/ML 1 ML VIAL IV PRN ×2 (03:25→13:10)
[2025-02-26] MEDS: MORPHINE 4 MG/ML 1 ML VIAL IV PRN ×2 (03:40→15:14)
[2025-02-26] MEDS: BISACODYL 10 MG SUPP PR ONE (06:40)
[2025-02-26] MEDS ORDERED: BENZ-18 PO (07:46)
[2025-02-26] MEDS ORDERED: DOCU100C17 PO (07:46)
[2025-02-26] MEDS ORDERED: IPRA0.00 NEB (07:46)
[2025-02-26] MEDS ORDERED: ALBU2.5V10 NEB (07:46)
[2025-02-26] MEDS ORDERED: HOME MED LIST COMPLETE! XX SCH (07:50)
[2025-02-26] MEDS ORDERED: ALBUTEROL SULFATE 2.5 MG/0.5 ML INH CONCENTRATE NEB SOLN NEB PRN (09:00)
[2025-02-26] MEDS: MIRALAX *UNIT DOSE* 17 GM PACKET PO SCH (09:00)
[2025-02-26] MEDS: FLUTICASONE PROPIONATE 0.05% NASAL SPRAY 16 GM NARES SCH (09:00)
[2025-02-26] MEDS ORDERED: BENZONATATE 100 MG CAPSULE PO PRN (09:00)
[2025-02-26] MEDS ORDERED: BISACODYL 10 MG SUPP PR PRN (09:15)
[2025-02-26 10:05] LABS: BASO # 0.0 10^3/uL (0.0-0.2); BASO % 0.4 % (0.0-1.0); EOS # 0.1 10^3/uL (0.0-0.5); EOS % 2.5 % (0.0-3.0); LYMPH # 2.5 10^3/uL (1.5-5.0); LYMPH % 44.8 % (24.0-44.0); MONO # 0.4 10^3/uL (0.0-0.8); MONO % 6.9 % (2.0-8.0); NEUTROPHILS # 2.5 10^3/uL (1.5-8.5); NEUTROPHILS % 45.0 % (36.0-66.0); PLATELET COUNT, AUTOMATED 193 10^3/uL (150-450)
[2025-02-26] MEDS: ENOXAPARIN 40 MG/0.4 ML SYRINGE (J1650 PER 10MG) SC SCH (10:15)
[2025-02-26] MEDS: FLUoxetine 20 MG CAP PO SCH (10:15)
[2025-02-26] MEDS: SENNOSIDES/DOCUSATE SODIUM 8.6 MG/50MG TAB PO SCH ×2 (10:15→20:14)
[2025-02-26] MEDS: DOCUSATE SODIUM 100 MG CAPSULE PO SCH (10:15)
[2025-02-26] MEDS: ALPRAZolam 0.5 MG TAB PO PRN (10:15)
[2025-02-26 10:42] LABS: ALT/SGPT 29.0 U/L (7.0-40); AST/SGOT 54.0 U/L (<34); CALCIUM LEVEL 8.8 MG/DL (8.3-10.6); CARBON DIOXIDE LEVEL 31.0 MMOL/L (20-31); CHLORIDE LEVEL 110.0 MMOL/L (98-107); CREATININE FOR GFR 1.04 MG/DL (0.55-1.30); GLOMERULAR FILTRATION RATE 61.2 (>45); POTASSIUM SERUM 3.9 MMOL/L (3.5-5.1); SODIUM LEVEL 145.0 MMOL/L (136-145)
[2025-02-26] MEDS: BISACODYL 10 MG SUPP PR SCH (11:20)
[2025-02-26] MEDS: LACTULOSE 20 GM/30 ML SYRUP UDC PO SCH (12:29)
[2025-02-26] MEDS: D5W/0.45% SODIUM CHLORIDE 1,000 ML IV SCH (15:13)
[2025-02-26] MEDS: FLUCONAZOLE 50 MG TABLET PO ONE (17:40)
[2025-02-26] MEDS: TIOTROPIUM BROM 2.5MCG/ACTUATION 4GM INH INH SCH (17:58)
[2025-02-26] MEDS: FAMOTIDINE 20 MG TAB PO ONE (18:47)
[2025-02-26] MEDS: PANTOPRAZOLE 40MG VIAL IV SCH (18:47)
[2025-02-26] MEDS: ACETAMINOPHEN 325 MG TAB PO PRN (20:35)
[2025-02-27] VITALS (12 sets, daily range): BP systolic 114–143; BP diastolic 70–84; TEMP 97.2–98.3; O2SAT 88–98
[2025-02-27 07:52] LABS: PLATELET COUNT, AUTOMATED 237 10^3/uL (150-450)
[2025-02-27 08:15] LABS: ALT/SGPT 156 U/L (7.0-40); AST/SGOT 157 U/L (<34); CALCIUM LEVEL 8.4 MG/DL (8.3-10.6); CARBON DIOXIDE LEVEL 28 MMOL/L (20-31); CHLORIDE LEVEL 110 MMOL/L (98-107); CREATININE FOR GFR 0.89 MG/DL (0.55-1.30); GLOMERULAR FILTRATION RATE 73.7 (>45); POTASSIUM SERUM 3.8 MMOL/L (3.5-5.1); SODIUM LEVEL 145 MMOL/L (136-145)
[2025-02-27 09:31] LABS: HEPATITIS C VIRUS ABY INDEX < 0.02 INDEX (<0.8)
[2025-02-27] MEDS: FLEET ENEMA PR SCH (10:24)
[2025-02-27] MEDS: ONDANSETRON 4MG 2ML VIAL IV PRN (11:29)
[2025-02-27] MEDS: KETOROLAC 30 MG/ML 1 ML VIAL IV PRN (11:30)
[2025-02-27] MEDS: IPRATROPIUM 0.5 MG/ALBUTEROL 2.5 MG INH SOL UD 3 ML NEB PRN (22:05)
[2025-02-28 04:00] VITALS: BP 122/83; TEMP 98.2; O2SAT 97
[2025-02-28] MEDS: SIMETHICONE 80MG CHEW TAB PO PRN (07:11)
[2025-02-28 07:13] LABS: ALT/SGPT 79.0 U/L (7.0-40); AST/SGOT 52.0 U/L (<34); CALCIUM LEVEL 7.8 MG/DL (8.3-10.6); CARBON DIOXIDE LEVEL 26.0 MMOL/L (20-31); CHLORIDE LEVEL 112.0 MMOL/L (98-107); CREATININE FOR GFR 0.81 MG/DL (0.55-1.30); GLOMERULAR FILTRATION RATE 82.5 (>45); POTASSIUM SERUM 3.8 MMOL/L (3.5-5.1); SODIUM LEVEL 143.0 MMOL/L (136-145)
[2025-02-28] MEDS: BISACODYL 10 MG SUPP PR ONE (09:43)
[2025-02-28] MEDS ORDERED: SENN-122 PO (11:57)
[2025-02-28] MEDS ORDERED: BISA10SU27 PR (11:57)
[2025-02-28 12:00] VITALS: BP 158/89; TEMP 98.3; O2SAT 99
== END 2025-02-28 12:40 | disposition home or self-care (01) ==
LOC: M ED 01:02 → M ED INP 08:59 → M MS4PR 14:25
PROVIDERS: ADMIT Internal Medicine; ATTEND Internal Medicine
DX: K59.00 Constipation, unspecified (principal); Z79.899 Other long term (current) drug therapy; K58.1 Irritable bowel syndrome with constipation; M51.360 Other intervertebral disc degeneration, lumbar region with discogenic back pain only; M85.80 Other specified disorders of bone density and structure, unspecified site; Z87.891 Personal history of nicotine dependence; J44.9 Chronic obstructive pulmonary disease, unspecified; N18.30 Chronic kidney disease, stage 3 unspecified; K90.0 Celiac disease; F41.9 Anxiety disorder, unspecified; F32.A Depression, unspecified; M79.7 Fibromyalgia; Z91.041 Radiographic dye allergy status; Z88.2 Allergy status to sulfonamides; Z88.8 Allergy status to other drugs, medicaments and biological substances; Z88.1 Allergy status to other antibiotic agents
CPT/HCPCS: 36415; 74176; 80047; 80053; 80074; 80076; 82150; 83605; 83690; 85025; 85027; 87486; 87581; 87633; 87798; 93005; 93041; 94640; 96361; 96372; 96374; 96375; 96376; 99285; G0378; J1650; J1885; J2405; J2470

== ENCOUNTER → 2025-03-18 | Outpatient (REF) | payer MEDICARE ==
[~2025-03-18] MED LIST changes: +ALBU2.5V10 NEB; +DOCU100C17 PO; +IPRA0.00 NEB; +SENN-122 PO
[2025-03-21 05:08] LABS: BVAB 2 POSITIVE (NEGATIVE); CANDIDA GLABRATA NAA NOT DETECTED (NOT DETECTED); TRICH VAG BY NAA NOT DETECTED (NOT DETECTED)
[2025-03-21 16:08] LABS: CHLAMYDIA TRACHOMATIS NAA NOT DETECTED (NOT DETECTED)
== END ==
LOC: M SFHCPLAZ 09:54
PROVIDERS: ATTEND Family Medicine
DX: N89.8 Other specified noninflammatory disorders of vagina (principal); Z11.3 Encounter for screening for infections with a predominantly sexual mode of transmission; Z72.89 Other problems related to lifestyle

== ENCOUNTER → 2025-04-07 | Outpatient (CLI) | payer MEDICARE ==
[2025-04-07 15:00] LABS: CREATININE FOR GFR 0.98 MG/DL (0.55-1.30); GLOMERULAR FILTRATION RATE 65.7 (>45)
== END ==
LOC: M LAB 13:42
PROVIDERS: ATTEND Otolaryngology
DX: R22.1 Localized swelling, mass and lump, neck (principal); H69.91 Unspecified Eustachian tube disorder, right ear; J31.0 Chronic rhinitis

== ENCOUNTER → 2025-04-08 | Outpatient (CLI) | payer MEDICARE ==
[~2025-04-08] MED LIST changes: +ISOVUE-370 76% 100 ML VIAL As Ordered ONE
== END ==
LOC: M RAD 10:21
PROVIDERS: ATTEND Otolaryngology
DX: R22.1 Localized swelling, mass and lump, neck (principal); J32.0 Chronic maxillary sinusitis; J43.9 Emphysema, unspecified

== ENCOUNTER 2025-05-28 23:14 | Emergency (ER) | payer MEDICARE ==
[~2025-05-28] VITALS: Ht 172.7 cm; Wt 54.5 kg
[~2025-05-28 23:14] MED LIST changes: -ISOVUE-370 76% 100 ML VIAL As Ordered ONE
[2025-05-29] MEDS: ONDANSETRON 4MG/2ML VIAL IV ONE (00:34)
[2025-05-29] MEDS: HYDROMORPHONE HCL 0.5 MG/0.5 ML SYRINGE IV PRN (00:35)
[2025-05-29 01:24] LABS: BASO # 0.0 10^3/uL (0.0-0.2); BASO % 0.5 % (0.0-1.0); EOS # 0.2 10^3/uL (0.0-0.5); EOS % 2.3 % (0.0-3.0); LYMPH # 4.3 10^3/uL (1.5-5.0); LYMPH % 52.5 % (24.0-44.0); MONO # 0.6 10^3/uL (0.0-0.8); MONO % 6.7 % (2.0-8.0); NEUTROPHILS # 3.1 10^3/uL (1.5-8.5); NEUTROPHILS % 37.5 % (36.0-66.0); PLATELET COUNT, AUTOMATED 223 10^3/uL (150-450)
[2025-05-29 01:26] LABS: ALT/SGPT 14.0 U/L (7.0-40); AST/SGOT 19.0 U/L (<34); CALCIUM LEVEL 9.2 MG/DL (8.3-10.6); CARBON DIOXIDE LEVEL 25.0 MMOL/L (20-31); CHLORIDE LEVEL 107.0 MMOL/L (98-107); CREATININE FOR GFR 0.88 MG/DL (0.55-1.30); GLOMERULAR FILTRATION RATE 74.3 (>45); POTASSIUM SERUM 4.0 MMOL/L (3.5-5.1); SODIUM LEVEL 138.0 MMOL/L (136-145)
[2025-05-29] MEDS ORDERED: MIDAZOLAM INJ 2 MG/2 ML VIAL IV STA (01:53)
[2025-05-29] MEDS: READI-CAT 2 PO SCH (02:20)
[2025-05-29] MEDS: ALPRAZolam 0.5 MG TAB PO ONE (02:34)
[2025-05-29 07:45] VITALS: BP 101/65; TEMP 96.7; O2SAT 94
== END 2025-05-29 07:54 | disposition home or self-care (01) ==
LOC: M ED 23:14
DX: R10.9 Unspecified abdominal pain (principal); R19.7 Diarrhea, unspecified; J44.9 Chronic obstructive pulmonary disease, unspecified; Z87.891 Personal history of nicotine dependence; J43.9 Emphysema, unspecified; Z79.899 Other long term (current) drug therapy; Z91.041 Radiographic dye allergy status; Z88.2 Allergy status to sulfonamides; Z91.89 Other specified personal risk factors, not elsewhere classified; Z88.3 Allergy status to other anti-infective agents; Z88.8 Allergy status to other drugs, medicaments and biological substances; Z88.5 Allergy status to narcotic agent
CPT/HCPCS: 74176; 80053; 83605; 83690; 85025; 87507; 96374; 96375; 96376; 99284; J1171; J2405; J2765